=== PATIENT | female | born 1990 | race Caucasian/White ===

== ENCOUNTER 2017-01-28 18:40 | Emergency (ER) | payer OTHER ==
[~2017-01-28] VITALS: Ht 160 cm; Wt 54.6 kg
[2017-01-28 18:41] VITALS: BP 149/84
== END 2017-01-28 20:10 | disposition left against medical advice (07) ==
LOC: M ED 20:03
DX: R21 Rash and other nonspecific skin eruption (principal); Z53.21 Procedure and treatment not carried out due to patient leaving prior to being seen by health care provider

== ENCOUNTER 2017-02-22 14:20 | Emergency (ER) | payer OTHER ==
[~2017-02-22] VITALS: Ht 160 cm; Wt 52.1 kg
[2017-02-22] MEDS ORDERED: NS 1,000 ML IV ONE (15:15)
[2017-02-22 16:18] LABS: CONTROL LINE HCG INT CTR LINE PRESENT
[2017-02-22 16:24] LABS: BASO % 1.4 % (0.0-1.0); EOS # 0.1 K/mm3 (0.0-0.50); EOS % 1.9 % (0.0-3.0); LARGE UNSTAINED CELL # 0.2 K/mm3 (0.0-0.4); LARGE UNSTAINED CELL % 6.2 % (0.0-4.0); LYMPH # 1.4 K/mm3 (1.5-6.5); LYMPH % 41.8 % (24.0-44.0); MEAN CORPUSCULAR HEMOGLOBIN 30.4 pg (27.0-33.0); MEAN CORPUSCULAR HGB CONC 35.1 g/dl (32.0-36.5); MEAN CORPUSCULAR VOLUME 86.7 fl (80.0-96.0); MONO # 0.3 K/mm3 (0.0-0.8); MONO % 9.2 % (0.0-5.0); NEUTROPHILS # 1.2 K/mm3 (1.8-7.7); NEUTROPHILS % 39.6 % (36.0-66.0); PLATELET COUNT, AUTOMATED 279 k/mm3 (150-450); RED CELL DISTRIBUTION WIDTH 13.5 % (11.5-14.5)
[2017-02-22 16:34] LABS: ALBUMIN/GLOBULIN RATIO 0.98 (1.00-1.93); ALKALINE PHOSPHATASE 85 U/L (45-117); ALT/SGPT 59 U/L (12-78); ANION GAP 8 MEQ/L (8-16); AST/SGOT 41 U/L (15-37); BILIRUBIN,DIRECT < 0.1 MG/DL (0.0-0.2); BILIRUBIN,TOTAL 0.4 MG/DL (0.2-1.0); BLOOD UREA NITROGEN 6 MG/DL (7-18); CALCIUM LEVEL 9.2 MG/DL (8.5-10.1); CARBON DIOXIDE LEVEL 27 MEQ/L (21-32); CHLORIDE LEVEL 104 MEQ/L (98-107); CREATININE FOR GFR 0.68 MG/DL (0.55-1.02); GLOMERULAR FILTRATION RATE > 60.0 (>60); GLUCOSE, FASTING 105 MG/DL (70-105); POTASSIUM SERUM 4.1 MEQ/L (3.5-5.1); SODIUM LEVEL 139 MEQ/L (136-145); TOTAL PROTEIN 8.1 GM/DL (6.4-8.2)
[2017-02-22 16:51] LABS: METHADONE URINE NEGATIVE (NEGATIVE)
--- NOTE | 2017-02-22 17:26 | REP ---
Clinical: Acute cough . Comparison: None . Technique: PA and lateral. Findings: The mediastinum and cardiac silhouette are normal. The lung sgeal are clear and without acute consolidation, effusion, or pneumothorax. The skeletal structures are intact and normal. Impression: 1. No acute cardiopulmonary process. Signed by William Harris MD 02/22/2017 05:17 P
[2017-02-22 18:15] VITALS: BP 127/59
== END 2017-02-22 18:17 | disposition home or self-care (01) ==
LOC: M ED 14:20
DX: F11.20 Opioid dependence, uncomplicated (principal); F17.210 Nicotine dependence, cigarettes, uncomplicated

== ENCOUNTER 2017-11-03 23:27 | Emergency (ER) | payer OTHER ==
[2017-11-04 00:35] LABS: AMPHETAMINES LEVEL URINE NEGATIVE (NEGATIVE); BARBITURATES URINE NEGATIVE (NEGATIVE); BENZODIAZEPINES URINE NEGATIVE (NEGATIVE); CANNABINOIDS URINE POSITIVE (NEGATIVE); COCAINE METABOLITE URINE NEGATIVE (NEGATIVE); METHADONE URINE NEGATIVE (NEGATIVE); OPIATES URINE NEGATIVE (NEGATIVE); PHENCYCLIDINE URINE NEGATIVE (NEGATIVE)
[2017-11-04 00:42] LABS: HEMATOCRIT 40.5 % (36.0-47.0); HEMOGLOBIN 13.7 g/dl (12.0-16.0); MEAN CORPUSCULAR HEMOGLOBIN 29.6 pg (27.0-33.0); MEAN CORPUSCULAR HGB CONC 33.8 g/dl (32.0-36.5); MEAN CORPUSCULAR VOLUME 87.5 fl (80.0-96.0); PLATELET COUNT, AUTOMATED 280 10^3/uL (150-450); RED BLOOD COUNT 4.63 10^6/uL (4.00-5.40); RED CELL DISTRIBUTION WIDTH 13.9 % (11.5-14.5)
[2017-11-04 00:54] LABS: CONTROL LINE HCG INT CTR LINE PRESENT; HCG, SERUM QUALITATIVE NEGATIVE (NEGATIVE)
[2017-11-04 01:09] LABS: ACETAMINOPHEN LEVEL < 2.0 UG/ML (10.0-30.0); ALBUMIN/GLOBULIN RATIO 0.91 (1.00-1.93); ALKALINE PHOSPHATASE 90 U/L (45-117); ALT/SGPT 319 U/L (12-78); ANION GAP 10 MEQ/L (8-16); AST/SGOT 99 U/L (7-37); BILIRUBIN,DIRECT 0.1 MG/DL (0.0-0.2); BILIRUBIN,TOTAL 0.3 MG/DL (0.2-1.0); BLOOD UREA NITROGEN 8 MG/DL (7-18); CALCIUM LEVEL 8.8 MG/DL (8.5-10.1); CARBON DIOXIDE LEVEL 26 MEQ/L (21-32); CHLORIDE LEVEL 107 MEQ/L (98-107); ETHYL ALCOHOL (ETHANOL) 0.172 % (0.000-0.010); GLOMERULAR FILTRATION RATE > 60.0 (>60); GLUCOSE, FASTING 82 MG/DL (70-100); POTASSIUM SERUM 3.4 MEQ/L (3.5-5.1); SALICYLATE LEVEL < 1.7 MG/DL (5.0-30.0); SODIUM LEVEL 143 MEQ/L (136-145); TOTAL PROTEIN 8.4 GM/DL (6.4-8.2)
== END 2017-11-04 05:20 | disposition home or self-care (01) ==
LOC: M ED 23:27
DX: F10.129 Alcohol abuse with intoxication, unspecified (principal); F32.9 Major depressive disorder, single episode, unspecified; F17.200 Nicotine dependence, unspecified, uncomplicated; Z88.0 Allergy status to penicillin; Z88.2 Allergy status to sulfonamides
CPT/HCPCS: 80320

== ENCOUNTER 2017-12-08 04:03 | Inpatient (IN) | payer MEDICAID, SELFPAY, OTHER ==
[2017-12-08 05:24] LABS: HEMATOCRIT 38.3 % (36.0-47.0); HEMOGLOBIN 12.8 g/dl (12.0-15.5); MEAN CORPUSCULAR HEMOGLOBIN 29.5 pg (27.0-33.0); MEAN CORPUSCULAR HGB CONC 33.4 g/dl (32.0-36.5); MEAN CORPUSCULAR VOLUME 88.2 fl (80.0-96.0); PLATELET COUNT, AUTOMATED 269 10^3/uL (150-450); RED BLOOD COUNT 4.34 10^6/uL (4.00-5.40); RED CELL DISTRIBUTION WIDTH 13.4 % (11.5-14.5); WHITE BLOOD COUNT 3.1 10^3/uL (4.0-10.0)
[2017-12-08 05:41] LABS: CONTROL LINE HCG INT CTR LINE PRESENT; HCG, SERUM QUALITATIVE NEGATIVE (NEGATIVE)
[2017-12-08 05:48] LABS: AMPHETAMINES LEVEL URINE NEGATIVE (NEGATIVE); BARBITURATES URINE NEGATIVE (NEGATIVE); BENZODIAZEPINES URINE POSITIVE (NEGATIVE); CANNABINOIDS URINE POSITIVE (NEGATIVE); COCAINE METABOLITE URINE NEGATIVE (NEGATIVE); METHADONE URINE NEGATIVE (NEGATIVE); OPIATES URINE NEGATIVE (NEGATIVE); PHENCYCLIDINE URINE NEGATIVE (NEGATIVE)
[2017-12-08 05:58] LABS: ACETAMINOPHEN LEVEL < 2.0 UG/ML (10.0-30.0); ALBUMIN 3.4 GM/DL (3.2-5.2); ALBUMIN/GLOBULIN RATIO 0.94 (1.00-1.93); ALKALINE PHOSPHATASE 61 U/L (45-117); ALT/SGPT 64 U/L (12-78); ANION GAP 6 MEQ/L (8-16); AST/SGOT 36 U/L (7-37); BILIRUBIN,DIRECT < 0.1 MG/DL (0.0-0.2); BILIRUBIN,TOTAL 0.2 MG/DL (0.2-1.0); BLOOD UREA NITROGEN 8 MG/DL (7-18); CALCIUM LEVEL 8.3 MG/DL (8.5-10.1); CARBON DIOXIDE LEVEL 26 MEQ/L (21-32); CHLORIDE LEVEL 111 MEQ/L (98-107); CREATININE FOR GFR 0.57 MG/DL (0.55-1.30); ETHYL ALCOHOL (ETHANOL) < 0.003 % (0.000-0.010); GLOMERULAR FILTRATION RATE > 60.0 (>60); GLUCOSE, FASTING 99 MG/DL (70-100); SALICYLATE LEVEL 1.7 MG/DL (5.0-30.0); SODIUM LEVEL 143 MEQ/L (136-145); THYROID STIMULATING HORMONE 0.226 uIU/ML (0.358-3.740)
[2017-12-08] MEDS ORDERED: MOM 30ML SUSPENSION UDC PO (09:45)
[2017-12-08] MEDS ORDERED: ACETAMINOPHEN TAB 650MG DOSE (2X325MG) PO (09:45)
[2017-12-08] MEDS ORDERED: MAALOX 30 ML SUSP *UDC PO (09:45)
[2017-12-08] MEDS: METHADONE 10 MG TAB (S0109) PO (15:17)
[2017-12-09 07:46] LABS: FREE THYROXINE INDEX 2.7 % (1.3-4.8); T UPTAKE 32 % (30-39); THYROID STIMULATING HORMONE 0.602 uIU/ML (0.358-3.740); THYROXINE (T4) 8.5 UG/DL (4.5-12.0)
[2017-12-09] MEDS: METHADONE 10 MG TAB (S0109) PO (16:50)
[2017-12-09] MEDS: EUCERIN 120GM CREAM EXT (18:53)
[2017-12-10] MEDS: METHADONE 10 MG TAB (S0109) PO (10:40)
[2017-12-10 11:23] LABS: TOTAL 25(OH) VITAMIN D 20.1 NG/ML (30.0-100.0)
[2017-12-10 11:51] LABS: HEPATITIS B SURFACE ANTIGEN NEGATIVE (NEGATIVE)
[2017-12-10 12:17] LABS: HEPATITIS B CORE ANTIBODY IGM NEGATIVE (NEGATIVE)
[2017-12-10 12:20] LABS: HEPATITIS A ANTIBODY IGM NEGATIVE (NEGATIVE)
[2017-12-10 12:44] LABS: HEPATITIS C VIRUS ABY INDEX > 11.0 INDEX (<0.8)
[2017-12-10] MEDS ORDERED: IBUPROFEN 600 MG TAB PO (14:15)
[2017-12-10] MEDS: MULTIVITAMINS/MINERALS THERAP 1 TAB PO (14:48)
[2017-12-10] MEDS: PILL CRUSHER/CUTTER 1 EACH XX (14:55)
[2017-12-10] MEDS: VITAMIN D 1,000 INTERNATIONAL UNITS TABLET PO (14:55)
[2017-12-10] MEDS: traZODone 50 MG TAB PO (20:57)
[2017-12-11] MEDS: MULTIVITAMINS/MINERALS THERAP 1 TAB PO (09:30)
[2017-12-11] MEDS: VITAMIN D 1,000 INTERNATIONAL UNITS TABLET PO (09:31)
[2017-12-13 14:19] LABS: HCV RNA NAA QUALITATIVE Positive (Negative)
[2017-12-14 00:06] LABS: ALPHA 2-MACROGLOBULIN 224 mg/dL (110-276); ALT 97 IU/L (0-40); APOLIPOPROTEIN A-1 156 mg/dL (116-209); FIBROSIS SCORE 0.05 (0.00-0.21); GGT 13 IU/L (0-60); HAPTOGLOBIN 103 mg/dL (34-200); HEPATITIS C QUANTITATION 177130 IU/mL (.); HEPATITIS C VIRUS GENOTYPE 1b (.); NECROINFLAM SCORE 0.46 (0.00-0.17); NECROINFLAMM GRADE A1-A2 (.); TOTAL BILIRUBIN 0.2 mg/dL (0.0-1.2)
== END 2017-12-11 12:45 | disposition home or self-care (01) | DRG 751 ==
LOC: M ED 04:03 → M ED INP 09:39 → M PSY 11:55
DX: F33.3 Major depressive disorder, recurrent, severe with psychotic symptoms (principal); F43.10 Post-traumatic stress disorder, unspecified; F17.210 Nicotine dependence, cigarettes, uncomplicated; F10.10 Alcohol abuse, uncomplicated; F11.14 Opioid abuse with opioid-induced mood disorder; Z88.0 Allergy status to penicillin; Z88.2 Allergy status to sulfonamides

== ENCOUNTER → 2018-10-03 | Outpatient (REF) | payer OTHER ==
[~2018-10-03] MED LIST: ARIP5TA PO
[2018-10-03 12:26] LABS: ALT/SGPT 24 U/L (12-78); BILIRUBIN,DIRECT 0.1 MG/DL (0.0-0.2); BILIRUBIN,TOTAL 0.4 MG/DL (0.2-1.0); TOTAL PROTEIN 7.3 GM/DL (6.4-8.2)
[2018-10-04 13:06] LABS: HEPATITIS B SURFACE ANTIBODY POSITIVE (POSITIVE)
[2018-10-04 13:17] LABS: HEPATITIS B SURFACE ANTIGEN NEGATIVE (NEGATIVE)
[2018-10-04 13:45] LABS: HIV 1&2 SCREEN CENTAUR NEGATIVE (NEGATIVE)
[2018-10-06 16:35] LABS: HEPATITIS A IgG TOTAL Negative (Negative); HEPATITIS B CORE ANTIBODY IGG Negative (Negative); HEPATITIS C VIRUS GENOTYPE 1b (.)
== END ==
LOC: M SFHCPLAZ 10:10
PROVIDERS: ATTEND Internal Medicine Infectious Disease
DX: B18.2 Chronic viral hepatitis C (principal)

== ENCOUNTER → 2018-11-21 | Outpatient (REF) | payer OTHER ==
[2018-11-21 17:01] LABS: ALT/SGPT 148 U/L (12-78); BILIRUBIN,DIRECT < 0.1 MG/DL (0.0-0.2); BILIRUBIN,TOTAL 0.3 MG/DL (0.2-1.0); TOTAL PROTEIN 8.6 GM/DL (6.4-8.2)
[2018-11-26 12:37] LABS: HEPATITIS C QUANTITATION 8020 IU/mL (.)
== END ==
LOC: M SFHCPLAZ 14:03
PROVIDERS: ATTEND Internal Medicine Infectious Disease
DX: B18.2 Chronic viral hepatitis C (principal)

== ENCOUNTER → 2019-03-06 | Outpatient (REF) | payer OTHER ==
[~2019-03-06] MED LIST changes: +ARIP1TAB6 PO; -ARIP5TA PO
[2019-03-06 13:03] LABS: ALBUMIN 3.8 GM/DL (3.2-5.2); ALT/SGPT 14 U/L (12-78); BILIRUBIN,DIRECT < 0.1 MG/DL (0.0-0.2); BILIRUBIN,TOTAL 0.2 MG/DL (0.2-1.0); TOTAL PROTEIN 7.7 GM/DL (6.4-8.2)
== END ==
LOC: M SFHCPLAZ 10:44
PROVIDERS: ATTEND Internal Medicine Infectious Disease
DX: B18.2 Chronic viral hepatitis C (principal)

== ENCOUNTER 2020-04-20 13:12 | Emergency (ER) | payer OTHER ==
[~2020-04-20] VITALS: Ht 160 cm; Wt 49.6 kg
[2020-04-20] MEDS ORDERED: NALOXONE 2MG/2ML SYRINGE (J2310 PER 1MG) As Ordered ONE (13:18)
[2020-04-20] MEDS ORDERED: ONDANSETRON 4MG/2ML VIAL IV ONE (13:45)
--- NOTE | 2020-04-20 13:45 | REPVR ---
PROCEDURE INFORMATION: Exam: XR Chest, 1 View Exam date and time: 04/20/2020 1:40 PM Age: 29 years old Clinical indication: Dyspnea and other: Overdose; Additional info: Dyspnea/cough TECHNIQUE: Imaging protocol: XR of the chest Views: 1 view. COMPARISON: CR RIBS-BILAT W-O PA CHEST 12/10/2017 10:29 AM FINDINGS: Lungs: Unremarkable. No consolidation. Pleural space: Unremarkable. No pleural effusion. No pneumothorax. Heart/Mediastinum: The cardiomediastinal silhouette is fairly stable in appearance, allowing for differences in technique. Bones/joints: Unremarkable. IMPRESSION: No evidence for acute pulmonary disease. Electronically signed by: Rod Swenson On 04/20/2020 13:46:17 PM
[2020-04-20 13:58] LABS: BASO # 0.1 10^3/uL (0.0-0.2); BASO % 1.5 % (0.0-1.0); EOS # 0.2 10^3/uL (0.0-0.5); EOS % 2.5 % (0.0-3.0); HEMATOCRIT 42.5 % (36.0-47.0); HEMOGLOBIN 14.5 g/dl (12.0-15.5); LYMPH # 3.5 10^3/uL (1.5-5.0); LYMPH % 57.8 % (24.0-44.0); MEAN CORPUSCULAR HEMOGLOBIN 29.8 pg (27.0-33.0); MEAN CORPUSCULAR HGB CONC 34.1 g/dl (32.0-36.5); MEAN CORPUSCULAR VOLUME 87.3 fl (80.0-96.0); MONO % 16.6 % (0.0-5.0); NEUTROPHILS # 1.3 10^3/uL (1.5-8.5); NEUTROPHILS % 21.4 % (36.0-66.0); PLATELET COUNT, AUTOMATED 467 10^3/uL (150-450); RED BLOOD COUNT 4.87 10^6/uL (4.00-5.40); WHITE BLOOD COUNT 6.1 10^3/uL (4.0-10.0)
[2020-04-20 14:19] LABS: ACETAMINOPHEN LEVEL < 2.0 UG/ML (10.0-30.0); ALT/SGPT 131 U/L (12-78); BILIRUBIN,DIRECT 0.4 MG/DL (0.0-0.2); BILIRUBIN,TOTAL 0.7 MG/DL (0.2-1.0); BLOOD UREA NITROGEN 9 MG/DL (7-18); CALCIUM LEVEL 9.4 MG/DL (8.5-10.1); CARBON DIOXIDE LEVEL 32 MEQ/L (21-32); CHLORIDE LEVEL 103 MEQ/L (98-107); CK-MB VALUE MASS < 1.0 NG/ML (<3.6); CPK CREATINE PHOSPHOKINASE 54 U/L (26-192); CREATININE FOR GFR 0.77 MG/DL (0.55-1.30); ETHYL ALCOHOL (ETHANOL) < 0.003 % (0.000-0.010); GLOMERULAR FILTRATION RATE > 60.0 (>60); GLUCOSE, FASTING 154 MG/DL (70-100); MB/CK RELATIVE INDEX 1.85 (< OR =4); NT-PRO BNP 46 PG/ML (<125); POTASSIUM SERUM 3.4 MEQ/L (3.5-5.1); SALICYLATE LEVEL < 1.7 MG/DL (5.0-30.0); SODIUM LEVEL 139 MEQ/L (136-145); THYROXINE (T4) 12.6 UG/DL (4.5-12.0); TOTAL PROTEIN 8.6 GM/DL (6.4-8.2); TROPONIN I < 0.02 NG/ML (< 0.10)
[2020-04-20 17:03] VITALS: BP 129/82
[2020-04-20] MEDS ORDERED: NALOXONE INJ 0.4MG/1ML VIAL (J2310 PER 1MG) IV STA (17:07)
--- NOTE | 2020-05-10 14:49 | ECGEPIP ---
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
== END 2020-04-20 17:05 | disposition home or self-care (01) ==
LOC: M ED 13:12
DX: T40.1X1A Poisoning by heroin, accidental (unintentional), initial encounter (principal); X58.XXXA Exposure to other specified factors, initial encounter; Y92.89 Other specified places as the place of occurrence of the external cause; F33.9 Major depressive disorder, recurrent, unspecified; F41.9 Anxiety disorder, unspecified; F20.9 Schizophrenia, unspecified; Z88.0 Allergy status to penicillin; Z88.1 Allergy status to other antibiotic agents; Z88.2 Allergy status to sulfonamides
CPT/HCPCS: 36415; 36600; 71045; 80048; 80076; 82550; 82553; 83880; 84436; 84443; 85025; 87486; 87581; 87633; 87798; 93005; 93041; 94760; 96374; 96375; 99291; G0480; J2310; J2405

== ENCOUNTER 2020-05-07 16:21 | Emergency (ER) | payer OTHER ==
[~2020-05-07] VITALS: Ht 160 cm; Wt 54.5 kg
[2020-05-07 16:44] LABS: BASO # 0.1 10^3/uL (0.0-0.2); BASO % 1.9 % (0.0-1.0); EOS # 0.1 10^3/uL (0.0-0.5); EOS % 2.1 % (0.0-3.0); HEMATOCRIT 39.6 % (36.0-47.0); HEMOGLOBIN 13.8 g/dl (12.0-15.5); LYMPH # 1.9 10^3/uL (1.5-5.0); LYMPH % 51.1 % (24.0-44.0); MEAN CORPUSCULAR HEMOGLOBIN 29.7 pg (27.0-33.0); MEAN CORPUSCULAR HGB CONC 34.8 g/dl (32.0-36.5); MEAN CORPUSCULAR VOLUME 85.3 fl (80.0-96.0); MONO # 0.4 10^3/uL (0.0-0.8); MONO % 11.6 % (0.0-5.0); NEUTROPHILS # 1.3 10^3/uL (1.5-8.5); NEUTROPHILS % 33.3 % (36.0-66.0); PLATELET COUNT, AUTOMATED 282 10^3/uL (150-450); RED BLOOD COUNT 4.64 10^6/uL (4.00-5.40); WHITE BLOOD COUNT 3.8 10^3/uL (4.0-10.0)
[2020-05-07] MEDS ORDERED: NS 1,000 ML IV ONE (16:45)
[2020-05-07] MEDS ORDERED: ONDANSETRON 4MG/2ML VIAL As Ordered ONE (16:52)
[2020-05-07] MEDS ORDERED: ONDANSETRON 4MG/2ML VIAL IV ONE (17:00)
[2020-05-07 17:57] LABS: BLOOD UREA NITROGEN 8 MG/DL (7-18); CHLORIDE LEVEL 102 MEQ/L (98-107); CREATININE FOR GFR 0.67 MG/DL (0.55-1.30); GLOMERULAR FILTRATION RATE > 60.0 (>60); GLUCOSE, FASTING 84 MG/DL (70-100); POTASSIUM SERUM 3.6 MEQ/L (3.5-5.1); SODIUM LEVEL 139 MEQ/L (136-145)
[2020-05-07 17:58] LABS: ALT/SGPT 41 IU/L (0-32); BILIRUBIN,DIRECT 0.2 MG/DL (0.0-0.2); BILIRUBIN,TOTAL 0.5 MG/DL (0.2-1.0); CALCIUM LEVEL 9.2 MG/DL (8.5-10.1); CARBON DIOXIDE LEVEL 31 mmol/L (20-29); CPK CREATINE PHOSPHOKINASE 55 U/L (26-192); TOTAL PROTEIN 8.4 GM/DL (6.4-8.2)
[2020-05-07 17:59] LABS: ACETAMINOPHEN LEVEL < 2.0 UG/ML (10.0-30.0); ALBUMIN 4.1 GM/DL (3.2-5.2); ETHYL ALCOHOL (ETHANOL) < 0.003 % (0.000-0.010); SALICYLATE LEVEL < 1.7 MG/DL (5.0-30.0)
[2020-05-07 19:07] VITALS: BP 135/78
[2020-05-07 19:13] LABS: AMPHETAMINES LEVEL URINE POSITIVE (NEGATIVE); BARBITURATES URINE NEGATIVE (NEGATIVE); BENZODIAZEPINES URINE NEGATIVE (NEGATIVE); CANNABINOIDS URINE POSITIVE (NEGATIVE); COCAINE METABOLITE URINE POSITIVE (NEGATIVE); METHADONE URINE NEGATIVE (NEGATIVE); OPIATES URINE POSITIVE (NEGATIVE); PHENCYCLIDINE URINE NEGATIVE (NEGATIVE)
[2020-05-07 19:18] LABS: HCG, SERUM QUALITATIVE NEGATIVE (NEGATIVE)
--- NOTE | 2020-05-14 11:09 | ECGEPIP ---
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
== END 2020-05-07 19:09 | disposition home or self-care (01) ==
LOC: M ED 16:21
DX: F19.10 Other psychoactive substance abuse, uncomplicated (principal); F41.9 Anxiety disorder, unspecified; B19.20 Unspecified viral hepatitis C without hepatic coma; F17.200 Nicotine dependence, unspecified, uncomplicated; Z88.0 Allergy status to penicillin; Z88.2 Allergy status to sulfonamides; Z88.1 Allergy status to other antibiotic agents
CPT/HCPCS: 36415; 80048; 80076; 80307; 82550; 84443; 84703; 85025; 93005; 93041; 94760; 96374; 99284; G0480; J2405

== ENCOUNTER 2020-05-18 14:04 | Inpatient (IN) | payer MEDICAID, OTHER ==
[~2020-05-18] VITALS: Ht 160 cm; Wt 52.3 kg
[2020-05-18 14:46] LABS: HEMOGLOBIN 13.8 g/dl (12.0-15.5); MEAN CORPUSCULAR HEMOGLOBIN 29.6 pg (27.0-33.0); MEAN CORPUSCULAR HGB CONC 34.5 g/dl (32.0-36.5); MEAN CORPUSCULAR VOLUME 85.8 fl (80.0-96.0); PLATELET COUNT, AUTOMATED 269 10^3/uL (150-450); RED BLOOD COUNT 4.66 10^6/uL (4.00-5.40); WHITE BLOOD COUNT 3.2 10^3/uL (4.0-10.0)
[2020-05-18 15:18] LABS: HCG, SERUM QUALITATIVE NEGATIVE (NEGATIVE)
[2020-05-18 15:47] LABS: ACETAMINOPHEN LEVEL < 2.0 UG/ML (10.0-30.0); ALBUMIN 3.9 GM/DL (3.2-5.2); ALT/SGPT 27 U/L (12-78); BILIRUBIN,DIRECT 0.2 MG/DL (0.0-0.2); BILIRUBIN,TOTAL 0.5 MG/DL (0.2-1.0); BLOOD UREA NITROGEN 10 MG/DL (7-18); CALCIUM LEVEL 9.3 MG/DL (8.5-10.1); CARBON DIOXIDE LEVEL 30 MEQ/L (21-32); CHLORIDE LEVEL 104 MEQ/L (98-107); CPK CREATINE PHOSPHOKINASE 47 U/L (26-192); CREATININE FOR GFR 0.47 MG/DL (0.55-1.30); ETHYL ALCOHOL (ETHANOL) < 0.003 % (0.000-0.010); GLOMERULAR FILTRATION RATE > 60.0 (>60); GLUCOSE, FASTING 102 MG/DL (70-100); POTASSIUM SERUM 3.5 MEQ/L (3.5-5.1); SODIUM LEVEL 139 MEQ/L (136-145); THYROID STIMULATING HORMONE 0.837 uIU/ML (0.358-3.740); TOTAL PROTEIN 7.7 GM/DL (6.4-8.2)
[2020-05-18 20:20] LABS: AMPHETAMINES LEVEL URINE POSITIVE (NEGATIVE); BARBITURATES URINE NEGATIVE (NEGATIVE); BENZODIAZEPINES URINE NEGATIVE (NEGATIVE); CANNABINOIDS URINE POSITIVE (NEGATIVE); COCAINE METABOLITE URINE NEGATIVE (NEGATIVE); METHADONE URINE NEGATIVE (NEGATIVE); OPIATES URINE POSITIVE (NEGATIVE); PHENCYCLIDINE URINE NEGATIVE (NEGATIVE)
[2020-05-18] MEDS ORDERED: traZODone 50 MG TAB PO PRN (21:45)
[2020-05-18] MEDS ORDERED: MAALOX 30 ML SUSP *UDC PO PRN (21:45)
[2020-05-18] MEDS ORDERED: LORazepam 1 MG TAB PO PRN (21:45)
[2020-05-18] MEDS ORDERED: MOM 30ML SUSPENSION UDC PO PRN (21:45)
[2020-05-19 01:25] VITALS: BP_SYST 109
[2020-05-19 06:59] VITALS: BP 97/55
--- NOTE | 2020-05-19 09:58 | MHHPEPDOC ---
[facility] History & Physical History and Physical DATE OF ADMISSION: May 18, 2020 at 21:37 Subjective HPI: Ida presents today for concerns regarding her psych issues. The patient was admitted to the inpatient mental health unit after she had been found with mul tiple bags of heroin in her car. She reports that she had the wire wrapper machine operator called on her by her mother who was concerned about her safety after shed come to visit her daughterShe reports relapsing and using substances for a number of years and began to feel crazy. She reported that this got worse, and she subsequently was brought into the ER where she was non-cooperative. Last admission was several years ago. Doesnt have any history of overt suicide attempts. Shes connected to no current social problems specialist and describes herself as quite hopeless and miserable. She denies any voices talking to her or other psychotic symptoms. She reports using methamphetamines as well. MEDICAL HISTORY: Appears to have a mental health history of depression in the context of substance use. FAMILY HISTORY: Family history is unknown. SOCIAL HISTORY - OCCUPATION: Shes unemployed with no income, using heroin and currently staying in her car. SOCIAL HISTORY - LIVING SITUATION: Patient reports that she is currently homeless. Objective Appearance: Fair hygiene. Appears to be stated age. Mood: Dysphoric, tearful, crying to the point where its difficult ascertain her current mental status as she is. Judgement: Poor. Insight: Poor. Assessment F33.8 Other recurrent depressive disorders F11.20 Opioid dependence, uncomplicated F15.20 Other stimulant dependence, uncomplicated Plan She on the unit has been quite snide and irritable saying that shes detoxing from heroin. The interview is hard to undertake as the patient spends the majority of the interview crying. Quite dysthemic and dysphoric. Information is extracted from the chart. Patient will be given Suboxone 8 mg daily with a dose now to treat her withdrawals as I have a strong suspicion this is a primary provoking problem for her presentation. Convert to voluntary as the patient wants to stay to help her detox and try to get a better sense of how to cope with her various stressors. Patient reports no current suicidal thoughts. Treatment priorities are one risk for suicide to substance use. Stay for 1-3 days. Potential discharge on Sunday if she improves. Vital Signs Vital Signs Date Time Temp Pulse Resp B/P (MAP) Pulse Ox O2 Delivery O2 Flow Rate FiO2 05/19/20 06:59 98.0 71 97/55 (69) 100 Room Air 05/19/20 01:25 18 Laboratory Data 24H Labs Laboratory Tests 2 05/18/20 14:35: Nucleated Red Blood Cells % (auto) 0.0, Anion Gap 5L, Glomerular Filtration Rate > 60.0, Calcium Level 9.3, Total Bilirubin 0.5, Direct Bilirubin 0.2, Aspartate Amino Transf (AST/SGOT) 16, Alanine Aminotransferase (ALT/SGPT) 27, Alkaline Phosphatase 72, Total Creatine Kinase 47, Total Protein 7.7, Albumin 3.9, Alb umin/Globulin Ratio 1.0L, Thyroid Stimulating Hormone (TSH) 0.837, Human Chorionic Gonadotropin, Qual NEGATIVE, Salicylates Level 2.0L, Acetaminophen Level < 2.0L, Ethyl Alcohol Level < 0.003 05/18/20 19:46: Urine Opiates Screen POSITIVEH, Urine Methadone Screen NEGATIVE, Urine Barbiturates Screen NEGATIVE, Urine Phencyclidine Screen NEGATIVE, Urine Amphetamines Screen POSITIVEH, Urine Benzodiazepines Screen NEGATIVE, Urine Cocaine Metabolite Screen NEGATIVE, Urine Cannabinoids Screen POSITIVEH CBC/BMP Laboratory Tests 05/18/20 14:35 Medications No Active Prescriptions or Reported Meds Allergies Coded Allergies: Penicillins (Verified Allergy, Unknown, 04/20/20) Sulfa (Sulfonamide Antibiotics) (Verified Allergy, Unknown, 04/20/20) JUDAH ULLOA DO May 19, 2020 09:58
[2020-05-19] MEDS ORDERED: BUPRENORPHINE/NALOXONE 8-2MG SUBLINGUAL TABLET(SUBOXONE) SL ONE (11:00)
[2020-05-19 15:34] VITALS: BP 133/85
--- NOTE | 2020-05-19 18:59 | HPEPDOC ---
[facility] Medical History & Physical Date of Admission May 18, 2020 Date of Service: May 19, 2020 History and Physical CHIEF COMPLAINT: Intoxication HISTORY OF PRESENT ILLNESS: Patient is a 29-year-old female with polysubstance abuse, IV drug abuse and schizoaffective illness, who is in the inpatient mental health unit after being found in a ditch doing heroin. She is seen this afternoon. Currently she is feeling well. Denied any fever, chills, lightheadedness, dizziness, chest pain, abdominal pain, dysuria or diarrhea. She doesn't have any arm pain, but on physical exam, there are track cullen on her arm where she injected IV drugs area. Did not hear any murmur on cardiac exam. No splinter hemorrhages. No petechia noted on the hands. Lesion on the right arm looked like folliculitis. The other lesion which is erythematous. She does not exhibit any signs of systemic infectious disease. Other than that, she had no other complaints. PAST MEDICAL HISTORY: 1. Asthma. 2. Polysubstance abuse. 3. IV drug abuse 4. Schizoaffective disease PAST SURGICAL HISTORY: 1. LEEP. SOCIAL HISTORY: She is a current smoker, smoked for 10 years 1 pack per day. Denies alcohol. Reports using IV drugs. Reports using marijuana meth and heroin FAMILY HISTORY: Father: at the age of 37. of erotic asphyxiation Mother: Alive. Patient reports she has a bad heart ALLERGIES: Please see below. REVIEW OF SYSTEMS: CONSTITUTIONAL: Denies any fever or chills. Denies lightheadedness or dizziness. ENT: Denies rhinorrhea. Denies sore throat. Denies dysphagia. RESPIRATORY: Denies shortness of breath. Denies cough. CARDIOVASCULAR: Denies chest pain. Denies palpitations. GASTROINTESTINAL: Denies abdominal pain. Denies diarrhea. Denies constipation GENITOURINARY: Denies dysuria. CUTANEOUS: Reports using IV drugs in her arms bilaterally. She has lesions on the left and right arm. MUSCULOSKELETAL: Denies muscle weakness. NEUROLOGICAL: Denies neuropathy. Denies paresthesias. ENDOCRINE: Reports polydipsia HOME MEDICATIONS: Please see below. PHYSICAL EXAMINATION: VITAL SIGNS: Temperature 96.9, pulse 71, respiratory rate 16, blood pressure 133/85, pulse oximetry 100 % on room air. GENERAL: Comfortable, in no apparent distress. HEENT: Head normocephalic/atraumatic, EOMI, sclera clear. NECK: Supple, no JVD. RESPIRATORY: Lungs clear to auscultation bilaterally, no rales, wheeze or rhonchi. CARDIOVASCULAR: Regular rate and rhythm. No murmur auscultated ABDOMEN: Soft, nontender, no guarding or rebound tenderness. Normal bowel sounds. MUSCLE SKELETAL: Muscle strength 5/5 in all extremities. CUTANEOUS: No splitter hemorrhages. No Osler nodes. Both arms have track cullen. Right upper arm has a follicular lesion NEUROLOGICAL: CN 312 grossly intact, no focal deficits noted. PSYCHOLOGICAL: Normal mood and affect LABORATORY DATA: See below. ASSESSMENT: Patient is a 29-year-old female history of IV drug abuse who was found by the police intoxicated and a ditch. She is currently being watched in the inpatient mental health unit. She had used IV heroin. She has track cullen on both arms that are erythematous. They are mildly tender. Not swollen. She doesn't show any systemic signs of infection. There is no signs for endocarditis. For the folliculitis on the right arm we'll start her on doxycycline. . PLAN: 1. Polysubstance abuse and IV drug abuse Continue to be monitored in the inpatient mental health unit Has track cullen on arms bilaterally, does not appear to be infected. No signs of systemic infectious disease. No fever, no leukocytosis. 2. Right arm folliculitis We'll give a weeks worth of doxycycline 3. Asthma Appears stable, she's not in any exacerbation. Continue to monitor 4. Sleep difficulties On trazodone as needed. Thank you for consulting us. We'll sign off at this time. If there is any further questions or concerns, do not hesitate to contact us. . Vital Signs Vital Signs Date Time Temp Pulse Resp B/P (MAP) Pulse Ox O2 Delivery O2 Flow Rate FiO2 05/19/20 15:34 96.9 71 16 133/85 (101) 05/19/20 06:59 100 Room Air Laboratory Data Labs 24H Laboratory Tests 2 05/18/20 19:46: Urine Opiates Screen POSITIVEH, Urine Methadone Screen NEGATIVE, Urine Barbiturates Screen NEGATIVE, Urine Phencyclidine Screen NEGATIVE, Urine Amphetamines Screen POSITIVEH, Urine Benzodiazepines Screen NEGATIVE, Urine Cocaine Metabolite Screen NEGATIVE, Urine Cannabinoids Screen POSITIVEH Home Medications No Active Prescriptions or Reported Meds Allergies Coded Allergies: Penicillins (Verified Allergy, Unknown, 04/20/20) Sulfa (Sulfonamide Antibiotics) (Verified Allergy, Unknown, 04/20/20) A-FIB/CHADSVASC A-FIB History Current/History of A-Fib/PAF?: No SAMI BOLANOS DO May 19, 2020 17:48
[2020-05-19] MEDS: DOXYCYCLINE HYCLATE 100MG TABLET PO SCH (21:29)
[2020-05-20 06:33] VITALS: BP 102/56
[2020-05-20] MEDS: DOXYCYCLINE HYCLATE 100MG TABLET PO SCH ×2 (09:36→21:52)
[2020-05-20] MEDS: BUPRENORPHINE/NALOXONE 8-2MG SUBLINGUAL TABLET(SUBOXONE) SL SCH (09:37)
--- NOTE | 2020-05-20 10:29 | MHIPNPDOC ---
[facility] Progress Note Progress Note DATE OF SERVICE: 05/20/20 Subjective HPI: The patient is met with today, she is lying embedded reports that she feels tired as she reports this is what happens when she is withdrawing from heroin and methamphetamine. She is generally been quite cranky and irritable at other times, she reports that she has some dizziness and appears quite focused on getting methadone. Objective General: Well dressed with good hygiene Speech: Spontaneous and fluid Thought processes: Linear and logical Thought content: irritable Abstract reasoning, and computation: Intact Description of associations: Intact Description of abnormal or psychotic thoughts: denies any suicidal thoughts Judgment: baseline, poor Insight: baseline poor Orientation: Alert and orientated 3 Recent and remote memory: Intact Attention span and concentration: Intact Fund of knowledge: Adequate Mood: "okay" Affect: dysthymic, constricted Assessment other recurrent depressive disorders methamphetamine use disorder, severe opioid use disorder, severe Plan Plan is to continue buprenorphine at this time appears to be substance related concern about adding serotonin drug is is could put her at risk for serotonin syndrome, with likely low benefit given her significant addiction history and homelessness Vital Signs Vital Signs Date Time Temp Pulse Resp B/P (MAP) Pulse Ox O2 Delivery O2 Flow Rate FiO2 05/20/20 06:33 98.4 62 12 102/56 (71) Room Air 05/19/20 06:59 100 Current Medications Current Medications Medications (Trade) Dose Ordered Sig/Silke Route PRN Reason Start Time Stop Time Status Last Admin Dose Admin Acetaminophen (Tylenol Tab) 650 mg Q6HP PRN PO HEADACHE or DISCOMFORT 05/18/20 21:45 Al Hydrox/Mg Hydrox/Simethicone (Mylanta) 30 ml Q4HP PRN PO HEARTBURN/INDIGESTION 05/18/20 21:45 Buprenorphine/ Naloxone (Suboxone 8/2mg) 1 tab DAILY SL 05/20/20 09:00 05/20/20 09:37 Doxycycline Hyclate (Vibramycin) 100 mg BID PO 05/19/20 21:00 05/26/20 22:00 05/20/20 09:36 Home Med (Med Rec Complete!) ASDIRECTED XX 05/18/20 21:45 05/18/20 21:35 DC Lorazepam (Ativan) 1 mg Q4HP PRN PO ANXIETY/AGITATION 05/18/20 21:45 Magnesium Hydroxide (Milk Of Magnesia) 30 ml DAILYPRN PRN PO CONSTIPATION 05/18/20 21:45 Trazodone HCl (Desyrel) 50 mg QHSP PRN PO INSOMNIA 05/18/20 21:45 Allergies Coded Allergies: Penicillins (Verified Allergy, Unknown, 04/20/20) Sulfa (Sulfonamide Antibiotics) (Verified Allergy, Unknown, 04/20/20) JUDAH ULLOA DO May 20, 2020 10:29
[2020-05-21 06:35] VITALS: BP 118/73
[2020-05-21] MEDS: DOXYCYCLINE HYCLATE 100MG TABLET PO SCH ×2 (09:56→20:00)
[2020-05-21] MEDS: BUPRENORPHINE/NALOXONE 8-2MG SUBLINGUAL TABLET(SUBOXONE) SL SCH (09:56)
--- NOTE | 2020-05-21 10:20 | MHIPNPDOC ---
[facility] Progress Note Progress Note DATE OF SERVICE: 05/21/20 Subjective HPI: The patient is met with today, she is fairly irritable and upset, although very sedated, staff of no she is generally quite sedated and sleeps most the day. She reports even be sedated when I meet with her tired and upset, she generally becomes irritable quickly which the interview is terminated early as she becomes quite upset. Objective General: fair hygiene Speech:, mildly slurred Thought processes: linear Thought content: irritable Abstract reasoning, and computation: [Intact] Description of associations: [Intact] Description of abnormal or psychotic thoughts: makes no threats towards herself or others Judgment: poor Insight: poor Orientation: sedated Recent and remote memory: impaired Attention span and concentration: impaired Fund of knowledge: [Adequate] Mood: "withdrawing" Affect: dysphoric Assessment other recurrent depressive disorder Methamphetamine use disorder, severe Opioid use disorder, severe Plan Will continue buprenorphine, discontinue Ativan that was started by the on-call provider as this is likely things to oversedation would recommend against further use of benzodiazepines in this patient as it appears we are causing her oversedation Vital Signs Vital Signs Date Time Temp Pulse Resp B/P (MAP) Pulse Ox O2 Delivery O2 Flow Rate FiO2 05/21/20 06:35 99.0 82 12 118/73 (88) Room Air 05/19/20 06:59 100 Current Medications Current Medications Medications (Trade) Dose Ordered Sig/Silke Route PRN Reason Start Time Stop Time Status Last Admin Dose Admin Acetaminophen (Tylenol Tab) 650 mg Q6HP PRN PO HEADACHE or DISCOMFORT 05/18/20 21:45 Al Hydrox/Mg Hydrox/Simethicone (Mylanta) 30 ml Q4HP PRN PO HEARTBURN/INDIGESTION 05/18/20 21:45 Buprenorphine/ Naloxone (Suboxone 8/2mg) 1 tab DAILY SL 05/20/20 09:00 05/21/20 09:56 Doxycycline Hyclate (Vibramycin) 100 mg BID PO 05/19/20 21:00 05/26/20 22:00 05/21/20 09:56 Home Med (Med Rec Complete!) ASDIRECTED XX 05/18/20 21:45 05/18/20 21:35 DC Lorazepam (Ativan) 1 mg Q4HP PRN PO ANXIETY/AGITATION 05/18/20 21:45 Magnesium Hydroxide (Milk Of Magnesia) 30 ml DAILYPRN PRN PO CONSTIPATION 05/18/20 21:45 Trazodone HCl (Desyrel) 50 mg QHSP PRN PO INSOMNIA 05/18/20 21:45 Allergies Coded Allergies: Penicillins (Verified Allergy, Unknown, 04/20/20) Sulfa (Sulfonamide Antibiotics) (Verified Allergy, Unknown, 04/20/20) JUDAH ULLOA DO May 21, 2020 10:20
[2020-05-22 06:34] VITALS: BP 97/54
[2020-05-22] MEDS: DOXYCYCLINE HYCLATE 100MG TABLET PO SCH ×2 (09:20→20:04)
[2020-05-22] MEDS: BUPRENORPHINE/NALOXONE 8-2MG SUBLINGUAL TABLET(SUBOXONE) SL SCH (09:21)
[2020-05-22 18:00] VITALS: BP 117/65
[2020-05-22] MEDS: diphenhydrAMINE 25MG CAP PO PRN (20:04)
[2020-05-23 06:47] VITALS: BP 98/55
[2020-05-23] MEDS: ACETAMINOPHEN TAB 650MG DOSE (2X325MG) PO PRN ×2 (08:30→18:49)
[2020-05-23] MEDS: DOXYCYCLINE HYCLATE 100MG TABLET PO SCH ×2 (08:30→21:03)
[2020-05-23] MEDS: BUPRENORPHINE/NALOXONE 8-2MG SUBLINGUAL TABLET(SUBOXONE) SL SCH (08:31)
[2020-05-23 17:50] VITALS: BP 110/55
[2020-05-23] MEDS: diphenhydrAMINE 25MG CAP PO PRN (21:03)
[2020-05-24 06:41] VITALS: BP 104/51
[2020-05-24] MEDS: BUPRENORPHINE/NALOXONE 8-2MG SUBLINGUAL TABLET(SUBOXONE) SL SCH (09:25)
[2020-05-24] MEDS: DOXYCYCLINE HYCLATE 100MG TABLET PO SCH (09:25)
--- NOTE | 2020-05-24 09:54 | MHDSPDOC ---
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 She feebly denied suicidal thoughts, however her mother reported that she was worried about her as she was using quite a bit of heroin. She generally had difficulties with frustration tolerance, but returned to a more or less normal mental status. She was bound twice by the police before being brought in in her car. The patient was admitted and she reported that she was homeless and withdrawing from significant amount of heroin and methamphetamine. It was determined by the treatment team that her presenting problem was likely related to her significant drug use. MEDICATIONS: She was placed on 8 mg of Buprenorphine on which she did quite well and even tually stabilized. Initially, she had been placed on Ativan by the on-call provider which left her over-sedated. This was discontinued and she improved well over the weekend. DISCHARGE ASSESSMENT[improved] Legal status considerations: The patient at the time of discharge did not meet criteria for involuntary admission/extension due to having a improved mental status exam, [fair] insight into the situation, They are engaged in the discharge process, as well as being friendly and amenable in behavioral control and havent been engaging in any observed concerning behavior or ideation recently. They decline voluntary extension/admission at this time and must be discharged in good tina, as Im unable to make a case for holding the patient against their will. They may have historical risk factors of admissions and other interactions with psychiatry however, those are not modifiable from a clinical perspective. The patient will need to be discharged in good tina. MENTAL STATUS EXAMINATION ON DISCHARGE: Mood: Euthymic. Generally good. Appropriately reactive. thankful. Speech: Spontaneous and Fluid. Normal rate. Normal volume. Thought Form: Linear and goal directed. Thought Content: No evidence of delusions. No evidence of aggressive or homicidal ideation. No thoughts of self harm. No evidence of suicidal ideation. Judgement: Intact as evidenced by decision making in the recent past. Insight: Good insight into symptoms and treatment options. PLAN/FOLLOWUP ARRANGEMENTS: Follow up appointments made (PCP and MH in 5 days of D/C date) and safety plan completed. Safety Planning aspects completed prior to discharge [Medication supplies limited to 14 days to prevent accumulation to OD] [RN reviewed crisis hotline information and other aspects to empower patient to access care in interim before next appointment.] Housing assistance offered via DSS referral. The amount of time spent in the coordination of care for this patient was approximately 30 minutes. Vital Signs/I&Os Vital Signs Date Time Temp Pulse Resp B/P (MAP) Pulse Ox O2 Delivery O2 Flow Rate FiO2 05/24/20 06:41 98.0 66 14 104/51 (68) 97 Room Air Medications Scheduled Buprenorphine HCl/Naloxone HCl (Buprenorphin-Naloxon 8-2 mg Sl) 1 Each Tab.subl, 1 TAB SL DAILY for opioid for 14 Days, #14 Allergies Coded Allergies: Penicillins (Verified Allergy, Unknown, 04/20/20) Sulfa (Sulfonamide Antibiotics) (Verified Allergy, Unknown, 04/20/20) JUDAH ULLOA DO May 24, 2020 09:54
[2020-05-24] MEDS ORDERED: BUPR1SUB5 SL ×2 (10:15→13:20)
--- NOTE | 2020-05-27 11:57 | MHIPN ---
DATE: 05/22/2020 The patient today states that is feeling "better;" however, her eye contact is poor. She is guarded. She reports no complaints today. MENTAL STATUS EXAMINATION: The patient is alert and oriented times three. Eye contact poor. Psychomotor activity is decreased. No formal thought disorder noted. She says her mood is "better." Affect is flat. I did not elicit any psychotic symptoms. She denied any suicidal homicidal ideation. Concentration is fair. Memory is grossly intact. Insight and judgment fair. DIAGNOSES: 1. Unspecified depressive disorder. 2. Methamphetamine use disorder. 3. Opioid use disorder. TREATMENT PLAN: At this point, the patient describes feeling better, but she still appears to be depressed with poor eye contact, poor or low psychomotor activity. This patient still continues to be a risk due to the fact that she has a significant history of abusing heroin, and upon admission she was describing feeling depressed and feeling hopeless. We will therefore continue to monitor the patient for further stabilization, and also we need to consider possibly starting this patient on an antidepressant. I will make my thoughts known to this patient's attending. GIANCARLO
== END 2020-05-24 13:30 | disposition home or self-care (01) | DRG 753 ==
LOC: M ED 14:04 → M ED INP 21:37 → M PSY 05-19 01:30
PROVIDERS: ADMIT Psychiatry & Neurology Addiction Medicine; ATTEND Psychiatry & Neurology Addiction Medicine
DX: F33.8 Other recurrent depressive disorders (principal); F15.20 Other stimulant dependence, uncomplicated; F11.23 Opioid dependence with withdrawal; Z88.0 Allergy status to penicillin; Z88.2 Allergy status to sulfonamides; Z59.0 Homelessness; Z56.0 Unemployment, unspecified; F17.200 Nicotine dependence, unspecified, uncomplicated; J45.909 Unspecified asthma, uncomplicated; L73.9 Follicular disorder, unspecified; G47.9 Sleep disorder, unspecified; F19.90 Other psychoactive substance use, unspecified, uncomplicated

== ENCOUNTER 2020-06-10 16:56 | Inpatient (IN) | payer MEDICAID, OTHER ==
[~2020-06-10] VITALS: Ht 160 cm; Wt 54.5 kg
[~2020-06-10 16:56] MED LIST changes: +BUPR1SUB5 SL
[2020-06-10 18:42] LABS: HEMOGLOBIN 13.1 g/dl (12.0-15.5); MEAN CORPUSCULAR HEMOGLOBIN 29.2 pg (27.0-33.0); MEAN CORPUSCULAR HGB CONC 32.8 g/dl (32.0-36.5); MEAN CORPUSCULAR VOLUME 89.3 fl (80.0-96.0); PLATELET COUNT, AUTOMATED 326 10^3/uL (150-450); RED BLOOD COUNT 4.48 10^6/uL (4.00-5.40); WHITE BLOOD COUNT 2.5 10^3/uL (4.0-10.0)
[2020-06-10 19:14] LABS: AMPHETAMINES LEVEL URINE POSITIVE (NEGATIVE); BARBITURATES URINE NEGATIVE (NEGATIVE); BENZODIAZEPINES URINE NEGATIVE (NEGATIVE); CANNABINOIDS URINE POSITIVE (NEGATIVE); COCAINE METABOLITE URINE NEGATIVE (NEGATIVE); METHADONE URINE NEGATIVE (NEGATIVE); OPIATES URINE NEGATIVE (NEGATIVE); PHENCYCLIDINE URINE NEGATIVE (NEGATIVE)
[2020-06-10 19:19] LABS: HCG, SERUM QUALITATIVE NEGATIVE (NEGATIVE)
[2020-06-10 19:24] LABS: ACETAMINOPHEN LEVEL < 2.0 UG/ML (10.0-30.0); ALBUMIN 3.6 GM/DL (3.2-5.2); ALT/SGPT 27 U/L (12-78); BILIRUBIN,DIRECT < 0.1 MG/DL (0.0-0.2); BILIRUBIN,TOTAL 0.3 MG/DL (0.2-1.0); BLOOD UREA NITROGEN 6 MG/DL (7-18); CALCIUM LEVEL 8.8 MG/DL (8.5-10.1); CARBON DIOXIDE LEVEL 34 MEQ/L (21-32); CHLORIDE LEVEL 101 MEQ/L (98-107); CREATININE FOR GFR 0.64 MG/DL (0.55-1.30); ETHYL ALCOHOL (ETHANOL) 0.004 % (0.000-0.010); GLOMERULAR FILTRATION RATE > 60.0 (>60); GLUCOSE, FASTING 100 MG/DL (70-100); POTASSIUM SERUM 3.7 MEQ/L (3.5-5.1); SALICYLATE LEVEL < 1.7 MG/DL (5.0-30.0); SODIUM LEVEL 140 MEQ/L (136-145); THYROID STIMULATING HORMONE 0.536 uIU/ML (0.358-3.740); TOTAL PROTEIN 7.6 GM/DL (6.4-8.2)
[2020-06-10] MEDS ORDERED: ACETAMINOPHEN TAB 650MG DOSE (2X325MG) PO PRN (20:45)
[2020-06-10] MEDS ORDERED: OLANZapine ORAL DISINTEGRATING TAB 5MG PO PRN (20:45)
[2020-06-10] MEDS ORDERED: MAALOX 30 ML SUSP *UDC PO PRN (20:45)
[2020-06-10] MEDS ORDERED: MOM 30ML SUSPENSION UDC PO PRN (20:45)
[2020-06-10] MEDS ORDERED: traZODone 50 MG TAB PO PRN (20:45)
[2020-06-10] MEDS ORDERED: LORazepam 2 MG TAB PO PRN (20:45)
[2020-06-10 22:10] VITALS: BP 107/74
[2020-06-10 22:20] VITALS: BP 107/74
[2020-06-10] MEDS: THIAMINE 100 MG TAB PO SCH (22:39)
[2020-06-11 06:10] VITALS: BP 108/54
[2020-06-11] MEDS: NICOTINE 21MG/24HR 1 EA TRANSDERMAL TD SCH (09:00)
[2020-06-11] MEDS ORDERED: BUPRENORPHINE/NALOXONE 8-2MG SUBLINGUAL TABLET(SUBOXONE) SL SCH (09:00)
[2020-06-11] MEDS: FOLIC ACID 1 MG TAB PO SCH (09:00)
[2020-06-11] MEDS: MULTIVITAMINS/MINERALS THERAP 1 TAB PO SCH (09:00)
[2020-06-11] MEDS: THIAMINE 100 MG TAB PO SCH ×2 (09:00→21:00)
[2020-06-11] MEDS: BUPRENORPHINE/NALOXONE 8-2MG SUBLINGUAL TABLET(SUBOXONE) SL SCH (09:46)
--- NOTE | 2020-06-11 10:32 | MHHPEPDOC ---
[facility] History & Physical History and Physical DATE OF ADMISSION: Jun 10, 2020 at 20:39 Subjective HPI: Attempted to meet with patient, however, she told me to go away and did not want to meet with me. She had presented to [facility] after ian welch irritable, labile in the setting of multiple relapses on drug use tickets and had her visitation from her children taken away. She reportedly had mentioned she was suicidal, but she was brought in and admitted her past psychiatric history is consistent substance-induced depression and with previous depression treatments unclear if any suicide attempts. Surgical history is reviewed, allergies is reviewed. Patient doesnt engage in any extensive review of systems. FAMILY HISTORY: Family history no change from previous substance use as above. Unemployed with few supports. Currently, lives alone. Objective Behavior: Laying in bed. Tells us to go away and puts the covers over her head. Mood: Irritable. Labile. Assessment F32.89 Other specified depressive episodes F11.94 Opioid use, unspecified with opioid-induced mood disorder F60.3 Borderline personality disorder Plan Plan is to resume Suboxone and will monitor treatment for low-risk suicide to substance use. Plan, estimated length of stay days is 3-5 days. Will likely need to triage her to rehab as she is quite unstable. Vital Signs Vital Signs Date Time Temp Pulse Resp B/P (MAP) Pulse Ox O2 Delivery O2 Flow Rate FiO2 06/11/20 06:10 74 108/54 06/11/20 06:10 97.8 14 Room Air 06/10/20 22:10 99 Laboratory Data 24H Labs Laboratory Tests 2 06/10/20 18:31: Nucleated Red Blood Cells % (auto) 0.0, Anion Gap 5L, Glomerular Filtration Rate > 60.0, Calcium Level 8.8, Total Bilirubin 0.3, Direct Bilirubin < 0.1, Aspartate Amino Transf (AST/SGOT) 13, Alanine Aminotransferase (ALT/SGPT) 27, Alkaline Phosphatase 75, Total Protein 7.6, Albumin 3.6, Albumin/Globulin Ratio 0.9L, Thyroid Stimulating Hormone (TSH) 0.536, Human Chorionic Gonadotropin, Qual NEGATIVE, Salicylates Level < 1.7L, Urine Opiates Screen NEGATIVE, Urine Methadone Screen NEGATIVE, Acetaminophen Level < 2.0L, Urine Barbiturates Screen NEGATIVE, Urine Phencyclidine Screen NEGATIVE, Urine Amphetamines Screen POSITIVEH, Urine Benzodiazepines Screen NEGATIVE, Urine Cocaine Metabolite Screen NEGATIVE, Urine Cannabinoids Screen POSITIVEH, Ethyl Alcohol Level 0.004 CBC/BMP Laboratory Tests 06/10/20 18:31 Medications Scheduled Buprenorphine HCl/Naloxone HCl (Buprenorphin-Naloxon 8-2 mg Sl) 1 Each Tab.subl, 1 TAB SL DAILY for opioid Allergies Coded Allergies: Penicillins (Verified Allergy, Unknown, 04/20/20) Sulfa (Sulfonamide Antibiotics) (Verified Allergy, Unknown, 04/20/20) JUDAH ULLOA DO Jun 11, 2020 10:32
--- NOTE | 2020-06-11 13:09 | HPEPDOC ---
[facility] Medical History & Physical Date of Admission Jun 10, 2020 Date of Service: Jun 11, 2020 History and Physical CHIEF COMPLAINT: Suicidal ideation HISTORY OF PRESENT ILLNESS: 29-year-old female admitted to inpatient mental health unit for suicidal ideation. Hospitalist consult for medical comanagement. Patient seen and examined at bedside. She is uncooperative but voices no medical complaints. PAST MEDICAL HISTORY: 1. Asthma. 2. Polysubstance abuse. 3. IV drug abuse 4. Schizoaffective disease ALLERGIES: Please see below. REVIEW OF SYSTEMS: Negative except as per HPI. HOME MEDICATIONS: Please see below. PHYSICAL EXAMINATION: VITAL SIGNS: See below HEENT: NC/AT, poor dentition Lungs: CTA B/L Heart: +S1S2, RRR Abd: refused exam LABORATORY DATA: See below. MICROBIOLOGY: Please see below. A/P: 29 yo female admitted to [facility] for suicidal ideation, hospitalist consulted for medical co-management. #psych/SI - as per primary team #asthma - stable Thank you for this consultation. Please re-consult as needed. Vital Signs Vital Signs Date Time Temp Pulse Resp B/P (MAP) Pulse Ox O2 Delivery O2 Flow Rate FiO2 06/11/20 06:10 74 108/54 06/11/20 06:10 97.8 14 Room Air 06/10/20 22:10 99 Laboratory Data Labs 24H Laboratory Tests 2 06/10/20 18:31: Nucleated Red Blood Cells % (auto) 0.0, Anion Gap 5L, Glomerular Filtration Rate > 60.0, Calcium Level 8.8, Total Bilirubin 0.3, Direct Bilirubin < 0.1, Aspartate Amino Transf (AST/SGOT) 13, Alanine Aminotransferase (ALT/SGPT) 27, Alkaline Phosphatase 75, Total Protein 7.6, Albumin 3.6, Albumin/Globulin Ratio 0.9L, Thyroid Stimulating Hormone (TSH) 0.536, Human Chorionic Gonadotropin, Qual NEGATIVE, Salicylates Level < 1.7L, Urine Opiates Screen NEGATIVE, Urine Methadone Screen NEGATIVE, Acetaminophen Level < 2.0L, Urine Barbiturates Screen NEGATIVE, Urine Phencyclidine Screen NEGATIVE, Urine Amphetamines Screen POSITIVEH, Urine Benzodiazepines Screen NEGATIVE, Urine Cocaine Metabolite Screen NEGATIVE, Urine Cannabinoids Screen POSITIVEH, Ethyl Alcohol Level 0.004 CBC/BMP Laboratory Tests 06/10/20 18:31 Home Medications Scheduled Buprenorphine HCl/Naloxone HCl (Buprenorphin-Naloxon 8-2 mg Sl) 1 Each Tab.subl, 1 TAB SL DAILY for opioid Allergies Coded Allergies: Penicillins (Verified Allergy, Unknown, 04/20/20) Sulfa (Sulfonamide Antibiotics) (Verified Allergy, Unknown, 04/20/20) A-FIB/CHADSVASC A-FIB History Current/History of A-Fib/PAF?: No SHELIA TOM MD Jun 11, 2020 13:09
[2020-06-12] MEDS: THIAMINE 100 MG TAB PO SCH ×2 (09:00→21:00)
[2020-06-12] MEDS: FOLIC ACID 1 MG TAB PO SCH (09:00)
[2020-06-12] MEDS: MULTIVITAMINS/MINERALS THERAP 1 TAB PO SCH (09:00)
[2020-06-12] MEDS: NICOTINE 21MG/24HR 1 EA TRANSDERMAL TD SCH (09:00)
[2020-06-12] MEDS: BUPRENORPHINE/NALOXONE 8-2MG SUBLINGUAL TABLET(SUBOXONE) SL SCH (09:53)
[2020-06-12] MEDS ORDERED: HALOPERIDOL 5MG/ML VIAL (J1630 PER 1) IM STA (14:18)
[2020-06-12] MEDS ORDERED: LORazepam 2 MG/ML VIAL IM STA (14:18)
[2020-06-12] MEDS ORDERED: diphenhydrAMINE 50MG/ML VIAL (J1200) IM STA (14:18)
[2020-06-12] MEDS ORDERED: diphenhydrAMINE 50MG CAP PO STA (14:30)
[2020-06-12] MEDS ORDERED: LORazepam 1 MG TAB PO STA (14:30)
[2020-06-12] MEDS ORDERED: OLANZapine ORAL DISINTEGRATING TAB 5MG PO ONE ×2 (14:30→15:45)
--- NOTE | 2020-06-12 14:36 | MHIPNPDOC ---
[facility] Progress Note Progress Note DATE OF SERVICE: 06/12/20 HISTORY: As per ED notes: "We discussed pt's readmission to [facility], she states her mom "kicked her out, how can you make a person homeless?" She further reports that she was kicked out because her grandmother is "constantly nit-picking at me" but declined to elaborate further. Pt reports a great deal of anger towards her mother, and towards a recent report on the news that detailed her traffic violations and drug charges. She expresses desire to leave so she can care for her daughter, shouting that "I am not a bad mom." Denies SI." VITAL SIGNS: See below. NEW TEST RESULTS: See below CURRENT MEDICATIONS: See below. MENTAL STATUS EXAMINATION: Patient is a 29-year old female, who is alert, dressed in hospital clothes, disheveled. Speech: Is rapid, loud. Language skills are good. Thought processes including: illogical but linear. Thought content: focused on being discharged, she denies si/hi and denies being danger ous to self or others but she presents extremely agitated, angry, screaming, yelling and while speaking with me, she turned around and TALKED TO SOMEONE ELSE THAT WAS NOT IN THE ROOM ( SHE IS HAVING VISUAL HALLUCINATIONS). Abstract reasoning, and computation: not assessed at this time, she is extremely angry, agitated, she can't have a logical conversation Description of abnormal or psychotic thoughts: she is responding to internal stimuli, she is talking to somebody who is not in the room while I was talking to her, she is paranoid Judgment: Poor Insight: Poor. Orientation: Recent and remote memory: not able to assess, she is too agitated Attention span and concentration: poor.. Fund of knowledge: unable to assess, she is too agitated Mood: angry, irritable, aggressive Affect: congruent with mood, irritable, angry, verbally aggressive, throwing thigs in her room DIAGNOSES: 1. . 2. . 3. . ASSESSMENT: Patient is very angry becuse she has been hospitalized, she is demanding to leave. I explained she can't leave, becaue she is not safe to herself or other people at this time, that if she oes out and she yells at others they are not going to have a good reaction towards her. She is not capable or having a reasonable conversation at this time. I put the orders to code her but she refused to go into the restraining room and said she was going to take oral medications. I ordered Ativan 1 mg, Benadryl 50 and Zyprexa Zydis 10 mgs. Will hld the restraining orders for now. The patient is too agitated, she is psychotic and she is suffering because she is crying out of frustration. She is not able to see that she needs help. MANAGEMENT PLAN: As above TIME SPENT: 15 minutes. Vital Signs Vital Signs Date Time Temp Pulse Resp B/P (MAP) Pulse Ox O2 Delivery O2 Flow Rate FiO2 06/12/20 09:01 Room Air 06/11/20 06:10 74 108/54 06/11/20 06:10 97.8 14 06/10/20 22:10 99 Current Medications Current Medications Medications (Trade) Dose Ordered Sig/Silke Route PRN Reason Start Time Stop Time Status Last Admin Dose Admin Acetaminophen (Tylenol Tab) 650 mg Q6HP PRN PO HEADACHE or DISCOMFORT 06/10/20 20:45 Al Hydrox/Mg Hydrox/Simethicone (Mylanta) 30 ml Q4HP PRN PO HEARTBURN/INDIGESTION 06/10/20 20:45 Buprenorphine/ Naloxone (Suboxone 8/2mg) 1 tab DAILY SL 06/11/20 09:00 06/10/20 21:35 DC Buprenorphine/ Naloxone (Suboxone 8/2mg) 1 tab DAILY SL 06/11/20 09:00 06/12/20 09:53 Folic Acid (Folic Acid) 1 mg DAILY PO 06/11/20 09:00 Home Med (Med Rec Complete!) ASDIRECTED XX 06/10/20 20:30 06/10/20 20:28 DC Lorazepam (Ativan) 2 mg ASDIRECTED PRN PO SEE PROTOCOL 06/10/20 20:45 Magnesium Hydroxide (Milk Of Magnesia) 30 ml DAILYPRN PRN PO CONSTIPATION 06/10/20 20:45 Multivitamins (Theragram-M) 1 tab DAILY PO 06/11/20 09:00 Nicotine (Nicoderm Cq 21mg) 1 patch DAILY TD 06/11/20 09:00 Olanzapine (ZyPREXA ZYDIS) 5 mg Q4HP PRN PO AGITATION 06/10/20 20:45 Thiamine HCl (Thiamine HCl) 100 mg BID PO 06/10/20 21:00 06/13/20 20:59 Trazodone HCl (Desyrel) 50 mg QHSP PRN PO INSOMNIA 06/10/20 20:45 Allergies Coded Allergies: Penicillins (Verified Allergy, Unknown, 04/20/20) Sulfa (Sulfonamide Antibiotics) (Verified Allergy, Unknown, 04/20/20) LEBRON MORRIS MD Jun 12, 2020 14:23
[2020-06-12] MEDS: BENZOCAINE 10% 9GM TUBE (ANBESOL) TOP PRN (16:52)
[2020-06-12 17:00] VITALS: BP 118/78
[2020-06-12 18:00] VITALS: BP 106/54
[2020-06-13] MEDS: MULTIVITAMINS/MINERALS THERAP 1 TAB PO SCH (09:00)
[2020-06-13] MEDS: FOLIC ACID 1 MG TAB PO SCH (09:00)
[2020-06-13] MEDS: THIAMINE 100 MG TAB PO SCH (09:00)
[2020-06-13] MEDS: BUPRENORPHINE/NALOXONE 8-2MG SUBLINGUAL TABLET(SUBOXONE) SL SCH (09:00)
[2020-06-13] MEDS: NICOTINE 21MG/24HR 1 EA TRANSDERMAL TD SCH (09:00)
--- NOTE | 2020-06-13 15:58 | MHIPNPDOC ---
[facility] Progress Note Progress Note DATE OF SERVICE: 06/13/20 HISTORY: As per ED notes: "We discussed pt's readmission to [facility], she states her mom "kicked her out, how can you make a person homeless?" She further reports that she was kicked out because her grandmother is "constantly nit-picking at me" but declined to elaborate further. Pt reports a great deal of anger towards her mother, and towards a recent report on the news that detailed her traffic violations and drug charges. She expresses desire to leave so she can care for her daughter, shouting that "I am not a bad mom." Denies SI." VITAL SIGNS: See below. NEW TEST RESULTS: See below CURRENT MEDICATIONS: See below. MENTAL STATUS EXAMINATION: I went looking for the patient but she was laying in bed, sleeping. I woke her up but she refused to speak with me. She was calmer, not agitted as she was yesterday. Her speech was soft volume, normal rate and volume, not loud as it was yesterday. Her eye contact was poor, she was not engaging. I couldn't fully evaluate her because she refusd to speak with me. DIAGNOSES: F32.89 Other specified depressive episodes F11.94 Opioid use, unspecified with opioid-induced mood disorder F60.3 Borderline personality disorder ASSESSMENT: patient is calmer today. She is probably exhausted from her being agitated yesterday. She has not taken any medications today, has remained in her room, has come out only for meals and has not been willing to engage with any staff member. She is not agitated, angry or aggressive at this time. will continue to monitor. MANAGEMENT PLAN: Encourage her to attend groups and to take her medications. TIME SPENT: 15 minutes. Vital Signs Vital Signs Date Time Temp Pulse Resp B/P (MAP) Pulse Ox O2 Delivery O2 Flow Rate FiO2 06/12/20 18:00 97.7 72 18 106/54 100 Room Air Current Medications Current Medications Medications (Trade) Dose Ordered Sig/Silke Route PRN Reason Start Time Stop Time Status Last Admin Dose Admin Acetaminophen (Tylenol Tab) 650 mg Q6HP PRN PO HEADACHE or DISCOMFORT 06/10/20 20:45 Al Hydrox/Mg Hydrox/Simethicone (Mylanta) 30 ml Q4HP PRN PO HEARTBURN/INDIGESTION 06/10/20 20:45 Benzocaine (Anbesol Gel) 1 dose TIDP PRN TOP MOUTH SORES 06/12/20 16:00 06/12/20 16:52 Buprenorphine/ Naloxone (Suboxone 8/2mg) 1 tab DAILY SL 06/11/20 09:00 06/10/20 21:35 DC Buprenorphine/ Naloxone (Suboxone 8/2mg) 1 tab DAILY SL 06/11/20 09:00 06/12/20 09:53 Diphenhydramine HCl (Benadryl) 50 mg STAT STAT IM 06/12/20 14:18 06/12/20 14:53 DC Diphenhydramine HCl (Benadryl) 50 mg STAT STAT PO 06/12/20 14:30 06/12/20 14:31 DC 06/12/20 14:34 Folic Acid (Folic Acid) 1 mg DAILY PO 06/11/20 09:00 Haloperidol (Haldol) 10 mg STAT STAT IM 06/12/20 14:18 06/12/20 14:53 DC Home Med (Med Rec Complete!) ASDIRECTED XX 06/10/20 20:30 06/10/20 20:28 DC Lorazepam (Ativan) 1 mg STAT STAT IM 06/12/20 14:18 06/12/20 14:53 DC Lorazepam (Ativan) 1 mg STAT STAT PO 06/12/20 14:30 06/12/20 14:31 DC 06/12/20 14:34 Lorazepam (Ativan) 2 mg ASDIRECTED PRN PO SEE PROTOCOL 06/10/20 20:45 Magnesium Hydroxide (Milk Of Magnesia) 30 ml DAILYPRN PRN PO CONSTIPATION 06/10/20 20:45 Multivitamins (Theragram-M) 1 tab DAILY PO 06/11/20 09:00 Nicotine (Nicoderm Cq 21mg) 1 patch DAILY TD 06/11/20 09:00 Olanzapine (ZyPREXA ZYDIS) 5 mg Q4HP PRN PO AGITATION 06/10/20 20:45 Thiamine HCl (Thiamine HCl) 100 mg BID PO 06/10/20 21:00 06/13/20 20:59 Trazodone HCl (Desyrel) 50 mg QHSP PRN PO INSOMNIA 06/10/20 20:45 Allergies Coded Allergies: Penicillins (Verified Allergy, Unknown, 04/20/20) Sulfa (Sulfonamide Antibiotics) (Verified Allergy, Unknown, 04/20/20) LEBRON MORRIS MD Jun 13, 2020 15:53
[2020-06-14 06:53] VITALS: BP 121/72
[2020-06-14] MEDS: MULTIVITAMINS/MINERALS THERAP 1 TAB PO SCH ×2 (09:00→11:35)
[2020-06-14] MEDS: NICOTINE 21MG/24HR 1 EA TRANSDERMAL TD SCH (09:00)
[2020-06-14] MEDS: BUPRENORPHINE/NALOXONE 8-2MG SUBLINGUAL TABLET(SUBOXONE) SL SCH ×2 (09:00→11:35)
[2020-06-14] MEDS: FOLIC ACID 1 MG TAB PO SCH ×2 (09:00→11:35)
--- NOTE | 2020-06-14 09:54 | MHIPNPDOC ---
[facility] Progress Note Progress Note DATE OF SERVICE: 06/14/20 Subjective HPI: Ida presents today for her depressive disorder, opioid use disorder, and personality disorder. The patient was met with, however she reported that she was feeling Okay, and was quite interested in discharge. However, she generally had not met with the on-call provider and has been heavily resistant to any interactions with staff and generally quite dysthymic and irritable. Discussed with patient that she would need more stable time and would need to comply with roles as well as be in behavioral control longer before discharge could be arranged, especially given her behavior as an outpatient. She reportedly spoke to her mother, where she had found out that she was not allowed to see her daughter. She became quite agitated and was yelling. She continued after this provider left, and reportedly asked for discharge. Objective Appearance: Fair hygiene. Affect: Mildly irritable. Speech: Normal rate. Spontaneous and Fluid. Normal volume. Cognition: Grossly intact. Thought Content: No evidence of aggressive or homicidal ideation. No evidence of delusions. No evidence of suicidal ideation. No thoughts of self harm. Judgement: Poor. Insight: Poor. Assessment F33.8 Other recurrent depressive disorders F11.20 Opioid dependence, uncomplicated F60.3 Borderline personality disorder Plan Continue Suboxone, as it appears to be helpful for her at this time. However, she will likely need further stabilization. Her behavioral problems and substance abuse necessitate us to send a referral for rehab and try to encourage her to do so as she does pose a danger due to her impaired driving. Vital Signs Vital Signs Date Time Temp Pulse Resp B/P (MAP) Pulse Ox O2 Delivery O2 Flow Rate FiO2 06/14/20 06:53 97.8 94 16 121/72 (88) 06/12/20 18:00 100 Room Air Current Medications Current Medications Medications (Trade) Dose Ordered Sig/Silke Route PRN Reason Start Time Stop Time Status Last Admin Dose Admin Acetaminophen (Tylenol Tab) 650 mg Q6HP PRN PO HEADACHE or DISCOMFORT 06/10/20 20:45 Al Hydrox/Mg Hydrox/Simethicone (Mylanta) 30 ml Q4HP PRN PO HEARTBURN/INDIGESTION 06/10/20 20:45 Benzocaine (Anbesol Gel) 1 dose TIDP PRN TOP MOUTH SORES 06/12/20 16:00 06/12/20 16:52 Buprenorphine/ Naloxone (Suboxone 8/2mg) 1 tab DAILY SL 06/11/20 09:00 06/10/20 21:35 DC Buprenorphine/ Naloxone (Suboxone 8/2mg) 1 tab DAILY SL 06/11/20 09:00 06/12/20 09:53 Diphenhydramine HCl (Benadryl) 50 mg STAT STAT IM 06/12/20 14:18 06/12/20 14:53 DC Diphenhydramine HCl (Benadryl) 50 mg STAT STAT PO 06/12/20 14:30 06/12/20 14:31 DC 06/12/20 14:34 Folic Acid (Folic Acid) 1 mg DAILY PO 06/11/20 09:00 Haloperidol (Haldol) 10 mg STAT STAT IM 06/12/20 14:18 06/12/20 14:53 DC Home Med (Med Rec Complete!) ASDIRECTED XX 06/10/20 20:30 06/10/20 20:28 DC Lorazepam (Ativan) 1 mg STAT STAT IM 06/12/20 14:18 06/12/20 14:53 DC Lorazepam (Ativan) 1 mg STAT STAT PO 06/12/20 14:30 06/12/20 14:31 DC 06/12/20 14:34 Lorazepam (Ativan) 2 mg ASDIRECTED PRN PO SEE PROTOCOL 06/10/20 20:45 Magnesium Hydroxide (Milk Of Magnesia) 30 ml DAILYPRN PRN PO CONSTIPATION 06/10/20 20:45 Multivitamins (Theragram-M) 1 tab DAILY PO 06/11/20 09:00 Nicotine (Nicoderm Cq 21mg) 1 patch DAILY TD 06/11/20 09:00 Olanzapine (ZyPREXA ZYDIS) 5 mg Q4HP PRN PO AGITATION 06/10/20 20:45 Thiamine HCl (Thiamine HCl) 100 mg BID PO 06/10/20 21:00 06/13/20 20:59 DC Trazodone HCl (Desyrel) 50 mg QHSP PRN PO INSOMNIA 06/10/20 20:45 Allergies Coded Allergies: Penicillins (Verified Allergy, Unknown, 04/20/20) Sulfa (Sulfonamide Antibiotics) (Verified Allergy, Unknown, 04/20/20) JUDAH ULLOA DO Jun 14, 2020 09:53
[2020-06-14] MEDS: BENZOCAINE 10% 9GM TUBE (ANBESOL) TOP PRN (11:36)
[2020-06-15 06:30] VITALS: BP 130/76
[2020-06-15] MEDS: FOLIC ACID 1 MG TAB PO SCH (09:00)
[2020-06-15] MEDS: MULTIVITAMINS/MINERALS THERAP 1 TAB PO SCH (09:00)
[2020-06-15] MEDS: NICOTINE 21MG/24HR 1 EA TRANSDERMAL TD SCH (09:00)
[2020-06-15] MEDS: BUPRENORPHINE/NALOXONE 8-2MG SUBLINGUAL TABLET(SUBOXONE) SL SCH (09:55)
--- NOTE | 2020-06-15 16:29 | MHDSPDOC ---
[facility] Discharge Summary Discharge Summary DATE OF ADMISSION: Jun 10, 2020 at 20:39 DATE OF DISCHARGE: Jun 15, 2020 at 14:45 DISCHARGE DIAGNOSES: 1. F32.89 Other specified depressive episodes 2. F11.94 Opioid use, unspecified with opioid-induced mood disorder 3. F60.3 Borderline personality disorder REASON FOR ADMISSION: Pt was texting her cousin that she wanted to hurt herself and notified Pt's mother who called 911. PT has been struggling with substance abuse and she has had recent visits to ED as a result. Per responding officers PT has been charged 3 times over the past two and half months for operation of motor vehicle while impaired by drugs and the last 2 times she was additionally charged with reckless driving and fleeing the scene. She was topic of a news story 06/08 on local tv station when they interviewed a custodial officer in regards to bail reform and her arrests and her name were part of the story. She states her mom "kicked her out, how can you make a person homeless?" She further reports that she was kicked out because her grandmother is "constantly nit-picking at me" but declined to elaborate further. Pt reports a great deal of anger towards her mother. CONSULTANTS INVOLVED: see Medical Consultation by Medical Provider TREATMENT AND PROGRESS ON THE UNIT : Patient was admitted to the [facility] on a 9.39 legal status he was afforded the following treatment modalities: 1) Individual Therapy 2) Group Therapy 3) Medication Management 4) Milieu Therapy 5) Safe Environment HOSPITAL COURSE: Patient admitted to [facility] on a 9.39 legal status for her safety and reported suicidal ideation. While on the unit patient exhibited many substance use/addictive behaviors: irritability, yelling, crying, she was uncooperative, did not attend to her ADLS, and refused to participate in treatment modalities that would benefit her. DISCHARGE ASSESSMENT: Patient is observed to be very irritable and hostile. She states that she is returning to her friend's home ([place]) in [place] and demands a taxi to his house. Complains that she should not have been admitted to the hospital because she was on her way to an appointment "[facility] [place] when the police stopped my car and impounded it for no reason, I was on my way to my mom's house." At this time, she is stable for discharge although we would have liked to get patient to participate in outpatient rehab treatment but she was both in denial and unwilling to receive this help. MENTAL STATUS EXAMINATION ON DISCHARGE: Patient is a 29-year old Single, Unemployed, Homeless female, who is admitted to [facility]. She walks to the interview room with her paper bag as if she is being discharged once she is interviewed. I reinforce with the patient that this interview is to determine her appropriateness for discharge. She is not exhibiting psychomotor retardation. She is however easily agitated. Speech: Is normal rate, tone and volume Language skills are intact Thought processes including: linear and goal oriented Thought content: denies depression, suicidal/homicidal ideation, planning or intent. She is not anxious, denies abnormal psychotic symptoms Abstract reasoning, and computation: Fair Description of associations: None notes, patient denies Description of abnormal or psychotic thoughts: None notes, patient denies Judgment: fair Insight: fair Orientation: alert and oriented to persona, place, time and situation Recent and remote memory: intact Attention span and concentration: fair Language: expansive Fund of knowledge: good Mood: " I am fine! Affect: constricted MEDICATIONS ON DISCHARGE: See Medication Reconciliation PLAN/FOLLOWUP ARRANGEMENTS: she states [facility] but unsure as she was suppose to go to an earlier appointment but was admitted to the hospital and is unsure if she still has the ability to return. See Discharge Planners notes The amount of time spent in the coordination of care for this patient was approximately 20 minutes. Vital Signs/I&Os Vital Signs Date Time Temp Pulse Resp B/P (MAP) Pulse Ox O2 Delivery O2 Flow Rate FiO2 06/15/20 06:30 97.6 71 14 130/76 (94) 100 Room Air Medications Scheduled Buprenorphine HCl/Naloxone HCl (Buprenorphin-Naloxon 8-2 mg Sl) 1 Each Tab.subl, 1 TAB SL DAILY for opioid for 14 Days, #14 Allergies Coded Allergies: Penicillins (Verified Allergy, Unknown, 04/20/20) Sulfa (Sulfonamide Antibiotics) (Verified Allergy, Unknown, 04/20/20) TERENCE RAMIREZ NP Jun 15, 2020 16:29
== END 2020-06-15 14:45 | disposition home or self-care (01) | DRG 751 ==
LOC: M ED 16:56 → M ED INP 20:39 → M PSY 22:08
PROVIDERS: ADMIT Psychiatry & Neurology Addiction Medicine; ATTEND Psychiatry & Neurology Addiction Medicine
DX: F33.9 Major depressive disorder, recurrent, unspecified (principal); F11.20 Opioid dependence, uncomplicated; F60.3 Borderline personality disorder; Z79.899 Other long term (current) drug therapy; Z88.0 Allergy status to penicillin; Z88.2 Allergy status to sulfonamides; J45.909 Unspecified asthma, uncomplicated

== ENCOUNTER 2020-10-13 16:39 | Emergency (ER) | payer MEDICAID, OTHER ==
[~2020-10-13] VITALS: Ht 160 cm; Wt 54.5 kg
--- OUTSIDE RECORDS SUMMARY | 2020-10-13 16:48 | CCD ---
Author Author [facility] Organization [facility] Address Unknown Phone Unavailable Care Team Providers Care Furniture Manager Name Role Phone Jarrett Garza MD Unavailable Unavailable Jarrett Garza MD Unavailable Unavailable Jarrett Garza MD Unavailable Unavailable Jarrett Garza MD Unavailable Unavailable Jarrett Garza MD Unavailable Unavailable Jarrett Garza MD Unavailable Unavailable Jarrett Garza MD Unavailable Unavailable Jarrett Garza MD Unavailable Unavailable Jarrett Garza MD Unavailable Unavailable Jarrett Garza MD Unavailable Unavailable Jarrett Garza MD Unavailable Unavailable Jarrett Garza MD Unavailable Unavailable Jarrett Garza MD Unavailable Unavailable Jarrett Garza MD Unavailable Unavailable Jarrett Garza MD Unavailable Unavailable Jarrett Garza MD Unavailable Unavailable Jarrett Garza MD Unavailable Unavailable Jarrett Garza MD Unavailable Unavailable Jarrett Garza MD Unavailable Unavailable Jarrett Garza MD Unavailable Unavailable Jarrett Garza MD Unavailable Unavailable Jarrett Garza MD Unavailable Unavailable Jarrett Garza MD Unavailable Unavailable Jarrett Garza MD Unavailable Unavailable Jarrett Garza MD Unavailable Unavailable Jarrett Garza MD Unavailable Unavailable AronowitzJarrett MD Unavailable Unavailable CLYDE, JG Unavailable Unavailable TURRIN, NELA Unavailable Unavailable TURRIN, NELA Unavailable Unavailable TURRIN, NELA Unavailable Unavailable TURRIN, NELA Unavailable Unavailable SPAVENTO, J JERMAIN Unavailable Unavailable Dille, E Gabbie DDS Unavailable Unavailable Dille, E Gabbie DDS Unavailable Unavailable Dille, E Gabbie DDS Unavailable Unavailable Dille, E Gabbie DDS Unavailable Unavailable VENERUS, Abhishek GUSTAFSON MD Unavailable Unavailable VENERUS, Abhishek GUSTAFSON MD Unavailable Unavailable VENERUS, Abhishek GUSTAFSON MD Unavailable Unavailable VENERUS, Abhishek GUSTAFSON MD Unavailable Unavailable VENERUS, Abhishek GUSTAFSON MD Unavailable Unavailable VENERUS, Abhishek GUSTAFSON MD Unavailable Unavailable VENERUS, Abhishek GUSTAFSON MD Unavailable Unavailable VENERUS, Abhishek GUSTAFSON MD Unavailable Unavailable VENERUS, Abhishek GUSTAFSON MD Unavailable Unavailable NO, PCP Unavailable Unavailable JEREMY (SHAY), N GABBIE RPA-C Unavailable Unavailable JEREMY (SHAY), N GABBIE RPA-C Unavailable Unavailable JEREMY (SHAY), N GABBIE RPA-C Unavailable Unavailable JEREMY (SHAY), N GABBIE RPA-C Unavailable Unavailable JEREMY (SHAY), N GABBIE RPA-C Unavailable Unavailable JEREMY (SHAY), N GABBIE RPA-C Unavailable Unavailable JEREMY (SHAY), N GABBIE RPA-C Unavailable Unavailable JEREMY (SHAY), N GABBIE RPA-C Unavailable Unavailable JEREMY (SHAY), N GABBIE RPA-C Unavailable Unavailable JEREMY (SHAY), N GABBIE RPA-C Unavailable Unavailable JEREMY (SHAY), N GABBIE RPA-C Unavailable Unavailable JEREMY (SHAY), N GABBIE RPA-C Unavailable Unavailable JEREMY (SHAY), N GABBIE RPA-C Unavailable Unavailable JEREMY (SHAY), N GABBIE RPA-C Unavailable Unavailable JEREMY (SHAY), N GABBIE RPA-C Unavailable Unavailable JEREMY (SHAY), N GABBIE RPA-C Unavailable Unavailable JEREMY (SHAY), N GABBIE RPA-C Unavailable Unavailable JEREMY (SHAY), N GABBIE RPA-C Unavailable Unavailable JEREMY (SHAY), N GABBIE RPA-C Unavailable Unavailable JEREMY (SHAY), N GABBIE RPA-C Unavailable Unavailable JEREMY (SHAY), N GABBIE RPA-C Unavailable Unavailable JEREMY (SHAY), N GABBIE RPA-C Unavailable Unavailable JEREMY (SHAY), N GABBIE RPA-C Unavailable Unavailable JEREMY (SHAY), N GABBIE RPA-C Unavailable Unavailable JEREMY (SHAY), N GABBIE RPA-C Unavailable Unavailable JEREMY (SHAY), N GABBIE RPA-C Unavailable Unavailable JEREMY (SHAY), N GABBIE RPA-C Unavailable Unavailable JEREMY (SHAY), N GABBIE RPA-C Unavailable Unavailable JEREMY (SHAY), N GABBIE RPA-C Unavailable Unavailable JEREMY (SHAY), N GABBIE RPA-C Unavailable Unavailable JEREMY (SHAY), N GABBIE RPA-C Unavailable Unavailable JEREMY (SHAY), N GABBIE RPA-C Unavailable Unavailable JEREMY (SHAY), N AGBBIE RPA-C Unavailable Unavailable JEREMY (SHAY), N GABBIE RPA-C Unavailable Unavailable JEREMY (SHAY), N GABBIE RPA-C Unavailable Unavailable JEREMY (SHAY), N GABBIE RPA-C Unavailable Unavailable JEREMY (SHAY), N GABBIE RPA-C Unavailable Unavailable JEREMY (SHAY), N GABBIE RPA-C Unavailable Unavailable JEREMY (SHAY), N GABBIE RPA-C Unavailable Unavailable JEREMY (SHAY), N GABBIE RPA-C Unavailable Unavailable JEREMY (SHAY), N GABBIE RPA-C Unavailable Unavailable JEREMY (SHAY), N GABBIE RPA-C Unavailable Unavailable JEREMY (SHAY), N GABBIE RPA-C Unavailable Unavailable JEREMY (SHAY), N GABBIE RPA-C Unavailable Unavailable JEREMY (SHAY), N GABBIE RPA-C Unavailable Unavailable JEREMY (SHAY), N GABBIE RPA-C Unavailable Unavailable JEREMY (SHAY), N GABBIE RPA-C Unavailable Unavailable JEREMY (SHAY), N GABBIE RPA-C Unavailable Unavailable JEREMY (SHAY), N GABBIE RPA-C Unavailable Unavailable JEREMY (SHAY), N GABBIE RPA-C Unavailable Unavailable JEREMY (SHAY), N GABBIE RPA-C Unavailable Unavailable JEREMY (SHAY), N GABBIE RPA-C Unavailable Unavailable JEREMY (SHAY), N GABBIE RPA-C Unavailable Unavailable Re-disclosure Warning The records that you are about to access may contain information from federally-assisted alcohol or drug abuse programs. If such information is present, then the following federally mandated warning applies: This information has been disclosed to you from records protected by federal confidentiality rules (42 CFR part 2). The federal rules prohibit you from making any further disclosure of this information unless further disclosure is expressly permitted by the written consent of the person to whom it pertains or as otherwise permitted by 42 CFR part 2. A general authorization for the release of medical or other information is NOT sufficient for this purpose. The Federal rules restrict any use of the information to criminally investigate or prosecute any alcohol or drug abuse patient.The records that you are about to access may contain highly sensitive health information, the redisclosure of which is protected by Article 27-F of the [facility] Public Health law. If you continue you may have access to information: Regarding HIV / AIDS; Provided by facilities licensed or operated by the [facility] Office of Mental Health; or Provided by the [facility] Office for People With Developmental Disabilities. If such information is present, then the following [facility] mandated warning applies: This information has been disclosed to you from confidential records which are protected by state law. State law prohibits you from making any further disclosure of this information without the specific written consent of the person to whom it pertains, or as otherwise permitted by law. Any unauthorized further disclosure in violation of state law may result in a fine or penitentiary sentence or both. A general authorization for the release of medical or other information is NOT sufficient authorization for further disc losure. Allergies and Adverse Reactions Type Description Substance Reaction Status Data Source(s ) No Known Environmental Allergies No Known Environmental Al lergies [facility] No Known Food Allergies No Known Food Allergies [facility] BRANDNAME PENICILLIN PENICILLIN VOMITING [facility] CLASS SULFA (sulfonamide) SULFA (sulfonamide) RASH UNSURE [facility] Family History Family Member Name Family Member Gender Family Member Status Date o f Status Description Data Source(s) Unknown Male Problem [facility] ([facility]) Encounters Encounter Providers Location Date Indications Data Source(s ) Emergency Attender: NELA DE LA GARZAConsultant: PCP NO 06/08/2020 11:46:00 PM EDT - 06/09/2020 10:18:00 AM EDT [facility] Patient discharged. Outpatient 06/08/2020 12:00:00 AM [facility] Outpatient Attender: JG Webb r: Kota Garza MDConsultant: PCP NO 05/26/2020 02:07:00 PM EDT - 05/26/2020 02:07:00 PM EDT [facility] Emergency Attender: NELA Bocanegrasultant: PCP NO 04/29/2020 01:47:00 AM EDT - 04/29/2020 10:01:00 AM EDT [facility] Patient discharged. Emergency Attender: THADDEUS COON MDConsultant: PCP NO 03/28/2020 03:24:00 PM EDT - 03/28/2020 05:20:00 PM EDT [facility] Patient discharged. Outpatient Attender: Gabbie PATEL 02/03/2020 07:48:28 P M EDT [facility] Emergency Attender: NELA Bocanegrasultant: PCP NO 10/27/2019 01:47:00 PM EST - 10/27/2019 04:14:00 PM EST [facility] Patient discharged. Emergency Attender: JERMAIN Lunaant: GABBIE LOVETT) RPA-C 07/10/2018 02:50:[address] [facility] Medications Medication Brand Name Start Date Product Form Dose Route Admi nistrative Instructions Pharmacy Instructions Status Indications Reaction Description Data Source(s) 8-2 mg 05/24/2020 12:00:00 AM EDT tablet, sublingual 14 PLACE ONE TABLET UNDER THE TONGUE DAILY MAXIMUM DAILY DOSE = 1 PLACE ONE TABLET UNDER THE TONGUE DAILY MAXIMUM DAILY DOSE = 1 SOLD: 05/25/2020 [facility] 600 mg 10/27/2019 12:00:00 AM EST tablet 28 TAKE ONE TABLET BY MOUTH FOUR TIMES A DAY NEEDED FOR PAIN TAKE ONE TABLET BY MOUTH FOUR TIMES A DA Y NEEDED FOR PAIN SOLD: 10/27/2019 [facility] 5-325 mg 10/27/2019 12:00:00 AM EST tablet 12 TAKE ONE TABLET BY MOUTH EVERY 6 HOURS NEEDED FOR ACUTE PAIN MAXIMUM DAILY DOSE =4 TAKE ONE TABLET BY MOUTH EVERY 6 HOURS NEEDED FOR ACUTE PAIN MAXIMUM DAILY DOSE =4 SOLD: 10/27/2019 [facility] Insurance Providers Payer name Policy type / Coverage type Policy ID Covered libertarian ID Covered libertarian's relationship to donald Policy Donald Plan Information [facility] [id number] [facility] COMM[facility] [place] [id number] 18 [id number] UNHC COMMUNITY PLAN XIX [id number] 18 [id number] UNHC AMERICHOICE XIX HMO [id number] 18 [id number] UNHC COMMUNITY PLAN MCDHMO [id number] SP [id number] UNHC COMMUNITY PLAN MCDHMO [id number] SP [id number] [facility] I [id number] Self [id number] [facility] O [id number] S [id number] MEDICAID [id number] Self [id number] 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 [id number] SP [id number] Medicaid P [id number] S [id number] [facility] COMMUNTY PLAN [id number] 18 [id number] [facility]-Med[facility] [id number] [facility] Communty Plan Medicaid [id number] Self 10 [id number] CLITHER[employer] -PHYSICIAN [id number] 2 0 [id number] [place]ER[place] -O/P [id number] 20 [id number] ERIK RESTAURANT LAUREN ALONSO 18 LAUREN ALONSO [facility] Communty Plan Medicaid [id number] Self [id number] [facility]-Medicaid [id number] UNHC COMMUNITY PLAN XIX -I/P [id number] 18 [id number] [facility] Communty Plan Medicaid [id number] Self 10 [id number] [facility] Communty Plan Medicaid [id number] Self 10 [id number] ANSI-Medicaid [id number] ANSI-Medicaid [id number] [facility] Communty Plan Medicaid [id number] Self 10 [id number] [facility] Communty Plan Medicaid [id number] Self 10 [id number] [facility] Communty Plan Medicaid [id number] Self 10 [id number] [facility] Communty Plan Medicaid [id number] Self 10 [id number] Self Pay P none S none MEDICAID M [id number] S [id number] MEDICAID [id number] SP [id number] SELF PAY ONLY [id number] SP [id number] [facility] [id number] SP [id number] Managed Care - Community Plan [facility] P [id number] S [id number] Medicaid S [id number] S [id number] Medicaid P [id number] S [id number] [facility] [id number] S [id number] MEDICAID [id number] SP [id number] HMO BLUE [id number] SP [id number] BLUE CROSS BLUE SHIELD-PHYSICIAN [id number] BLUE CROSS BLUE SHIELD-O/P [id number] MEDICAID-PHYSICIAN [id number] 18 C [id number] MEDICAID - CLINIC [id number] 18 CC [id number] Problems, Conditions, and Diagnoses Code Display Name Description Problem Type Effective Dates Data Source(s) Z590 Homelessness Homelessness Diagnosis 06/08/2020 11:46:00 P M EDT [facility] 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, uncomplicated Other stimu lant abuse, uncomplicated Diagnosis 06/08/2020 11:46:00 PM EDT [facility] F1110 Opioid abuse, uncomplicated Opioid abuse, uncomplicate d Diagnosis 06/08/2020 11:46:00 PM EDT [facility] F1210 Cannabis abuse, uncomplicated Cannabis abuse, uncompli cated Diagnosis 06/08/2020 11:46:00 PM EDT [facility] T80151 Nicotine dependence, cigarettes, uncompl icated Nicotine dependence, cigarettes, uncomplicated Diagnosis 06/08/2020 11:46:00 PM EDT [facility] R519 Headache, unspecified Headache, unspecified Diagnosis 06/08/2020 11:46:00 PM EDT [facility] 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, uncomplicate d Other stimulant dependence, uncomplicated Diagnosis 05/26/2020 02:07:00 PM EDT [facility] F1120 Opioid dependence, uncomplicated Opioid dependen ce, uncomplicated Diagnosis 05/26/2020 02:07:00 PM EDT [facility] 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 Other recur rent depressive disorders Diagnosis 05/26/2020 02:07:00 PM EDT [facility] 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 Diagnosis 04/29/2020 01:47:00 AM EDT [facility] R21788 Nicotine dependence, unspecified, uncomp licated Nicotine dependence, unspecified, uncomplicated Diagnosis 04/29/2020 01:47:00 AM EDT [facility] E876 Hypokalemia Hypokalemia Diagnosis 04/29/2020 01:47:00 AM EDT [facility] N3000 Acute cystitis without hematuria Acute cystitis without hematuria Diagnosis 04/29/2020 01:47:00 AM EDT [facility] R0789 Other chest pain Other chest pain Diagnosis 04/29/2020 01 :47:00 AM EDT [facility] A45384 Unspecified street and [place] as the place of occurrence of the external cause Unspecified street and highway as the pl guzman of occurrence of the external cause Diagnosis 10/27/2019 01:47:00 PM EST [facility] [id number] Other and unspecified overex ertion or strenuous movements or postures, initial encounter Other and unspecified overexertion or st renuous movements or postures, initial encounter Diagnosis 10/27/2019 01:47:00 PM EST [facility] [id number] Sprain of medial collateral ligament of left knee, initial encounter Sprain of medial collateral ligament of left knee, initial encounter Diagnosis 10/27/2019 01:47:[address] [facility] [id number] Unspecified injury of left lower leg, in itial encounter Unspecified injury of left lower leg, initial encounter Diagnosis 10/27/2019 01:47:[address] [facility] Results ID Date Data Source [id number] 06/08/2020 11:46:00 PM EDT [facility] 1 OrderSheet [facility] Emergency Department [address] [place] [address] Phone #: ext- [phone] 06/08/2020 23:41 Patient: LAUREN ALONSO Sex: F : 1990 Age: 29yWEIGHT:49.8 kg (M) HEIGHT:63 inches (S) BMI:19.5 STATUS:NoALLERGIES: Penicillins, Sulfa AntibioticsCHIEF COMPLAINT: headache, headacheDIAGNOSIS: Drug abuse, Headache, Drug abuse, AnxietyLAB ORDERSOrder Description Priority Entered Acknowledged InitialedHCG Serum Qual STAT 08:04 06/09/2020 08:33 Trinity Contreras RN Physician;CBC w Diff STAT 08:04 06/09/2020 08:33 Trinity Contreras RN Physician;CMP STAT 08:04 06/09/2020 08:33 Trinity Contreras RN Physician;Urinalysis (Clean STAT 08:04 06/09/2020 Ack'd: 09:17 Counts include 234 beds at the [facility] Tech, Juan C Coon ER Tech1 Physician; Cancelled: Patient Refusal 10:39 Trinity Contreras RNUrine Drug Screen STAT 08:04 06/09/2020 Ack'd: 09:18 Counts include 234 beds at the [facility] TechJovani ER Tech1 Physician; Cancelled: Patient Refusal 10:40 Trinity Contreras RNInfluenza Nasal A B STAT 10:03 06/09/2020 Cancelled: Patient Refusal 10:40 Trinity Contreras RN Physician;Rapid Strep Screen STAT 10:03 06/09/2020 Cancelled: Patient Refusal 10:40 Trinity Contreras RN Physician;DIAGNOSTIC STUDY ORDERSOrder Description Priority Entered Acknowledged InitialedMEDICATION/IV/DRIP/FLUID ORDERSOrder Description Priority Entered Acknowledged InitialedTylenol PO 650 mg 00:17 06/09/2020 00:36 Nela Song RN 2 OrderSheet [facility] Emergency Department [address] [place] [address] Phone #: ext- [phone] 06/08/2020 23:41 [facility]: [id number] Sex: F : 1990 Age: 29y M.D.;Ibuprofen 800 mg 08:04 06/09/2020 08:37 DorisPO X1 dose: 800 Thaddeus Contreras RNmg (NOW x1) Physician;GENERAL ORDERSOrder Description Priority Entered Acknowledged InitialedDiet: (Regular Diet) 05:41 06/09/2020 06:52 Claudio Bean Robert R.N.; Donna Fu Per protocol; Nela De La Garza M.D.Consult - Social 05:42 06/09/2020 06:52 Vidal Bean Robert R.N.; Donna REleazar Per protocol; Nela De La Garza M.D.[Electronically signed by Trinity Contreras RN (10:40 06/09/2020)][Electronically signed by Thaddeus Coon Physician (15:19 06/09/2020)][Electronically signed by Nela De La Garza M.D. (07:36 06/10/2020)][Electronically locked by Trinity Contreras RN (10:40 06/09/2020)] Name Value Range Interpretation Code Description Data Melita rce(s) Supporting Document(s) ID Date Data Source [id number] 06/08/2020 11:46:00 PM EDT [facility] 1 Medication Reconciliation Report [facility] Emergency Department [address] [place] [address] Phone #: ext- [phone] 06/08/2020 23:41 Patient: LAUREN ALONSO Sex: F : 1990 Age: 29yWeight: 49.8 kgHeight/Length: 63 in.BMI: 19.5ALLERGIES: Penicillins, Sulfa AntibioticsThe patient's Home Medications are listed below:THE FOLLOWING MEDICATIONS NEED TO BE RECONCILED: Suboxone SublingualThe source(s) of the original Home Medication information:patientThe following Medications were given to the patient in the Emergency Department:Tylenol [PO] PO 650 mg, administered: 06/09/2020 12:36:00 AMIbuprofen [PO] PO 800 mg, administered: 06/09/2020 8:37:00 AMThe following Medications were prescribed to the patient:None. Name Value Range Interpretation Code Description Data Melita rce(s) Supporting Document(s) ID Date Data Source [id number] 06/08/2020 11:46:00 PM EDT [place] [address] Medication Administration Record [facility] Emergency Department [address] [place] [address] Phone #: ext- [phone] 06/08/2020 23:41 Patient: LAUREN ALONSO Sex: F : 1990 Age: 29yWeight: 49.8 kgHeight/Length: 63 inBMI: 19.5ALLERGIES: Sulfa Antibiotics, Penicillins Date/Time Medication Administered Medication OrderedGiven TYLENOL [PO] (APAP) Tylenol PO 650 mg00:36 06/09/2020 Dose: 650 mg Tablets Vivi Adams RNGitatum IBUPROFEN [PO] Ibuprofen 800 mg PO X1 dose: 95206:37 06/09/2020 Dose: 800 mg Tablets PO mg (NOW x1)Trinity Contreras RN Name Value Range Interpretation Code Description Data Melita rce(s) Supporting Document(s) ID Date Data Source [id number] 06/08/2020 11:46:00 PM EDT [facility] 1 General Instructions [facility] Emergency Department [address] [place] [address] Phone #: ext- [phone] 06/08/2020 23:41 Patient: LAUREN ALONSO Sex: Colby : 1990 Age: 29yChronic substance abuse- marijuana, heroin, methamphetamines with anxiety.Homeless situation.INSTRUCTIONSDo not smoke. No alcohol.Warnings: Further evaluation is necessary. It is very important to follow up with a healthcare provider.GENERAL WARNINGS: Return or contact your physician i mmediately if your condition worsens orchanges unexpectedly, if not improving as expected, or if other problems arise. SPECIFICALLY, return ifyou develop fever, vomiting, numbness, weakness, difficulty thinking, visual disturbances, fainting orextreme fatigue. ADDITIONAL INFORMATIONDrug AbuseUse and abuse of drugs like marijuana, amphetamines (speed, crank), cocaine, heroin or prescriptionpain medicines, sedatives and sleeping pills, MDMA, ecstasy, bath salts, PCP, mescaline and LSDmay lead to addiction or dependence. Once this happens, you are at greater risk for any of thefollowing:Social and personal problems Craving for the drug and not able to stop using even though you think you want to stop (psychological addiction) Drug withdrawal symptoms if you stop taking the drug (physical dependence) Loss of job or your family Arrest, conviction, and penitentiary sentence for possession of an illegal substance or for driving under the influenceHealth problems Strokes, heart attacks, kidney failure 2 General Instructions [facility] Emergency Department [address] [place] [address] Phone #: ext- [phone] 06/08/2020 23:41 Patient: LAUREN ALONSO Sex: F : 1990 Age: 29y Accidental injuries to yourself or others while you are under the influence of the drug (in a car or at home) HIV infection (much greater risk if you use IV drugs) Skin infections Other sexually transmitted dis ease (STDs such as herpes, chlamydia, gonorrhea, and others) Severe and fatal infection of the heart valves (if you use IV drugs) Hepatitis B or C from overdoseHome careThe following suggestions can help you care for yourself at home: Admit you have a drug problem. Ask for help from your family and close friends. Seek professional help. This could be in the form of individual psychotherapy or counseling. There are also outpatient, inpatient, and residential drug treatment programs. Join a self-help group for drug abuse. Stay away from friends who abuse drugs or tempt you to continue abusing drugs. Eat a balanced diet and start a regular exercise program.Follow-up careFollow up with your healthcare provider, or as advised. Contact one of the resources below for help: National [place] on Alcoholism and Drug Dependence www.ncadd.org 910-945-0484 Narcotics Anonymous www.na.org 103-031-9280 National Alcohol and Substance Abuse Information Center (for referral to treatment programs) www.[place] 301-237-1557[place] 911Call 911 if any of the following occur: Seizure Hard time breathing or slow, irregular breathing Chest pain 3 General Instructions [facility] Emergency Department [address] [place] [address] Phone #: ext- [phone] 06/08/2020 23:41 Patient: LAUREN ALONSO Sex: F : 1990 Age: 29y Sudden weakness on one side of your body or sudden trouble speaking Very drowsy or trouble awakening Fainting or loss of consciousness Rapid heart rate Very slow heart rateWhen to seek medical adviceCall your healthcare provider right away if any of these occur: Agitation, anxiety, unable to sleep Unintended weight loss (m ore than 10 to 15 pounds over 3 months) Fever of 100.4F (38C) or higher, or as directed by your healthcare provider Shortness of breath Cough with colored sputum Redness, swelling, or tenderness at an injection site [id number] [employer] [address] [place] [address]. All rights reserved. This information is not intended as asubstitute for professional medical care. Always follow your healthcare professional's instructions.Marijuana AbuseMarijuana is the most widely used illegal drug in the [place]. It is called by various names suchas pot, weed, blunts, grass, reefer, ganja, hash, or hashish. It is usually smoked but can be mixedwith foods, or brewed as a tea. It is sometimes sold with PCP (michelle dust) or amphetamine mixed init. These drugs can cause other harmful side effects.Marijuana can cause the following effects: Changes in mood (stimulated, happy, drowsy, depressed, paranoid) Hallucinations Increased heart rate and blood pressure Increased appetite Time distortion, difficulty concentrating, impaired memory Lung damage (similar to cigarettes with chronic cough, wheezing, frequent colds, and 4 General Instructions [facility] Emergency Department [address] [place] [address] Phone #: ext- [phone] 06/08/2020 23:41 Patient: LAUREN ALONSO Sex: F : 1990 Age: 29y bronchitis) Decreased sperm count Dizziness, vertigoYou can become psychologically dependent on marijuana. That means the craving to use the drug isemotional or psychological rather than due to physical withdrawal.Is marijuana running your life?Here are some of the signs: Relying on marijuana to feel good, forget problems, deal with stress or to relax Wanting to be alone most of the time or only with others who use drugs Losing interest in things that used to be important Changes in school or job performance or attendance Spending a lot of time thinking about how to get marijuana Stealing or selling your things so you can buy marijuana Unable to stop using even though you may want to quit Increasing anxiety, anger, or depression Sleeping too much, changes in eating habits (weight loss or gain) Needing to use more to get the same effectHome careThe following suggestions will help you manage marijuana abuse: Once you have become addicted to any drug, quitting is hard to do. Most people find they can't quit without help. So, don't try to do this alone. Talk to someone you trust who can support you. Seek professional help. Avoid people and places where drugs are used. That only increases the temptation to use.Follow-up careFollow up with your healthcare provider, or as advised.For more information or a referral to a treatment center in your area, contact: Your local mental health center or the National Alcohol and Substance Abuse Information [address] [place] [address] Emergency Department [address] [place] [address] Phone #: ext- [phone] 06/08/2020 23:41 Patient: LAUREN ALONSO Sex: F : 1990 Age: 29y [place] [phone] www.addictioncareDouble Fusion.[employer] [place] on Alcoholism and Drug Dependence 475-665-5451 www.ncadd.org Marijuana Anonymous [phone] www.marijuana- anonymous.orgWhen to seek medical adviceCall your healthcare provider right away if any of these occur: You feel extreme depression, fear, anxiety, or anger toward yourself or others. You feel out of control. You feel that you may try to harm yourself or another. You experience chest pain or shortness of breath. [phone] [employer]. [address] [place] [address], [place] [address]. All rights reserved. This information is not intended as asubstitute for professional medical care. Always follow your healthcare professional's instructions.Opiate AbuseUse and abuse of heroin or prescription pain medicines such as oxycodone, codeine, hydrocodone,morphine, methadone, and fentanyl may lead to addiction or dependence. Once this occurs, you areat greater risk for any of these: Craving for the drug and unable to stop using the drug even though you think you want to stop (psychological addiction) Drug withdrawal symptoms if you stop taking the drug (physical dependence) Loss of your job or your family Arrest, conviction, and penitentiary sentence for possession of an illegal substance or for driving under the influence of such a substance Accidental injuries to yourself or others while you are under the influence of the drug in a car or at home or serious injury from overdoseHealth problemsThe list of potential health problems is a long one. It can be different with different medicines. Theycan cause problems even if you have no history of medical problems. It is also affected by othermedicines you may be taking, and chronic illnesses you may have. Besides the problems listedabove, abuse also has other effects, some directly related to the drugs, others from or related to 6 General Instructions [facility] Emergency Department [address] [place] [address] Phone #: ext- [phone] 06/08/2020 23:41 Patient: [facility]ONSO [id number] Sex: F : 1990 Age: 29yaddiction or dependency. Anxiety Seizures Constipation Hepatitis (liver infection) Liver failure Blood pressure problems Depression Insomnia Nausea, vomiting, and stomach problems Drowsiness Slurred speech Trouble breathing Dizziness Skin infections Muscle pain and spasms Stroke Heart attack Kidney failure HIV infection Skin infections Other sexually transmitted diseases Severe and fatal infection of the heart valves Coma and deathHome care Admit you have a drug problem. Ask for help from your family and close friends. 7 General Instructions [facility] Emergency Department [address] [place] [address] Phone #: ext- [phone] 06/08/2020 23:41 Patient: LAUREN ALONSO Sex: Colby : 1990 Age: 29y Seek professional help. This could be individual psychotherapy, counseling, or a drug treatment program (outpatient or residential). Join a self-help group for drug abuse. Avoid friends who abuse drugs themselves or tempt you to continue your habit. Eat a balanced diet and begin a regular exercise program.Follow-up careFollow up with your healthcare provider, or as advised. Contact one of the resources below for help: National [place] on Alcoholism and Drug Dependence, www.ncadd.org 592-115-KZIC Narcotics Anonymous. Check your phone book for a local listing, call 696-452-1077, or visit www.Defixo.org. National Alcohol and Substance Abuse Information Center for referral to treatment programs www.Servoy 059-830-6718Nzee 911Call 911 if any of these occur: Seizure Trouble breathing or slow, irregular breathing Chest pain Sudden weakness on one side of your body or sudden trouble speaking Very drowsy or trouble awakening Fainting or loss of consciousness Rapid heart rate Very slow heart rateWhen to seek medical adviceCall your healthcare provider right away if any of these occur: Symptoms of withdrawal. These include agitation, anxiety, trembling, sweats, diarrhea, unable to sleep. Fever of 100.4F (38.0C) or higher, or as directed by your healthcare provider 8 General Instructions [facility] Emergency Department [address] [place] [address] Phone #: ext- [phone] 06/08/2020 23:41 Patient: LAUREN ALONSO Sex: F : 1990 Age: 29y Excessive drowsiness or inability to be awakened Redness, swelling, or tenderness at an injection site [id number] [employer]. [address] [place] [address], [place] [phone]. All rights reserved. This information is not intended as asubstitute for professional medical care. Always follow your healthcare professional's instructions. You have been given the following additional information: Drug Abuse Marijuana Abuse Opiate Abuse(Electronically signed by Nela De La Garza M.D. 06/10/2020 07:36) Episodic tension headache. No poorly controlled headache, treatment resistant headache or migraine headache. Anxiety reaction. Chronic substance abuse- heroin, methamphetamines with anxiety. (Polysubstance abuse). No intoxication, delirium, delusions or hallucinations.INSTRUCTIONSWarnings: GENERAL WARNINGS: Return or contact your physician immediately if your conditionworsens or changes unexpectedly, if not improving as expected, or if other problems arise. Follow- up: Follow up with your doctor as needed. Call for an appointment. Reason for referral: evaluation, treatment and Headache / Anxiety / polysubstance abuse. Understanding of the discharge instructions verbalized by patient. AMA warnings: The suspected diagnosis, based upon the initiated medical screening exam, is Polysubstance abuse / Headache. Patient refused discharge instructions. REFUSAL OF CARE STATEMENT (patient to review and sign in discharge instructions): I have read this paragraph. I understand that a doctor at this hospital wants to give me certain medical 9 General Instructions [facility] Emergency Department [address] [place] [address] Phone #: ext- [phone] 06/08/2020 23:41 Patient: LAUREN ALONSO Sex: F : 1990 Age: 29ycare. I want to leave this hospital without receiving the recommended care. I know that I am welcome toreturn to this hospital at any time to receive the recommended care or any other care that I may need atany time, regardless of my ability to pay for such care.Patient refused to sign refusal of care statement. Indicated refusal of care by refusing to hear warningsand discharge instructions and leaving the Emergency Department. Patient eloped. ADDITIONAL INFORMATIONAnxiety ReactionAnxiety is the feeling we all get when we think something bad might happen. It is a normal responseto stress and usually causes only a mild reaction. When anxiety becomes more severe, itcan interfere with daily life. In some cases, you may not even be aware of what it is you're anxio usabout. There may also be a genetic link or it may be a learned behavior in the home.Both psychological and physical triggers cause stress reaction. It's often a response to fear oremotional stress, real or imagined. This stress may come from home, family, work, or socialrelationships.During an anxiety reaction, you may feel: Helpless Nervous Depressed IrritableYour body may show signs of anxiety in many ways. You may experience: Dry mouth Shakiness Dizziness Weakness Trouble breathing Breathing fast (hyperventilating) Chest pressure Sweating Headache 10 General Instructions [facility] Emergency Department [address] [place] [address] Phone #: ext- [phone] 06/08/2020 23:41 Patient: LAUREN ALONSO Sex: F : 1990 Age: 29y Nausea Diarrhea Tiredness Inability to sleep Sexual problemsHome care Try to locate the sources of stress in your life. They may not be obvious. These may include: o Daily hassles of life (such as traffic jams, missed appointments, or car troubles) o Major life changes, both good (new baby or job promotion) and bad (loss of job or loss of loved one) o Overload: feeling that you have too many responsibilities and can't take care of all of them at once o Feeling helpless or feeling that your problems are beyond what you're able to solve Notice how your body reacts to stress. Learn to listen to your body signals. This will help you take action before the stress becomes severe. When you can, do something about the source of your stress. (Avoid hassles, limit the amount of change that happens in your life at one time and take a break when you feel overloaded). Unfortunately, many stressful situations can't be avoided. It is necessary to learn how to better manage stress. There are many proven methods that will reduce your anxiety. These include simple things like exercise, good nutrition, and adequate rest. Also, there are certain techniques that are helpful: o Relaxation o Breathing exe rcises o Visualization o Biofeedback o MeditationFor more information about this, consult your healthcare provider or go to a local bookstore andreview the many books and tapes available on this subject. 11 General Instructions [facility] Emergency Department [address] [place] [address] Phone #: [phone] 06/08/2020 23:41 Patient: LAUREN ALONSO Sex: F : 1990 Age: 29yFollow-up careIf you feel that your anxiety is not responding to self-help measures, contact your healthcare provideror make an appointment with a counselor. You may need short-term psychological counseling andtemporary medicine to help you manage stress.Call [phone] if any of these happen: Trouble breathing Confusion Drowsiness or trouble wakening Fainting or loss of consciousness Rapid heart rate Seizure New chest pain that becomes more severe, lasts longer, or spreads into your shoulder, arm, neck, jaw, or backWhen to seek medical adviceCall your healthcare provider right away if any of these happen: Your symptoms get worse Severe headache not relieved by rest and mild pain reliever [id number] [employer]. [address] [facility], [place] [address]. All rights reserved. This information is not intended as asubstitute for professional medical care. Always follow your healthcare professional's instructions.Drug AbuseUse and abuse of drugs like marijuana, amphetamines (speed, crank), cocaine, heroin or prescriptionpain medicines, sedatives and sl eeping pills, MDMA, ecstasy, bath salts, PCP, mescaline and LSDmay lead to addiction or dependence. Once this happens, you are at greater risk for any of thefollowing:Social and personal problems Craving for the drug and not able to stop using even though you think you want to stop (psychological addiction) 12 General Instructions [facility] Emergency Department [address] [place] [address] Phone #: ext- [phone] 06/08/2020 23:41 Patient: LAUREN ALONSO Sex: Colby : 1990 Age: 29y Drug withdrawal symptoms if you stop taking the drug (physical dependence) Loss of job or your family Arrest, conviction, and penitentiary sentence for possession of an illegal substance or for driving under the influenceHealth problems Strokes, heart attacks, kidney failure Accidental injuries to yourself or others while you are under the influence of the drug (in a car or at home) HIV infection (much greater risk if you use IV drugs) Skin infections Other sexually transmitted disease (STDs such as herpes, chlamydia, gonorrhea, and others) Severe and fatal infection of the heart valves (if you use IV drugs) Hepatitis B or C from overdoseHome careThe following suggestions can help you care for yourself at home: Admit you have a drug problem. Ask for help from your family and close friends. Seek professional help. This could be in the form of individual psychotherapy or counseling. There are also outpatient, inpatient, and residential drug treatment programs. Join a self-help group for drug abuse. Stay away from friends who abuse drugs or tempt you to continue abusing drugs. Eat a balanced diet and start a regular exercise program.Follow-up careFollow up with your healthcare provider, or as advised. Contact one of the resources below for help: National [place] on Alcoholism and Drug Dependence www.ncadd.org 122-640-5696 Narcotics Anonymous www.na.org 868-428-5837 National Alcohol and Substance Abuse Information Center (for referral to treatment 13 General Instructions [facility] Emergency Department [address] [place] [address] Phone #: [phone]- [phone] 06/08/2020 23:41 -- Patient: LAUREN ALONSO Sex: F : 1990 Age: 29y programs) www.addictionBlack Raven and Stag [phone] 111Cboy 912 if any of the following occur: Seizure Hard time breathing or slow, irregular breathing Chest pain Sudden weakness on one side of your body or sudden trouble speaking Very drowsy or trouble awakening Fainting or loss of consciousness Rapid heart rate Very slow heart rateWhen to seek medical adviceCall your healthcare provider right away if any of these occur: Agitation, anxiety, unable to sleep Unintended weight loss (more than 10 to 15 pounds over 3 months) Fever of 100.4F (38C) or higher, or as directed by your healthcare provider Shortness of breath Cough with colored sputum Redness, swelling, or tenderness at an injection site 8087-0247 [employer]. [address] [place] [address]. All rights reserved. This information is not intended as asubstitute for professional medical care. Always follow your healthcare professional's instructions.Headache, Unspecified 14 General Instructions [facility] Emergency Department [address] [place] [address] Phone #: ext- [phone] 06/08/2020 23:41 Patient: LAUREN ALONSO Sex: F : 1990 Age: 29yA number of things can cause headaches. The cause of your headache isn't clear. But it doesn'tseem to be a sign of any serious illness.You could have a tension headache or a migraine headache.Stress can cause a tension headache. This can happen if you tense the muscles of your shoulders,neck, and scalp without knowing it. If this stress lasts long enough, you may develop a tensionheadache.It is not clear why migraines occur, but certain things called" triggers" can raise the risk of having amigraine attack. Migraine triggers may include emotional stress or depression, or by hormonechanges during the menstrual cycle. Other triggers include control pills and other medicines,alcohol or caffeine, foods with tyramine (such as aged cheese, wine), eyestrain, weather changes,missed meals, and lack of sleep or oversleeping.Other causes of headache include: Viral illness with high fever Head injury with concussion Sinus, ear, or throat infection Dental pain and jaw joint (TMJ) painMore serious but less common causes of headache include stroke, brain hemorrhage, brain tumor,meningitis, and encephalitis.Home care 15 General Instructions [facility] Emergency Department [address] [place] [address] Phone #: ext- [phone] 06/08/2020 23:41 Patient: LAUREN ALONSO [facility] [id number] Sex: F : 1990 Age: 29yFollow these tips when taking care of your self at home: Don't drive yourself home if you were given pain medicine for your headache. Instead, have someone else drive you home. Try to sleep when you get home. You should feel much better when you wake up. Apply heat to the back of your neck to ease a neck muscle spasm. Take care of a migraine headache by putting an ice pack on your forehead or at the base of your skull. If you have nausea or vomiting, eat a light diet until your headache eases. If you have a migraine headache, use sunglasses when in the daylight or around bright indoor lighting until your symptoms get better. Bright glaring light can make this type of headache worse.Follow-up careFollow up with your healthcare provider, or as advised. Talk with your provider if you have frequentheadaches. He or she can help figure out a treatment plan. By knowing the earliest signs ofheadache, and starting treatment right away, you may be able to stop the pain yourself.When to seek medical advi ceCall your healthcare provider right away if any of these occur: Your head pain suddenly gets worse after sexual intercourse or strenuous activity Your head pain doesn't get better within 24 hours You aren't able to keep liquids down (repeated vomiting) Fever of 100.4F (38C) or higher, or as directed by your healthcare provider Stiff neck Extreme drowsiness, confusion, or fainting Dizziness or dizziness with spinning sensation (vertigo) Weakness in an arm or leg or one side of your face You have trouble talking or seeing 5823-8261 [employer]. [address] [place] [address]. All rights reserved. This information is not intended as asubstitute for professional medical care. Always follow your healthcare professional's instructions. You have been given the following additional information: 16 General Instr uctions [facility] Emergency Department [address] [place] [address] Phone #: [phone]- [phone] 06/08/2020 23:41 Patient: LAUREN ALONSO Sex: F : 1990 Age: 29yAnxiety ReactionDrug AbuseHeadache, Unspecified(Electronically signed by Thaddeus Coon, Physician 06/09/2020 15:19) Name Value Range Interpretation Code Description Data Meilta rce(s) Supporting Document(s) ID Date Data Source [id number] 06/08/2020 11:46:00 PM EDT [facility] 1 Clinical Report - Nurses [facility] Emergency Department [address] [place] [address] Phone #: ext- [phone] 06/08/2020 23:41 Patient: LAUREN ALONSO Sex: F : 1990 Age: 29yTRIAGEAcuity: LEVEL 3.Chief Complaint: HEADACHE.Alert. No acute distress.This started today 1800hrs. 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 Sepsis Screen negative. No suspected or confirmed signs ofinfection present.JOSE COMA SCORE: 15- eyes o pen- spontaneous (4); best verbal response- oriented (5); bestmotor response- obeys commands (6). --23:57 06/08/20 Brice Snyder R.N.23:42 06/08/20. BP: 126/87. MAP: 100. HR: 81. RR: 18. O2 saturation: 100%. Temp: 98.2 F. Pain levelnow: 10. --23:57 06/08/20 Brice Snyder R.N.Weight: 49.8 kg measured. Height/Length: 63 inches Per Patient. BMI: 19.5. --23:51 06/08/20 Brice Snyder R.N.MedicationsSuboxone Sublingual. --23:46 06/08/20 rBice Snyder R.N.AllergiesPenicillins.Sulfa Antibiotics. --23:47 06/08/20 Brice Snyder R.N.Medication/allergy information source: the patient. --23:57 06/08/20 Brice Snyder R.N.HistoryPAST MEDICAL HX: Immunizations: up-to-date. Last normal menstrual period- Jun 07. Sexual history -sexually active. No contraception.SOCIAL HX: Heavy tobacco smoker- less than 1 pack per day. History of drug use: heroin,methamphetamines, marijuana. Recently used drugs yesterday. She was offered HIV testing butdeclined. Patient education was provided. She was offered hepatitis C testing but declined. Patienteducation was provided. She has not traveled outside the [place]Infectious disease exposure: The patient was not exposed to chicken pox, measles, mumps, meningitis,staph, strep, mono, C- diff, MRSA, VRE, CRE, influenza, Rudolph flu, H1N1 flu, Hepatitis A, B and C, 2 Clinical Report - Nurses [facility] Emergency Department [address] [place] [address] Phone #: ext- [phone] 06/08/2020 23:41 Patient: LAUREN ALONSO Sex: F : 1990 Age: 29y Coronavirus, MERS, SARS, tuberculosis, Ebola, HIV, Typhoid or Zika. 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 Mask placed on patient. Staff notified. SELF HARM ASSESSMENT: Self harm assessment was performed. The patient answered "no" to the question(s) "Have you recently felt down, depressed, or hopeless?", "Do you have thoughts of harming or killing yourself?", "Do you have a plan for harming or killing yourself?", "Have you recently had thoughts about harming or killing others?", "Do you have any dangerous items in your possession?", "Have you noticed less interest or pleasure in doing things?", "Are you here because you tried to hurt yourself?" and "Have you ever tried to hurt yourself before today?". ABUSE ASSESSMENT: Abuse assessment. Abuse denied. No suspicion of abuse. NUTRITIONAL RISK ASSESSMENT: The nutritional risk assessment revealed no deficiencies. FUNCTIONAL ASSESSMENT: Functional assessment: no impairments noted. LEARNING NEEDS ASSESSMENT: The learning needs assessment revealed no barriers. FALL RISK ASSESSMENT: Fall risk assessment completed. No risk factors identified. SKIN INTEGRITY ASSESSMENT: Skin integrity risk assessment completed. No skin integrity risk identified. --23:57 06/08/20 Brice Snyder R.N. Assessment The patient states feels the same. --23:57 06/08/20 Brice Snyder R.N. Interventions Identification band on patient. Advanced care plan. Patient does not have advanced directive. --23:57 06/08/20 Brice Snyder R.N.PHYSICAL ASSESSMENTGENERAL / NEURO / PSYCH: Alert. Oriented X 4. Appears in no acute distress. Speech within normallimits. ( pt emotions seem somewhat volitile, and unpredictable. her "friend who dropped her off statedthis pt was arrested 2 days ago for DUI Drugs, and is now homeless").HEENT: No facial asymmetry noted. Pupils equal, round and reactive to light.RESPIRATORY: Respirations not labored. Breath sounds within normal limits.CVS: Capillary refill less than 2 seconds.GI / : Abdomen soft and nontender.SKIN: Skin is warm and dry. ( pt wreaks of cigarette smoke). --02:51 06/09/20 Brice Snyder R.N. HEENT: ( pt c/o of a head ache when she is not being defensive about why she is here.). --02:52 06/09/20 Brice Snyder R.N.NURSING PROGRESS NOTES 3 Clinical Report - Nurses [facility] [place] [address] Phone #: ext- [phone] 06/08/2020 23:41 Patient: LAUREN ALONSO Sex: F : 1990 Age: 29y00:36 06/09/2020 Tylenol (APAP) PO Tablets 650 mg given. Allergies verified and confirmed 5 rights.Information reviewed with patient including reason for taking this medication, signs of allergic reaction andprecautions. Verbalizes understanding. --00:36 06/09/20 Ramone Adams RNReassessment acuity: LEVEL 3. The patient reports no complaints, she is calm, resting quietly andsleeping and she has had no adverse reaction. Overall patient status is the same- she states feels thesame.GENERAL / NEURO / PSYCH: Alert. Oriented X 4.HEENT: Pupils equal, round and reactive to light.RESPIRATORY: No respiratory distress.SKIN: Skin is warm and dry. Skin color within normal limits. Two patient identifiers checked. Call lightplaced in reach. Side rails up x 2. Bed placed in lowest position. Brakes of bed on. ( pt sleeping inbedd without any s/s of acute distress noted.). --02:54 06/09/20 Brice Snyder R.N.Reassessment acuity: LEVEL 4. The patient reports no complaints, she is calm, resting quietly andsleeping and she has had no adverse reaction. Overall patient status is improved- she states feels better.( pt states she "feels much better" and is "very thankful for her care").GENERAL / NEURO / PSYCH: Alert. Oriented X 4.HEENT: Pupils equal, round and reactive to light.RESPIRATORY: No respiratory distress.SKIN: Skin is warm and dry. Skin color within normal limits. Two patient identifiers checked. Call lightplaced in reach. Side rails up x 2. Bed placed in lowest position. Brakes of bed on. --03:23 06/09/20Brice waters R.N.03:23 06/09/20. BP: 105/64. MAP: 77. HR: 66. RR: 16. O2 saturation: 100%. Temp: 97 F. Pain level now:010. --03:24 06/09/20 Brice Snyder R.N.06:28 06/09/20. BP: 99/74. MAP: 82. HR: 68. RR: 16. O2 saturation: 97%. Temp: 97.1 F. Pain level now:010. --06:30 06/09/20 Brice Snyder R.N.Reassessment acuity: LEVEL 4. The patient reports no complaints, she is calm, resting quietly andsleeping and she has had no adverse reaction. Overall patient status is improved- she states feels better.GENERAL / NEURO / PSYCH: Alert. Oriented X 4.HEENT: Pupils equal, round and reactive to light.RESPIRATORY: No respiratory distress.SKIN: Skin is warm and dry. Skin color within normal limits. Two patient identifiers checked. Call lightplaced in reach. Side rails up x 2. Bed placed in lowest position. Brakes of bed on. --06:30 06/09/20Brice waters R.N.07:00 06/09/20. Care transferred and report received (from Donna Bean RN, Harjinder Snyder RN). --07: Trinity Contreras RN07:20 06/09/20. ( Patient awakens easily to voice, asked who can be called to pick her up, stated Miriam yeung and gave phone number.). --07:41 06/09/20 Trinity Contreras RN 4 Clinical Report - Nurses [facility] Emergency Department [address] [place] [address] Phone #: ext- [phone] 06/08/2020 23:41 Patient: LAUREN ALONSO Sex: F : 1990 Age: 29y 07:28 06/09/20. ( Called mother's number, no answer. Regular breakfast tray ordered.). --07:42 06/09/20 Trinity Contreras RN 08:37 06/09/2020 Ibuprofen PO Tablets 800 mg given. Allergies verified and confirmed 5 rights. Information reviewed with patient including reason for taking this medication, signs of allergic reaction and precautions. Verbalizes understanding. --08:37 06/09/20 Trinity Contreras RN 08:37 06/09/20. Regular diet offered; patient consumed 75% and tolerated well. --08:37 06/09/20 Trinity Contreras RN ( Lab in to draw blood, tech states patient yelling obscenities, consented to draw). --10:18 06/09/20 Trinity Contreras RN 09:10 06/09/20. ( Tech in room to give patient specimen cup for urine collection, patient heard yelling from room, refusing to give specimen). --10:21 06/09/20 Trinity Contreras RN 09:32 06/09/20. ( Called patient's mother (with patient's permission) to see if patient was able to be discharged to her home. Mother states she does not want her daughter to be in her home until she is drug free. Mother has custody of patient's daughter. Mother has been trying to get patient into rehab, patient has not been co operative with that.). --10:33 06/09/20 Trinity Contreras RN 10:07 06/09/20. ( Patient refusing strep flu swabs, becoming agitated.). --10:34 06/09/20 Trinity Contreras RN 10:17 06/09/20. ( Patient yelling in room, loud noise heard from room, patient fully dressed with belongings states she "is not staying" left ambulatory, gait, brisk, left via abulance doors). --10:36 06/09/20 Trinity Contreras RN.DISPOSITION / DISCHARGE 10:17 06/09/20. The patient left the Emergency Department against medical advice; patient was unaccompanied. The patient appears to be belligerent and using abusive language. She notified staff prior to leaving the department. Notified of patient departure. Prior to leaving, she was advised to return if needed. Patient left without signing form prior to leaving. She left the Emergency Department ambulatory. --10:39 06/09/20 Trinity Contreras RN 10:17 06/09/20. BP: unable to obtain. HR: unable to obtain. RR: unable to obtain. O2 saturation: unable to obtain. Temp: unable to obtain. Pain level now: uncertain. --10:39 06/09/20 Trinity Contreras RN.Locked/Released at 06/09/2020 10:40 by Trinity Contreras RN 5 Clinical Report - Nurses [facility] Emergency Department [address] [place] [address] Phone #: ext- [phone] 06/08/2020 23:41- Patient: LAUREN ALONSO Sex: F : 1990 Age: 29y Name Value Range Interpretation Code Description Data Melita rce(s) Supporting Document(s) ID Date Data Source [id number] 06/08/2020 11:46:00 PM EDT [facility] 1 Clinical Report - Physicians/Mid Levels [facility] Emergency Department [address] [place] [address] Phone #: ext- [phone] 06/08/2020 23:41 Patient: LAUREN ALONSO Sex: F : 1990 Age: 29y Time Seen: 23:49 06/08/2020; initial patient contact. Arrived- By private vehicle. Historian- patient.HISTORY OF PRESENT ILLNESS Chief Complaint: HEADACHE. Is still present but is better now. This started today. It has been waxing/waning. Onset during rest. It is described as similar to previous headaches and "pain". Located in the frontal region. No neck pain. Not located in the facial region. At its maximum, severity described as mild. When seen in the E.D., it was almost gone. Modifying factors: worsened by emotional upset; relieved by rest. No preceding symptoms, blurred vision, photophobia, associated nausea or numbness. No weakness or vomiting. (pt is well known to us for substance abuse (Meth, Heroin, Suboxone, Marijuana, etc.); she admits that they impounded her car yesterday for DUI and now she comes here tonight because she is homeless; she was dropped here by friend; sometimes she lives in her car; her GUAN is just mild and chronic; she also missed her suboxone appt yesterday). No recent travel. Similar symptoms previously. Patient has had similar symptoms chronically. Recent medical care: Not recently seen/assessed.REVIEW OF SYSTEMSNo fever, muscle aches, sinus pressure, ear pain or sore throat. No chest pain, difficulty breathing, cough,abdominal pain or diarrhea. No pain with urination, skin rash, enlarged lymph nodes or back pain. Allother systems reviewed and are negative.PAST HISTORYSee nurses notes. Problems: Substance Abuse. Anxiety Reaction. Additional Surgeries: LEEP procedure. Tympanostomy Tubes. 2 Clinical Report - Physicians/Mid Levels [facility] Emergency Department [address] [place] [address] Phone #: ext- [phone] 06/08/2020 23:41 Patient: LAUREN ALONSO Sex: Colby : 1990 Age: 29y Medications: Suboxone Sublingual. Allergies: Penicillins. Sulfa Antibiotics.SOCIAL HISTORYHeavy tobacco smoker- less than 1 pack per day. History of heavy drug use: narcotics, heroin,methamphetamines, marijuana. No alcohol use.ADDITIONAL NOTESThe nursing notes have been reviewed with agreement regarding the chief complaint, HPI, ROS, PMH andpatient medications and allergies.PHYSICAL EXAMVital Signs: 06/08/2020 23:42 BP: 126/87. MAP: 100. HR: 81. RR: 18. O2 saturation: 100%. Temp: 98.2F. Pain level now: 8/10. Have been reviewed. Oxygen saturation normal.Appearance: No acute distress . Anxious.Eyes: Pupils equal, round and reactive to light. Eyes normal inspection.ENT: Nose normal. Pharynx normal.Neck: Normal inspection. Neck supple.CVS: Normal heart rate and rhythm. Heart sounds normal. Pulses normal.Respiratory: No respiratory distress. Painless inspiration. Breath sounds normal.Abdomen: Soft and nontender. No organomegaly.Back: Normal inspection.Skin: Skin warm and dry. Normal skin color. No rash. Normal skin turgor.Extremities: Extremities exhibit normal ROM. No lower extremity edema.Neuro: Oriented X 3. Alert. Mood/affect normal. Speech normal. Cranial nerves normal (as tested).No cerebellar findings. No motor deficit. No sensory deficit. Reflexes normal.PROGRESS AND PROCEDURESCourse of Care: 02:47 06/09/20. pt sleeping comfortably; will spend night in ER until social workers comein and find home for her a social sciences chair consult is made for the morning; pt still sleeping comfortably. ED care transferred. Case discussed with Dr. Coon. Brief hx: as per H. Pending items: (social sciences chair consult). Tentative impression: substance abuse, homeless. Expected disposition: discharge from ED.CLINICAL IMPRESSION Chronic substance abuse- marijuana, heroin, methamphetamines with anxiety. Homeless situation. 3 Clinical Report - Physicians/Mid Levels [facility] Emergency Department [address] [place] [address] Phone #: ext- [phone] 06/08/2020 23:41 Patient: LAUREN ALONSO Sex: F : 1990 Age: 29yINSTRUCTIONS Do not smoke. No alcohol. Warnings: Further evaluation is necessary. It is very important to follow up with a healthcare provider. GENERAL WARNINGS: Return or contact your physician immediately if your condition worsens or changes unexpectedly, if not improving as expected, or if other problems arise. SPECIFICALLY, return if you develop fever, vomiting, numbness, weakness, difficulty thinking, visual disturbances, fainting or extreme fatigue.(Electronically signed by Nela De La Garza M.D. 06/10/2020 07:36) Time Seen: 07:00 06/09/2020 (Dr. Coon assumes care from Dr. De La Garza). ED care transferred. Case discussed with receiving physician. Arrived- By private vehicle. Historian- patient. Disposition decision: 10:18 06/09/2020.HISTORY OF PRESENT ILLNESS Chief Complaint: HEADACHE. Is still present. It was abrupt in onset. Onset during light activity. It is described as similar to previous headaches, "pain", tightness, pressure, fullness and throbbing. Located in the frontal region. No neck pain. Not located in the facial region. When seen in the E.D., severity described as 8 / 10. Modifying factors: worsened by bright light and noise. The patient has had mild photophobia of the right eye and left eye. No preceding symptoms, blurred vision, associated nausea, numbness or weakness. No vomiting. No recent travel. Similar symptoms previously. Patient has had similar symptoms many times, frequently. Recent medical care: The patient was seen recently at another facility in the emergency department.REVIEW OF SYSTEMSNo fever, muscle aches, sinus pressure, ear pain or sore throat. No carbon monoxide exposure, tick bite,head injury, chest pain or difficulty breathing. No cough, abdominal pain, diarrhea, pain with urination orskin rash. No enlarged lymph nodes or back pain. 4 Clinical Report - Physicians/[facility] Emergency Department [address] [place] [address] Phone #: ext- [phone] 06/08/2020 23:41 Patient: LAUREN ALONSO Sex: F : 1990 Age: 29yPAST HISTORYPast history not negative. See nurses notes. Other disease. Polysubstance abuse - heroin /methamphetamine. Surgeries: Tympanostomy tube placement. (LEEDonato).SOCIAL HISTORYHeavy tobacco smoker (cigarette)- less than 1 pack per day. History of drug use: heroin,methamphetamines. Recently used drugs yesterday.ADDITIONAL NOTESThe nursing notes have been reviewed with agreement regarding the chief complaint, HPI, ROS, PMH andpatient medications and allergies.PHYSICAL EXAMVital Signs: 06/09/2020 06:28 BP: 99/74. MAP: 82. HR: 68. RR: 16. O2 saturation: 97%. Temp: 97.1 F.Pain level now: 0/10. Have been reviewed and appear to be correct. Blood pressure normal. Heart ratenormal. Respiratory rate normal. Temperature normal. Oxygen saturation normal.Appearance: Alert. Anxious. Patient in moderate distress. In distress. (Became more verballyabusive and combative as she woke up from sleep.).Eyes: Pupils equal, round and reactive to light. Eyes normal inspection.ENT: Nose normal. Pharynx normal.Neck: Normal inspection. Neck supple.CVS: Normal heart rate and rhythm. Heart sounds normal. Pulses normal.Respiratory: No respiratory distress. Painless inspiration. Breath sounds normal.Abdomen: Soft and nontender. No organomegaly.Back: Normal inspection.Skin: Skin warm and dry. Normal skin color. No rash. Normal skin turgor.Extremities: Extremities exhibit normal ROM. No lower extremity edema.Neuro: Oriented X 3. Moderately altered mental status: combative. (Became very combative and verballyabusive as she woke from sleep.). Alert. Abnormal mood/affect. Speech normal. Cranial nervesnormal (as tested). No cerebellar findings. No motor deficit. No sensory deficit.LABS, X-RAYS, AND EKGLaboratory Tests: Laboratory tests have been ordered, with results reviewed and considered in themedical decision making process. Beta-HCG, Qual Serum: (JANETH: 06/09/2020 08:21) ( MsgRcvd 06/09/2020 08:58) Final results Test Result Flag Units (Reference) HCG SERUM QUAL NEGATIVE (NORMAL: NEGAT HCG SERUM QL REENTER NEGATIVE (NORMAL: NEGAT { KIT LOT # [id number] ){ KIT EXP DATE 06.01.21 ){ PROCEDURAL CONTROL VALID ) 5 Clinical Report - Physicians/Mid Levels [facility] Emergency Department [address] [place] [address] Phone #: ext- [phone] 06/08/2020 23:41 Patient: LAUREN ALONSO Sex: F : 1990 Age: 29yCBC w Diff: (JANETH: 06/09/2020 08:21) ( MsgRcvd 06/09/2020 09:14) Final results Test Result Flag Units (Reference) CBC W/AUTOMATED DIFF COMPLETE BLOOD COUNT WBC 2.9 L 10/uL (4.2 - 11.0) RBC 4.56 10/uL (4.20 - 5.40) HEMOGLOBIN 13.2 g/dL (12.0 - 16.0) HEM ATOCRIT 39.8 % (37.0 - 47.0) MCV 87.3 fL (81.0 - 101) MCH 28.9 pg (27.0 - 34.0) MCHC 33.2 g/dL (31.0 - 36.0) RDW 13.5 % (11.5 - 14.5) PLATELETS 263 10/uL (150 - 450) MPV 9.4 fL (7.4 - 10.4) NEUT 24.9 L % (37.0 - 80.0) LYMPH 52.0 H % (25.0 - 40.0) MONO 16.7 H % (3.0 - 8.0) EOS 4.4 % (0.0 - 7.0) BASO 2.0 % (0.0 - 2.5) %IG 0.0 % (0.0 - 0.0) %NRBC 0.0 % (0.0 - 0.0) #NEUT 0.73 L 10/uL (2.00 - 6.90) #LYMPH 1.53 10/uL (0.60 - 3.40) #MONO 0.49 10/uL (0.00 - 0.90) #EOS 0.13 10/uL (0.00 - 0.70) #BASO 0.06 10/uL (0.00 - 0.20) #IG 0.00 10/uL (0.00 - 0.10) #NRBC 0.00 10/uL (0.00 - 0.00) MANUAL DIFF SEE BELOW SEGS 25 L % (37 - 80) %LYMPH 53 H % (25 - 40) %MONO 15 H % (3 - 8) %EOS 6 % (0 - 7) %BASO 1 % (0 - 2) RBC MORPH MORPH IS NORMALCMP: (JANETH: 06/09/2020 08:21) ( MsgRcvd 06/09/2020 09:14) Final results Test Result Flag Units (Reference) COMPREHENSIVE METABOLIC PANEL COMPREHENSIVE METABOLIC PANEL SODIUM 134 mEq/L (134 - 153) POTASSIUM 3.6 mEq/L (3.6 - 5.0) CHLORIDE 101 mEq/L (98 - 107) CO2 26 MEQ/L (22 - 30) GLUCOSE 111 H MG/DL (65 - 110) BUN 10 MG/DL (7 - 21) CREATININE 0.4 L MG/DL (0.7 - 1.5) BUN/CREAT 25 (8 - 27) TOTAL PROTEIN 6.9 G/DL (6.3 - 8.2) ALBUMIN 3.8 L G/DL (3.9 - 5.0) GLOBULIN 3.1 GM/DL (2.4 - 3.2) A/G RATIO 1.2 (0.8 - 2.0) CALCIUM 9.0 MG/DL (8.4 - 10.2) TOTAL BILI <0.7 MG/DL (0.2 - 1.3) ALKALINE PHOS 68 U/L (38 - 126) SGOT/AST 20 U/L (5 - 40) SGPT/ALT 18 U/L (7 - 56) ANION GAP 7.0 L mmol/L (8.0 - 16.0) 6 Clinical Report - Physicians/Mid Levels [facility] Emergency Department [address] [place] [address] Phone #: ext- [phone] 06/08/2020 23:41 Patient: LAUREN ALONSO Sex: F : 1990 Age: 29y AGE 29 yrs NON-AA GFR >60 mL/min AFR AMER GFR >60 mL/min Male GFR Interprentation 20-49 yrs >60 mL/min Normal 50-59 yrs >56 mL/min Normal 60-69 yrs >49 mL/min Normal 70-79yrs >42 mL/min Normal 80 and above >35 mL/min Normal Female GFR Interpretation 20-39 yrs >60 mL/min Normal 40-49 yrs >58 mL/min Normal 50-59 yrs >51 mL/min Normal 60-69 yrs >45 mL/min Normal 70-79 yrs >39 mL/min Normal 80 and above >32 mL/min Normal.PROGRESS AND PROCEDURESCourse of Care: 08:Jun 09 2020. Patient is stable. 08:Jun 09 2020. Pt. still c/o headache, but she is effectively homeless and will attempt to get Master Merchandiser to evaluate and find appropriate disposition. Nurses have tried to contact pt's mother by phone. 10:Jun 09 2020. Mother refuses to come pharmacy picking technician pt. due to her drug abuse. 10:Jun 09 2020. Pt. is verbally abusive, cursing and threatening and refusing to give a urine sample. She says she wants to go to Psych., but they require a urine sample and urine drug screen. Any attempt to get guest services assistant to help achieve a disposition on this patient has been unsuccessful to this point. 10:Jun 09 2020. Pt. just stormed out of E.D. AMA cursing and threatening. She adamantly denied any suicidal intent earlier to me and a witness. She refused to give urinalysis / urine drug screen, despite the fact I told her it was necessary prior to any Psych transfer. Pt. also refused to allow nasal / throat swabs before walking out. Disposition: Discharged in stable condition (AMA). Condition: stable.CLINICAL IMPRESSION Episodic tension headache. No poorly controlled headache, treatment resistant headache or migraine headache. Anxiety reaction. Chronic substance abuse- heroin, methamphetamines with anxiety. (Polysubstance abuse). No intoxication, delirium, delusions or hallucinations.INSTRUCTIONS Warnings: GENERAL WARNINGS: Return or contact your physician immediately if your condition worsens or changes unexpectedly, if not improving as expected, or if other problems arise. 7 Clinical Report - Physicians/Mid Levels [facility] Emergency Department [address] [place] [address] Phone #: ext- [phone] 06/08/2020 23:41 Patient: [facility]ONSO [id number] Sex: F : 1990 Age: 29y Follow-up: Follow up with your doctor as needed. Call for an appointment. Reason for referral: evaluation, treatment and Headache / Anxiety / polysubstance abuse. Understanding of the discharge instructions verbalized by patient. AMA warnings: The suspected diagnosis, based upon the initiated medical screening exam, is Polysubstance abuse / Headache. Patient refused discharge instructions. REFUSAL OF CARE STATEMENT (patient to review and sign in discharge instructions): I have read this paragraph. I understand that a doctor at this [facility] wants to give me certain medical care. I want to leave this hospital without receiving the recommended care. I know that I am welcome to return to this [facility] at any time to receive the recommended care or any other care that I may need at any time, regardless of my ability to pay for such care. Patient refused to sign refusal of care statement. Indicated refusal of care by refusing to hear warnings and discharge instructions and leaving the Emergency Department. Patient eloped.(Electronically signed by Thaddeus Coon, Physician 06/09/2020 15:19) Name Value Range Interpretation Code Description Data Melita rce(s) Supporting Document(s) ID Date Data Source [id number] 06/09/2020 09:14:00 AM EDT [facility] Name Value Range Interpretation Code Description Data Melita rce(s) Supporting Document(s) COMPREHENSIVE METABOLIC PANEL [facility] COMPREHENSIVE METABOLIC PANEL Sodium [Moles/volume] in Serum or Plasma 134 mEq/L 134 - 153 [facility] Potassium [Moles/volume] in Serum or Plasma 3.6 mEq/L 3.6 - 5.0 [facility] Chloride [Moles/volume] in Serum or Plasma 101 mEq/L 98 - 107 [facility] Carbon dioxide, total [Moles/volume] in Serum or Plasma 26 MEQ/L 22 - 30 [facility] Glucose [Mass/volume] in Serum or Plasma 111 MG/DL 65 - 110 H [facility] BUN 10 MG/DL 7 - 21 [facility] Creatinine [Mass/volume] in Serum or Plasma 0.4 MG/DL 0.7 - 1.5 L [facility] BUN/CREAT 25 8 - 27 [facility] Protein [Mass/volume] in Serum or Plasma 6.9 G/DL 6.3 - 8.2 [facility] Albumin [Mass/volume] in Serum or Plasma 3.8 G/DL 3.9 - 5.0 L [facility] Globulin [Mass/volume] in Serum by calculation 3.1 GM/DL 2.4 - 3.2 [facility] A/G RATIO 1.2 0.8 - 2.0 [facility] Calcium [Mass/volume] in Serum or Plasma 9.0 MG/DL 8.4 - 10.2 [facility] Bilirubin.total [Mass/volume] in Serum or Plasma <0.7 MG/DL 0.2 - 1.3 [facility] Alkaline phosphatase [Enzymatic activity/volume] in Serum or Plasma 68 U/L 38 - 126 [facility] Aspartate aminotransferase [Enzymatic activity/volume] in Serum or Plasma 20 U/L 5 - 40 [facility] Alanine aminotransferase [Enzymatic activity/volume] in Seru m or Plasma 18 U/L 7 - 56 [facility] Anion gap 3 in Serum or Plasma 7.0 mmol/L 8.0 - 16.0 L [facility] AGE 29 yrs [facility] NON-AA GFR >60 mL/min [facility] ital AFR AMER GFR >60 mL/min [facility] Male GFR In terprentation 20-49 yrs >60 mL/min Normal 50-59 yrs >56 mL/min Normal 60-69 yrs >49 mL/min Normal 70-79yrs >42 mL/min Normal 80 and above >35 mL/min Normal Female GFR Interpretation 20-39 yrs >60 mL/min Normal 40-49 yrs >58 mL/min Normal 50-59 yrs >51 mL/min Normal 60-69 yrs >45 mL/min Normal 70-79 yrs >39 mL/min Normal 80 and above >32 mL/min Normal ID Date Data Source [id number] 06/09/2020 09:12:00 AM EDT [facility] Name Value Range Interpretation Code Description Data Melita rce(s) Supporting Document(s) CBC W/AUTOMATED DIFF [facility] COMPLETE BLOOD COUNT Leukocytes [#/volume] in Blood by Automated count 2.9 10^3/uL 4.2 - 1 1.0 L [facility] Erythrocytes [#/volume] in Blood by Automated count 4.56 10^6/uL 4. 20 - 5.40 [facility] Hemoglobin [Mass/volume] in Blood 13.2 g/dL 12.0 - 16.0 [facility] Hematocrit [Volume Fraction] of Blood by Automated count 39.8 % 3 7.0 - 47.0 [facility] Erythrocyte mean corpuscular volume [Entitic volume] by Auto mated count 87.3 fL 81.0 - 101 [facility] Erythrocyte mean corpuscular hemoglobin [Entitic mass] by Automated count 28.9 pg 27.0 - 34.0 [facility] Erythrocyte mean corpuscular hemoglobin concentration [Mass/volume] by Automated count 33.2 g/dL 31.0 - 36.0 [facility] Erythrocyte distribution width [Ratio] by Automated count 13.5 % 11.5 - 14.5 [facility] Platelets [#/volume] in Blood by Automated count 263 10^3/uL 150 - 45 0 [facility] Platelet mean volume [Entitic volume] in Blood by Automated count 9.4 fL 7.4 - 10.4 [facility] Neutrophils/100 leukocytes in Blood by Automated count 24.9 % 37. 0 - 80.0 L [facility] Lymphocytes/100 leukocytes in Blood by Manual count 52.0 % 25.0 - 40.0 H [facility] Monocytes/100 leukocytes in Blood by Automated count 16.7 % 3.0 - 8.0 H [facility] Eosinophils/100 leukocytes in Blood by Automated count 4.4 % 0.0 - 7.0 [facility] 2.0 %IG 0.0 % 0.0 - 0.0 [facility] al %NRBC 0.0 % 0.0 - 0.0 [facility] al Neutrophils [#/volume] in Blood by Automated count 0.73 10^3/uL 2.00 - 6.90 L [facility] Lymphocytes [#/volume] in Blood by Automated count 1.53 10^3/uL 0.60 - 3.40 [facility] Monocytes [#/volume] in Blood by Automated count 0.49 10^3/uL 0.00 - 0.90 [facility] Eosinophils [#/volume] in Blood by Automated count 0.13 10^3/uL 0.00 - 0.70 [facility] Basophils [#/volume] in Blood by Automated count 0.06 10^3/uL 0.00 - 0.20 [facility] #IG 0.00 10^3/uL 0.00 - 0.10 [facility] #NRBC 0.00 10^3/uL 0.00 - 0.00 [facility] MANUAL DIFF SEE BELOW [facility] ital Segmented neutrophils/100 leukocytes in Blood by Manual count 25 % 37 - 80 L [facility] %LYMPH 53 % 25 - 40 [facility] %MONO 15 % 3 - 8 H [facility] %EOS 6 % 0 - 7 [facility] 1 RBC MORPH MORPH IS NORMAL [facility] ID Date Data Source [id number] 06/09/2020 08:58:00 AM EDT [facility] Name Value Range Interpretation Code Description Data Melita rce(s) Supporting Document(s) HCG SERUM QUAL NEGATIVE NORMAL: NEGATIVE [facility] HCG SERUM QL REENTER NEGATIVE NORMAL: NEGATIVE [facility] { KIT LOT # [id number] ){ KIT EXP DATE 06.01.21 ){ PROCEDURAL CONTROL VALID ) ID Date Data Source [id number] 04/29/2020 01:47:00 AM EDT [facility] 1 OrderSheet [facility] Emergency Department [address] [place] [address] Phone #: ext- [phone] 04/29/2020 01:47 Patient: LAUREN ALONSO Sex: F : 1990 Age: 29yWEIGHT:49.8 kg (E) HEIGHT:62 inches (E) BMI:20.1ALLERGIES: Penicillins, Sulfa AntibioticsCHIEF COMPLAINT: discomfort, chest pain, discomfort, chest painDIAGNOSIS: Chest wall pain, Anxiety, Urinary tract infectious disease, Hypokalemia, Drug abuse, Chest wallpain, Anxiety, Urinary tract infectious disease, Hypokalemia, Drug abuseLAB ORDERSOrder Description Priority Entered Acknowledged InitialedCBC w Diff STAT 02:04/29/2020 02:12 Nela Song RN, M.D.;CMP STAT 02:04/29/2020 02:12 Nela Song RN, M.D.;Lipase STAT 02:04/29/2020 02:12 Nela Song RN, M.D.;PT/PTT STAT 02:04/29/2020 02:12 Nela Song RN, M.D.;Troponin-T STAT 02:04/29/2020 02:12 Nela Song RN, M.D.;HCG Serum Qual STAT 02:04/29/2020 02:12 Nela Song RN, M.D.;Urinalysis (Clean STAT 02:04/29/2020 02:19 Jocelyn Bean Riccardo Melissa R.N. M.D.;Urine Drug Screen STAT 02:04/29/2020 02:19 Holli Bean Riccardo Melissa R.N. M.D.;Acetaminophen STAT 02:04/29/2020 02:12 Nela Hernandez RN, M.D.;Salicylate Level STAT 02:04/29/2020 02:12 Nela Song RN, M.D.; 2 OrderSheet [facility] Emergency Department [address] [place] [address] Phone #: ext- [phone] 04/29/2020 01:47 [facility]: [id number] Sex: F : 1990 Age: 29yETOH STAT 02:09 04/29/2020 02:12 Nela Song RN, M.D.;Culture, Urine STAT 03:03 04/29/2020 03:04 [place],(Urine, Clean Turrin, Nela Donna R.N.Catch) Vishal;DIAGNOSTIC STUDY ORDERSOrder Description Priority Entered Acknowledged InitialedChest Portable 1 STAT 02:07 04/29/2020 02:38 [place],View Turrin, Nela Donna R.N.(Oxygen?(No)) Vishal; Reason for Study: Chest PainMEDICATION/IV/DRIP/FLUID ORDERSOrder Description Priority Entered Acknowledged InitialedAtivan IVP 2 mg 02:09 04/29/2020 02:19 [place],(HIGH ALERT Turrin, Nela Donna R.N.MEDICATION) Vishal;NS IV 500 mL 02:09 04/29/2020 02:27 [place],Bolus: : Bolus 500 Turrin, Nela Donna R.N.mL, then 150 mL/hr M.DNydia;(X1)Zofran 4 mg IVP X 1 02:19 04/29/2020 Cancelled: Physician Order 02:40 Turrin,dose: 4 mg (NOW Turrin, Nela Nela M.D.x1) MStepan;Pyridium PO 100 03:06 04/29/2020 09:22 Tom,mg Turrin, Nela BaileyNNydia M.D.;Macrobid PO 100 03:06 04/29/2020 09:23 Tom,mg Turrin, Nela Alana Fu M.D.;Potassium Chloride 03:06 04/29/2020 Cancelled: Patient Refusal 09:26Liquid PO 40 meq Turrin, Nela Alana Santos.N. M.D.;NS IV 1000 mL 08:14 04/29/2020 08:15 Willis,Bolus: : Bolus 1000 Willis, Alana Alana R.N.mL (X1) R.N.; Verbal order per; Nela De La Garza M.D.GENERAL ORDERSOrder Description Priority Entered Acknowledged Initialed 3 OrderSheet [facility] Emerge ncy Department [address] [place] [address] Phone #: ext- [phone] 04/29/2020 01:47 Patient: LAUREN ALONSO Sex: F : 1990 Age: 29yBlood Pressure 02:07 04/29/2020 02:11 Nela Page RN, M.D.;Claim Inspector 02:07 04/29/2020 02:11 Ramone(continuous) Nela De La Garza RN, M.D.;EKG 02:07 04/29/2020 02:38 Holli Bean Riccardo Melissa R.N. M.D.;NPO 02:07 04/29/2020 02:11 Nela Song RN, M.D.;Obtain Old EKG 02:07 04/29/2020 02:11 Nela Song RN, M.D.;Obtain Old Records 02:07 04/29/2020 02:12 Nela Song RN, M.D.;Oxygen titrate to 02:07 04/29/2020 02:12 Glggrj05% Nela De La Garza RN, M.D.;Pulse oximeter 02:07 04/29/2020 02:12 Ramone(Continuous) Nela De La Garza RN, M.D.;Saline Lock 02:07 04/29/2020 02:12 Nela Song RN, M.D.;Vitals 02:07 04/29/2020 02:12 Nela Song RN, M.D.;[Electronically signed by Alana Santos R.N. (10:17 04/29/2020)][Electronically signed by Carla Enrique MD (10:55 04/29/2020)][Electronically signed by Nela De La Garza M.D. (07:31 05/04/2020)][Electronically locked by Alana Santos R.N. (10:17 04/29/2020)] Name Value Range Interpretation Code Description Data Melita rce(s) Supporting Document(s) ID Date Data Source [id number] 04/29/2020 01:47:00 AM EDT [facility] 1 Medication Reconciliation Report [facility] Emergency Department [address] [place] [address] Phone #: ext- [phone] 04/29/2020 01:47 Patient: LAUREN ALONSO Sex: F : 1990 Age: 29yWeight: 49.8 kgHeight/Length: 62 in.BMI: 20.1ALLERGIES: Penicillins, Sulfa AntibioticsThe patient's Home Medications are listed below:NONE.The source(s) of the original Home Medication information:Not obtained.The following Medications were given to the patient in the Emergency Department:Ativan [IVP] IVP 2 mg, administered: 04/29/2020 2:19:00 AMNS [IV] IV Fluids bolus 0, then 999 mL/hr, administered: 04/29/2020 2:27:00 AMNS [IV] IV Fluids bolus 1000 mL wide open, administered: 04/29/2020 8:15:00 AMPyridium [PO] PO 100 mg, administered: 04/29/2020 9:22:00 AMMacrobid [PO] PO 100 mg, administered: 04/29/2020 9:23:00 AMThe following Medications were prescribed to the patient:Keflex 500 mg: take 1 capsule orally every 8 hours for 5 days. No refill. Substitution is permissible. --Carla Enrique MD Name Value Range Interpretation Code Description Data Melita rce(s) Supporting Document(s) ID Date Data Source [id number] 04/29/2020 01:47:00 AM EDT [facility] 1 Medication Administration Record [facility] Emergency Department [address] [place] [address] Phone #: ext- [phone] 04/29/2020 01:47 Patient: LAUREN ALONSO Sex: F : 1990 Age: 29yWeight: 49.8 kgHeight/Length: 62 inBMI: 20.1ALLERGIES: Penicillins, Sulfa Antibiotics Date/Time Medication Administered Medication OrderedGiven ATIVAN [IVP] (LORAZEPAM) Ativan IVP 2 mg (HIGH ALERT02:19 04/29/2020 Dose: 2 mg IVP MEDICATION)Donna Bean R.N. Site: #1 right ACStart NS [IV] NS IV 500 mL Bolus: : Bolus 80833:27 04/29/2020 Dose: IV Fluids mL, then 150 mL/hr (X1)Donna Bean R.N. Rate: 999 mL/hr---- Dispensed: 1000 mL bagStop Site: #1 right AC10:00 04/29/2020Alana Santos R.N.Given PYRIDIUM [PO] (PHENAZOPYRIDINE Pyridium PO 100 mg09:22 04/29/2020 HCL)Alana Santos R.N. Dose: 100 mg Tablets POGiven MACROBID [PO] (NITROFURANTOIN Macrobid PO 100 mg09:23 04/29/2020 MONOHYD MACRO)Alana Santos R.N. Dose: 100 mg Capsules POStart NS [IV] NS IV 1000 mL Bolus: : Bolus [id number] 04/29/2020 Dose: IV Fluids mL (X1)Alana Santos R.N. Bolus: 1000 mL wide open---- Dispensed: 1000 mL bagStop Site: #1 right AC09:10 04/29/2020Alana Santos R.N. Name Value Range Interpretation Code Description Data Melita e(s) Supporting Document(s) ID Date Data Source [id number] 04/29/2020 01:47:00 AM EDT [facility] 1 General Instructions [facility] Emergency Department [address] [place] [address] Phone #: hzw- [phone] 04/29/2020 01:47 Patient: LAUREN ALONSO Sex: F : 1990 Age: 29y Chest wall pain Anxiety reaction with hyperventilation. Chronic substance abuse- marijuana, methamphetamines with anxiety. Acute urinary tract infection with cystitis. No hematuria. Hypokalemia ADDITIONAL INFORMATIONChest Wall Pain: CostochondritisThe chest pain that you have had today is caused by costochondritis. This condition is caused by aninflammation of the cartilage joining your ribs to your breastbone. It is not caused by heart or lungproblems. Your healthcare team has made sure that the chest pain you feel is not from a lifethreatening cause of chest pain such as heart attack, collapsed lung, blood clot in the lung, tear in theaorta, or esop hageal rupture. The inflammation may have been brought on by a blow to the chest,lifting heavy objects, intense exercise, or an illness that made you cough and sneeze a lot. It oftenoccurs during times of emotional stress. It can be painful, but it is not dangerous. It usually goes awayin 1 to 2 weeks. But it may happen again. Rarely, a more serious condition may cause symptomssimilar to costochondritis. That's why it's important to watch for the warning signs listed below. 2 General Instructions [facility] Emergency Department [address] [place] [address] Phone #: ext- [phone] 04/29/2020 01:47 Patient: LAUREN ALONSO [id number] Sex: F : 1990 Age: 29yHome careFollow these guidelines when caring for yourself at home: If you feel that emotional stress is a cause of your condition, try to figure out the sources of that stress. It may not be obvious. Learn ways to deal with the stress in your life. This can include regular exercise, muscle relaxation, meditation, or simply taking time out for yourself. You may use acetaminophen, ibuprofen, or naproxen to control pain, unless another pain medicine was prescribed. If you have liver or kidney disease or ever had a stomach ulcer, talk with your healthcare provider before using these medicines. You can also help ease pain by using a hot, wet compress or heating pad. Use this with or without a medicated skin cream that helps relieves pain. Do stretching exercise as advised by your provider. Take any prescribed medicines as directed.Follow-up careFollow up with your healthcare provider, or as advised, if you do not start to get better in the next 2days.When to seek medical adviceCall your healthcare provider right away if any of these occur: A change in the type of pain. Call if it feels different, becomes more serious, lasts longer, or spreads into your shoulder, arm, neck, jaw, or back. Shortness of breath or pain gets worse when you breathe Weakness, dizziness, or fainting Cough with dark-colored sputum (phlegm) or blood Abdominal pain Dark red or black stools Fever of 100.4F (38C) or higher, or as directed by your healthcare provider [id number] [employer]. [address] [place] [address], [place] [address]. All rights reserved. This information is not intended as asubstitute for professional medical care. Always follow your healthcare professional's instructions.Anxiety Reaction 3 General Instructions [facility] Emergency Department [address] [place] [address] Phone #: ext- [phone] 04/29/2020 01:47 Patient: LAUREN ALONSO Sex: F : 1990 Age: 29yAnxiety is the feeling we all get when we think something bad might happen. It is a normal responseto stress and usually causes only a mild reaction. When anxiety becomes more severe, itcan interfere with daily life. In some cases, you may not even be aware of what it is you're anxiousabout. There may also be a genetic link or it may be a learned behavior in the home.Both psychological and physical triggers cause stress reaction. It's often a response to fear oremotional stress, real or imagined. This stress may come from home, family, work, or socialrelationships.During an anxiety reaction, you may feel: Helpless Nervous Depressed IrritableYour body may show signs of anxiety in many ways. You may experience: Dry mouth Shakiness Dizziness Weakness Trouble breathing Breathing fast (hyperventilating) Chest pressure Sweating Headache Nausea Diarrhea Tiredness Inability to sleep Sexual problemsHome care 4 General Instructions [facility] Emergency Department [address] [place] [address] Phone #: ext- [phone] 04/29/2020 01:47 Patient: LAUREN ALONSO Sex: F : 1990 Age: 29y Try to locate the sources of stress in your life. They may not be obvious. These may include: o Daily hassles of life (such as traffic jams, missed appointments, or car troubles) o Major life changes, both good (new baby or job promotion) and bad (loss of job or loss of loved one) o Overload: feeling that you have too many responsibilities and can't take care of all of them at once o Feeling helpless or feeling that your problems are beyond what you're able to solve Notice how your body reacts to stress. Learn to listen to your body signals. This will help you take action before the stress becomes severe. When you can, do something about the source of your stress. (Avoid hassles, limit the amount of change that happens in your life at one time and take a break when you feel overloaded). Unfortunately, many stressful situations can't be avoided. It is necessary to learn how to better manage stress. There are many proven methods that will reduce your anxiety. These include simple things like exercise, good nutrition, and adequate rest. Also, there are certain techniques that are helpful: o Relaxation o Breathing exercises o Visualization o Biofeedback o MeditationFor more information about this, consult your healthcare provider or go to a local bookstore andreview the many books and tapes available on this subject.Follow-up careIf you feel that your anxiety is not responding to self- help measures, contact your healthcare provideror make an appointment with a counselor. You may need short-term psychological counseling andtemporary medicine to help you manage stress.Call [phone] if any of these happen: Trouble breathing 5 General Instructions [facility] Emergency Department [address] [place] [address] Phone #: ext- [phone] 04/29/2020 01:47 Patient: LAUREN ALONSO [facility] [id number] Sex: F : 1990 Age: 29y Confusion Drowsiness or trouble wakening Fainting or loss of consciousness Rapid heart rate Seizure New chest pain that becomes more severe, lasts longer, or spreads into your shoulder, arm, neck, jaw, or backWhen to seek medical adviceCall your healthcare provider right away if any of these happen: Your symptoms get worse Severe headache not relieved by rest and mild pain reliever [id number] [employer]. [address] [place] [address], [place] [address]. All rights reserved. This information is not intended as asubstitute for professional medical care. Always follow your healthcare professional's instructions.Panic AttackA panic attack is an extreme fear reaction that comes on for no clear reason. There is often a fearthat something terrible will happen or that you may . The attack may last a few minutes up to a fewhours. Between attacks, things will seem quite normal. This condition has a psychological cause andcan be treated with the help of a therapist or psychiatrist. Medicine can be very helpful for thisproblem.Panic attacks usually come on suddenly, reaches a peak within minutes, and includes at least 4 ofthese symptoms: Palpitations, pounding heart, or accelerated heart rate Sweating Chills or heat sensations Trembling or shaking Sensations of shortness of breath or smothering Feelings of choking Chest pain or discomfort 6 General Instructions [facility] Emergency Department [address] [place] [address] Phone #: ext- [phone] 04/29/2020 01:47 Patient: LAUREN ALONSO Sex: F : 1990 Age: 29y Nausea or abdominal distress Feeling dizzy, unsteady, light-headed, or faint Numbness or tingling sensations Fear of dying Fear of going crazy or of losing control Feelings of unreality, strangeness, or detachment from the environmentMany of these symptoms can be linked to physical problems, so it is sometimes necessary to rule outconditions like thyroid disorders, heart disease, gastrointestinal problems, and others. They can alsostart as physical symptoms, but psychologically we may react to them in a fearful way, worsening theway we react and feel.Home care Try to find the sources of stress in your life. They may not be obvious. These may include: o Daily hassles of life which pile up (traffic jams, missed appointments, car troubles). o Major life changes, both good (new baby, job promotion) and bad (loss of job, loss of loved one). o Feeling that you have too many responsibilities and can't take care of everything at once. o Helplessness: feeling like your problems are too much for you to handle. Notice how your body reacts to stress. Learn to listen to your body signals so that you can take action before the stress becomes severe. Try to be aware of what you were doing before the reaction started; this may give you clues to things that can trigger a reaction. It may be situations in your life, or what you were doing at the time. When possible, avoid or reduce the cause of stress. Avoid hassles, limit the amount of change that is happening in your life at one time or take a break when you feel overloaded. Unfortunately, you can't stay away from many stressful situations. So you need to learn how to manage stress better. Many proven methods will reduce your anxiety. These include simple things like exercise, good nutrition, and adequate rest. Also, there are certain techniques that are helpful: relaxation and breathing exercises, visualization, biofeedback, meditation, or simply taking time-out to clear your mind. For more information about this, ask your doctor or go to a local bookstore and review the many books and tapes available on this subject. 7 General Instructions [facility] Emergency Department [address] [place] [address] Phone #: ext- [phone] 04/29/2020 01:47 Patient: LAUREN ALONSO Sex: F : 1990 Age: 29yFollow-up careFollow-up with your healthcare provider, or as advised.Call [phone] if you: Have suicidal thoughts, a suicide plan, and the means to carry out the plan Have serious thoughts of hurting someone else Have trouble breathing Are very confused Feel very drowsy or have trouble awakening Faint or lose consciousness Have new chest pain that becomes more severe, lasts longer, or spreads into your shoulder, arm, neck, jaw, or back Have a very rapid or irregular heartbeat Have a seizureWhen to seek medical adviceCall your healthcare provider right away if any of these occur: Worsening of your symptoms to the point of feeling vce-yo-fforawt Feeling that you may try to harm yourself or another Can't sleep or eat for 3 days in a row Increased pain with breathing Increasing feeling of weakness or dizziness Cough with dark colored sputum (phlegm) or blood Fever of 100.4F (38C) or higher, or as directed by your healthcare provider Swelling, pain, or redness in one leg Requests by family or friends for you to seek help for your symptoms [phone] [employer]. [address] [place] [address]. All rights reserved. This information is not intended as a 8 General Instructions [facility] Emergency Department [address] [place] [address] Phone #: ext- [phone] 04/29/2020 01:47 Patient: LAUREN ALONSO Sex: F : 1990 Age: 29ysubstitute for professional medical care. Always follow your healthcare professional's instructions.Drug AbuseUse and abuse of drugs like marijuana, amphetamines (speed, crank), cocaine, heroin or prescriptionpain medicines, sedatives and sleeping pills, MDMA, ecstasy, bath salts, PCP, mescaline and LSDmay lead to addiction or dependence. Once this happens, you are at greater risk for any of thefollowing:Social and personal problems Craving for the drug and not able to stop using even though you think you want to stop (psychological addiction) Drug withdrawal symptoms if you stop taking the drug (physical dependence) Loss of job or your family Arrest, conviction, and penitentiary sentence for possession of an illegal substance or for driving under the influenceHealth problems Strokes, heart attacks, kidney failure Accidental injuries to yourself or others while you are under the influence of the drug (in a car or at home) HIV infection (much greater risk if you use IV drugs) Skin infections Other sexually transmitted disease (STDs such as herpes, chlamydia, gonorrhea, and others) Severe and fatal infection of the heart valves (if you use IV drugs) Hepatitis B or C from overdoseHome careThe following suggestions can help you care for yourself at home: Admit you have a drug problem. Ask for help from your family and close friends. Seek professional help. This could be in the form of individual psychotherapy or counseling. There are also outpatient, inpatient, and residential drug treatment programs. 9 General Instructions [facility] Emergency Department [address] [place] [address] Phone #: ext- [phone] 04/29/2020 01:47 Patient: LAUREN ALONSO Sex: F : 1990 Age: 29y Join a self-help group for drug abuse. Stay away from friends who abuse drugs or tempt you to continue abusing drugs. Eat a balanced diet and start a regular exercise program.Follow-up careFollow up with your healthcare provider, or as advised. Contact one of the resources below for help: National [place] on Alcoholism and Drug Dependence www.ncadd.org 424-742-9912 Narcotics Anonymous www.na.org 323-343-4947 National Alcohol and Substance Abuse Information Center (for referral to treatment programs) www.addictioncareDouble Fusion.[employer] 588-308-5570Qsok 911Call 911 if any of the following occur: Seizure Hard time breathing or slow, irregular breathing Chest pain Sudden weakness on one side of your body or sudden trouble speaking Very drowsy or trouble awakening Fainting or loss of consciousness Rapid heart rate Very slow heart rateWhen to seek medical adviceCall your healthcare provider right away if any of these occur: Agitation, anxiety, unable to sleep Unintended weight loss (more than 10 to 15 pounds over 3 months) Fever of 100.4F (38C) or higher, or as directed by your healthcare provider Shortness of breath Cough with colored sputum 10 General Instructions [facility] Emergency Department [address] [place] [address] Phone #: ext- [phone] 04/29/2020 01:47 Patient: LAUREN ALONSO Sex: F : 1990 Age: 29y Redness, swelling, or tenderness at an injection site [id number] [employer]. [address] [place] [address]. All rights reserved. This information is not intended as asubstitute for professional medical care. Always follow your healthcare professional's instructions.Marijuana AbuseMarijuana is the most widely used illegal drug in the [place]. It is called by various names suchas pot, weed, blunts, grass, reefer, ganja, hash, or hashish. It is usually smoked but can be mixedwith foods, or brewed as a tea. It is sometimes sold with PCP (michelle dust) or amphetamine mixed init. These drugs can cause other harmful side effects.Marijuana can cause the following effects: Changes in mood (stimulated, happy, drowsy, depressed, paranoid) Hallucinations Increased heart rate and blood pressure Increased appetite Time distortion, difficulty concentrating, impaired memory Lung damage (similar to cigarettes with chronic cough, wheezing, frequent colds, and bronchitis) Decreased sperm count Dizziness, vertigoYou can become psychologically dependent on marijuana. That means the craving to use the drug isemotional or psychological rather than due to physical withdrawal.Is marijuana running your life?Here are some of the signs: Relying on marijuana to feel good, forget problems, deal with stress or to relax Wanting to be alone most of the time or only with others who use drugs Losing interest in things that used to be important Changes in school or job performance or attendance Spending a lot of time thinking about how to get marijuana Stealing or selling your things so you can buy marijuana 11 General Instructions [facility] Emergency Department [address] [place] [address] Phone #: [phone]- [phone] 04/29/2020 01:47 Patient: LAUREN ALONSO Sex: Colby : 1990 Age: 29y Unable to stop using even though you may want to quit Increasing anxiety, anger, or depression Sleeping too much, changes in eating habits (weight loss or gain) Needing to use more to get the same effectHome careThe following suggestions will help you manage marijuana abuse: Once you have become addicted to any drug, quitting is hard to do. Most people find they can't quit without help. So, don't try to do this alone. Talk to someone you trust who can support you. Seek professional help. Avoid people and places where drugs are used. That only increases the temptation to use.Follow-up careFollow up with your healthcare provider, or as advised.For more information or a referral to a treatment center in your area, contact: Your local mental health center or the National Alcohol and Substance Abuse Information Center (392)-596-0786 www.addictioncareDouble Fusion.com [employer] [place] on Alcoholism and Drug Dependence 332-084-1866 www.ncadd.org Marijuana Anonymous 596-363-7797 www.marijuana-anonymous.orgWhen to seek medical adviceCall your healthcare provider right away if any of these occur: You feel extreme depression, fear, anxiety, or anger toward yourself or others. You feel out of control. You feel that you may try to harm yourself or another. You experience chest pain or shortness of breath. [phone] [employer]. [address] [place] [address], [place] [address]. All rights reserved. This information is not intended as asubstitute for professional medical care. Always follow your healthcare professional's instructions.Bladder Infection, Female (Adult) 12 General Instructions [facility] Emergency Department [address] [place] [address] Phone #: ext- [phone] 04/29/2020 01:47 Patient: LAUREN ALONSO Sex: F : 1990 Age: 29yUrine is normally doesn't have any bacteria in it. But bacteria can get into the urinary tract from theskin around the rectum. Or they can travel in the blood from elsewhere in the body. Once they are inyour urinary tract, they can cause infection in the urethra (urethritis), the bladder (cystitis), or thekidneys (pyelonephritis).The most common place for an infection is in the bladder. This is called a bladder infection. This isone of the most common infections in women. Most bladder infections are easily treated. They arenot serious unless the infection spreads to the kidney.The phrases "bladder infection," "UTI," and "cystitis" are often used to describe the same thing. Butthey are not always the same. Cystitis is an inflammation of the bladder. The most common cause ofcystitis is an infection.SymptomsThe infection causes inflammation in the urethra and bladder. This causes many of the symptoms.The most common symptoms of a bladder infection are: Pain or burning when urinating Having to urinate more often than usual Urgent need to urinate Only a small amount of urine comes out Blood in urine 13 General Instructions [facility] Emergency Department [address] [place] [address] Phone #: [phone]- [phone] 04/29/2020 01:47 Patient: LAUREN ALONSO Sex: F : 1990 Age: 29y Abdominal discomfort. This is usually in the lower abdomen above the pubic bone. Cloudy urine Strong- or bad-smelling urine Unable to urinate (urinary retention) Unable to hold urine in (urinary incontinence) Fever Loss of appetite Confusion (in older adults)CausesBladder infections are not contagious. You can't get one from someone else, from a toilet seat, orfrom sharing a bath.The most common cause of bladder infections is bacteria from the bowels. The bacteria get onto theskin around the opening of the urethra. From there, they can get into the urine and travel up to thebladder, causing inflammation and infection. This usually happens because of: Wiping improperly after urinating. Always wipe from front to back. Bowel incontinence Procedures such as having a catheter inserted Older age Not emptying your bladder. This can allow bacteria a chance to grow in your urine. Dehydration Constipation Sex Use of a diaphragm for controlTreatmentBladder infections are diagnosed by a urine test. They are treated with antibiotics and usually clear upquickly without complications. Treatment helps prevent a more serious kidney infection. 14 General Instructions [facility] Emergency Department [address] [place] [address] Phone #: ext- [phone] 04/29/2020 01:47 Patient: LAUREN ALONSO Sex: F : 1990 Age: 29yMedicinesMedicines can help in the treatment of a bladder infection: Take antibiotics until they are used up, even if you feel better. It is important to finish them to make sure the infection has cleared. You can use acetaminophen or ibuprofen for pain, fever, or discomfort, unless another medicine was prescribed. If you have chronic liver or kidney disease, talk with your healthcare provider before using these medicines. Also talk with your provider if you've ever had a stomach ulcer or gastrointestinal bleeding, or are taking blood-thinner medicines. If you are given phenazopydridine to reduce burning with urination, it will cause your urine to become a bright orange color. This can stain clothing.Care and preventionThese self-care steps can help prevent future infections: Drink plenty of fluids to prevent dehydration and flush out your bladder. Do this unless you must restrict fluids for other health reasons, or your doctor told you not to. Proper cleaning after going to the bathroom is important. Wipe from front to back after using the toilet to prevent the spread of bacteria. Urinate more often. Don't try to hold urine in for a long time. Wear loose-fitting clothes and cotton underwear. Avoid tight- fitting pants. Improve your diet and prevent constipation. Eat more fresh fruit and vegetables, and fiber, and less junk and fatty foods. Avoid sex until your symptoms are gone. Avoid caffeine, alcohol, and spicy foods. These can irritate your bladder. Urinate right after intercourse to flush out your bladder. If you use control pills and have frequent bladder infections, discuss it with your doctor.Follow-up careCall your healthcare provider if all symptoms are not gone after 3 days of treatment. This is especiallyimportant if you have repeat infections.If a culture was done, you will be told if your treatment needs to be changed. If directed, you cancall to find out the results. 15 General Instructions [facility] Emergency Department [address] [place] [address] Phone #: ext- [phone] 04/29/2020 01:47 Patient: LAUREN ALONSO Sex: F : 1990 Age: 29yIf X-rays were done, you will be told if the results will affect your treatment.Call [phone] if any of the following occur: Trouble breathing Hard to wake up or confusion Fainting or loss of consciousness Rapid heart rateWhen to seek medical adviceCall your healthcare provider right away if any of these occur: Fever of 100.4F (38.0C) or higher, or as directed by your healthcare provider Symptoms are not better by the third day of treatment Back or belly (abdominal) pain that gets worse Repeated vomiting, or unable to keep medicine down Weakness or dizziness Vaginal discharge Pain, redness, or swelling in the outer vaginal area (labia) [phone] [employer]. [address] [place] [address], [place] [address]. All rights reserved. This information is not intended as asubstitute for professional medical care. Always follow your healthcare professional's instructions.HypokalemiaHypokalemia means a low level of potassium in the blood. This most often occurs in people who takewater pills (diuretics). It can also occur because of severe vomiting or diarrhea. You may also have itif you take laxatives for long periods of time. It sometimes happens if you have low magnesium(hypomagnesemia). If you have this, your healthcare provider will treat the low magnesium first.A mild case of hypokalemi a usually causes no symptoms. It is only found with blood testing. Moresevere potassium loss causes overall weakness, muscle or abdominal cramps, rapid or irregularheartbeats (heart palpitations), low blood pressure, and muscle weakness.Home care 16 General Instructions [facility] Emergency Department [address] [place] [address] Phone #: ext- [phone] 04/29/2020 01:47 Patient: [facility] ALONSO [id number] Sex: F : 1990 Age: 29y Take any potassium supplements as prescribed. Eat foods rich in potassium. The highest amount is found in avocado, baked potatoes, spinach, cantaloupe, cod, halibut, salmon, and scallops. White, red, or vallejo beans are also very good sources. A modest amount of potassium is found in orange juice, bananas, carrots, and tomato juice. If you take certain types of diuretics, you will also need to take potassium supplements. If you take a diuretic, discuss potassium supplements with your doctor.Follow-up careFollow up with your healthcare provider for a repeat blood test within the next week, or as advised byour staff.When to seek medical adviceCall your healthcare provider right away if any of the following occur: Increased weakness, fatigue, or muscle cramps DizzinessCall 911Call 911 if any of the following occur: Irregular heartbeat, extra beats, or very fast heart rate Loss of consciousness [phone] [employer]. [address] [place] [address], [place] [address]. All rights reserved. This information is not intended as asubstitute for professional medical care. Always follow your healthcare professional's instructions. You have been given the following additional information: Chest Wall Pain, Costochondritis Anxiety Reaction Panic Attack Drug Abuse Marijuana Abuse Bladder Infection, Female (Adult) Hypokalemia 17 General Instructions [facility] Emergency Department [address] [place] [address] Phone #: ext- [phone] 04/29/2020 01:47 - Patient: LAUREN ALONSO Sex: F : 1990 Age: 29y(Electronically signed by Nela De La Garza M.D. 05/04/2020 07:31) Chest wall pain Anxiety reaction with hyperventilation. Chronic substance abuse- marijuana, methamphetamines with anxiety. Acute urinary tract infection with cystitis. No hematuria. HypokalemiaINSTRUCTIONS No alcohol. (Stop using drugs. It is very important you seek help for your addiction. return if worse or any new symptoms. take the antibiotic, keflex, for your bladder infection. drink plenty of water. eat a well balanced diet. please call your doctor today for a follow up appointment tomorrow.). Warnings: Further evaluation is necessary. GENERAL WARNINGS: Return or contact your physician immediately if your condition worsens or changes unexpectedly, if not improving as expected, or if other problems arise. Your Current Medications: . No home medication. Prescription Medications: Keflex 500 mg: take 1 capsule orally every 8 hours for 5 days. No refill. Substitution is permissible. Follow-up: Follow up with your doctor tomorrow even if well. Call for an appointment. Reason for referral: evaluation. Summary of care provided to patient via paper. Understanding of the discharge instructions verbalized by patient. ADDITIONAL INFORMATIONChest Wall Pain: Costochondritis 18 General Instructions [facility] Emergency Department [address] [place] [address] Phone #: ext- [phone] 04/29/2020 01:47 --- Patient: LAUREN ALONSO Sex: F : 1990 Age: 29yThe chest pain that you have had today is caused by costochondritis. This condition is caused by aninflammation of the cartilage joining your ribs to your breastbone. It is not caused by heart or lungproblems. Your healthcare team has made sure that the chest pain you feel is not from a lifethreatening cause of chest pain such as heart attack, collapsed lung, blood clot in the lung, tear in theaorta, or esophageal rupture. The inflammation may have been brought on by a blow to the chest,lifting heavy objects, intense exercise, or an illness that made you cough and sneeze a lot. It oftenoccurs during times of emotional stress. It can be painful, but it is not dangerous. It usually goes awayin 1 to 2 weeks. But it may happen again. Rarely, a more serious condition may cause symptomssimilar to costochondritis. That's why it's important to watch for the warning signs listed below.Home careFollow these guidelines when caring for yourself at home: If you feel that emotional stress is a cause of your condition, try to figure out the sources of that stress. It may not be obvious. Learn ways to deal with the stress in your life. This can include regular exercise, muscle relaxation, meditation, or simply taking time out for yourself. You may use acetaminophen, ibuprofen, or naproxen to control pain, unless another pain medicine was prescribed. If you have liver or kidney disease or ever had a stomach ulcer, talk with your healthcare provider before using these medicines. You can also help ease pain by using a hot, wet compress or heating pad. Use this with or without a medicated skin cream that helps relieves pain. Do stretching exercise as advised by your provider. Take any prescribed medicines as directed. 19 General Instructions [facility] Emergency Department [address] [place] [address] Phone #: ext- [phone] 04/29/2020 01:47 Patient: LAUREN ALONSO Sex: F : 1990 Age: 29yFollow-up careFollow up with your healthcare provider, or as advised, if you do not start to get better in the next 2days.When to seek medical adviceCall your healthcare provider right away if any of these occur: A change in the type of pain. Call if it feels different, becomes more serious, lasts longer, or spreads into your shoulder, arm, neck, jaw, or back. Shortness of breath or pain gets worse when you breathe Weakness, dizziness, or fainting Cough with dark-colored sputum (phlegm) or blood Abdominal pain Dark red or black stools Fever of 100.4F (38C) or higher, or as directed by your healthcare provider [phone] [employer]. [address] [place] [address]. All rights reserved. This information is not intended as asubstitute for professional medical care. Always follow your healthcare professional's instructions.Anxiety ReactionAnxiety is the feeling we all get when we think something bad might happen. It is a normal responseto stress and usually causes only a mild reaction. When anxiety becomes more severe, itcan interfere with daily life. In some cases, you may not even be aware of what it is you're anxiousabout. There may also be a genetic link or it may be a learned behavior in the home.Both psychological and physical triggers cause stress reaction. It's often a response to fear oremotional stress, real or imagined. This stress may come from home, family, work, or socialrelationships.During an anxiety reaction, you may feel: Helpless Nervous Depressed IrritableYour body may show signs of anxiety in many ways. You may experience: 20 General Instructions [facility] Emergency Department [address] [place] [address] Phone #: ext- [phone] 04/29/2020 01:47 Patient: LAUREN ALONSO Sex: Colby : 1990 Age: 29y Dry mouth Shakiness Dizziness Weakness Trouble breathing Breathing fast (hyperventilating) Chest pressure Sweating Headache Nausea Diarrhea Tiredness Inability to sleep Sexual problemsHome care Try to locate the sources of stress in your life. They may not be obvious. These may include: o Daily hassles of life (such as traffic jams, missed appointments, or car troubles) o Major life changes, both good (new baby or job promotion) and bad (loss of job or loss of loved one) o Overload: feeling that you have too many responsibilities and can't take care of all of them at once o Feeling helpless or feeling that your problems are beyond what you're able to solve Notice how your body reacts to stress. Learn to listen to your body signals. This will help you take action before the stress becomes severe. When you can, do something about the source of your stress. (Avoid hassles, limit the amount of change that happens in your life at one time and take a break when you feel overloaded). Unfortunately, many stressful situations can't be avoided. It is necessary to learn how to 21 General Instructions [facility] Emergency Department [address] [place] [address] Phone #: ext- [phone] 04/29/2020 01:47 Patient: LAUREN ALONSO Sex: F : 1990 Age: 29y better manage stress. There are many proven methods that will reduce your anxiety. These include simple things like exercise, good nutrition, and adequate rest. Also, there are certain techniques that are helpful: o Relaxation o Breathing exercises o Visualization o Biofeedback o MeditationFor more information about this, consult your healthcare provider or go to a local bookstore andreview the many books and tapes available on this subject.Follow-up careIf you feel that your anxiety is not responding to self-help measures, contact your healthcare provideror make an appointment with a counselor. You may need short-term psychological counseling andtemporary medicine to help you manage stress.Call [phone] if any of these happen: Trouble breathing Confusion Drowsiness or trouble wakening Fainting or loss of consciousness Rapid heart rate Seizure New chest pain that becomes more severe, lasts longer, or spreads into your shoulder, arm, neck, jaw, or backWhen to seek medical adviceCall your [facility] provider right away if any of these happen: Your symptoms get worse Severe headache not relieved by rest and mild pain reliever 22 General Instructions [facility] Emergency Department [address] [place] [address] Phone #: [phone] 04/29/2020 01:47 Patient: LAUREN ALONSO Sex: F : 1990 Age: 29y [phone] [employer]. [address] [place] [address], [place] [address]. All rights reserved. This information is not intended as asubstitute for professional medical care. Always follow your [facility] professional's instructions.Panic AttackA panic attack is an extreme fear reaction that comes on for no clear reason. There is often a fearthat something terrible will happen or that you may . The attack may last a few minutes up to a fewhours. Between attacks, things will seem quite normal. This condition has a psychological cause andcan be treated with the help of a therapist or psychiatrist. Medicine can be very helpful for thisproblem.Panic attacks usually come on suddenly, reaches a peak within minutes, and includes at least 4 ofthese symptoms: Palpitations, pounding heart, or accelerated heart rate Sweating Chills or heat sensations Trembling or shaking Sensations of shortness of breath or smothering Feelings of choking Chest pain or discomfort Nausea or abdominal distress Feeling dizzy, unsteady, light-headed, or faint Numbness or tingling sensations Fear of dying Fear of going crazy or of losing control Feelings of unreality, strangeness, or detachment from the environmentMany of these symptoms can be linked to physical problems, so it is sometimes necessary to rule outconditions like thyroid disorders, heart disease, gastrointestinal problems, and others. They can alsostart as physical symptoms, but psychologically we may react to them in a fearful way, worsening theway we react and feel.Home care Try to find the sources of stress in your life. They may not be obvious. These may include: 23 General Instructions [facility] Emergency Department [address] [place] [address] Phone #: ext- [phone] 04/29/2020 01:47 Patient: LAUREN ALONSO Sex: F : 1990 Age: 29y o Daily hassles of life which pile up (traffic jams, missed appointments, car troubles). o Major life changes, both good (new baby, job promotion) and bad (loss of job, loss of loved one). o Feeling that you have too many responsibilities and can't take care of everything at once. o Helplessness: feeling like your problems are too much for you to handle. Notice how your body reacts to stress. Learn to listen to your body signals so that you can take action before the stress becomes severe. Try to be aware of what you were doing before the reaction started; this may give you clues to things that can trigger a reaction. It may be situations in your life, or what you were doing at the time. When possible, avoid or reduce the cause of stress. Avoid hassles, limit the amount of change that is happening in your life at one time or take a break when you feel overloaded. Unfortunately, you can't stay away from many stressful situations. So you need to learn how to manage stress better. Many proven methods will reduce your anxiety. These include simple things like exercise, good nutrition, and adequate rest. Also, there are certain techniques that are helpful: relaxation and breathing exercises, visualization, biofeedback, meditation, or simply taking time-out to clear your mind. For more information about this, ask your doctor or go to a local bookstore and review the many books and tapes available on this subject.Follow- up careFollow-up with your healthcare provider, or as advised.Call [phone] if you: Have suicidal thoughts, a suicide plan, and the means to carry out the plan Have serious thoughts of hurting someone else Have trouble breathing Are very confused Feel very drowsy or have trouble awakening Faint or lose consciousness Have new chest pain that becomes more severe, lasts longer, or spreads into your shoulder, 24 General Instructions [facility] Emergency Department [address] [place] [address] Phone #: ext- [phone] 04/29/2020 01:47 Patient: LAUREN ALONSO [facility] [id number] Sex: F : 1990 Age: 29y arm, neck, jaw, or back Have a very rapid or irregular heartbeat Have a seizureWhen to seek medical advi ceCall your healthcare provider right away if any of these occur: Worsening of your symptoms to the point of feeling [id number] Feeling that you may try to harm yourself or another Can't sleep or eat for 3 days in a row Increased pain with breathing Increasing feeling of weakness or dizziness Cough with dark colored sputum (phlegm) or blood Fever of 100.4F (38C) or higher, or as directed by your healthcare provider Swelling, pain, or redness in one leg Requests by family or friends for you to seek help for your symptoms [phone] [employer]. [address] [place] [address], [place] [address]. All rights reserved. This information is not intended as asubstitute for professional medical care. Always follow your healthcare professional's instructions.Drug AbuseUse and abuse of drugs like marijuana, amphetamines (speed, crank), cocaine, heroin or prescriptionpain medicines, sedatives and sleeping pills, MDMA, ecstasy, bath salts, PCP, mescaline and LSDmay lead to addiction or dependence. Once this happens, you are at greater risk for any of thefollowing:Social and personal problems Craving for the drug and not able to stop using even though you think you want to stop (psychological addiction) Drug withdrawal symptoms if you stop taking the drug (physical dependence) Loss of job or your family Arrest, conviction, and penitentiary sentence for possession of an illegal substance or for driving under the influence 25 General Instructions [facility] Emergency Department [address] [place] [address] Phone #: ext- [phone] 04/29/2020 01:47 Patient: LAUREN ALONSO Sex: F : 1990 Age: 29yHealth problems Strokes, heart attacks, kidney failure Accidental injuries to yourself or others while you are under the influence of the drug (in a car or at home) HIV infection (much greater risk if you use IV drugs) Skin infections Other sexually transmitted disease (STDs such as herpes, chlamydia, gonorrhea, and others) Severe and fatal infection of the heart valves (if you use IV drugs) Hepatitis B or C from overdoseHome careThe following suggestions can help you care for yourself at home: Admit you have a drug problem. Ask for help from your family and close friends. Seek professional help. This could be in the form of individual psychotherapy or counseling. There are also outpatient, inpatient, and residential drug treatment programs. Join a self-help group for drug abuse. Stay away from friends who abuse drugs or tempt you to continue abusing drugs. Eat a balanced diet and start a regular exercise program.Follow-up careFollow up with your healthcare provider, or as advised. Contact one of the resources below for help: National [place] on Alcoholism and Drug Dependence www.ncadd.org 156-243-9208 Narcotics Anonymous www.na.org 770-522-7683 National Alcohol and Substance Abuse Information Center (for referral to treatment programs) www.CNG-One.[employer] 047-214-0966Gqjf 911Call 902 if any of the following occur: Seizure 26 General Instructions [facility] Emergency Department [address] [place] [address] Phone #: ext- [phone] 04/29/2020 01:47 Patient: LAUREN ALONSO Sex: F : 1990 Age: 29y Hard time breathing or slow, irregular breathing Chest pain Sudden weakness on one side of your body or sudden trouble speaking Very drowsy or trouble awakening Fainting or loss of consciousness Rapid heart rate Very slow heart rateWhen to seek medical adviceCall your healthcare provider right away if any of these occur: Agitation, anxiety, unable to sleep Unintended weight loss (more than 10 to 15 pounds over 3 months) Fever of 100.4F (38C) or higher, or as directed by your healthcare provider Shortness of breath Cough with colored sputum Redness, swelling, or tenderness at an injection site 2346-2012 [employer]. [address] [place] [address], [place] [address]. All rights reserved. This information is not intended as asubstitute for professional medical care. Always follow your healthcare professional's instructions.Marijuana AbuseMarijuana is the most widely used illegal drug in the [place]. It is called by various names suchas pot, weed, blunts, grass, reefer, ganja, hash, or hashish. It is usually smoked but can be mixedwith foods, or brewed as a tea. It is sometimes sold with PCP (michelle dust) or amphetamine mixed init. These drugs can cause other harmful side effects.Marijuana can cause the following effects: Changes in mood (stimulated, happy, drowsy, depressed, paranoid) Hallucinations Increased heart rate and blood pressure Increased appetite 27 General Instructions [facility] Emergency Department [address] [place] [address] Phone #: ext- [phone] 04/29/2020 01:47 Patient: LAUREN ALONSO Sex: Colby : 1990 Age: 29y Time distortion, difficulty concentrating, impaired memory Lung damage (similar to cigarettes with chronic cough, wheezing, frequent colds, and bronchitis) Decreased sperm count Dizziness, vertigoYou can become psychologically dependent on marijuana. That means the craving to use the drug isemotional or psychological rather than due to physical withdrawal.Is marijuana running your life?Here are some of the signs: Relying on marijuana to feel good, forget problems, deal with stress or to relax Wanting to be alone most of the time or only with others who use drugs Losing interest in things that used to be important Changes in school or job performance or attendance Spending a lot of time thinking about how to get marijuana Stealing or selling your things so you can buy marijuana Unable to stop using even though you may want to quit Increasing anxiety, anger, or depression Sleeping too much, changes in eating habits (weight loss or gain) Needing to use more to get the same effectHome careThe following suggestions will help you manage marijuana abuse: Once you have become addicted to any drug, quitting is hard to do. Most people find they can't quit without help. So, don't try to do this alone. Talk to someone you trust who can support you. Seek professional help. Avoid people and places where drugs are used. That only increases the temptation to use.Follow-up careFollow up with your healthcare provider, or as advised. 28 General Instructions [facility] Emergency Department [address] [place] [address] Phone #: ext- [phone] 04/29/2020 01:47 Patient: LAUREN ALONSO Sex: F : 1990 Age: 29yFor more information or a referral to a treatment center in your area, contact: Your local mental health center or the National Alcohol and Substance Abuse Information Center (250)-033-1005 www.addictioncareDouble Fusion.[employer] [place] on Alcoholism and Drug Dependence 166-628-5725 www.ncadd.org Marijuana Anonymous 778-002-8203 www.marijuana-anonymous.orgWhen to seek medical adviceCall your healthcare provider right away if any of these occur: You feel extreme depression, fear, anxiety, or anger toward yourself or others. You feel out of control. You feel that you may try to harm yourself or another. You experience chest pain or shortness of breath. 5515-4491 [employer]. [address] [place] [address]. All rights reserved. This information is not intended as asubstitute for professional medical care. Always follow your healthcare professional's instructions.Bladder Infection, Female (Adult)Urine is normally doesn't have any bacteria in it. But bacteria can get into the urinary tract from theskin around the rectum. Or they can trave l in the blood from elsewhere in the body. Once they are in 29 General Instructions [facility] Emergency Department [address] [place] [id number] Phone #: ext- [phone] 04/29/2020 01:47 Patient: LAUREN ALONSO Sex: F : 1990 Age: 29yyour urinary tract, they can cause infection in the urethra (urethritis), the bladder (cystitis), or thekidneys (pyelonephritis).The most common place for an infection is in the bladder. This is called a bladder infection. This isone of the most common infections in women. Most bladder infections are easily treated. They arenot serious unless the infection spreads to the kidney.The phrases "bladder infection," "UTI," and "cystitis" are often used to describe the same thing. Butthey are not always the same. Cystitis is an inflammation of the bladder. The most common cause ofcystitis is an infection.SymptomsThe infection causes inflammation in the urethra and bladder. This causes many of the symptoms.The most common symptoms of a bladder infection are: Pain or burning when urinating Having to urinate more often than usual Urgent need to urinate Only a small amount of urine comes out Blood in urine Abdominal discomfort. This is usually in the lower abdomen above the pubic bone. Cloudy urine Strong- or bad-smelling urine Unable to urinate (urinary retention) Unable to hold urine in (urinary incontinence) Fever Loss of appetite Confusion (in older adults)CausesBladder infections are not contagious. You can't get one from someone else, from a toilet seat, orfrom sharing a bath.The most common cause of bladder infections is bacteria from the bowels. The bacteria get onto theskin around the opening of the urethra. From there, they can get into the urine and travel up to the 30 General [facility] Emergency Department [address] [place] [address] Phone #: ext- [phone] 04/29/2020 01:47 Patient: LAUREN ALONSO Sex: F : 1990 Age: 29ybladder, causing inflammation and infection. This usually happens because of: Wiping improperly after urinating. Always wipe from front to back. Bowel incontinence Procedures such as having a catheter inserted Older age Not emptying your bladder. This can allow bacteria a chance to grow in your urine. Dehydration Constipation Sex Use of a diaphragm for controlTreatmentBladder infections are diagnosed by a urine test. They are treated with antibiotics and usually clear upquickly without complications. Treatment helps prevent a more serious kidney infection.MedicinesMedicines can help in the treatment of a bladder infection: Take antibiotics until they are used up, even if you feel better. It is important to finish them to make sure the infection has cleared. You can use acetaminophen or ibuprofen for pain, fever, or discomfort, unless another medicine was prescribed. If you have chronic liver or kidney disease, talk with your healthcare provider before using these medicines. Also talk with your provider if you've ever had a stomach ulcer or gastrointestinal bleeding, or are taking blood-thinner medicines. If you are given phenazopydridine to reduce burning with urination, it will cause your urine to become a bright orange color. This can stain clothing.Care and preventionThese self-care steps can help prevent future infections: Drink plenty of fluids to prevent dehydration and flush out your bladder. Do this unle ss you must restrict fluids for other health reasons, or your doctor told you not to. 31 General Instructions [facility] Emergency Department [address] [place] [address] Phone #: ext- [phone] 04/29/2020 01:47 Patient: LAUREN ALONSO Sex: F : 1990 Age: 29y Proper cleaning after going to the bathroom is important. Wipe from front to back after using the toilet to prevent the spread of bacteria. Urinate more often. Don't try to hold urine in for a long time. Wear loose-fitting clothes and cotton underwear. Avoid tight-fitting pants. Improve your diet and prevent constipation. Eat more fresh fruit and vegetables, and fiber, and less junk and fatty foods. Avoid sex until your symptoms are gone. Avoid caffeine, alcohol, and spicy foods. These can irritate your bladder. Urinate right after intercourse to flush out your bladder. If you use control pills and have frequent bladder infections, discuss it with your doctor.Follow-up careCall your healthcare provider if all symptoms are not gone after 3 days of treatment. This is especiallyimportant if you have repeat infections.If a culture was done, you will be told if your treatment needs to be changed. If directed, you cancall to find out the results.If X-rays were done, you will be told if the results will affect your treatment.Call [phone] if any of the following occur: Trouble breathing Hard to wake up or confusion Fainting or loss of consciousness Rapid heart rateWhen to seek medical adviceCall your healthcare provider right away if any of these occur: Fever of 100.4F (38.0C) or higher, or as directed by your healthcare provider Symptoms are not better by the third day of treatment Back or belly (abdominal) pain that gets worse 32 General Instructions [facility] Emergency Department [address] [place] [address] Phone #: ext- [phone] 04/29/2020 01:47 Patient: LAUREN ALONSO Sex: F : 1990 Age: 29y Repeated vomiting, or unable to keep medicine down Weakness or dizziness Vaginal discharge Pain, redness, or swelling in the outer vaginal area (labia) 2816-1982 [employer]. [address] [place] [address], [place] [address]. All rights reserved. This information is not intended as asubstitute for professional medical care. Always follow your healthcare professional's instructions.HypokalemiaHypokalemia means a low level of potassium in the blood. This most often occurs in people who takewater pills (diuretics). It can also occur because of severe vomiting or diarrhea. You may also have itif you take laxatives for long periods of time. It sometimes happens if you have low magnesium(hypomagnesemia). If you have this, your healthcare provider will treat the low magnesium first.A mild case of hypokalemia usually causes no symptoms. It is only found with blood testing. Moresevere potassium loss causes overall weakness, muscle or abdominal cramps, rapid or irregularheartbeats (heart palpitations), low blood pressure, and muscle weakness.Home care Take any potassium supplements as prescribed. Eat foods rich in potassium. The highest amount is found in avocado, baked potatoes, spinach, cantaloupe, cod, halibut, salmon, and scallops. White, red, or vallejo beans are also very good sources. A modest amount of potassium is found in orange juice, bananas, carrots, and tomato juice. If you take certain types of diuretics, you will also need to take potassium supplements. If you take a diuretic, discuss potassium supplements with your doctor.Follow-up careFollow up with your healthcare provider for a repeat blood test within the next week, or as advised byour staff.When to seek medical adviceCall your healthcare provider right away if any of the following occur: Increased weakness, fatigue, or muscle cramps Dizziness 33 General Instructions [facility] Emergency Department [address] [place] [address] Phone #: [phone] 04/29/2020 01:47 Patient: LAUREN ALONSO Sex: F : 1990 Age: 29yCall 911Call 911 if any of the following occur: Irregular heartbeat, extra beats, or very fast heart rate Loss of consciousness [id number] [employer]. [address] [place] [address]. All rights reserved. This information is not intended as asubstitute for professional medical care. Always follow your healthcare professional's instructions.Cephalexin tablets or capsulesWhat is this medicine?CEPHALEXIN (sef a EVERETT in) is a cephalosporin antibiotic. It is used to treat certain kinds of bacterialinfections It will not work for colds, flu, or other viral infections.How should I use this medicine?Take this medicine by mouth with a full glass of water. Follow the directions on the prescription label.This medicine can be taken with or without food. Take your medicine at regular intervals. Do not takeyour medicine more often than directed. Take all of your medicine as directed even if you think youare better. Do not skip doses or stop your medicine early.Talk to your peoplesoft administrator regarding the use of this medicine in children. While this drug may beprescribed for selected conditions, precautions do apply.What side effects may I notice from receiving this medicine?Side effects that you should report to your doctor or health client care manager as soon as possible: allergic reactions like skin rash, itching or hives, swelling of the face, lips, or tongue breathing problems pain or trouble passing urine redness, blistering, peeling or loosening of the skin, including inside the mouth severe or watery diarrhea unusually weak or tired yellowing of the eyes, skinSide effects that usually do not require medical attention (report to your doctor or health careprofessional if they continue or are bothersome): 34 General Instructions [facility] Emergency Department [address] [place] [address] Phone #: [phone] 04/29/2020 01:47 Patient: LAUREN ALONSO Sex: F : 1990 Age: 29y gas or heartburn genital or anal irritation headache joint or muscle pain nausea, vomitingWhat may interact with th is medicine? probenecid some other antibioticsWhat if I miss a dose?If you miss a dose, take it as soon as you can. If it is almost time for your next dose, take only thatdose. Do not take double or extra doses. There should be at least 4 to 6 hours between doses.Where should I keep my medicine?Keep out of the reach of children.Store at room temperature between 59 and 86 degrees F (15 and 30 degrees C). Throw away anyunused medicine after the expiration date.What should I tell my health care provider before I take this medicine?They need to know if you have any of these conditions: kidney disease stomach or intestine problems, especially colitis an unusual or allergic reaction to cephalexin, other cephalosporins, penicillins, other antibiotics, medicines, foods, dyes or preservatives or trying to get breast- feedingWhat should I watch for while using this medicine?Tell your doctor or health client care manager if your symptoms do not begin to improve in a few days.Do not treat diarrhea with over the counter products. Contact your doctor if you have diarrhea that [address] [facility] Emergency Department [address] [place] [address] Phone #: ext- [phone] 04/29/2020 01:47 Patient: LAUREN ALONSO Sex: F : 1990 Age: 29ylasts more than 2 days or if it is severe and watery.If you have diabetes, you may get a false-positive result for sugar in your urine. Check with yourdoctor or health client care manager.NOTE:This sheet is a summary. It may not cover all possible information. If you have questions about this medicine, talk to your doctor, pharmacist, orhealth care provider. Copyright 2019 [employer] You have been given the following additional information: Chest Wall Pain, Costochondritis Anxiety Reaction Panic Attack Drug Abuse Marijuana Abuse Bladder Infection, Female (Adult) Hypokalemia Cephalexin tablets or capsules(Electronically signed by Carla Enrique MD 04/29/2020 10:55) Name Value Range Interpretation Code Description Data Melita rce(s) Supporting Document(s) ID Date Data Source [id number] 04/29/2020 01:47:00 AM EDT [facility] 1 Clinical Report - Nurses [facility] Emergency Department [address] [place] [address] Phone #: [phone] 04/29/2020 01:47 Patient: LAUREN ALONSO Sex: F : 1990 Age: 29yTRIAGEArrived by EMS.Triage time: 01:50 04/29/2020. Acuity: LEVEL 2.Chief Complaint: ALTERED MENTAL STATUS.This started today. ( per report, patient used meth at 0500 yesterday. Called 911 because "I don't feelright"). She has had nausea.Treatment BAKERY MANAGER:None.SEPSIS SCREEN: SIRS Screen negative. Sepsis Screen negative. No suspected or confirmed signs ofinfection present. --01:57 04/29/20 Donna Bean R.N.01:49 04/29/20. BP: 107/77. HR: 75. RR: 20. O2 saturation: 100%. Temp: 98.3 F. Pain level now 0/10.--01:57 04/29/20 Donna Bean R.N.Weight: 49.8 kg estimated. Height/Length: 62 inches Estimated. BMI: 20.1. --01:48 04/29/20 Donna Bean R.N.MedicationsNone. --01:52 04/29/20 Donna Bean R.N.AllergiesPenicillins.(rash)Sulfa Antibiotics.(rash) --01:52 04/29/20 Donna Bean R.N.PROBLEMS:Dysfunctional Uterine Bleeding.Dental Pain.Knee Effusion.Dental Abscess.Lifestyle / Substance Problems.Substance Abuse.UTI - Urinary Tract Infection. --10:17 04/29/20 Alana Santos R.N.ADDITIONAL SURGERIES:Leep.LEEP procedure.Tympanostomy Tubes. --10:17 04/29/20 Alana Santos R.N. 2 Clinical Report - Nurses [facility] Emergency Department [address] [place] [address] Phone #: ext- [phone] 04/29/2020 01:47 Patient: LAUREN ALONSO Sex: F : 1990 Age: 29y History SOCIAL HX: Smoker - current status unknown. Alcohol use: unable to obtain. History of IV drug use: methamphetamines. Unable to offer HIV testing due to the patient's condition. Patient education was provided. The patient has not traveled outside the [place] Infectious disease exposure: It is unknown if the patient has been exposed to Coronavirus. SELF HARM ASSESSMENT: Self harm assessment unable to obtain due to patient condition. ABUSE ASSESSMENT: Abuse assessment. Abuse denied. No suspicion of abuse. No report of abuse. FALL RISK ASSESSMENT: Fall risk assessment completed. Risk factors identified include nausea and patient impairment of cognition. Fall interventions initiated. Patient placed on stretcher. Side rails up x2. Bed in low position. Brakes on. --01:57 04/29/20 Donna Bean R.N. Interventions Identification band on patient. To room. --01:57 04/29/20 Donna Bean R.N.PHYSICAL ASSESSMENTGENERAL / NEURO / PSYCH: Appears anxious. The patient is disoriented. Speech within normal limits.RESPIRATORY: Respirations not labored.GI / : Abdomen soft and nontender.SKIN: Skin is warm and dry. --01:58 04/29/20 Donna Bean R.N.NURSING PROGRESS NOTESPatient identifiers checked. Call light placed in reach. Side rails up x 2. Bed placed in lowest position.Brakes of bed on. --01:57 04/29/20 Donna Bean R.N. 02:06 04/29/2020 Site #1 started via IV in the right antecubital space with an 20g angiocath, with aseptic technique and good blood return; one attempt. Blood drawn: rainbow set. Saline lock flushed with 10 mL saline. --02:11 04/29/20 Ramone Adams RN 02:04/29/2020 Ativan (LORazepam) IVP 2 mg given via site #1. Allergies verified and confirmed 5 rights. IV patency established. IV site checked: no pain, redness, or swelling. IV flushed thoroughly pre- and post-medication administration. IVP given by RN. Information reviewed with patient including reason for taking this medication and sedative warning. Verbalizes understanding. --02:19 04/29/20 Donna Bean R.N. 02:27 04/29/2020 Started bag #1 1000 mL IV Fluids NS; at 999 mL/hr via site #1 via IV pump. Allergies verified and confirmed 5 rights. IV patency established. IV site checked: no pain, redness, or swelling. IV flushed thoroughly pre- and post- medication administration. Information reviewed with patient including reason for taking this medication. Verbalizes understanding. --02:04/29/20 Donna Bean R.N. EKG was performed by a nurse and shown to the ED physician. --02:38 04/29/20 Donna Bean R.N. 3 Clinical Report - Nurses [facility] Emergency Department [address] [place] [address] Phone #: ext- [phone] 04/29/2020 01:47 Patient: LAUREN ALONSO Sex: F : 1990 Age: 29y( PO meds may wait until patient is awake per Dr. De La Garza). --05:04/29/20 Donna Bean R.N.05:26 04/29/20. BP: 87/58. HR: 77. RR: 18. O2 saturation: 100%. Temp: 98.2 F. Pain level now 0/10.--05:27 04/29/20 Donna Bean R.N.06:21 04/29/20. BP: 92/61. HR: 70. RR: 21. O2 saturation: 100%. --06:04/29/20 Donna Bean R.N.Reassessment acuity: LEVEL 3.Rounding: Set expectations: advised patient of rounding protocol timing and asked if they needed anythingelse at this time. The patient is sleeping. ( Pt sleeping heavily, able to arouse but then immediately goesback to sleep. aware of VS.).CVS: Cardiac rhythm: normal sinus rhythm. --07:11 04/29/20 Alana Santos R.N.07:10 04/29/20. BP: 90/59. ED physician notified. MAP: 69. HR: 88. RR: 20. O2 saturation: 100%.--07:11 04/29/20 Alana Santos R.N.08:15 04/29/2020 Started bag #1 1000 mL IV Fluids NS; bolus of 1000 mL wide open via site #1 via IVpump. Allergies verified and confirmed 5 rights. IV patency established. IV site checked: no pain, redness,or swelling. IV flushed thoroughly pre- and post- medication administration. Information reviewed withpatient including reason for taking this medication, signs of allergic reaction and precautions. Verbalizesunderstanding. --08:15 04/29/20 Alana Santos R.N.Reassessment acuity: LEVEL 3. The patient is sleeping. ( aware of all VS, IVF ordered).CVS: Cardiac rhythm: normal sinus rhythm. --08:15 04/29/20 Alana Santos R.N.08:15 04/29/20. BP: 85/55. MAP: 65. HR: 74. RR: 18. O2 saturation: 100%. --08:15 04/29/20 Alana Santos R.N.late entry - 09:00 04/29/20. Reassessment acuity: LEVEL 3.Rounding: Proximity of possessions / care items: call light within easy reach. Set expectations: advisedpatient of rounding protocol timing and asked if they needed anything else at this time. The patient issleeping. ( more arousable.).CVS: Cardiac rhythm: normal sinus rhythm. -- 09:04/29/20 Alana Santos R.N.09:00 04/29/20. BP: 104/61. MAP: 75. HR: 84. RR: 18. O2 saturation: 100%. --09:04/29/20 Alana Santos R.N.09:10 04/29/2020 IV Fluids NS via IV site #1 Discontinued: bag #1 completed. Total amount infused: 1000mL. IV patency established. IV site checked: no pain, redness, or swelling. IV flushed thoroughly. --: Alana Santos R.N. 4 Clinical Report - Nurses [facility] Emergency Department [address] [place] [address] Phone #: ext- [phone] 04/29/2020 01:47 Patient: LAUREN ALONSO Sex: F : 1990 Age: 29y 09:04/29/2020 Pyridium (Phenazopyridine HCl) PO Tablets 100 mg given. Orlin burleson verified and confirmed 5 rights. Information reviewed with patient including reason for taking this medication, signs of allergic reaction and precautions. Verbalizes understanding. --:04/29/20 Alana Santos R.N. 09:04/29/2020 Macrobid (Nitrofurantoin Monohyd Macro) PO Capsules 100 mg given. Allergies verified and confirmed 5 rights. Information reviewed with patient including reason for taking this medication, signs of allergic reaction and precautions. Verbalizes understanding. --09:04/29/20 Alana Santos R.N. ( Pt refused PO potassium, states "you fuckers discharged me last time and i didn't feel any better, i need to get to my car, don't you understand i live in my car?" MD aware pt refusal of potassium). --09:47 04/29/20 Alana Santos R.N. 10:00 04/29/2020 IV Fluids NS via IV site #1 Discontinued: bag #1 completed. Total amount infused: 1000 mL. IV patency established. IV site checked: no pain, redness, or swelling. IV flushed thoroughly. --10:17 04/29/20 Alana Meeks R.N.DISPOSITION / DISCHARGE Condition at departure: stable. No learning barriers present. Discharge instructions provided and reviewed with the patient. Reviewed warnings (please see paper copy). Reviewed medication(s) side effects, precautions, dosing and course information. Prescription(s) sent electronically to pharmacy ([facility]). Reviewed diet. Patient verbalized understanding. Written instructions provided in [place]. The patient was discharged by the physician. She was discharged home and accompanied by vegetable specker. She left ambulatory and via private vehicle. Urgent Care Nurse Practitioner driving. -- 09:48 04/29/20 Alana Santos R.N. 09:45 04/29/20. BP: 116/75. MAP: 88. HR: 87. RR: 14. O2 saturation: 100% on room air. Temp: 97.5 F (oral). Pain level now: 0/10. --09:48 04/29/20 Alana Santos R.N. 09:40 04/29/2020 Site #1 removed upon discharge. Bandage applied (2x2 and tape, no bleeding noted, clean dry and intact upon d/c.). --09:49 04/29/20 Alana Santos R.N. Departure time: late entry - 10:01 04/29/2020. --10:16 04/29/20 Alana Santos R.N.Locked/Released at 04/29/2020 10:17 by Alana Santos R.N. Name Value Range Interpretation Code Description Data Melita rce(s) Supporting Document(s) ID Date Data Source [id number] 0001 04/29/2020 01:47:00 AM EDT [facility] 1 Clinical Report - Physicians/Mid Levels [facility] Emergency Department [address] [place] [address] Phone #: ext- [phone] 04/29/2020 01:47 Patient: LAUREN ALONSO Sex: F : 1990 Age: 29y Time Seen: :04/29/2020; initial patient contact. Arrived- By ambulance. Historian- patient.HISTORY OF PRESENT ILLNESS Chief Complaint: CHEST PAIN and DISCOMFORT. It is described as sharp and it is described as located in the central chest area. This started today and is still present. It has been intermittent and waxing/waning. Onset during rest. At its maximum, severity described as severe. When seen in the E.D., severity described as mild. Modifying factors- worsened by movement. Relieved by rest. The patient has had nausea. No vomiting, difficulty breathing or diaphoresis. (pt is daily Meth user, last used 21 hrs ago; pt is very anxious, hyperventilating, stating "I don't feel right"). Similar symptoms previously. Patient has had similar symptoms occasionally. Recent medical care: Not recently seen/assessed.REVIEW OF SYSTEMSNo fever, chills, cough, pedal edema or calf pain. No fainting episodes, headache, sore throat, blurredvision or abdominal pain. No black stools, difficulty with urination, skin rash, enlarged lymph nodes or jointpain. No bloody stools. All other systems reviewed and are negative.PAST HISTORYSee nurses notes. Problems: Substance Abuse. Anxiety Reaction. Additional Surgeries: LEEP procedure. Tympanostomy Tubes. Medications: None. Allergies: Penicillins.(rash) Sulfa Antibiotics.(rash).SOCIAL HISTORYCurrent every day smoker. History of drug use: methamphetamines. 2 Clinical Report - Physicians/Mid Levels [facility] Emergency Department [address] [place] [address] Phone #: ext- [phone] 04/29/2020 01:47 [facility]: [facility]ONSO [id number] Sex: F : 1990 Age: 29yADDITIONAL NOTESThe nursing notes have been reviewed with agreement regarding the chief complaint, HPI, ROS, PMH andpatient medications and allergies.PHYSICAL EXAMVital Signs: 04/29/2020 01:49 BP: 107/77. MAP: 87. HR: 75. RR: 20. O2 saturation: 100%. Temp: 98.3 F.Have been reviewed. Oxygen saturation normal.Appearance: Alert. Oriented X3. No acute distress. Anxious. (Hyperventilating).Eyes: Pupils equal, round and reactive to light. Eyes normal inspection.ENT: Ears normal. Nose normal. Pharynx normal.Neck: Normal inspection. Neck supple.CVS: Normal heart rate and rhythm. Heart sounds normal. Pulses normal.Respiratory: No respiratory distress. Chest pain reproducible with palpation of the anterior chest wall(diffusely). Painless inspiration. Breath sounds normal.Abdomen: Soft and nontender. Bowel sounds normal. No organomegaly. No mass. Femoral pulsesequal.Back: Normal external inspection.Skin: Skin warm and dry. Normal skin color. No rash. Normal skin turgor.Extremities: Extremities exhibit normal ROM. No lower extremity edema.Neuro: Oriented X 3. No motor deficit. No sensory deficit. Reflexes normal.LABS, X-RAYS, AND EKGEKG: No acute process. No acute ischemia. Normal EKG. Normal sinus rhythm. Rate: 71/min.Normal ST and T waves. Prior EKG unavailable. The study has been interpreted contemporaneously byme. The EKG appears to be a good tracing. Interpretation time: 02:34 04/29/2020.Chest X-ray: No acute disease. Views: AP (portable). Technique: good. The X-rays were interpretedcontemporaneously by me. Interpretation time: 02:40 04/29/2020.Laboratory Tests: Laboratory tests have been ordered, with results reviewed and considered in themedical decision making process. Culture, Urine: (JANETH: 04/29/2020 03:03) ( MsgRcvd 04/29/2020 04:22) Canceled SOURCE: Urine, Clean Catch Acetaminophen Level: (JANETH: 04/29/2020 01:57) ( [facility] 04/29/2020 02:36) Final results Test Result Flag Units (Reference) ACETAMINOPHEN <5.0 UG/ML (0.0 - 30.0) Salicylate Level: (JANETH: 04/29/2020 01:57) ( [facility] [place] 04/29/2020 02:36) Final results Test Result Flag Units (Reference) SALICYLATE <0.5 L mg/dL (2.0 - 20.0) ETOH: (JANETH: 04/29/2020 01:57) ( [facility] 04/29/2020 02:36) Final results Test Result Flag Units (Reference) ALCOHOL <10.0 MG/DL ALCOHOL % 0.00 % (0.00 - 0.01) 3 Clinical Report - Physicians/[facility] Emergency Department [address] [place] [address] Phone #: ext- [phone] 04/29/2020 01:47 Patient: [facility]UREN ALONSO [id number] Sex: F : 1990 Age: 29y *FOR MEDICAL PURPOSES ONLY*Urinalysis: (JANETH: 04/29/2020 02:15) ( [facility] 04/29/2020 02:29) Final results Test Result Flag Units (Reference) URINALYSIS URINALYSIS SOURCE R COLOR yellow (NORMAL: Yello CLARITY clear (NORMAL: Clear SPEC GRAVITY 1.025 (1.001 - 1.030 pH 5 (5 - 9) GLUCOSE NORM (NORMAL: Negat BILIRUBIN 1 (NORMAL: Negat KETONE 15 A (NORMAL: Negat PROTEIN 30 (NORMAL: Negat NITRITE NEG (NORMAL: Negat BLOOD NEG (NORMAL: Negat LEUK EST 25 (NORMAL: Negat UROBILINOGEN 4 (less than 1.0 MICROSCOPIC See Below WBC 3 - 5 (NORMAL: NONE RBC 0 - 1 (NORMAL: NONE EPITHELIAL MANY A (NORMAL: NONE BACTERIA 2+ MOD A (NORMAL: NONE MUCOUS 1+ (NORMAL: NONEDrug Screen-Urine: (JANETH: 04/29/2020 02:15) ( [facility] 04/29/2020 02:36) Final results Test Result Flag Units (Reference) DRUG SCREEN URINE URINE DRUG SCREEN AMPHETAMINES PRESUMP POS A (NORMAL: NEGAT BARBITURATES NEGATIVE (NORMAL: NEGAT BENZO NEGATIVE (NORMAL: NEGAT COCAINE NEGATIVE (NORMAL: NEGAT THC PRESUMP POS A (NORMAL: NEGAT OPIATES NEGATIVE (NORMAL: NEGAT PCP NEGATIVE (NORMAL: NEGAT \\BLDo\\URINE DRUG SCREEN INTERPRETATION\\BLDx\\ THE CUTOFFF LEVELS FORDETECTION ARE FOLLOWS: AMPHETAMINES 1000 ng/mlBARBITUARATES 200 ng/ml BENZODIAZEPINES 100 ng/mlTHC 50 ng/ml PHENCYCLIDINE 25 ng/mlOPIATES 300 ng/ml COCAINE 300 ng/mlALL POSITIVES ARE CONSIDERED PRESUMPTIVE POSITIVE CONFIRMATION [facility].CBC w Diff: (JANETH: 04/29/2020 01:57) ( [facility] 04/29/2020 02:37) Final results Test Result Flag Units (Reference) CBC W/AUTOMATED DIFF COMPLETE BLOOD COUNT WBC 3.5 L 10/uL (4.2 - 11.0) RBC 4.95 10/uL (4.20 - 5.40) HEMOGLOBIN 14.4 g/dL (12.0 - 16.0) HEMATOCRIT 41.2 % (37.0 - 47.0) MCV 83.2 fL (81.0 - 101) 4 Clinical Report - Physicians/Mid Levels [facility] Emergency Department [address] [place] [address] Phone #: ext- [phone] 04/29/2020 01:47 Patient: LAUREN ALONSO Sex: F : 1990 Age: 29y MCH 29.1 pg (27.0 - 34.0) MCHC 35.0 g/dL (31.0 - 36.0) RDW 13.2 % (11.5 - 14.5) PLATELETS 312 10/uL (150 - 450) MPV 9.0 fL (7.4 - 10.4) NEUT 23.3 L % (37.0 - 80.0) LYMPH 61.3 H % (25.0 - 40.0) MONO 12.3 H % (3.0 - 8.0) EOS 1.4 % (0.0 - 7.0) BASO 1.4 % (0.0 - 2.5) %IG 0.3 H % (0.0 - 0.0) %NRBC 0.0 % (0.0 - 0.0) #NEUT 0.82 L 10/uL (2.00 - 6.90) #LYMPH 2.15 10/uL (0.60 - 3.40) #MONO 0.43 10/uL (0.00 - 0.90) #EOS 0.05 10/uL (0.00 - 0.70) #BASO 0.05 10/uL (0.00 - 0.20) #IG 0.01 10/uL (0.00 - 0.10) #NRBC 0.00 10/uL (0.00 - 0.00) MANUAL DIFF SEE BELOW SEGS 26 L % (37 - 80) %LYMPH 67 H % (25 - 40) %MONO 6 % (3 - 8) %BASO 1 % (0 - 2) RBC MORPH NOT INDICATEDCMP: (JANETH: 04/29/2020 01:57) ( MsgRcvd 04/29/2020 02:35) Final results Test Result Flag Units (Reference) COMPREHENSIVE METABOLIC PANEL COMPREHENSIVE METABOLIC PANEL SODIUM 140 mEq/L (134 - 153) POTASSIUM 3.2 L mEq/L (3.6 - 5.0) CHLORIDE 101 mEq/L (98 - 107) CO2 26 MEQ/L (22 - 30) GLUCOSE 114 H MG/DL (65 - 110) BUN 9 MG/DL (7 - 21) CREATININE 0.6 L MG/DL (0.7 - 1.5) BUN/CREAT 15 (8 - 27) TOTAL PROTEIN 7.8 G/DL (6.3 - 8.2) ALBUMIN 4.4 G/DL (3.9 - 5.0) GLOBULIN 3.4 H GM/DL (2.4 - 3.2) A/G RATIO 1.3 (0.8 - 2.0) CALCIUM 9.8 MG/DL (8.4 - 10.2) TOTAL BILI <0.7 MG/DL (0.2 - 1.3) ALKALINE PHOS 74 U/L (38 - 126) SGOT/AST 21 U/L (5 - 40) SGPT/ALT 43 U/L (7 - 56) ANION GAP 13.0 mmol/L (8.0 - 16.0) AGE 29 yrs NON-AA GFR >60 mL/min AFR AMER GFR >60 mL/min Male GFR Interprentation 20-49 yrs >60 mL/min Xtocjo17-13 yrs >56 mL/min Normal 60-69 yrs >49 mL/min Normal 70-79yrs>42 mL/min Normal 80 and above >35 mL/min Normal Female GFRInterpretation 20-39 yrs >60 mL/min Normal 40-49 yrs >58 mL/minNormal 50-59 yrs >51 mL/min Normal 60-69 yrs >45 mL/min Jfcktb79-17 yrs >39 mL/min Normal 80 and above >32 mL/min NormalLipase: (JANETH: 04/29/2020 01:57) ( MsgRcvd 04/29/2020 02:36) Final results 5 Clinical Report - Physicians/Mid Levels [facility] Emergency Department [address] [place] [address] Phone #: ext- [phone] 04/29/2020 01:47 Patient: LAUREN ALONSO Sex: F : 1990 Age: 29y Test Result Flag Units (Reference) LIPASE 22 U/L (13 - 60) PT/PTT: (JANETH: 04/29/2020 01:57) ( [facility] [place] 04/29/2020 02:36) Final results Test Result Flag Units (Reference) PROTIME 13.7 SECONDS (11.0 - 15.5) INR 1.04 (0.93 - 1.23) PTT 27.5 SECONDS (24.8 - 36.7) \\BLDo\\INR INTERPRETATION\\BLDx\\ Therapeutic range for Coumadin and related oral anticoagulants. -International Normalized Ratio (INR): 2.0 - 3.0 for Venous Thrombosis, Pulmonary Embolus, Tissue heart valves, Acute DE Atrial Fibrillation, Valvular heart disease and recurrent Systemic Embolism. -International Normalized Ratio (INR): 2.5 - 3.5 for Mechanical Prosthetic valve. Troponin-T: (JANETH: 04/29/2020 01:57) ( [facility] [place] 04/29/2020 02:36) Final results Test Result Flag Units (Reference) TROPONIN T <0.01 NG/ML (0.00 - 0.10) TROPONIN T0.1 ng/ml Recommended as the clinical threshold value forT roponin T. Beta-HCG, Qual Serum: (JANETH: 04/29/2020 01:57) ( [facility] 04/29/2020 02:27) Final results Test Result Flag Units (Reference) HCG SERUM QUAL NEGATIVE (NORMAL: NEGAT HCG SERUM QL REENTER NEGATIVE (NORMAL: NEGAT { KIT LOT # [id number] ){ KIT EXP DATE [id number] ){ PROCEDURAL CONTROL VALID ) Chest Portable 1 View: (JANETH: 04/29/2020 02:07) ( [facility] 04/29/2020 02:40) In Progress CHEST PORTABLE Reason(s): Chest Pain TRANSPORTATION: P IV? O2? Oxygen?(No) Room: ED.PROGRESS AND PROCEDURESCourse of Care: 03:03 04/29/20. workup all in and reviewed, incl. UA UDS; CXR and EKG nml; mildhypoK, probable UTI, urine culture ordered; pt has amphetamines and THC in urine; pt sleepingcomfortably; will treat for UTI and hypoK when awake 05:37 04/29/20. still sleeping soundly 06:46 04/29/20. still sleeping comfortably; will transfer care to Dr. Enrique at 7am. ED care transferred. Case discussed with Dr. Enrique. Brief hx: as per H. Pending items: (waiting to wake up). Tentative impression: Chest wall pain, Substance Abuse, HypoK, UTI. Expected disposition: discharge from ED.CLINICAL IMPRESSION Chest wall pain 6 Clinical Report - Physicians/Mid Levels [facility] Emergency Department [address] [place] [address] Phone #: ext- [phone] 04/29/2020 01:47 Patient: LAUREN ALONSO Sex: F : 1990 Age: 29y Anxiety reaction with hyperventilation. Chronic substance abuse- marijuana, methamphetamines with anxiety. Acute urinary tract infection with cystitis. No hematuria. Hypokalemia(Electronically signed by Nela De La Garza M.D. 05/04/2020 07:31) Time Seen: 02:02 04/29/2020; initial patient contact. Arrived- By ambulance. Historian- patient. Disposition decision: 09:04/29/2020.HISTORY OF PRESENT ILLNESS Chief Complaint: CHEST PAIN and DISCOMFORT. This started today and is still present. It has been intermittent and waxing/waning. Onset during rest. It is described as sharp and it is described as located in the central chest area. At its maximum, severity described as severe. When seen in the E.D., severity described as mild. Modifying factors- worsened by movement. Relieved by rest. The patient has had nausea. No vomiting, difficulty breathing or diaphoresis. (pt is daily Meth user, last used 21 hrs ago; pt is very anxious, hyperventilating, stating "I don't feel right"). Similar symptoms previously. Patient has had similar symptoms occasionally. Recent medical care: Not recently seen/assessed.REVIEW OF SYSTEMSNo fever, chills, cough, pedal edema or calf pain. No fainting episodes, headache, sore throat, blurredvision or abdominal pain. No black stools, difficulty with urination, skin rash, enlarged lymph nodes or jointpain. No bloody stools. All other systems reviewed and are negative.PAST HISTORYSee nurses notes. Problems: Substance Abuse. Anxiety Reaction. 7 Clinical Report - Physicians/Mid Levels [facility] Emergency Department [address] [place] [address] Phone #: [phone] mho- [phone] 04/29/2020 01:47 Patient: LAUREN ALONSO Sex: F : 1990 Age: 29y Additional Surgeries: LEEP procedure. Tympanostomy Tubes. Medications: None. Allergies: Penicillins.(rash) Sulfa Antibiotics.(rash).SOCIAL HISTORYCurrent every day smoker. History of drug use: methamphetamines.ADDITIONAL NOTESThe nursing notes have been reviewed with agreement regarding the chief complaint, HPI, ROS, PMH andpatient medications and allergies.PHYSICAL EXAMVital Signs: 04/29/2020 01:49 BP: 107/77. MAP: 87. HR: 75. RR: 20. O2 saturation: 100%. Temp: 98.3 F.Have been reviewed. Oxygen saturation normal.Appearance: Alert. Oriented X3. No acute distress. Anxious. (Hyperventilating).Eyes: Pupils equal, round and reactive to light. Eyes normal inspection.ENT: Ears normal. Nose normal. Pharynx normal.Neck: Normal inspection. Neck supple.CVS: Normal heart rate and rhythm. Heart sounds normal. Pulses normal.Respiratory: No respiratory distress. Chest pain reproducible with palpation of the anterior chest wall(diffusely). Painless inspiration. Breath sounds normal.Abdomen: Soft and nontender. Bowel sounds normal. No organomegaly. No mass. Femoral pulsesequal.Back: Normal external inspection.Skin: Skin warm and dry. Normal skin color. No rash. Normal skin turgor.Extremities: Extremities exhibit normal ROM. No lower extremity edema.Neuro: Oriented X 3. No motor deficit. No sensory deficit. Reflexes normal.LABS, X-RAYS, AND EKGEKG: No acute process. No acute ischemia. Normal EKG. Normal sinus rhythm. Rate: 71/min.Normal ST and T waves. Prior EKG unavailable. The study has been interpreted contemporaneously byme. The EKG appears to be a good tracing. Interpretation time: 02:34 04/29/2020.Chest X-ray: No acute disease. Views: AP (portable). Technique: good. The X-rays were interpretedcontemporaneously by me. Interpretation time: 02:40 04/29/2020.Laboratory Tests: Laboratory tests have been ordered, with results reviewed and considered in themedical decision making process. Culture, Urine: (JANETH: 04/29/2020 03:03) ( MsgRcvd 04/29/2020 04:22) Canceled SOURCE: Urine, Clean Catch 8 Clinical Report - Physicians/Mid Levels [facility] Emergency Department [address] [place] [address] Phone #: ext- [phone] 04/29/2020 01:47 Patient: LAUREN ALONSO Sex: F : 1990 Age: 29yAcetaminophen Level: (JANETH: 04/29/2020 01:57) ( MsgRcvd 04/29/2020 02:36) Final results Test Result Flag Units (Reference) ACETAMINOPHEN <5.0 UG/ML (0.0 - 30.0)Salicylate Level: (JANETH: 04/29/2020 01:57) ( [facility] 04/29/2020 02:36) Final results Test Result Flag Units (Reference) SALICYLATE <0.5 L mg/dL (2.0 - 20.0)ETOH: (JANETH: 04/29/2020 01:57) ( [facility] 04/29/2020 02:36) Final results Test Result Flag Units (Reference) ALCOHOL <10.0 MG/DL ALCOHOL % 0.00 % (0.00 - 0.01) *FOR MEDICAL PURPOSES ONLY*Urinalysis: (JANETH: 04/29/2020 02:15) ( [facility] 04/29/2020 02:29) Final results Test Result Flag Units (Reference) URINALYSIS URINALYSIS SOURCE R COLOR yellow (NORMAL: Yello CLARITY clear (NORMAL: Clear SPEC GRAVITY 1.025 (1.001 - 1.030 pH 5 (5 - 9) GLUCOSE NORM (NORMAL: Negat BILIRUBIN 1 (NORMAL: Negat KETONE 15 A (NORMAL: Negat PROTEIN 30 (NORMAL: Negat NITRITE NEG (NORMAL: Negat BLOOD NEG (NORMAL: Negat LEUK EST 25 (NORMAL: Negat UROBILINOGEN 4 (less than 1.0 MICROSCOPIC See Below WBC 3 - 5 (NORMAL: NONE RBC 0 - 1 (NORMAL: NONE EPITHELIAL MANY A (NORMAL: NONE BACTERIA 2+ MOD A ( NORMAL: NONE MUCOUS 1+ (NORMAL: NONEDrug Screen-Urine: (JANETH: 04/29/2020 02:15) ( [facility] 04/29/2020 02:36) Final results Test Result Flag Units (Reference) DRUG SCREEN URINE URINE DRUG SCREEN AMPHETAMINES PRESUMP POS A (NORMAL: NEGAT BARBITURATES NEGATIVE (NORMAL: NEGAT BENZO NEGATIVE (NORMAL: NEGAT COCAINE NEGATIVE (NORMAL: NEGAT THC PRESUMP POS A (NORMAL: NEGAT OPIATES NEGATIVE (NORMAL: NEGAT PCP NEGATIVE (NORMAL: NEGAT \\BLDo\\URINE DRUG SCREEN INTERPRETATION\\BLDx\\ THE CUTOFFF LEVELS FORDETECTION ARE FOLLOWS: AMPHETAMINES 1000 ng/mlBARBITUARATES 200 ng/ml BENZODIAZEPINES 100 ng/ml 9 Clinical Report - Physicians/Mid Levels [facility] Emergency Department [address] [place] [address] Phone #: ext- [phone] 04/29/2020 01:47 Patient: LAUREN ALONSO Sex: F : 1990 Age: 29yTHC 50 ng/ml PHENCYCLIDINE 25 ng/mlOPIATES 300 ng/ml COCAINE 300 ng/mlALL POSITIVES ARE CONSIDERED PRESUMPTIVE POSITIVE CONFIRMATION WILL BE PERFORMED AT PHYSICIANREQUEST.CBC w Diff: (JANETH: 04/29/2020 01:57) ( MsgRcvd 04/29/2020 02:37) Final results Test Result Flag Units (Reference) CBC W/AUTOMATED DIFF COMPLETE BLOOD COUNT WBC 3.5 L 10/uL (4.2 - 11.0) RBC 4.95 10/uL (4.20 - 5.40) HEMOGLOBIN 14.4 g/dL (12.0 - 16.0) HEMATOCRIT 41.2 % (37.0 - 47.0) MCV 83.2 fL (81.0 - 101) MCH 29.1 pg (27.0 - 34.0) MCHC 35.0 g/dL (31.0 - 36.0) RDW 13.2 % (11.5 - 14.5) PLATELETS 312 10/uL (150 - 450) MPV 9.0 fL (7.4 - 10.4) NEUT 23.3 L % (37.0 - 80.0) LYMPH 61.3 H % (25.0 - 40.0) MONO 12.3 H % (3.0 - 8.0) EOS 1.4 % (0.0 - 7.0) BASO 1.4 % (0.0 - 2.5) %IG 0.3 H % (0.0 - 0.0) %NRBC 0.0 % (0.0 - 0.0) #NEUT 0.82 L 10/uL (2.00 - 6.90) #LYMPH 2.15 10/uL (0.60 - 3.40) #MONO 0.43 10/uL (0.00 - 0.90) #EOS 0.05 10/uL (0.00 - 0.70) #BASO 0.05 10/uL (0.00 - 0.20) #IG 0.01 10/uL (0.00 - 0.10) #NRBC 0.00 10/uL (0.00 - 0.00) MANUAL DIFF SEE BELOW SEGS 26 L % (37 - 80) %LYMPH 67 H % (25 - 40) %MONO 6 % (3 - 8) %BASO 1 % (0 - 2) RBC MORPH NOT INDICATEDCMP: (JANETH: 04/29/2020 01:57) ( MsgRcvd 04/29/2020 02:35) Final results Test Result Flag Units (Reference) COMPREHENSIVE METABOLIC PANEL COMPREHENSIVE METABOLIC PANEL SODIUM 140 mEq/L (134 - 153) POTASSIUM 3.2 L mEq/L (3.6 - 5.0) CHLORIDE 101 mEq/L (98 - 107) CO2 26 MEQ/L (22 - 30) GLU COSE 114 H MG/DL (65 - 110) BUN 9 MG/DL (7 - 21) CREATININE 0.6 L MG/DL (0.7 - 1.5) BUN/CREAT 15 (8 - 27) TOTAL PROTEIN 7.8 G/DL (6.3 - 8.2) ALBUMIN 4.4 G/DL (3.9 - 5.0) GLOBULIN 3.4 H GM/DL (2.4 - 3.2) A/G RATIO 1.3 (0.8 - 2.0) CALCIUM 9.8 MG/DL (8.4 - 10.2) 10 Clinical Report - Physicians/Mid Levels [facility] Emergency Department [address] [place] [address] Phone #: ext- [phone] 04/29/2020 01:47 Patient: LAUREN ALONSO Sex: F : 1990 Age: 29y TOTAL BILI <0.7 MG/DL (0.2 - 1.3) ALKALINE PHOS 74 U/L (38 - 126) SGOT/AST 21 U/L (5 - 40) SGPT/ALT 43 U/L (7 - 56) ANION GAP 13.0 mmol/L (8.0 - 16.0) AGE 29 yrs NON-AA GFR >60 mL/min AFR AMER GFR >60 mL/min Male GFR Interprentation 20-49 yrs >60 mL/min Normal 50-59 yrs >56 mL/min Normal 60-69 yrs >49 mL/min Normal 70-79yrs >42 mL/min Normal 80 and above >35 mL/min Normal Female GFR Interpretation 20-39 yrs >60 mL/min Normal 40-49 yrs >58 mL/min Normal 50-59 yrs >51 mL/min Normal 60-69 yrs >45 mL/min Normal 70-79 yrs >39 mL/min Normal 80 and above >32 mL/min Normal Lipase: (JANETH: 04/29/2020 01:57) ( ArgRcvd 04/29/2020 02:36) Final results Test Result Flag Units (Reference) LIPASE 22 U/L (13 - 60) PT/PTT: (JANETH: 04/29/2020 01:57) ( MsgRcvd 04/29/2020 02:36) Final results Test Result Flag Units (Reference) PROTIME 13.7 SECONDS (11.0 - 15.5) INR 1.04 (0.93 - 1.23) PTT 27.5 SECONDS (24.8 - 36.7) \\BLDo\\INR INTERPRETATION\\BLDx\\ Therapeutic range for Coumadin and related oral anticoagulants. -International Normalized Ratio (INR): 2.0 - 3.0 for Venous Thrombosis, Pulmonary Embolus, Tissue heart valves, Acute DE Atrial Fibrillation, Valvular heart disease and recurrent Systemic Embolism. -International Normalized Ratio (INR): 2.5 - 3.5 for Mechanical Prosthetic valve. Troponin-T: (JANETH: 04/29/2020 01:57) ( [facility] 04/29/2020 02:36) Final results Test Result Flag Units (Reference) TROPONIN T <0.01 NG/ML (0.00 - 0.10) TROPONIN T0.1 ng/ml Recommended as the clinical threshold value forTroponin T. Beta-HCG, Qual Serum: (JANETH: 04/29/2020 01:57) ( [facility] 04/29/2020 02:27) Final results Test Result Flag Units (Reference) HCG SERUM QUAL NEGATIVE (NORMAL: NEGAT HCG SERUM QL REENTER NEGATIVE (NORMAL: NEGAT { KIT LOT # [id number] ){ KIT EXP DATE 995028 ){ PROCEDURAL CONTROL VALID ) Chest Portable 1 View: (JANETH: 04/29/2020 02:07) ( [facility] [place] 04/29/2020 02:40) In Progress CHEST PORTABLE Reason(s): Chest Pain TRANSPORTATION: P IV? O2? Oxygen?(No) Room: ED. 11 Clinical Report - Physicians/Mid Levels [facility] Emergency Department [address] [place] [address] Phone #: ext- [phone] 04/29/2020 01:47 Patient: LAUREN ALONSO Sex: F : 1990 Age: 29yPROGRESS AND PROCEDURESCourse of Care: 03:03 04/29/20. workup all in and reviewed, incl. UA UDS; CXR and EKG nml; mildhypoK, probable UTI, urine culture ordered; pt has amphetamines and THC in urine; pt sleepingcomfortably; will treat for UTI and hypoK when awake 05:37 04/29/20. still sleeping soundly 06:46 04/29/20. still sleeping comfortably; will transfer care to Dr. Enrique at 7am 09:32 04/29/20. I received signout from Dr. De La Garza. pt is a polysubstance abuser. she was found to be dehydrated with low potassium and a uti. pt was given 2 L NS. her bp was initially slightly low when I took over care. her bp was 88 mmHg systolically. pt had received 1 L ns. I gave pt another liter of ns. her bp responded very nicely. her d/c bp was 116/75. pt ate crackers and drank water. she is ambulatory. I discussed with pt the importance of seeking help for her drug abuse. she is argumentative. she was medically cleared and discharged. ED care transferred. Case discussed with Dr. Enrique. Brief hx: as per H. Pending items: (waiting to wake up). Tentative impression: Chest wall pain, Substance Abuse, HypoK, UTI. Expected disposition: discharge from ED. Disposition: Discharged. Condition: good and stable.CLINICAL IMPRESSION Chest wall pain Anxiety reaction with hyperventilation. Chronic substance abuse- marijuana, methamphetamines with anxiety. Acute urinary tract infection with cystitis. No hematuria. HypokalemiaINSTRUCTIONS No alcohol. (Stop using drugs. It is very important you seek help for your addiction. return if worse or any new symptoms. take the antibiotic, keflex, for your bladder infection. drink plenty of water. eat a well balanced diet. please call your doctor today for a follow up appointment tomorrow.). Warnings: Further evaluation is necessary. GENERAL WARNINGS: Return or contact your physician immediately if your condition worsens or changes unexpectedly, if not improving as expected, or if other problems arise. Your Current Medications: . No home medication. 12 Clinical Report - Physicians/Mid Levels [facility] Emergency Department [address] [place] [address] Phone #: [phone] ext- [phone] 04/29/2020 01:47 Patient: LAUREN ALONSO Sex: F : 1990 Age: 29y Prescription Medications: Keflex 500 mg: take 1 capsule orally every 8 hours for 5 days. No refill. Substitution is permissible. Follow- up: Follow up with your doctor tomorrow even if well. Call for an appointment. Reason for referral: evaluation. Summary of care provided to patient via paper. Understanding of the discharge instructions verbalized by patient.(Electronically signed by Carla Enrique MD 04/29/2020 10:55) Name Value Range Interpretation Code Description Data Melita rce(s) Supporting Document(s) ID Date Data Source [id number] 04/30/2020 08:06:00 [place] [address] RESPIRATORY CARE REPORT ==== ---------NAME------- NUMBER SEX AGE ADMIT DISC. XRAY# F/C TYPEFROST LAUREN Bowman [id number] F 29 04/29/20 04/29/20 [id number] X6B E/R DATE OF : 1990 M/R# [id number] #: [id number] TR-02 LOCATION: EKG 02758 COMPLETE:04/29/20 0 7:37 [facility] [id number] PHYSICIAN: HOLLI MART Name Value Range Interpretation Code Description Data Melita rce(s) Supporting Document(s) ID Date Data Source [id number] 04/29/2020 12:23:00 [place] [address] PHONE: [phone] FAX: [phone] Name .................. : ABHISHEK Bowman Acct Number.................. : [id number] ROOM. ................. : TR-02 MR Number ................... : [id number] Stay type ............. : E/R Discharge Date......... ... : Admit Date ......... : 04/29/20 Admit Phys .................... : HOLLI MART Date of ....... : 1990 Family Phys ................... : NO PCP Phone .................. : [phone] Age ................................ : 29 Film# .................. .:[id number] Sex ................................. : F Unsigned transcriptions are preliminary reports and do not represent a medical or legal document CHEST PORTABLE 10131 COMPLETE:04/29/20 02:40 KJE 31534 Reason(s): Chest Pain CHEST PORTABLE, 04/29/20: Comparison of December 06, 2014. FINDINGS: The cardiac and mediastinal silhouettes appear normal and the lungs are clear. The bones and soft tissues are normal. The upper abdomen is unremarkable. IMPRESSION: No acute disease identifiable. Electronically Reviewed and Signed By Mary Ames MD , 04/29/20 12:23, KGG Transcribe Initials: SSR, Transcribe Date: 04/29/20 07:40, Dictation Date: Copy for: 710 MED REC DISCHARGED Page 1 of 1 Name Value Range Interpretation Code Description Data Melita rce(s) Supporting Document(s) ID Date Data Source [id number] 05/02/2020 02:19:00 PM EDT [facility] Name Value Range Interpretation Code Description Data Melita rce(s) Supporting Document(s) CULTURE URINE [facility] _CULTURE URINE_$$[id number]$$159814$$138308$$460863$$461166$$831290$$799558$$601577$$719034$$ 212347$$009490$$756185$$212213$$992908$$050054$$130576$$120686$$970357$$301196$$ 730167$$208746$$997702$$017960$$003187$$852086$$513631$$247452 -- Continued on next page --Patient: ABHISHEK AGUILAR F Order: [id number] Page 2Culture: CULTURE URINE Status: Final ==== -- Continued on next page --Patient: ABHISHEK AGUILAR F Order: [id number] Page 2Culture: CULTURE URINE Status: Prelim =====$$[id number]$$[id number] DATE/TIME: 05/02/2020 13:05Culture: CULTURE URINE Status: FinalUrine Culture,Comprehensive: P1No growth in 36 - 48 hours. Previous result entered on 05/01/2020 06:03 ET Specimen has been received and testing has been initiated.P1 Test performed by: [facility] #: [id number] [address] [place] [address] [id number] [facility] [id number] Director : Lb Degroot MD NPI #:Lap Regulator : 05/01/[email or web address].SENT REF 05/02/20.1419.XMT.SENT REF ID Date Data Source [id number] 04/29/2020 02:36:00 AM EDT [facility] Name Value Range Interpretation Code Description Data Melita rce(s) Supporting Document(s) DRUG SCREEN URINE [facility] URINE DRUG SCREEN Amphetamine [Presence] in Urine by Screen method PRESUMP POS CARLA L: NEGATIVE [facility] BARBITURATES NEGATIVE NORMAL: NEGATIVE [facility] BENZO NEGATIVE NORMAL: NEGATIVE [facility] COCAINE NEGATIVE NORMAL: NEGATIVE [facility] Tetrahydrocannabinol [Presence] in Urine PRESUMP POS NORMAL: NEGATIVE [facility] OPIATES NEGATIVE NORMAL: NEGATIVE [facility] Phencyclidine [Presence] in Urine by Screen method NEGATIVE NOR MAL: NEGATIVE [facility] \\BLDo\\URINE DRUG SCR EEN INTERPRETATION\\BLDx\\ THE CUTOFFF LEVELS FOR DETECTION ARE FOLLOWS: AMPHETAMINES 1000 ng/ml BARBITUARATES 200 ng/ml BENZODIAZEPINES 100 ng/ml THC 50 ng/ml PHENCYCLIDINE 25 ng/ml OPIATES 300 ng/ml COCAINE 300 ng/ml ALL POSITIVES ARE CONSIDERED PRESUMPTIVE POSITIVE CONFIRMATION WILL BE PERFORMED AT PHYSICIAN REQUEST. ID Date Data Source [id number] 04/29/2020 02:28:00 AM EDT [facility] Name Value Range Interpretation Code Description Data Melita rce(s) Supporting Document(s) [facility] S[facility] R [facility] COLOR yellow NORMAL: Yellow [facility] CLARITY clear NORMAL: Clear [facility] Specific gravity of Urine by Test strip 1.025 1.001 - 1.030 [facility] pH 5 5 - 9 [facility] Glucose [Mass/volume] in Urine by Test strip NORM NORMAL: Negat [facility] Bilirubin.total [Presence] in Urine by Test strip 1 NORMAL: Negative [facility] Ketones [Presence] in Urine by Test strip 15 NORMAL: Negative A [facility] Protein [Mass/volume] in Urine by Test strip 30 NORMAL: Negat [facility] Nitrite [Presence] in Urine by Test strip NEG NORMAL: Negative [facility] BLOOD NEG NORMAL: Negative [facility] Leukocyte esterase [Presence] in Urine by Test strip 25 CARLA L: Negative [facility] Urobilinogen [Mass/volume] in Urine by Test strip 4 less violetta n 1.0 mg/dL [facility] MICROSCOPIC See Below [facility] ital WBC 3 - 5 NORMAL: NONE SEEN [facility] Erythrocytes [#/volume] in Urine by Test strip 0 - 1 NORMAL: NON E SEEN [facility] EPITHELIAL MANY NORMAL: NONE SEEN A [facility] Bacteria [Presence] in Urine sediment by Light microscopy 2+ MOD NORMAL: NONE SEEN A [facility] Mucus [Presence] in Urine sediment by Light microscopy 1+ NOR MAL: NONE SEEN [facility] ID Date Data Source [id number] 04/29/2020 02:26:00 AM EDT [facility] Name Value Range Interpretation Code Description Data Melita rce(s) Supporting Document(s) HCG SERUM QUAL NEGATIVE NORMAL: NEGATIVE [facility] HCG SERUM QL REENTER NEGATIVE NORMAL: NEGATIVE [facility] { KIT LOT # [id number] ){ KIT EXP DATE 490752 ){ PROCEDURAL CONTROL VALID ) ID Date Data Source [id number] 04/29/2020 02:36:00 AM EDT [facility] Name Value Range Interpretation Code Description Data Melita rce(s) Supporting Document(s) CBC W/AUTOMATED DIFF [facility] COMPLETE BLOOD COUNT Leukocytes [#/volume] in Blood by Automated count 3.5 10^3/uL 4.2 - 1 1.0 L [facility] Erythrocytes [#/volume] in Blood by Automated count 4.95 10^6/uL 4. 20 - 5.40 [facility] Hemoglobin [Mass/volume] in Blood 14.4 g/dL 12.0 - 16.0 [facility] Hematocrit [Volume Fraction] of Blood by Automated count 41.2 % 3 7.0 - 47.0 [facility] Erythrocyte mean corpuscular volume [Entitic volume] by Auto mated count 83.2 fL 81.0 - 101 [facility] Erythrocyte mean corpuscular hemoglobin [Entitic mass] by Automated count 29.1 pg 27.0 - 34.0 [facility] Erythrocyte mean corpuscular hemoglobin concentration [Mass/volume] by Automated count 35.0 g/dL 31.0 - 36.0 [facility] Erythrocyte distribution width [Ratio] by Automated count 13.2 % 11.5 - 14.5 [facility] Platelets [#/volume] in Blood by Automated count 312 10^3/uL 150 - 45 0 [facility] Platelet mean volume [Entitic volume] in Blood by Automated count 9.0 fL 7.4 - 10.4 [facility] Neutrophils/100 leukocytes in Blood by Automated count 23.3 % 37. 0 - 80.0 L [facility] Lymphocytes/100 leukocytes in Blood by Manual count 61.3 % 25.0 - 40.0 H [facility] Monocytes/100 leukocytes in Blood by Automated count 12.3 % 3.0 - 8.0 H [facility] Eosinophils/100 leukocytes in Blood by Automated count 1.4 % 0.0 - 7.0 [facility] 1.4 %IG 0.3 % 0.0 - 0.0 H [facility] al %NRBC 0.0 % 0.0 - 0.0 [facility] Neutrophils [#/volume] in Blood by Automated count 0.82 10^3/uL 2.00 - 6.90 L [facility] Lymphocytes [#/volume] in Blood by Automated count 2.15 10^3/uL 0.60 - 3.40 [facility] Monocytes [#/volume] in Blood by Automated count 0.43 10^3/uL 0.00 - 0.90 [facility] Eosinophils [#/volume] in Blood by Automated count 0.05 10^3/uL 0.00 - 0.70 [facility] Basophils [#/volume] in Blood by Automated count 0.05 10^3/uL 0.00 - 0.20 [facility] #IG 0.01 10^3/uL 0.00 - 0.10 [facility] #NRBC 0.00 10^3/uL 0.00 - 0.00 [facility] ospital MANUAL DIFF SEE BELOW [facility] Segmented neutrophils/100 leukocytes in Blood by Manual count 26 % 37 - 80 L [facility] %LYMPH 67 % 25 - 40 H [facility] %MONO 6 % 3 - 8 [facility] RBC MORPH NOT INDICATED [facility] ID Date Data Source [id number] 04/29/2020 02:36:00 AM EDT [facility] Name Value Range Interpretation Code Description Data Melita rce(s) Supporting Document(s) Prothrombin time (PT) 13.7 SECONDS 11.0 - 15.5 [facility] INR in Platelet poor plasma by Coagulation assay 1.04 0.93 - 1. 23 [facility] aPTT in Blood by Coagulation assay 27.5 SECONDS 24.8 - 36.7 [facility] \\BLDo\\INR INTERPRETATION\\BLDx\\ Therapeutic range for Coumadin and related oral anticoagulants. - International Normalized Ratio (INR): 2.0 - 3.0 for Venous Thrombosis, Pulmonary Embolus, Tissue heart valves, Acute DE Atrial Fibrillation, Valvular heart disease and recurrent Systemic Embolism. - International Normalized Ratio (INR): 2.5 - 3.5 for Mechanical Prosthetic valve. ID Date Data Source [id number] 04/29/2020 02:36:00 AM EDT [facility] Name Value Range Interpretation Code Description Data Melita rce(s) Supporting Document(s) TROPONIN T <0.01 NG/ML 0.00 - 0.10 [facility] TROPONIN T0.1 ng/ml Recommended as the c linical threshold value forTroponin T. ID Date Data Source [id number] 04/29/2020 02:36:00 AM EDT [facility] Name Value Range Interpretation Code Description Data Melita rce(s) Supporting Document(s) Ethanol [Moles/volume] in Blood <10.0 MG/DL [facility] ALCOHOL % 0.00 % 0.00 - 0.01 [facility] *FOR MEDICAL PURPOSES ONLY * ID Date Data Source [id number] 04/29/2020 02:36:00 AM EDT [facility] Name Value Range Interpretation Code Description Data Melita rce(s) Supporting Document(s) SALICYLATE <0.5 mg/dL 2.0 - 20.0 L [facility] ID Date Data Source [id number] 04/29/2020 02:36:00 AM EDT [facility] Name Value Range Interpretation Code Description Data Melita rce(s) Supporting Document(s) Acetaminophen [Presence] in Urine <5.0 UG/ML 0.0 - 30.0 [facility] ID Date Data Source [id number] 04/29/2020 02:35:00 AM EDT [facility] Name Value Range Interpretation Code Description Data Melita rce(s) Supporting Document(s) Lipase [Enzymatic activity/volume] in Serum or Plasma 22 U/L 13 - 60 [facility] ID Date Data Source [id number] 04/29/2020 02:35:00 AM EDT [facility] Name Value Range Interpretation Code Description Data Melita rce(s) Supporting Document(s) COMPREHENSIVE METABOLIC PANEL [facility] COMPREHENSIVE METABOLIC PANEL Sodium [Moles/volume] in Serum or Plasma 140 mEq/L 134 - 153 [facility] Potassium [Moles/volume] in Serum or Plasma 3.2 mEq/L 3.6 - 5.0 L [facility] Chloride [Moles/volume] in Serum or Plasma 101 mEq/L 98 - 107 [facility] Carbon dioxide, total [Moles/volume] in Serum or Plasma 26 MEQ/L 22 - 30 [facility] Glucose [Mass/volume] in Serum or Plasma 114 MG/DL 65 - 110 H [facility] BUN 9 MG/DL 7 - 21 [facility] Creatinine [Mass/volume] in Serum or Plasma 0.6 MG/DL 0.7 - 1.5 L [facility] BUN/CREAT 15 8 - 27 [facility] Protein [Mass/volume] in Serum or Plasma 7.8 G/DL 6.3 - 8.2 [facility] Albumin [Mass/volume] in Serum or Plasma 4.4 G/DL 3.9 - 5.0 [facility] Globulin [Mass/volume] in Serum by calculation 3.4 GM/DL 2.4 - 3.2 H [facility] A/G RATIO 1.3 0.8 - 2.0 [facility] Calcium [Mass/volume] in Serum or Plasma 9.8 MG/DL 8.4 - 10.2 [facility] Bilirubin.total [Mass/volume] in Serum or Plasma <0.7 MG/DL 0.2 - 1.3 [facility] Alkaline phosphatase [Enzymatic activity/volume] in Serum or Plasma 74 U/L 38 - 126 [facility] Aspartate aminotransferase [Enzymatic activity/volume] in Serum or Plasma 21 U/L 5 - 40 [facility] Alanine aminotransferase [Enzymatic activity/volume] in Seru m or Plasma 43 U/L 7 - 56 [facility] Anion gap 3 in Serum or Plasma 13.0 mmol/L 8.0 - 16.0 [facility] AGE 29 yrs [facility] NON-AA GFR >60 mL/min [facility] AFR AMER GFR >60 mL/min [facility] Male GFR In terprentation 20-49 yrs >60 mL/min Normal 50-59 yrs >56 mL/min Normal 60-69 yrs >49 mL/min Normal 70-79yrs >42 mL/min Normal 80 and above >35 mL/min Normal Female GFR Interpretation 20-39 yrs >60 mL/min Normal 40-49 yrs >58 mL/min Normal 50-59 yrs >51 mL/min Normal 60-69 yrs >45 mL/min Normal 70-79 yrs >39 mL/min Normal 80 and above >32 mL/min Normal ID Date Data Source [id number] 03/28/2020 03:24:00 PM EDT [facility] 1 OrderSheet [facility] Emergency Department [address] [place] [address] Phone #: ext- [phone] 03/28/2020 15:06 Patient: LAUREN ALONSO Sex: F : 1990 Age: 29yWEIGHT:58.9 kg (S) HEIGHT:63 inches (S) BMI:23.0ALLERGIES: Penicillins, Sulfa AntibioticsCHIEF COMPLAINT: nausea, vomiting, dizzinessDIAGNOSIS: Lifestyle / substance problemsLAB ORDERSOrder Description Priority Entered Acknowledged InitialedCBC w Diff STAT 15:29 03/28/2020 15:34 Virgilio Alston RN PA;CMP STAT 15:03/28/2020 15:34 Virgilio Alston RN PA;Lipase STAT 15:03/28/2020 15:34 Virgilio Alston RN PA;Urinalysis (Clean STAT 15:03/28/2020Catch) Antonio BAUTISTA;Beta-HCG, Qual STAT 15:03/28/2020 15:34 Fabio Alston RN PA;DIAGNOSTIC STUDY ORDERSOrder Description Priority Entered Acknowledged InitialedMEDICATION/IV/DRIP/FLUID ORDERSOrder Description Priority Entered Acknowledged InitialedNS IV : Bolus 1000 15:29 03/28/2020 15:39 Bravo, then 150 mL/hr Antonio Alston RN PA;Zofran IVP 8 mg 15:29 03/28/2020 15:39 Virgilio Alston RN PA;KCl Liquid PO 40 16:23 03/28/2020 16:50 Ngozi BAUTISTA; 2 OrderSheet [facility] Emergency Department [address] [place] [address] Phone #: ext- [phone] 03/28/2020 15:06 Patient: LAUREN ALONSO Sex: F : 1990 Age: 29yGENERAL ORDERSOrder Description Priority Entered Acknowledged InitialedNPO 15:29 03/28/2020 15:34 Virgilio Alston RN PA;Saline Lock 15:29 03/28/2020 15:34 Virgilio BAUTISTA;[Electronically signed by Alana Santos R.N. (17:25 03/28/2020)][Electronically signed by Antonio Quevedo (21:35 03/28/2020)][Electronically locked by Alana Santos R.N. (17:03/28/2020)] Name Value Range Interpretation Code Description Data Melita rce(s) Supporting Document(s) ID Date Data Source [id number] 03/28/2020 03:24:00 PM EDT [facility] 1 Medication Reconciliation Report [facility] Emergency Department [address] [place] [address] Phone #: ext- [phone] 03/28/2020 15:06 Patient: LAUREN ALONSO Sex: F : 1990 Age: 29yWeight: 58.9 kgHeight/Length: 63 in.BMI: 23.0ALLERGIES: Penicillins, Sulfa AntibioticsThe patient's Home Medications are listed below:NONE.The source(s) of the original Home Medication information:Not obtained.The following Medications were given to the patient in the Emergency Department:NS [IV] IV Fluids bolus 0, then 1000 mL/hr, administered: 03/28/2020 3:39:00 PMZofran [IVP] IVP 8 mg, administered: 03/28/2020 3:39:00 PMKCL LIQUID PO PO 40 meq, administered: 03/28/2020 4:50:00 PMThe following Medications were prescribed to the patient:ondansetron 8 mg disintegrating tablet Take 1 tablet three times a day for 5 days -- Dispense 15 tablet.Refills: 0. Substitution permitted.Pharmacy - [facility] [address] [place], [place] [id number]. . -- MICHELE Zurita Name Value Range Interpretation Code Description Data Melita rce(s) Supporting Document(s) ID Date Data Source [id number] 03/28/2020 03:24:00 PM EDT [facility] 1 Medication Administration Record [facility] Emergency Department [address] [place] [address] Phone #: ext- [phone] 03/28/2020 15:06 Patient: LAUREN ALONSO Sex: F : 1990 Age: 29yWeight: 58.9 kgHeight/Length: 63 inBMI: 23ALLERGIES: Penicillins, Sulfa Antibiotics Date/Time Medication Administered Medication OrderedStart NS [IV] NS IV : Bolus 1000 mL, then 06544:39 03/28/2020 Dose: IV Fluids mL/hrPeter JENNIE Alston Rate: 1000 mL/hr over 1 hour(s)---- Dispensed: 1000 mL bagStop Site: #1 right AC16:38 03/28/2020Peter JENNIE AlstonGiven ZOFRAN [IVP] (ONDANSETRON HCL) Zofran IVP 8 mg15:39 03/28/2020 Dose: 8 mg IVPPeter JENNIE Alston Site: #1 right ACGiven KCL LIQUID PO KCl Liquid PO 40 meq16:50 03/28/2020 Dose: 40 meq Syrup/Liquid POPeter JENNIE Alston Name Value Range Interpretation Code Description Data Melita rce(s) Supporting Document(s) ID Date Data Source [id number] 03/28/2020 03:24:00 PM EDT [facility] 1 General Instructions [facility] Emergency Department [address] [place] [address] Phone #: ext- [phone] 03/28/2020 15:06 [id number] Sex: Colby : 1990 Age: 29ySubstance abuse problems: abuse of opiates.INSTRUCTIONSYour Current Medications: .No home medication.Prescription Medications:ondansetron 8 mg disintegrating tablet Take 1 tablet three times a day for 5 days -- Dispense 15 tablet.Refills: 0. Substitution permitted.Pharmacy - [facility] - [address], [place] [id number]. .Follow-up:Follow up with doctor [facility] call [phone] Sunday. Call for an appointment.Reason for referral: evaluation and treatment. Summary of care provided to patient.Understanding of the discharge instructions verbalized by patient. ADDITIONAL INFORMATIONOpioid WithdrawalOpioid withdrawal occurs in people who have used opioids on a daily basis for at least 3 weeks.Symptoms usually start about 12 hours after the last dose of the opioid. Withdrawal symptoms lastfrom 3 to 5 days and may include yawning, sweating, runny nose, restlessness, stomach cramping,diarrhea, nausea, vomiting, hot and cold flashes, and trouble sleeping.Home careThe treatment for withdrawal is mostly managing the symptoms without making the problem worse.Follow these guidelines when caring for yourself at home: Stay with someone who can help you and give you emotional s upport during this time. Resist the temptation to take more of the addicting drug to stop your symptoms. If you have stomach cramps, nausea, or vomiting, take only clear liquids until the symptoms 2 General Instructions [facility] Emergency Department [address] [place] [address] Phone #: ext- [phone] 03/28/2020 15:06 Patient: LAUREN ALONSO Sex: F : 1990 Age: 29y improve. Adults should drink a total of 2 to 3 quarts of liquid daily. It is best to take small frequent drinks rather than a few large ones. You may consume liquids in any of the following forms: mineral water, apple juice, sports drinks, soft drinks without caffeine, clear broth soups, plain gelatin, and ice pops. Don't use alcohol, caffeine, or tobacco during this time. Take any medicines prescribed for nausea or cramping exactly as directed. If you were given a clonidine patch, leave this on for 7 days. You may remove it sooner if you develop excess dizziness or drowsiness.Follow-up careFollow up with your healthcare provider if you need further symptom control, or as advised. When youare through withdrawal, take the opportunity to enter a treatment program. This may help you stay offthe addicting drug.When to seek medical adviceCall your healthcare provider right away if any of these occur: Fever of 100.4F (38C) or higher, or as directed by your healthcare provider Inability to keep down liquids for 8 hours Frequent diarrhea Signs of infection at the site of IV needle use (redness, warmth, pain, or swelling)Call [phone] [phone] if any of these occur: Trouble breathing or swallowing, or wheezing Severe confusion Extreme drowsiness or trouble awakening Fainting or loss of consciousness Rapid heart rate or very slow heart rate Very low or very high blood pressure Vomiting blood, or large amounts of blood in stool Seizure 3 General Instructions [facility] Emergency Department [address] [place] [address] Phone #: ext- [phone] 03/28/2020 15:06 Patient: LAUREN ALONSO Sex: F : 1990 Age: 29y [phone] [employer]. [address] [place] [address]. All rights reserved. This information is not intended as asubstitute for professional medical care. Always follow your healthcare professional's instructions. You have been given the following additional information: Opioid Withdrawal(Electronically signed by MICHELE Zurita 03/28/2020 21:35) Name Value Range Interpretation Code Description Data Melita rce(s) Supporting Document(s) ID Date Data Source [id number] 03/28/2020 03:24:00 PM EDT [facility] 1 Clinical Report - Nurses [facility] Emergency Department [address] [place] [address] Phone #: [phone] 03/28/2020 15:06 Patient: LAUREN ALONSO Sex: F : 1990 Age: 29yTRIAGEArrived by private vehicle. Historian: patient.Triage time: 15:03/28/2020. Acuity: LEVEL 3.Chief Complaint: NAUSEA and VOMITING.15:03/28/20. Alert. No acute distress.This started last night. Onset. (1930). She has had vomiting (last BAKERY MANAGER). The vomiting has occurred twice.She has had transient dizziness when standing.Treatment BAKERY MANAGER:None.SEPSIS SCREEN: SIRS Screen negative. Sepsis Screen negative. No suspected or confirmed signs ofinfection present. --15:13 03/28/20 Trinity Contreras RN15:03/28/20. BP: 123/92. MAP: 102. HR: 91. RR: 16. O2 saturation: 99% on room air. Temp: 97.2 F.Pain level now: 0/10. --15:13 03/28/20 Trinity Contreras RN.Weight: 58.9 kg stated. Height/Length: 63 inches Per Patient. BMI: 23. --15:06 03/28/20 Trinity Contreras RN.MedicationsNone. --15:13 03/28/20 Trinity Contreras RN.AllergiesPenicillins.(rash)Sulfa Antibiotics.(rash) --15:13 03/28/20 Trinity Contreras RN.PROBLEMS:no known problems.ADDITIONAL SURGERIES:no known surgeries.Qwkgozz10:07 03/28/20.PAST MEDICAL HX: Immunizations: up-to-date.SOCIAL HX: Heavy tobacco smoker (cigarette)- 1 pack per day. No alcohol use or drug use. No recenttravel. No known contact with a sick individual. She was offered HIV testing but declined and hepatitis C 2 Clinical Report - Nurses [facility] Emergency Department [address] [place] [address] Phone #: ext- [phone] 03/28/2020 15:06 Patient: LAUREN ALONSO Sex: F : 1990 Age: 29y testing but declined. She has not traveled outside the [place] Infectious disease exposure: No infectious disease exposure. Has vomiting. (denies contact with PUI for COVID-19, denies symptoms of COVID-19). Patient is not a known carrier of tuberculosis, hepatitis, HIV, MRSA or VRE. Patient is not a known carrier of CRE. SELF HARM ASSESSMENT: Self harm assessment was performed. The patient answered "no" to the question(s) "Do you have thoughts of harming or killing yourself?" and "Have you recently had thoughts about harming or killing others?". ABUSE ASSESSMENT: Abuse assessment. The patient had positive responses to the question(s) "Do you feel safe in your home?" (yes). Abuse denied. No suspicion of abuse. No report of abuse. NUTRITIONAL RISK ASSESSMENT: The nutritional risk assessment revealed no deficiencies. FUNCTIONAL ASSESSMENT: Functional assessment: no impairments noted. LEARNING NEEDS ASSESSMENT: The learning needs assessment revealed no barriers. FALL RISK ASSESSMENT: Fall risk assessment completed. Risk factors identified include dizziness. Fall interventions initiated. Patient placed on stretcher. Side rails up. Bed in low position. Brakes on. Patient identified as a fall risk by chart flagged. Call light in reach of patient. Instructed not to get up without assistance. Instructions given to patient including fall prevention information. Verbalizes understanding. SKIN INTEGRITY ASSESSMENT: Skin integrity risk assessment completed. No skin integrity risk identified. --15:03/28/20 Trinity Contreras RN.PHYSICAL ASSESSMENTTo room via wheelchair.GENERAL / NEURO / PSYCH: Alert. Oriented X 4. Appears in pain and in distress.HEENT: Mucous membranes are pink.RESPIRATORY: Respirations not labored. Breath sounds within normal limits.CVS: Normal sinus rhythm noted. Capillary refill less than 2 seconds.GI / : The patient has had nausea. Emesis noted. Abdomen soft and nontender. Bowel soundswithin normal limits.SKIN: Skin is warm and dry. --15:30 03/28/20 Virgilio Alston RN.NURSING PROGRESS NOTES15:03/28/20. Two patient identifiers checked. Bed placed in lowest position. Brakes of bed on.Patient ready for evaluation- ED physician and PA notified. --15:03/28/20 Trinity Contreras RN 15:03/28/2020 Site #1 started via IV in the right antecubital space with an 20g angiocath, with aseptic technique and good blood return; one attempt. Blood drawn: rainbow set and green tube(s). Sent to the lab. Saline lock flushed with 10 mL saline. --15:03/28/20 Virgilio Alston RN 3 Clinical Report - Nurses [facility] Emergency Department [address] [place] [address] Phone #: ext- [phone] 03/28/2020 15:06 Patient: LAUREN ALONSO Sex: F : 1990 Age: 29yCardiac monitor, NIBP monitor and pulse oximeter placed on patient; site monitor- Lead II; monitoralarms on. Patient gowned. Head of bed elevated. Reassurance given. Call light placed in reach.Side rails up x 2. Bed placed in lowest position. Brakes of bed on. Patient ready for evaluation- EDphysician and PA notified. --15:31 03/28/20 Virgilio Alston RN15:39 03/28/2020 Started bag #1 1000 mL IV Fluids NS; at 1000 mL/hr over 1 hour(s) via site #1 via IVpump. Allergies verified and confirmed 5 rights. IV patency established. IV site checked: no pain, redness,or swelling. IV flushed thoroughly pre- and post-medication administration. Information reviewed withpatient including reason for taking this medication. Verbalizes understanding. --15:39 03/28/20 JENNIE Masters15:39 03/28/2020 Zofran (Ondansetron HCl) IVP 8 mg given over 3 minute(s) via site #1. Allergies verifiedand confirmed 5 rights. IV patency established. IV site checked: no pain, redness, or swelling. IV flushedthoroughly pre- and post- medication administration. IVP given by RN. Information reviewed with patientincluding reason for taking this medication. Verbalizes understanding. --15:39 03/28/20 Virgilio Alston RN16:38 03/28/2020 IV Fluids NS via IV site #1 Discontinued: bag #1 infused. Total amount infused: 990 mL.IV patency established. IV site checked: no pain, redness, or swelling. IV flushed thoroughly. --16: Virgilio Alston RN16:50 03/28/2020 KCL LIQUID PO PO Syrup/Liquid 40 meq given. Allergies verified and confirmed 5rights. Information reviewed with patient including reason for taking this medication. Verbalizesunderstanding. --16:50 03/28/20 Virgilio Alston RN15:23 03/28/20. BP: 126/86. MAP: 99. HR: 83. O2 saturation: 97%. --17:18 03/28/20 Alana Santos R.N.15:30 03/28/20. BP: 121/72. MAP: 88. HR: 87. RR: 16. O2 saturation: 97%. --17:19 03/28/20 Alana Santos R.N.15:45 03/28/20. BP: 115/84. MAP: 94. HR: 83. RR: 13. O2 saturation: 100%. --17:19 03/28/20 Alana Santos R.N.16:00 03/28/20. BP: 125/75. MAP: 91. HR: 79. RR: 19. O2 saturation: 99%. --17:21 03/28/20 Alana Santos R.N.16:15 03/28/20. BP: 119/73. MAP: 88. HR: 79. RR: 17. O2 saturation: 100%. --17:03/28/20 Alana Santos R.N.16:30 03/28/20. BP: 116/70. MAP: 85. HR: 69. RR: 19. O2 saturation: 100%. --17:03/28/20 Alana Santos R.N.16:45 03/28/20. BP: 120/69. MAP: 86. HR: 70. RR: 19. O2 saturation: 100%. --17:03/28/20 Alana Santos R.N. 4 Clinical Report - Nurses [facility] Emergency Department [address] [place] [address] Phone #: ext- [phone] 03/28/2020 15:06 [facility]: [id number] Sex: Colby : 1990 Age: 29y 17:00 03/28/20. BP: 113/72. MAP: 85. HR: 88. RR: 16. O2 saturation: 100%. --17:03/28/20 Alana Santos R.N. 17:15 03/28/20. BP: 107/71. MAP: 83. HR: 82. RR: 19. O2 saturation: 100%. --17:22 03/28/20 Alana Santos R.N.DISPOSITION / DISCHARGE Departure time: late entry - 17:20 03/28/2020. Condition at departure: stable. No learning barriers present. Discharge instructions provided and reviewed with the patient. Reviewed warnings (please see paper copy). Reviewed medication(s) side effects, precautions, dosing and course information. Prescription(s) sent electronically to pharmacy ([facility]). Re viewed referrals ([facility]). Patient verbalized understanding. Written instructions provided in [place]. The patient was discharged by the physician assistant manager pt. She was discharged home and unaccompanied at time of discharge. She left ambulatory and via private vehicle. Patient driving. --17:24 03/28/20 Alana Santos R.N. 17:18 03/28/20. BP: 113/72. MAP: 85. HR: 88. RR: 17. O2 saturation: 100% on room air. Temp: 98.4 F (temporal). Pain level now: 02/03. --17:24 03/28/20 Alana Santos R.N. 17:20 03/28/2020 Site #1 removed upon discharge. Bandage applied (2x2 and tape, no bleeding noted, pt tolerated well, clean dry and intact upon d/c). --17:25 03/28/20 Alana Santos R.N.Locked/Released at 03/28/2020 17:25 by Alana Santos R.N. Name Value Range Interpretation Code Description Data Melita rce(s) Supporting Document(s) ID Date Data Source [id number] 03/28/2020 03:24:00 PM EDT [facility] 1 Clinical Report - Physicians/Mid Levels [facility] Emergency Department [address] [place] [address] Phone #: ext- [phone] 03/28/2020 15:06 Patient: LAUREN ALONSO Sex: F : 1990 Age: 29y Time Seen: 15:24 03/28/2020. Arrived- By private vehicle. Historian- patient.HISTORY OF PRESENT ILLNESS Chief Complaint: NAUSEA, VOMITING and DIZZINESS. This started last night and is still present. It was abrupt in onset and has been constant. At its maximum, severity described as moderate. When seen in the E.D., severity described as moderate. No loss of appetite, weight loss, headache, visual disturbance or fatigue. No muscle aches or weakness. Denies sleep problem. No decreased urine output. Similar symptoms previously. None. Recent medical care: Not recently seen/assessed.REVIEW OF SYSTEMSLast normal menstrual period- 24 February. No fever, sore throat, sinus drainage, nasal congestion or cough.No difficulty breathing, chest pain, abdominal pain, diarrhea or black stools. No bloody stools, difficultywith urination, skin rash, back pain or calf pain. No headache, blackouts or double vision. The patienthas had nausea and vomiting. The vomiting has occurred twice. No difficulty with ambulation.PAST HISTORYMedications:None.Allergies:Penicillins.(rash)Sulfa Antibiotics.(rash).SOCIAL HISTORYHeavy tobacco smoker (cigarette)- less than 1 pack per day. No alcohol use or drug use.PHYSICAL EXAMVital Signs: 03/28/2020 15:07 BP: 123/92. MAP: 102. HR: 91. RR: 16. O2 saturation: 99% on room air.Temp: 97.2 F. Pain level now: 0/10. Have been reviewed as abnormal. Hypertensive. Oxygensaturation normal.Appearance: Alert. No acute distress.Eyes: Pupils equal, round and reactive to light. Eyes normal inspection.ENT: Ears normal. Nose normal. Pharynx normal.Neck: Normal inspection.CVS: Normal heart rate. Heart sounds normal.Respiratory: No respiratory distress. Breath sounds normal.Abdomen: No visible injury. Soft and nontender. Bowel sounds normal. No organomegaly. No mass.Back: Normal inspection. 2 Clinical Report - Physicians/Mid Levels [facility] Emergency Department [address] [place] [address] Phone #: ext- [phone] 03/28/2020 15:06 Patient: LAUREN ALONSO Sex: F : 1990 Age: 29y Skin: Skin warm and dry. Normal skin color. No rash. Normal skin turgor. Extremities: Extremities exhibit normal ROM. No lower extremity edema. Neuro: Oriented X 3.LABS, X-RAYS, AND EKGLaboratory Tests: Laboratory tests have been ordered, with results reviewed and considered in themedical decision making process. CBC w Diff: (JANETH: 03/28/2020 15:30) ( MsgRcvd 03/28/2020 16:53) Correction to results Test Result Flag Units (Reference) CBC W/AUTOMATED DIFF CORRECTED REPORT COMPLETE BLOOD COUNT WBC 2.6 L 10/uL (4.2 - 11.0) RBC 4.96 10/uL (4.20 - 5.40) HEMOGLOBIN 14.2 g/dL (12.0 - 16.0) HEMATOCRIT 41.4 % (37.0 - 47.0) MCV 83.5 fL (81.0 - 101) MCH 28.6 pg (27.0 - 34.0) MCHC 34.3 g/dL (31.0 - 36.0) RDW 13.0 % (11.5 - 14.5) PLATELETS 205 10/uL (150 - 450) MPV 9.7 fL (7.4 - 10.4) NEUT 78.0 % (37.0 - 80.0) LYMPH 7.3 L % (25.0 - 40.0) MONO 8.9 H % (3.0 - 8.0) EOS 4.6 % (0.0 - 7.0) BASO 1.2 % (0.0 - 2.5) %IG 0.0 % (0.0 - 0.0) %NRBC 0.0 % (0.0 - 0.0) #NEUT 2.02 10/uL (2.00 - 6.90) #LYMPH 0.19 L 10/uL (0.60 - 3.40) #MONO 0.23 10/uL (0.00 - 0.90) #EOS 0.12 10/uL (0.00 - 0.70) #BASO 0.03 10/uL (0.00 - 0.20) #IG 0.00 10/uL (0.00 - 0.10) #NRBC 0.00 10/uL (0.00 - 0.00) MANUAL DIFF SEE BELOW Above is a corrected result. Previously reported on ( MsgRcvd 03/28/2020 15:54) as: MANUAL DIFF NOT INDICATED SEGS 67 % (37 - 80) BAND 10 H % (0 - 5) %LYMPH 10 L % (25 - 40) %MONO 5 % (3 - 8) %EOS 6 % (0 - 7) %BASO 2 % (0 - 2) RBC MORPH MORPH IS NORMAL FOLLOWING RESULTS REPORTED IN ERROR MANUAL DIFF RBC MORPH { CORRECT INDICATED CMP: (JANETH: 03/28/2020 15:30) ( MsgRcvd 03/28/2020 16:20) Final results Test Result Flag Units (Reference) COMPREHENSIVE METABOLIC PANEL COMPREHENSIVE METABOLIC PANEL 3 Clinical Report - Physicians/Mid Levels [facility] Emergency Department [address] [place] [address] Phone #: ext- [phone] 03/28/2020 15:06 Patient: LAUREN ALONSO Sex: F : 1990 Age: 29y SODIUM 132 L mEq/L (134 - 153) POTASSIUM 3.4 L mEq/L (3.6 - 5.0) CHLORIDE 96 L mEq/L (98 - 107) CO2 25 MEQ/L (22 - 30) GLUCOSE 113 H MG/DL (65 - 110) BUN 8 MG/DL (7 - 21) CREATININE 0.5 L MG/DL (0.7 - 1.5) BUN/CREAT 16 (8 - 27) TOTAL PROTEIN 7.9 G/DL (6.3 - 8.2) ALBUMIN 4.6 G/DL (3.9 - 5.0) GLOBULIN 3.3 H GM/DL (2.4 - 3.2) A/G RATIO 1.4 (0.8 - 2.0) CALCIUM 9.3 MG/DL (8.4 - 10.2) TOTAL BILI 1.0 MG/DL (0.2 - 1.3) ALKALINE PHOS 94 U/L (38 - 126) SGOT/AST 102 H U/L (5 - 40) SGPT/ALT 69 H U/L (7 - 56) ANION GAP 11.0 mmol/L (8.0 - 16.0) AGE 29 yrs NON-AA GFR >60 mL/min AFR AMER GFR >60 mL/min Male GFR Interprentation 20-49 yrs >60 mL/min Normal 50-59 yrs >56 mL/min Normal 60- 69 yrs >49 mL/min Normal 70-79yrs >42 mL/min Normal 80 and above >35 mL/min Normal Female GFR Interpretation 20-39 yrs >60 mL/min Normal 40-49 yrs >58 mL/min Normal 50-59 yrs >51 mL/min Normal 60-69 yrs >45 mL/min Normal 70-79 yrs >39 mL/min Normal 80 and above >32 mL/min Normal Lipase: (JANETH: 03/28/2020 15:30) ( MsgRcvd 03/28/2020 16:10) Final results Test Result Flag Units (Reference) LIPASE 31 U/L (13 - 60).PROGRESS AND PROCEDURESCourse of Care: 17:Mar 28 2020. Evaluation after observation. (Pt admits to RN that she used Heroin5 years ago and has recently been buying suboxone from other sources she has no reproducible abd pain.Discussed [facility] tx options and pt is agreeable with dx and tx plan.). Patient counseled in person regarding the patient's stable condition, test results, diagnosis and need for follow-up. Patient agrees with plan of care. 17:Mar 28 2020. Disposition: Discharged home in good and improved condition (17:Mar 28 2020).CLINICAL IMPRESSION Substance abuse problems: abuse of opiates.INSTRUCTIONS 4 Clinical Report - Physicians/Mid Levels [facility] Emergency Department [address] [place] [address] Phone #: ext- [phone] 03/28/2020 15:06 Patient: LAUREN ALONSO Sex: F : 1990 Age: 29y Your Current Medications: . No home medication. Prescription Medications: ondansetron 8 mg disintegrating tablet Take 1 tablet three times a day for 5 days -- Dispense 15 tablet. Refills: 0. Substitution permitted. Pharmacy - [id number] [address] [place], [place] [id number]. . Follow-up: Follow up with [facility] call [phone] Sunday. Call for an appointment. Reason for referral: evaluation and treatment. Summary of care provided to patient. Understanding of the discharge instructions verbalized by patient.(Electronically signed by MICHELE Zurita 03/28/2020 21:35) Name Value Range Interpretation Code Description Data Melita rce(s) Supporting Document(s) ID Date Data Source [id number] 03/28/2020 04:53:00 PM EDT [facility] Name Value Range Interpretation Code Description Data Melita rce(s) Supporting Document(s) CBC W/AUTOMATED DIFF [facility] CORRECTE D REPORT COMPLETE BLOOD COUNT Leukocytes [#/volume] in Blood by Automated count 2.6 10^3/uL 4.2 - 1 1.0 L [facility] Erythrocytes [#/volume] in Blood by Automated count 4.96 10^6/uL 4. 20 - 5.40 [facility] Hemoglobin [Mass/volume] in Blood 14.2 g/dL 12.0 - 16.0 [facility] Hematocrit [Volume Fraction] of Blood by Automated count 41.4 % 3 7.0 - 47.0 [facility] Erythrocyte mean corpuscular volume [Entitic volume] by Auto mated count 83.5 fL 81.0 - 101 [facility] Erythrocyte mean corpuscular hemoglobin [Entitic mass] by Automated count 28.6 pg 27.0 - 34.0 [facility] Erythrocyte mean corpuscular hemoglobin concentration [Mass/volume] by Automated count 34.3 g/dL 31.0 - 36.0 [facility] Erythrocyte distribution width [Ratio] by Automated count 13.0 % 11.5 - 14.5 [facility] Platelets [#/volume] in Blood by Automated count 205 10^3/uL 150 - 45 0 [facility] Platelet mean volume [Entitic volume] in Blood by Automated count 9.7 fL 7.4 - 10.4 [facility] Neutrophils/100 leukocytes in Blood by Automated count 78.0 % 37. 0 - 80.0 [facility] Lymphocytes/100 leukocytes in Blood by Manual count 7.3 % 25.0 - 40.0 L [facility] Monocytes/100 leukocytes in Blood by Automated count 8.9 % 3.0 - 8.0 H [facility] Eosinophils/100 leukocytes in Blood by Automated count 4.6 % 0.0 - 7.0 [facility] 1.2 Basophils/100 leukocytes in Blood by Automated count 1.2 % 0.0 - 2.5 [facility] %IG 0.0 % 0.0 - [facility] 0.0 % 0.0 - 0.0 [facility] Neutrophils [#/volume] in Blood by Automated count 2.02 10^3/uL 2.00 - 6.90 [facility] Lymphocytes [#/volume] in Blood by Automated count 0.19 10^3/uL 0.60 - 3.40 L [facility] Monocytes [#/volume] in Blood by Automated count 0.23 10^3/uL 0.00 - 0.90 [facility] Eosinophils [#/volume] in Blood by Automated count 0.12 10^3/uL 0.00 - 0.70 [facility] Basophils [#/volume] in Blood by Automated count 0.03 10^3/uL 0.00 - 0.20 [facility] #IG 0.00 10^3/uL 0.00 - 0.10 [facility] #NRBC 0.00 10^3/uL 0.00 - 0.00 [facility] MANUAL DIFF SEE BELOW [facility] Segmented neutrophils/100 leukocytes in Blood by Manual count 67 % 37 - 80 [facility] BAND 10 % 0 - 5 [facility] %LYMPH 10 % 25 - 40 L [facility] %MONO 5 % 3 - 8 [facility] %EOS 6 % 0 - 7 [facility] 2 RBC MORPH MORPH IS NORMAL [facility] FOLLOWING RESULTS REPORTED IN ERROR MANUAL DIFF RBC MORPH { CORRECT INDICATED ID Date Data Source [id number] 03/28/2020 04:20:00 PM EDT [facility] Name Value Range Interpretation Code Description Data Melita rce(s) Supporting Document(s) COMPREHENSIVE METABOLIC PANEL [facility] COMPREHENSIVE METABOLIC PANEL Sodium [Moles/volume] in Serum or Plasma 132 mEq/L 134 - 153 L [facility] Potassium [Moles/volume] in Serum or Plasma 3.4 mEq/L 3.6 - 5.0 L [facility] Chloride [Moles/volume] in Serum or Plasma 96 mEq/L 98 - 107 L [facility] Carbon dioxide, total [Moles/volume] in Serum or Plasma 25 MEQ/L 22 - 30 [facility] Glucose [Mass/volume] in Serum or Plasma 113 MG/DL 65 - 110 H [facility] BUN 8 MG/DL 7 - 21 [facility] Creatinine [Mass/volume] in Serum or Plasma 0.5 MG/DL 0.7 - 1.5 L [facility] BUN/CREAT 16 8 - 27 [facility] Protein [Mass/volume] in Serum or Plasma 7.9 G/DL 6.3 - 8.2 [facility] Albumin [Mass/volume] in Serum or Plasma 4.6 G/DL 3.9 - 5.0 [facility] Globulin [Mass/volume] in Serum by calculation 3.3 GM/DL 2.4 - 3.2 H [facility] A/G RATIO 1.4 0.8 - 2.0 [facility] Calcium [Mass/volume] in Serum or Plasma 9.3 MG/DL 8.4 - 10.2 [facility] Bilirubin.total [Mass/volume] in Serum or Plasma 1.0 MG/DL 0.2 - 1.3 [facility] Alkaline phosphatase [Enzymatic activity/volume] in Serum or Plasma 94 U/L 38 - 126 [facility] Aspartate aminotransferase [Enzymatic activity/volume] in Serum or Plasma 102 U/L 5 - 40 H [facility] Alanine aminotransferase [Enzymatic activity/volume] in Seru m or Plasma 69 U/L 7 - 56 H [facility] Anion gap 3 in Serum or Plasma 11.0 mmol/L 8.0 - 16.0 [facility] AGE 29 yrs [facility] NON-AA GFR >60 mL/min [facility] AFR AMER GFR >60 mL/min [facility] Male GFR In terprentation 20-49 yrs >60 mL/min Normal 50-59 yrs >56 mL/min Normal 60-69 yrs >49 mL/min Normal 70-79yrs >42 mL/min Normal 80 and above >35 mL/min Normal Female GFR Interpretation 20-39 yrs >60 mL/min Normal 40-49 yrs >58 mL/min Normal 50-59 yrs >51 mL/min Normal 60-69 yrs >45 mL/min Normal 70-79 yrs >39 mL/min Normal 80 and above >32 mL/min Normal ID Date Data Source [id number] 03/28/2020 04:10:00 PM EDT [facility] Name Value Range Interpretation Code Description Data Melita rce(s) Supporting Document(s) Lipase [Enzymatic activity/volume] in Serum or Plasma 31 U/L 13 - 60 [facility] ID Date Data Source [id number] 10/28/2019 09:33:00 AM EST [facility] [address] [place] [address] PHONE: [phone] FAX: [phone] Name .................. : ABHISHEK Bowman Acct Number.................. : [id number] ROOM. ................. : TR-05 Number ................... : [id number] Stay type ............. : E/R Discharge Date......... ... : 10/27/19 Admit Date .... ..... : 10/27/19 Admit Phys .................... : SUSANARIN BARRON Date of ....... : 1990 Family Phys ................... : NO PCP Phone .................. : [phone] Age ................................ : 29 Film# .................. .:[id number] Sex ................................. : F Unsigned transcriptions are preliminary reports and do not represent a medical or legal document KNEE COMPLETE-4 OR MORE S [id number] COMPLETE:10/27/19 16:22 [facility] [id number] Reason(s): Knee Injury LEFT KNEE X-RAY: HISTORY: Knee injury. COMPARISON: None available. FINDINGS: No acute fracture or dislocation is present. The joint spaces are well preserved. Opacity is noted in the suprapatellar region concerning for an effusion. IMPRESSION: Knee joint effusion suspected but no acute fracture or dislocation. Electronically Reviewed and Signed By Agustin Barger MD , 10/28/19 09:33, RND Transcribe Initials: LI , Transcribe Date: 10/27/19 17:09, Dictation Date: Copy for: EMERGENCY DEPT via modem Copy for: 710 MED REC DISCHARGED Page 1 of 1 Name Value Range Interpretation Code Description Data Melita rce(s) Supporting Document(s) ID Date Data Source [id number] 10/27/2019 01:47:00 PM EST [facility] 1 OrderSheet [facility] Emergency Department [address] [place] [address] Phone #: ext- [phone] 10/27/2019 13:42 Patient: LAUREN ALONSO Sex: F : 1990 Age: 29yWEIGHT:58.9 kg (M) HEIGHT:63 inches (M) BMI:23.0ALLERGIES: Penicillins, Sulfa AntibioticsCHIEF COMPLAINT: knee, LtDIAGNOSIS: Sprain of joint, Knee joint effusionLAB ORDERSOrder Description Priority Entered Acknowledged InitialedDIAGNOSTIC STUDY ORDERSOrder Description Priority Entered Acknowledged InitialedKnee Complete Left STAT 14:06 10/27/2019 14:08 Nikita(Oxygen?(No)) Nela De La Garza RN, M.D.; Reason for Study: Knee InjuryMEDICATION/IV/DRIP/FLUID ORDERSOrder Description Priority Entered Acknowledged InitialedToradol IM 30 mg 14:06 10/27/2019 14:13 Nela Lerma RN, M.D.;HYDROcodone-AP 14:06 10/27/2019 14:13 ValentinyAP (5-325mg)PO 1 Nela De La Garza RNtab (HIGH ALERT MStepan;MEDICATION)GENERAL ORDERSOrder Description Priority Entered Acknowledged InitialedKnee Immobilizer 15:47 10/27/2019 15:48 Nela Lerma RN, M.D.;[Electronically signed by Nela De La Garza M.D. (18:21 10/27/2019)][Electronically signed by Nikita Reyes RN (19:29 10/27/2019)][Electronically locked by Nikita Reyes RN (19:29 10/27/2019)] Name Value Range Interpretation Code Description Data Melita rce(s) Supporting Document(s) ID Date Data Source [id number] 10/27/2019 01:47:00 PM EST [facility] 1 Medication Reconciliation Report [facility] Emergency Department [address] [place] [address] Phone #: ext- [phone] 10/27/2019 13:42 Patient: LAUREN ALONSO Sex: F : 1990 Age: 29yWeight: 58.9 kgHeight/Length: 63 in.BMI: 23.0ALLERGIES: Penicillins, Sulfa AntibioticsThe patient's Home Medications are listed below:NONE.The source(s) of the original Home Medication information:patientThe following Medications were given to the patient in the Emergency Depart ment:Toradol [IM] IM 30 mg, administered: 10/27/2019 2:13:00 PMHYDROCODONE-APAP (5-325MG) [PO] PO 1 tab, administered: 10/27/2019 2:13:00 PMThe following Medications were prescribed to the patient:ibuprofen 600 mg tablet Take 1 tablet four times a day as needed for pain for 7 days -- Dispense 28tablet. Refills: 0. Substitution permitted.Pharmacy - [facility] - [address] [place] [address] ; [place], [place] [id number]. . -- Nela De La Garza M.D.Hydrocodone/APAP 5mg / 325mg: take 1 orally every 6 hours as needed for acute pain. Dispense twelve(12). No refill. -- Nela De La Garza M.D. Name Value Range Interpretation Code Description Data Melita rce(s) Supporting Document(s) ID Date Data Source [id number] 10/27/2019 01:47:00 PM EST [facility] 1 Medication Administration Record [facility] Emergency Department [address] [place] [address] Phone #: ext [phone] 10/27/2019 13:42 Patient: LAUREN ALONSO Sex: F : 1990 Age: 29yWeight: 58.9 kgHeight/Length: 63 inBMI: 23ALLERGIES: Penicillins, Sulfa Antibiotics Date/Time Medication Administered Medication OrderedGiven TORADOL [IM] (KETOROLAC Toradol IM 30 mg14:13 10/27/2019 TROMETHAMINE)Nikita Reyes RN Dose: 30 mg IMGiven HYDROCODONE-APAP (5-325MG) [PO] HYDROcodone-APAP14:13 10/27/2019 (ACETAMINOPHEN-HYDROCODONE) (5-325mg)PO 1 tab ([facility] JENNIE Reyes Dose: 1 tab 5/325 mg Tablets PO MEDICATION) Name Value Range Interpretation Code Description Data Melita rce(s) Supporting Document(s) ID Date Data Source [id number] 10/27/2019 01:47:00 PM EST [facility] 1 General Instructions [facility] Emergency Department [address] [place] [address] Phone #: ext- [phone] 10/27/2019 13:42 Patient: LAUREN ALONSO Sex: F : 1990 Age: 29yRight knee effusionSprain of the medial collateral ligament of the left knee.Rule out torn meniscus and cruciate ligament injury.INSTRUCTIONSApply ice for 30 minutes four times a day for three days. Don't apply ice directly to skin. Wear kneeimmobilizer until released. Return to work in five days.Warnings: GENERAL WARNINGS: Return or contact your physician immediately if your conditionworsens or changes unexpectedly, if not improving as expected, or if other problems arise. Specificallyreturn if pain, vomiting, bleeding, breathing difficulty or fever greater than 102 degrees F and not controlledby acetaminophen or ibuprofen worsens.Your Current Medications: .No home medication.Prescription Medications:Hydrocodone/APAP 5mg / 325mg: take 1 orally every 6 hours as needed for acute pain. Dispense twelve(12). No refill.ibuprofen 600 mg tablet Take 1 tablet four times a day as needed for pain for 7 days -- Dispense 28tablet. Refills: 0. Substitution permitted.Pharmacy - [facility] - [address] [facility] ; [place], [place] [id number]. .Follow-up:Return to the emergency department as needed. Follow up with an orthopedic surgeon in three dayseven if well. Call for an appointment. Reason for referral: evaluation and treatment. Summary of careprovided to patient via paper.Understanding of the discharge instructions verbalized by patient. Expected course of injury, dischargeinstructions, activity level, diet, prescriptions x1, follow-up appointment and risks and benefits of treatmentreviewed with patient and understanding verbalized. Agrees to plan of care.Follow-up with: [facility], , , [address] [place] [address], [id number] 2 General Instructions [facility] Emergency Department [address] [place] [address] Phone #: ext- [phone] 10/27/2019 13:42 [id number] Sex: F : 1990 Age: 29y Follow up in three days even if well. Call for an appointment. Reason for referral: evaluation, treatmentand to rule out meniscal tear or cruciate ligament injury. Summary of care provided to patient via paper. ADDITIONAL INFORMATIONKnee SprainA sprain is an injury to the ligaments or capsule that holds a joint together. There are no brokenbones. Most sprains take 3 to 6 weeks to heal. If it a severe sprain where the ligament is completelytorn, it can take months to recover.Most knee sprains are treated with a splint, knee immobilizer brace, or elastic wrap for support.Severe sprai ns may rarely require surgery.Home care 3 General Instructions [facility] Emergency Department [address] [place] [address] Phone #: ext- [phone] 10/27/2019 13:42 Patient: LAUREN ALONSO [facility] [id number] Sex: F : 1990 Age: 29y Stay off the injured leg as much as possible until you can walk on it without pain. If you have a lot of pain with walking, crutches or a walker may be prescribed. (These can be rented or purchased at many pharmacies and surgical or orthopedic supply stores). Follow your healthcare provider's advice about when to begin putting weight on that leg. Keep your leg elevated to reduce pain and swelling. When sleeping, place a pillow under the injured leg. When sitting, support the injured leg so it is above heart level. This is very important during the first 48 hours. Apply an ice pack over the injured area for 15 to 20 minutes every 3 to 6 hours. You should do this for the first 24 to 48 hours. You can make an ice pack by filling a plastic bag that seals at the top with ice cubes and then wrapping it with a thin towel. Continue to use ice packs for relief of pain and swelling as needed. As the ice melts, be careful to avoid getting your wrap, splint, or cast wet. After 48 hours, apply heat (warm shower or warm bath) for 15 to 20 minutes several times a day, or alternate ice and heat. You can place the ice pack directly over the splint. If you have to wear a zhcg-kzi-zqwi knee brace, you can open it to apply the ice pack, or heat, directly to the knee. Never put ice directly on the skin. Always wrap the ice in a towel or other type of cloth. You may use cxmg-iaw-punrrsn pain medicine to control pain, unless another pain medicine was prescribed. If you have chronic liver or kidney disease or ever had a stomach ulcer or gastrointestinal bleeding, talk with your healthcare provider before using these medicines. If you were given a splint, keep it completely dry at all times. Bathe with your splint out of the water, protected with 2 large plastic bags, sealed with rubber bands or tape at the top end. If a fiberglass splint gets wet, you can dry it with a unhairing inspector set to cool. If you have a gkta-wzd-jvob knee brace, you can remove this to bathe, unless told otherwise.Follow-up careFollow up with your doctor as advised. Any X-rays you had today don't show any broken bones,breaks, or fractures. Sometimes fractures don't show up on the first X-ray. Bruises and sprains cansometimes hurt as much as a fracture. These injuries can take time to heal completely. If yoursymptoms don't improve or they get worse, talk with your doctor. You may need a repeat X-ray. IfX-rays were taken, you will be told of any new findings that may affect your care.Call [phone] if you have: Shortness of breath Chest pain 4 General Instructions [facility] Emergency Department [address] [place] [address] Phone #: ext- [phone] 10/27/2019 13:42 Patient: LAUREN ALONSO [facility] [id number] Sex: F : 1990 Age: 29yWhen to seek medical adviceCall your healthcare provider right away if any of these occur: The splint or knee immobilizer brace becomes wet or soft The fiberglass cast or splint remains wet for more than 24 hours Pain or swelling increases The injured leg or toes become cold, blue, numb, or tingly [id number] [employer]. [address] [place] [address]. All rights reserved. This information is not intended as asubstitute for professional medical care. Always follow your healthcare professional's instructions.Fluid on the KneeFluid on the knee is also known as knee effusion. The knee joint normally has less than 1 ounce of 5 General Instructions [facility] Emergency Department [address] [place] [address] Phone #: [phone] 10/27/2019 13:42 Patient: LAUREN ALONSO Sex: F : 1990 Age: 29yfluid. Injury or inflammation of the knee joint causes extra fluid to collect there. When this happens,the knee joint looks swollen and is often painful. It may be hard to fully bend the knee.The most common cause of fluid on the knee is osteoarthritis due to wear and tear on the jointcartilage. Other causes include injury to the cartilage, inflammatory arthritis such as gout orrheumatoid arthritis, and infection of the joint.If the cause of the fluid is not certain, you may need a needle aspiration. This procedure removes asample of joint fluid from the knee for testing. Removing excess fluid may also relieve swelling andpain.Home care Limit your activities. Stay off the injured leg as much as possible until pain improves. Keep your leg elevated to reduce pain and swelling. When sleeping, place a pillow under the injured leg. When sitting, support the injured leg so it is above heart level. This is very important during the first 48 hours. Apply an ice pack over the injured area for 15 to 20 minutes every 3 to 6 hours. You should do this for the first 24 to 48 hours. You can make an ice pack by filling a plastic bag that seals at the top with ice cubes and then wrapping it with a thin towel. Continue to use ice packs for relief of pain and swelling as needed. As the ice melts, be careful not to get your wrap, splint, or cast wet. After 48 hours, apply heat (warm shower or warm bath) for 15 to 20 minutes several times a day, or alternate ice and heat. If you have to wear a bbgj-ngs-jdvh knee brace, you can open it to apply the ice pack, or heat, directly to the knee. Never put ice directly on the skin. Always wrap the ice in a towel or other type of cloth. You may use gqch-pmb-zvywghx pain medicine to control pain, unless another pain medicine was prescribed. If you have chronic liver or kidney disease or have ever had a stomach ulcer or gastrointestinal bleeding, talk with your healthcare provider before using these medicines. If crutches or a walker have been recommended, don't put weight on the injured leg until you can do so without pain. Check with your healthcare provider before returning to sports or full work duties. If you have a dysv-eoy-hijv knee brace, you can remove it to bathe and sleep, unless told otherwise.Follow-up careFollow up with your healthcare provider as advised.If you are overweight, talk to your healthcare provider about a weight loss program. The excessweight puts extra strain on your knees. 6 General Instructions [facility] Emergency Department [address] [place] [address] Phone #: ext- [phone] 10/27/2019 13:42 Patient: LAUREN ALONSO Sex: F : 1990 Age: 29yWhen to seek medical adviceCall your healthcare provider right away if any of these occur: Increasing pain, redness, or swelling of the knee Fever of 100.4F (38C) or above lasting for 24 to 48 hours, or as advised Shaking chills [phone] [employer]. [address] [place] [address], [place] [address]. All rights reserved. This information is not intended as asubstitute for professional medical care. Always follow your healthcare professional's instructions.Knee ImmobilizerA knee immobilizer is a type of brace used to provide support and limit movement of the knee. Thiswill make you more comfortable as your injury heals.Home care The knee brace should be worn whenever you are out of bed, unless told otherwise. You may wear it in bed while asleep for the first few nights or until the pain starts to go away. Otherwise, you can remove the brace at night to avoid muscle stiffness from lack of joint movement. You can open the icap-idj-vpxx brace to dress, bathe, and apply ice or heat packs as directed.Call [phone] if you have: Shortness of breath Chest painWhen to seek medical adviceCall your healthcare provider right away if any of these occur: Worsening pain in the knee Weakness, numbness, or tingling in the foot Increased swelling, redness or warmth of the knee joint [phone] [employer]. [address] [place] [address]. All rights reserved. This information is not intended as asubstitute for professional medical care. Always follow your healthcare professional's instructions. 7 General Instructions [facility] Emergency Department [address] [place] [address] Phone #: ext- [phone] 10/27/2019 13:42 Patient: LAUREN ALONSO Sex: F : 1990 Age: 29yY ou have been given the following additional information:Knee SprainKnee EffusionKnee ImmobilizerReturn to work in five days.(Electronically signed by Nela De La Garza M.D. 10/27/2019 18:21) Name Value Range Interpretation Code Description Data Melita rce(s) Supporting Document(s) ID Date Data Source [id number] 10/27/2019 01:47:00 PM EST [facility] 1 Clinical Report - Nurses [facility] Emergency Department [address] [place] [address] Phone #: [phone] 10/27/2019 13:42 Patient: [facility] ALONSO [facility] [id number] Sex: F : 1990 Age: 29yTRIAGEArrived by private vehicle. Historian: patient.Acuity: LEVEL 4.Chief Complaint: LEFT LOWER EXTREMITY SWELLING. Location of symptoms- left knee.Alert. No acute distress.No injury occurred. This occurred (3 days ago). Provoking / relieving factors: relieved by lying down andremaining still. She has had trouble walking.SEPSIS SCREEN: Negative (no infection suspected/documented).JOSE COMA SCORE: 15- eyes open- spontaneous (4); best verbal response- oriented (5); bestmotor response- obeys commands (6). --13:47 10/27/19 Evie Sibley R.N.13:44 10/27/19. BP: 130/79. MAP: 96. HR: 83 (regular). RR: 16 (regular). O2 saturation: 96%. Temp: 99.3F. Pain level now: 05/06. --13:47 10/27/19 Evie Sibley R.N.Weight: 58.9 kg measured. Height/Length: 63 inches Measured. BMI: 23. --13:43 10/27/19 Evie Sibley R.N.MedicationsNone. --13:45 10/27/19 Evie Sibley R.N.AllergiesSulfa Antibiotics. --13:45 10/27/19 Evie Sibley R.N.Penicillins. --13:45 10/27/19 Evie Sibley R.N.PROBLEMS:no known problems.Medication/allergy information source: the patient. --13:47 10/27/19 Evie Sibley R.N.ADDITIONAL SURGERIES:Leep. --13:46 10/27/19 Evie Sibley R.N.HistoryPAST MEDICAL HX: Tetanus status: up-to-date. Immunizations: up-to-date. Last normal menstrualperiod was 4 weeks ago.SOCIAL HX: Current every day light tobacco smoker (cigarette)- less than 1/2 a pack per day. No alcoholuse or drug use. She was offered HIV testing but declined and hepatitis C testing but declined. 2 Clinical Report - Nurses [facility] Emergency Department [address] [place] [address] Phone #: ext- [phone] 10/27/2019 13:42 Patient: LAUREN ALONSO Sex: F : 1990 Age: 29y SELF HARM ASSESSMENT: Self harm assessment was performed. The patient answered "no" to the question(s) "Have you recently felt down, depressed, or hopeless?", "Do you have thoughts of harming or killing yourself?", "Do you have a plan for harming or killing yourself?", "Have you recently had thoughts about harming or killing others?", "Do you have any dangerous items in your possession?", "Have you noticed less interest or pleasure in doing things?", "Are you here because you tried to hurt yourself?" and "Have you ever tried to hurt yourself before today?". ABUSE ASSESSMENT: No report of abuse. --13:47 10/27/19 Evie Sibley R.N. SOCIAL HX: The patient has not traveled outside the [place] Infectious disease exposure: No infectious disease exposure. The patient was not exposed to C-diff, MRSA, VRE or CRE. --13:48 10/27/19 Evie Sibley R.N. FALL RISK ASSESSMENT: Fall risk assessment completed. Risk factors identified include severe pain. --13:48 10/27/19 Evie Sibley R.N.PHYSICAL ASSESSME NTAmbulatory to room.GENERAL / NEURO / PSYCH: Appears in no acute distress. Appears in pain.EXTREMITIES: Extremity pulses are within normal limits. No lower extremity edema. Left knee:tenderness and swelling. Limited ROM secondary to pain.SKIN: Skin intact. Skin is warm and dry. --13:54 10/27/19 Evie Sibley R.N.NURSING PROGRESS NOTESReassurance given. Patient identifiers checked. Call light placed in reach. Bed placed in lowestposition. Patient ready for evaluation. --13:48 10/27/19 Evie Sibley R.N. 14:13 10/27/2019 Toradol (Ketorolac Tromethamine) IM 30 mg given. Given in the right deltoid. Allergies verified and confirmed 5 rights. Information reviewed with patient. --14:13 10/27/19 Nikita Reyes RN 14:13 10/27/2019 HYDROCODONE-APAP (5-325MG) (Acetaminophen-HYDROcodone) PO 5/325 mg Tablets 1 tab given. Allergies verified and confirmed 5 rights. Information reviewed with patient including sedative warning. --14:13 10/27/19 Nikita Reyes RN Patient transported to radiology by wheelchair with water treatment technician. (7000). --14:13 10/27/19 Nikita Reyes RN Patient returned from radiology by wheelchair with water treatment technician. (5045). --14:19 10/27/19 Nikita Reyes RN 15:02 10/27/19. BP: 129/78. MAP: 95. HR: 83. RR: 16. O2 saturation: 98%. --15:02 10/27/19 [place] upper cutter, [facility] Tech 3 Clinical Report - Nurses [facility] Emergency Department [address] [place] [address] Phone #: ext- [phone] 10/27/2019 13:42 Patient: LAUREN ALONSO Sex: F : 1990 Age: 29y 15:33 10/27/2019 Toradol IM Response: symptoms have improved the patient feels better. (pain decreased 5 to 6 / 10). --15:33 10/27/19 Nikita Reyes RN 15:33 10/27/2019 HYDROCODONE-APAP (5-325MG) PO Response: pain is improving. Symptoms have improved the patient feels better. (pain decreased 5 to 6 / 10). --15:33 10/27/19 Nikita Reyes RN ( 1533 pt resting 60 degrees stating pain decreased to 5 to 6 / 10). --15:34 10/27/19 Nikita Reyes RN Immobilizer applied to the left knee by nurse; distal pulses intact, sensation intact and motor function within normal limits (1555). --15:56 10/27/19 Nikita Reyes RN.DISPOSITION / DISCHARGE 15:46 10/27/19. BP: 105/67. MAP: 79. HR: 68. RR: 16. O2 saturation: 99% on room air. Temp: 98.1 F (oral). Pain level now: 11/03. --1 5:47 10/27/19 Nikita Reyes RN 16:14 10/27/19. Departure time: 16:13 10/27/2019. Condition at departure: improved. No learning barriers present. Discharge instructions provided and reviewed with the patient. Reviewed medication(s) side effects, precautions, dosing and course information. Prescription(s) given to the patient and sent electronically to pharmacy (1 script to pt). Reviewed rest, ice, compression and elevation instructions. Reviewed referral to an orthopedic surgeon. Patient and vegetable specker verbalized understanding. Written instructions provided in [place]. The patient was discharged by the physician. She was discharged home and accompanied by vegetable specker. She left ambulatory and via private vehicle. Urgent Care Nurse Practitioner driving. --16:14 10/27/19 Nikita Reyes RN.Locked/Released at 10/27/2019 19:29 by Nikita Reyes RN Name Value Range Interpretation Code Description Data Melita rce(s) Supporting Document(s) ID Date Data Source [id number] 10/27/2019 01:47:[address] [facility] 1 Clinical Report - Physicians/Mid Levels [facility] Emergency Department [address] [place] [address] Phone #: ext- [phone] 10/27/2019 13:42 Patient: LAUREN ALONSO Sex: F : 1990 Age: 29y Time Seen: 13:46 10/27/2019; initial patient contact. Arrived- By private vehicle. Historian- patient. Disposition decision: 15:42 10/27/2019.HISTORY OF PRESENT ILLNESS Chief Complaint: Injury to left knee. The injury happened 2 days ago. The patient sustained a twisting injury (while walking in snow, then stumbled). Occurred on a street. Patient is experiencing moderate pain. No injury to the head.REVIEW OF SYSTEMSThe patient complains of moderate pain on w eight bearing. She has had swelling. No tingling,weakness, numbness, suspected foreign body or skin laceration. All other systems reviewed and arenegative.PAST HISTORYSee nurses notes. Tetanus immunization status is up-to-date. Problems: Dental Abscess. Ovarian Cyst. UTI - Urinary Tract Infection. Dental Caries. Additional Surgeries: LEEP procedure. Tympanostomy Tubes. Medications: None. Allergies: Penicillins. Sulfa Antibiotics.SOCIAL HISTORYLight tobacco smoker- less than 1/2 a pack per day. No alcohol use or drug use.ADDITIONAL NOTESThe nursing notes have been reviewed with agreement regarding the chief complaint, HPI, ROS, PMH andpatient medications and allergies. 2 Clinical Report - Physicians/Mid Levels [facility] Emergency Department [address] [place] [address] Phone #: [phone] [phone] 10/27/2019 13:42 Patient: LAUREN ALONSO Sex: F : 1990 Age: 29yPHYSICAL EXAMVital Signs: 10/27/2019 15:46 BP: 105/67. MAP: 79. HR: 68. RR: 16. O2 saturation: 99% on room air.Temp: 98.1 F. Pain level now: 11/03.10/27/2019 15:02 BP: 129/78. MAP: 95. HR: 83. RR: 16. O2 saturation: 98%.10/27/2019 13:44 BP: 130/79. MAP: 96. HR: 83. RR: 16. O2 saturation: 96%. Temp: 99.3 F. Pain levelnow: 05/06. Have been reviewed. Oxygen saturation carla l.Appearance: Alert. Oriented X3. Patient in mild distress. Distress appears due to pain.Head: Head atraumatic.Eyes: Pupils equal, round and reactive to light. Eyes normal inspection.Neck: Normal inspection. Neck supple. C-spine non- tender.CVS: Normal heart rate and rhythm. Heart sounds normal. Pulses normal.Respiratory: No respiratory distress. Painless inspiration. Breath sounds normal. Chest nontender.Abdomen: No visible injury. Soft and nontender. Bowel sounds normal. No organomegaly. No mass.Femoral pulses equal.Back: Normal inspection. No tenderness. ROM normal.Skin: Skin intact. Skin warm and dry. Normal skin color. Normal skin turgor.Extremities: No signs of infection involving the lower extremities. Left knee: moderate tenderness andswelling located in the medial joint line and medial collateral ligament. Limited ROM secondary to pain andswelling (diminished flexion, extension and external and internal rotation). Medium sized joint effusionpresent. Neurovascular intact distally. (meniscal area is area of worse pain). No ligamentous laxity present.No abrasion, puncture wound, foreign body, deformity or open wound communicating with joint space.Extremities otherwise negative.Gait: Limping gait.Neuro, Vascular and Tendons: Vascular status intact. Sensation intact. Motor intact. Tendon functionintact.Neuro: Oriented X 3. No motor deficit. No sensory deficit. Reflexes normal.LABS, X-RAYS, AND EKGLt Knee X-ray: No fracture. Normal alignment. Small joint effusion. Interpretation time: 14:.PROGRESS AND PROCEDURESCourse of Care: 15:41 10/27/19. pt has no Fx on x-ray but joint effusion; will apply knee immobilizer paramjit to orthopedics to r/o torn meniscus and/or cruciate ligament injury. Patient counseled in person regarding the patient's stable condition, test results, yoel gnosis and need for follow-up. Patient agrees with plan of care. Disposition: Condition: good and stable. Discharge decision based on the following: patient's condition is stable; patient's condition is improved; patient is ambulatory; patient is active; patient drinking fluids; patient eating; patient's pain is controlled; patient's exam is improved; no seriously abnormal test results; improving condition on repeat evaluation; social support is good; transportation is available; follow-up is available; clinical impression is consistent with outpatient treatment. 3 Clinical Report - Physicians/Mid Levels [facility] Emergency Department [address] [place] [address] Phone #: [phone]- [phone] 10/27/2019 13:42 Patient: LAUREN ALONSO Sex: F : 1990 Age: 29yCLINICAL IMPRESSION Right knee effusion Sprain of the medial collateral ligament of the left knee. Rule out torn meniscus and cruciate ligament injury.INSTRUCTIONS Apply ice for 30 minutes four times a day for three days. Don't apply ice directly to skin. Wear knee immobilizer until released. Return to work in five days. Warnings: GENERAL WARNINGS: Return or contact your physician immediately if your condition worsens or changes unexpectedly, if not improving as expected, or if other problems arise. Specifically return if pain, vomiting, bleeding, breathing difficulty or fever greater than 102 degrees F and not controlled by acetaminophen or ibuprofen worsens. Your Current Medications: . No home medication. Prescription Medications: Hydrocodone/APAP 5mg / 325mg: take 1 orally every 6 hours as needed for acute pain. Dispense twelve (12). No refill. ibuprofen 600 mg tablet Take 1 tablet four times a day as needed for pain for 7 days -- Dispense 28 tablet. Refills: 0. Substitution permitted. Pharmacy - [id number] [address] [place], [place] [id number]. Ph one: . Follow-up: Return to the emergency department as needed. Follow up with an orthopedic surgeon in three days even if well. Call for an appointment. Reason for referral: evaluation and treatment. Summary of care provided to patient via paper. Understanding of the discharge instructions verbalized by patient. Expected course of injury, discharge instructions, activity level, diet, prescriptions x1, follow-up appointment and risks and benefits of treatment reviewed with patient and understanding verbalized. Agrees to plan of care. Follow-up with: [facility], , , [address] [address], , [place], [address] Follow up in three days even if well. Call for an appointment. Reason for referral: evaluation, treatment 4 Clinical Report - Physicians/Mid Levels [facility] Emergency Department [address] [place] [address] Phone #: [phone]- [phone] 10/27/2019 13:42 Patient: [facility] ALONSO [id number] Sex: F : 1990 Age: 29y and to rule out meniscal tear or cruciate ligament injury. Summary of care provided to patient via paper.(Electronically signed by Nela De La Garza M.D. 10/27/2019 18:21) Name Value Range Interpretation Code Description Data Melita rce(s) Supporting Document(s) Procedure
[2020-10-13 17:03] VITALS: BP 131/88
[2020-10-13 17:17] LABS: BASO # 0.1 10^3/uL (0.0-0.2); BASO % 1.4 % (0.0-1.0); EOS % 0.5 % (0.0-3.0); HEMATOCRIT 41.5 % (36.0-47.0); HEMOGLOBIN 14.1 g/dl (12.0-15.5); LYMPH # 2.4 10^3/uL (1.5-5.0); LYMPH % 42.7 % (24.0-44.0); MEAN CORPUSCULAR HEMOGLOBIN 28.8 pg (27.0-33.0); MEAN CORPUSCULAR VOLUME 84.9 fl (80.0-96.0); MONO # 0.7 10^3/uL (0.0-0.8); MONO % 12.5 % (2.0-8.0); NEUTROPHILS # 2.4 10^3/uL (1.5-8.5); NEUTROPHILS % 42.7 % (36.0-66.0); PLATELET COUNT, AUTOMATED 348 10^3/uL (150-450); RED BLOOD COUNT 4.89 10^6/uL (4.00-5.40); WHITE BLOOD COUNT 5.5 10^3/uL (4.0-10.0)
[2020-10-13 17:34] LABS: AMPHETAMINES LEVEL URINE POSITIVE (NEGATIVE); BARBITURATES URINE NEGATIVE (NEGATIVE); BENZODIAZEPINES URINE NEGATIVE (NEGATIVE); CANNABINOIDS URINE POSITIVE (NEGATIVE); COCAINE METABOLITE URINE NEGATIVE (NEGATIVE); METHADONE URINE NEGATIVE (NEGATIVE); OPIATES URINE NEGATIVE (NEGATIVE); PHENCYCLIDINE URINE NEGATIVE (NEGATIVE)
[2020-10-13 17:36] LABS: HCG, SERUM QUALITATIVE NEGATIVE (NEGATIVE)
[2020-10-13 17:53] LABS: ACETAMINOPHEN LEVEL < 2.0 UG/ML (10.0-30.0); ALBUMIN 4.5 GM/DL (3.2-5.2); ALT/SGPT 18 U/L (12-78); BILIRUBIN,DIRECT 0.1 MG/DL (0.0-0.2); BILIRUBIN,TOTAL 0.7 MG/DL (0.2-1.0); BLOOD UREA NITROGEN 17 MG/DL (7-18); CALCIUM LEVEL 9.8 MG/DL (8.5-10.1); CARBON DIOXIDE LEVEL 25 MEQ/L (21-32); CHLORIDE LEVEL 106 MEQ/L (98-107); CREATININE FOR GFR 0.88 MG/DL (0.55-1.30); ETHYL ALCOHOL (ETHANOL) < 0.003 % (0.000-0.010); GLOMERULAR FILTRATION RATE > 60.0 (>60); GLUCOSE, FASTING 81 MG/DL (70-100); POTASSIUM SERUM 4.2 MEQ/L (3.5-5.1); SALICYLATE LEVEL 3.2 MG/DL (5.0-30.0); SODIUM LEVEL 141 MEQ/L (136-145); THYROID STIMULATING HORMONE 0.777 uIU/ML (0.358-3.740); TOTAL PROTEIN 8.5 GM/DL (6.4-8.2)
--- OUTSIDE RECORDS SUMMARY | 2020-10-13 18:40 | CCD ---
Author Author [facility] Organization [facility] Address Unknown Phone Unavailable Care Team Providers Care Sales Performance Manager Name Role Phone Jarrett Garza MD Unavailable Unavailable Jarrett Garza MD Unavailable Unavailable Jarrett Garza MD Unavailable Unavailable Jarrett Garza MD Unavailable Unavailable Jarrett Garza MD Unavailable Unavailable Jarrett Garza MD Unavailable Unavailable Jarrett Garza MD Unavailable Unavailable Jarrett Garza MD Unavailable Unavailable Jarrett Garaz MD Unavailable Unavailable Jarrett Garza MD Unavailable [...] is protected by Article 27-F of the [facility] Public Health law. If you continue you may have access to information: Regarding HIV / AIDS; Provided by facilities licensed or operated by the [facility] Office of Mental Health; or Provided by the [facility] Office for People With Developmental Disabilities. If such information is present, then the following [facility] mandated warning applies: This information has been [...] law may result in a fine or half-way sentence or both. A general authorization for the release of medical or other information is NOT sufficient authorization for further disc losure. Allergies and Adverse Reactions Type Description Substance Reaction Status Data Source(s ) No Known Environmental Allergies No Known Environmental Al lergies [facility] No Known Food Allergies No Known Food Allergies [facility] BRANDNAME PENICILLIN PENICILLIN VOMITING [facility] CLASS SULFA (sulfonamide) SULFA (sulfonamide) RASH UNSURE [facility] Family History Family Member Name Family Member Gender Family Member Status Date o f Status Description Data Source(s) Unknown Male Problem [facility] ([facility]) Encounters Encounter Providers Location Date Indications Data Source(s ) Emergency Attender: NELA DE LA GARZAConsultant: PCP NO 06/08/2020 11:46:00 PM EDT - 06/09/2020 10:18:00 AM EDT [facility] Patient discharged. Outpatient 06/08/2020 12:00:00 AM [facility] Outpatient Attender: JG Webb r: Kota Garza MDConsultant: PCP NO 05/26/2020 02:07:00 PM EDT - 05/26/2020 02:07:00 PM EDT [facility] Emergency Attender: NELA Bocanegrasultant: PCP NO 04/29/2020 01:47:00 AM EDT - 04/29/2020 10:01:00 AM EDT [facility] Patient discharged. Emergency Attender: THADDEUS COON MDConsultant: PCP NO 03/28/2020 03:24:00 PM EDT - 03/28/2020 05:20:00 PM EDT [facility] Patient discharged. Outpatient Attender: Gabbie PATEL 02/03/2020 07:48:28 P M EDT [facility] Emergency Attender: NELA Bocanegrasultant: PCP NO 10/27/2019 01:47:00 PM EST - 10/27/2019 04:14:00 PM EST [facility] Patient discharged. Emergency Attender: JERMAIN Lunaant: GABBIE LOVETT) RPA-C 07/10/2018 02:50:14 PM [facility] Medications Medication Brand Name Start Date Product [...] type / Coverage type Policy ID Covered constitution party ID Covered constitution party's relationship to donald Policy Donald Plan Information [facility] [id number] [facility] [id number] SP [id number] BH [facility] [id number] 18 [id number] UNHC COMMUNITY PLAN XIX [id number] 18 [id number] UNHC AMERICHOICE XIX HMO [id number] 18 [id number] UNHC COMMUNITY PLAN MCDHMO [id number] SP [id number] [facility] I [id number] Self [id number] [facility](MCAID) O [id number] S [id number] MEDICAID M [id number] Self [id number] [place] [employer] DEPT [id number] SP [id number] Medicaid P [id number] S [id number] [facility] COMMUNTY PLAN [id number] 18 [id number] ANS-Medicaid [id number] [facility] Communty Plan Medicaid [id number] Self [id number] [place] -PHYSICIAN [id number] 2 0 [id number] [place] -O/P [id number] 20 [id number] [employer] LAUREN ALONSO 18 LAUREN ALONSO [facility] Communty Plan Medicaid [id number] Self [id number] ANSI-Medicaid [id number] UNHC COMMUNITY PLAN XIX -I/P [id number] 18 [id number] [facility] Communty Plan Medicaid [id number] Self [id number] [facility] Communty Plan Medicaid [id number] Self 10 [id number] ANSI-Medicaid [id number] ANSI-Medicaid [id number] [facility] Communty Plan Medicaid [id number] Self 10 [id number] [facility] Communty Plan Medicaid [id number] Self 10 [id number] [facility] Communty Plan Medicaid [id number] Self 10 [id number] [facility] Communty Plan Medicaid [id number] Self 10 [id number] Self Pay P none S none MEDICAID M [id number] S [id number] MEDICAID [id number] SP [id number] SELF PAY ONLY [id number] SP [id number] [facility] [id number] SP [id number] Managed Care - Community Plan [facility] P [id number] S [id number] Medicaid S [id number] S [id number] Medicaid P [id number] S [id number] [facility] [id number] S [id number] MEDICAID [id number] SP [id number] HMO BLUE [id number] SP [id number] [employer]UE [place] BLUE [place]I[employer]-PHYSICIAN [id number] 18 [id number] [place]UE [place] BLUE SHIELD-O/P [id number] 18 [id number] MEDICAID-PHYSICIAN [id number] MEDICAID - CLINIC [id number] 18 [id number] Problems, Conditions, and Diagnoses Code Display Name Description Problem Type Effective Dates Data Source(s) Z590 Homelessness Homelessness Diagnosis 06/08/2020 11:46:00 P M EDT [facility] 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, uncomplicated Other stimu lant abuse, uncomplicated Diagnosis 06/08/2020 11:46:00 PM EDT [facility] F1110 Opioid abuse, uncomplicated Opioid abuse, uncomplicate d Diagnosis 06/08/2020 11:46:00 PM EDT [facility] F1210 Cannabis abuse, uncomplicated Cannabis abuse, uncompli cated Diagnosis 06/08/2020 11:46:00 PM EDT [facility] [id number] Nicotine dependence, cigarettes, uncompl icated Nicotine dependence, cigarettes, uncomplicated Diagnosis 06/08/2020 11:46:00 PM EDT [facility] R519 Headache, unspecified Headache, unspecified Diagnosis 06/08/2020 11:46:00 PM EDT [facility] 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, uncomplicate d Other stimulant dependence, uncomplicated Diagnosis 05/26/2020 02:07:00 PM EDT [facility] F1120 Opioid dependence, uncomplicated Opioid dependen ce, uncomplicated Diagnosis 05/26/2020 02:07:00 PM EDT [facility] 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 Other recur rent depressive disorders Diagnosis 05/26/2020 02:07:00 PM EDT [facility] 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 Diagnosis 04/29/2020 01:47:00 AM EDT [facility] R03750 Nicotine dependence, unspecified, uncomp licated Nicotine dependence, unspecified, uncomplicated Diagnosis 04/29/2020 01:47:00 AM EDT [facility] E876 Hypokalemia Hypokalemia Diagnosis 04/29/2020 01:47:00 AM EDT [facility] N3000 Acute cystitis without hematuria Acute cystitis without hematuria Diagnosis 04/29/2020 01:47:00 AM EDT [facility] R0789 Other chest pain Other chest pain Diagnosis 04/29/2020 01 :47:00 AM EDT [facility] A61510 Unspecified street and [place] as the place of occurrence of the external cause Unspecified street and highway as the pl guzman of occurrence of the external cause Diagnosis 10/27/2019 01:47:00 PM EST [facility] [id number] Other and unspecified overex ertion or strenuous movements or postures, initial encounter Other and unspecified overexertion or st renuous movements or postures, initial encounter Diagnosis 10/27/2019 01:47:00 PM EST [facility] [id number] Sprain of medial collateral ligament of left knee, initial encounter Sprain of medial collateral ligament of left knee, initial encounter Diagnosis 10/27/2019 01:47:00 PM [facility] [id number] Unspecified injury of left lower leg, in itial encounter Unspecified injury of left lower leg, initial encounter Diagnosis 10/27/2019 01:47:00 PM [facility] Results ID Date Data Source [id number] 06/08/2020 11:46:00 PM EDT [facility] 1 OrderSheet [facility] Emergency Department [address] [place] [address] Phone #: ext- [phone] 06/08/2020 23:41 Patient: LAUREN ALONSO Sex: F : 1990 Age: 29yWEIGHT:49.8 kg (M) HEIGHT:63 inches (S) BMI:19.5 STATUS:NoALLERGIES: Penicillins, Sulfa AntibioticsCHIEF COMPLAINT: headache, headacheDIAGNOSIS: Drug abuse, Headache, Drug abuse, AnxietyLAB ORDERSOrder Description Priority Entered Acknowledged InitialedHCG Serum Qual STAT 08:04 06/09/2020 08:33 Trinity Contrersa RN Physician;CBC w Diff STAT 08:04 06/09/2020 08:33 Trinity Contreras RN Physician;CMP STAT 08:04 06/09/2020 08:33 Trinity Contreras RN Physician;Urinalysis (Clean STAT 08:04 06/09/2020 Ack'd: 09:17 Community Health Tech, Juan C Coon ER Tech1 Physician; Cancelled: Patient Refusal 10:39 Trinity Contreras RNUrine Drug Screen STAT 08:04 06/09/2020 Ack'd: 09:18 Community Health TechJovani ER Tech1 Physician; Cancelled: Patient Refusal 10:40 Trinity Contreras RNInfluenza Nasal A B STAT 10:03 06/09/2020 Cancelled: Patient Refusal 10:40 Trinity Contreras RN Physician;Rapid Strep Screen STAT 10:03 06/09/2020 Cancelled: Patient Refusal 10:40 Trinity Contreras RN Physician;DIAGNOSTIC STUDY ORDERSOrder Description Priority Entered Acknowledged InitialedMEDICATION/IV/DRIP/FLUID ORDERSOrder Description Priority Entered Acknowledged InitialedTylenol PO 650 mg 00:17 06/09/2020 00:36 Nela Song RN 2 OrderSheet [facility] Emergency Department [address] [place] [address] Phone #: ext- [phone] 06/08/2020 23:41 [id number] Sex[facility] F : 1990 Age: 29y M.D.;Ibuprofen [...] rce(s) Supporting Document(s) ID Date Data Source [id number] 06/08/2020 11:46:00 PM EDT [facility] 1 Medication Reconciliation Report [facility] Emergency Department [address] [place] [address] Phone #: ext- [phone] 06/08/2020 23:41 Patient: [...] rce(s) Supporting Document(s) ID Date Data Source [id number] 06/08/2020 11:46:00 PM EDT [place] [address] Medication Administration Record [facility] Emergency Department [address] [place] [address] Phone #: ext- [phone] 06/08/2020 23:41 Patient: LAUREN ALONSO Sex: F : 1990 Age: 29yWeight: 49.8 kgHeight/Length: 63 inBMI: 19.5ALLERGIES: Sulfa Antibiotics, Penicillins Date/Time Medication Administered Medication OrderedGiven TYLENOL [PO] (APAP) Tylenol PO 650 mg00:36 06/09/2020 Dose: 650 mg Tablets Vivi Adams RNGitatum IBUPROFEN [PO] Ibuprofen 800 mg PO X1 dose: 80928:37 06/09/2020 Dose: 800 mg Tablets PO mg (NOW x1)Trinity Contreras RN Name Value Range Interpretation Code Description Data Melita rce(s) Supporting Document(s) ID Date Data Source [id number] 06/08/2020 11:46:00 PM EDT [facility] 1 General Instructions [facility] Emergency Department [address] [place] [address] Phone #: ext- [phone] 06/08/2020 23:41 Patient: [...] job or your family Arrest, conviction, and half-way sentence for possession of an illegal substance or for driving under the influenceHealth problems Strokes, heart attacks, kidney failure 2 General Instructions [facility] Emergency Department [address] [place] [address] Phone #: ext- [phone] 06/08/2020 23:41 Patient: [...] of the resources below for help: National [place] on Alcoholism and Drug Dependence www.ncadd.org 858-756-4932 Narcotics Anonymous www.na.org 162-638-8672 National Alcohol and Substance Abuse Information Center (for referral to treatment programs) www.[employer] 311-678-8253Ppbk 911Call 911 if any of the following occur: Seizure Hard time breathing or slow, irregular breathing Chest pain 3 General Instructions [facility] Emergency Department [address] [place] [address] Phone #: ext- [phone] 06/08/2020 23:41 Patient: LAUREN ALONSO Sex: F [...] swelling, or tenderness at an injection site 4260-[address] [employer] [place] [address]. All rights reserved. This information is not [...] wheezing, frequent colds, and 4 General Instructions [facility] Emergency Department [address] [place] [address] Phone #: ext- [phone] 06/08/2020 23:41 Patient: [...] the National Alcohol and Substance Abuse Information [address] [place] [address] Emergency [address] [place] [address] Phone #: ext- [phone] 06/08/2020 23:41 Patient: LAUREN ALONSO Sex: F : 1990 Age: 29y Thomas [phone] www.addictioncareSKC Communications.[employer] National [place] on Alcoholism and Drug Dependence 100-690-7692 www.ncadd.org Marijuana Anonymous 887-438-7992 www.marijuana- anonymous.orgWhen to seek medical adviceCall your healthcare provider right away if any of these occur: You feel extreme depression, fear, anxiety, or anger toward yourself or others. You feel out of control. You feel that you may try to harm yourself or another. You experience chest pain or shortness of breath. 5353-1041 [employer]. [address] [place] [address], [place] [address]. All rights reserved. This information is not [...] job or your family Arrest, conviction, and half-way sentence for possession of an illegal substance [...] from or related to 6 General Instructions [facility] Emergency Department [address] [place] [address] Phone #: ext- [phone] 06/08/2020 23:41 [facility]: [id number] Sex: F : 1990 Age: 29yaddiction or [...] family and close friends. 7 General Instructions [facility] Emergency Department [address] [place] [address] Phone #: ext- [phone] 06/08/2020 23:41 Patient: [...] of the resources below for help: National [place] on Alcoholism and Drug Dependence, www.ncadd.org 211-711-HKJP Narcotics Anonymous. Check your phone book for a local listing, call 313-180-8722, or visit www.[employer].org. National Alcohol and Substance Abuse Information Center for referral to treatment programs www.[employer] 921-140-0478Nuub 911Call 911 if any of these occur: [...] by your healthcare provider 8 General Instructions [facility] Emergency Department [address] [place] [address] Phone #: ext- [phone] 06/08/2020 23:41 Patient: LAUREN ALONSO Sex: F : 1990 Age: 29y Excessive drowsiness or inability to be awakened Redness, swelling, or tenderness at an injection site 8730-6730 [employer]. [address] [place] [address], [place] [id number]. All rights reserved. This information is not [...] give me certain medical 9 General Instructions [facility] Emergency Department [address] [place] [address] Phone #: ext- [phone] 06/08/2020 23:41 Patient: [...] Chest pressure Sweating Headache 10 General Instructions [facility] Emergency Department [address] [place] [address] Phone #: ext- [phone] 06/08/2020 23:41 Patient: [...] available on this subject. 11 General Instructions [facility] Emergency Department [address] [place] [address] Phone #: ril- [phone] 06/08/2020 23:41 Patient: LAUREN ALONSO Sex: F : 1990 Age: 29yFollow-up careIf you feel that your anxiety is not responding to self-help measures, contact your healthcare provideror make an appointment with a counselor. You may need short-term psychological counseling andtemporary medicine to help you manage stress.Call [phone] if any of these happen: Trouble breathing [...] relieved by rest and mild pain reliever 9430-2615 [employer]. [address] [facility], [place] [address]. All rights reserved. This information is not [...] to stop (psychological addiction) 12 General Instructions [facility] Emergency Department [address] [place] [address] Phone #: ext- [phone] 06/08/2020 23:41 Patient: LAUREN ALONSO Sex: Colby : 1990 Age: 29y Drug withdrawal symptoms if you stop taking the drug (physical dependence) Loss of job or your family Arrest, conviction, and half-way sentence for possession of an illegal substance [...] of the resources below for help: National [place] on Alcoholism and Drug Dependence www.ncadd.org 149-777-5288 Narcotics Anonymous www.na.org 060-028-2476 National Alcohol and Substance Abuse Information Center (for referral to treatment 13 General Instructions [facility] Emergency Department [address] [place] [address] Phone #: [phone] duj- [phone] 06/08/2020 23:41 -- Patient: LAUREN ALONSO Sex: F : 1990 Age: 29y programs) www.addictionSnaptalent 697-472-8014Oura 281Czvo 913 if any of the following occur: Seizure [...] swelling, or tenderness at an injection site 0054-[address] [employer] [place] [address]. All rights reserved. This information is not intended as asubstitute for professional medical care. Always follow your healthcare professional's instructions.Headache, Unspecified 14 General Instructions [facility] Emergency Department [address] [place] [address] Phone #: ext- [phone] 06/08/2020 23:41 Patient: [...] tumor,meningitis, and encephalitis.Home care 15 General Instructions [facility] Emergency Department [address] [place] [address] Phone #: ext- [phone] 06/08/2020 23:41 [facility]: [id number] Sex: F : 1990 Age: 29yFollow these [...] face You have trouble talking or seeing 4358-6860 [employer]. [address] [place] [address]. All rights reserved. This information is not intended as asubstitute for professional medical care. Always follow your healthcare professional's instructions. You have been given the following additional information: 16 General Instr uctions [facility] Emergency Department [address] [place] [address] Phone #: [phone]- [phone] 06/08/2020 23:41 Patient: LAUREN ALONSO Sex: F : 1990 Age: 29yAnxiety ReactionDrug AbuseHeadache, Unspecified(Electronically signed by Thaddeus Coon, Physician 06/09/2020 15:19) Name Value Range Interpretation Code Description Data Melita rce(s) Supporting Document(s) ID Date Data Source [id number] 06/08/2020 11:46:00 PM EDT [facility] 1 Clinical Report - Nurses [facility] Emergency Department [address] [place] [address] Phone #: ext- [phone] 06/08/2020 23:41 Patient: LAUREN ALONSO Sex: F : 1990 Age: 29yTRIAGEAcuity: LEVEL 3.Chief Complaint: HEADACHE.Alert. No acute distress.This started today 1800hrs. She has had sinus pain.Treatment DRUG COORDINATOR:None.SEPSIS SCREEN: SIRS Screen negative. Sepsis Screen negative. [...] 06/08/20 Brice Snyder R.N.MedicationsSuboxone Sublingual. --23:46 06/08/20 Brice Snyder R.N.AllergiesPenicillins.Sulfa Antibiotics. --23:47 06/08/20 Brice Snyder [...] and C, 2 Clinical Report - Nurses [facility] Emergency Department [address] [place] [address] Phone #: ext- [phone] 06/08/2020 23:41 Patient: [...] PROGRESS NOTES 3 Clinical Report - Nurses [facility] [place] [address] Phone #: ext- [phone] 06/08/2020 23:41 Patient: [...] Contreras RN 4 Clinical Report - Nurses [facility] Emergency Department [address] [place] [address] Phone #: ext- [phone] 06/08/2020 23:41 Patient: LAUREN ALONSO Sex: F : 1990 Age: 29y 07:28 06/09/20. ( Called mother's number, no answer. Regular breakfast tray ordered.). --07:42 06/09/20 Tirnity Contreras RN 08:37 06/09/2020 Ibuprofen PO Tablets [...] Contreras RN 5 Clinical Report - Nurses [facility] Emergency Department [address] [place] [address] Phone #: ext- [phone] 06/08/2020 23:41- Patient: LAUREN ALONSO Sex: F : 1990 Age: 29y Name Value Range Interpretation Code Description Data Melita rce(s) Supporting Document(s) ID Date Data Source [id number] 06/08/2020 11:46:00 PM EDT [facility] 1 Clinical Report - Physicians/Mid Levels [facility] Emergency Department [address] [place] [address] Phone #: ext- [phone] 06/08/2020 23:41 Patient: [...] Tubes. 2 Clinical Report - Physicians/Mid Levels [facility] Emergency Department [address] [place] [address] Phone #: ext- [phone] 06/08/2020 23:41 Patient: [...] comein and find home for her a executive secretary social welfare consult is made for the morning; pt still sleeping comfortably. ED care transferred. Case discussed with Dr. Coon. Brief hx: as per H. Pending items: (executive secretary social welfare consult). Tentative impression: substance abuse, homeless. Expected disposition: discharge from ED.CLINICAL IMPRESSION Chronic substance abuse- marijuana, heroin, methamphetamines with anxiety. Homeless situation. 3 Clinical Report - Physicians/Mid Levels [facility] Emergency Department [address] [place] [address] Phone #: ext- [phone] 06/08/2020 23:41 Patient: [...] or back pain. 4 Clinical Report - Physicians/[facility] Emergency Department [address] [place] [address] Phone #: ext- [phone] 06/08/2020 23:41 Patient: [...] NEGATIVE (NORMAL: NEGAT { KIT LOT # [id number] ){ KIT EXP DATE 06.01.21 ){ PROCEDURAL CONTROL VALID ) 5 Clinical Report - Physicians/Mid Levels [facility] Emergency Department [address] [place] [address] Phone #: ext- [phone] 06/08/2020 23:41 Patient: LAUREN ALONSO Sex: F [...] 16.0) 6 Clinical Report - Physicians/Mid Levels [facility] Emergency Department [address] [place] [address] Phone #: ext- [phone] 06/08/2020 23:41 Patient: [...] effectively homeless and will attempt to get E Commerce Marketing Analyst to evaluate and find appropriate disposition. Nurses have tried to contact pt's mother by phone. 10:Jun 09 2020. Mother refuses to come sampler pickup pt. due to her drug abuse. 10:Jun 09 2020. Pt. is verbally abusive, cursing and threatening and refusing to give a urine sample. She says she wants to go to Psych., but they require a urine sample and urine drug screen. Any attempt to get family services assistant to help achieve a disposition [...] arise. 7 Clinical Report - Physicians/Mid Levels [facility] Emergency Department [address] [place] [address] Phone #: ext- [phone] 06/08/2020 23:41 [facility]: [id number] Sex: F : 1990 Age: 29y Follow-up: [...] I understand that a doctor at this [facility] wants to give me certain medical care. I want to leave this hospital without receiving the recommended care. I know that I am welcome to return to this [facility] at any time to receive the [...] rce(s) Supporting Document(s) ID Date Data Source [id number] 06/09/2020 09:14:00 AM EDT [facility] Name Value Range Interpretation Code Description Data Melita rce(s) Supporting Document(s) COMPREHENSIVE METABOLIC PANEL [facility] COMPREHENSIVE METABOLIC PANEL Sodium [Moles/volume] in Serum or Plasma 134 mEq/L 134 - 153 [facility] Potassium [Moles/volume] in Serum or Plasma 3.6 mEq/L 3.6 - 5.0 [facility] Chloride [Moles/volume] in Serum or Plasma 101 mEq/L 98 - 107 [facility] Carbon dioxide, total [Moles/volume] in Serum or Plasma 26 MEQ/L 22 - 30 [facility] Glucose [Mass/volume] in Serum or Plasma 111 MG/DL 65 - 110 [facility] [facility] BUN 10 MG/DL 7 - 21 [facility] Creatinine [Mass/volume] in Serum or Plasma 0.4 MG/DL 0.7 - 1.5 L [facility] BUN/CREAT 25 8 - 27 [facility] al Protein [Mass/volume] in Serum or Plasma 6.9 G/DL 6.3 - 8.2 [facility] Albumin [Mass/volume] in Serum or Plasma 3.8 G/DL 3.9 - 5.0 L [facility] Globulin [Mass/volume] in Serum by calculation 3.1 GM/DL 2.4 - 3.2 [facility] A/G RATIO 1.2 0.8 - 2.0 [facility] Calcium [Mass/volume] in Serum or Plasma 9.0 MG/DL 8.4 - 10.2 [facility] Bilirubin.total [Mass/volume] in Serum or Plasma <0.7 MG/DL 0.2 - 1.3 [facility] Alkaline phosphatase [Enzymatic activity/volume] in Serum or Plasma 68 U/L 38 - 126 [facility] Aspartate aminotransferase [Enzymatic activity/volume] in Serum or Plasma 20 U/L 5 - 40 [facility] Alanine aminotransferase [Enzymatic activity/volume] in Seru m or Plasma 18 U/L 7 - 56 [facility] Anion gap 3 in Serum or Plasma 7.0 mmol/L 8.0 - 16.0 L [facility] AGE 29 yrs [facility] NON-AA GFR >60 mL/min [facility] ital AFR AMER GFR >60 mL/min [facility] Ho spital Male GFR In terprentation [...] >32 mL/min Normal ID Date Data Source [id number] 06/09/2020 09:12:00 AM EDT [facility] Name Value Range Interpretation Code Description Data Melita rce(s) Supporting Document(s) CBC W/AUTOMATED DIFF [facility] COMPLETE BLOOD COUNT Leukocytes [#/volume] in Blood by Automated count 2.9 10^3/uL 4.2 - 1 1.0 L [facility] Erythrocytes [#/volume] in Blood by Automated count 4.56 10^6/uL 4. 20 - 5.40 [facility] Hemoglobin [Mass/volume] in Blood 13.2 g/dL 12.0 - 16.0 [facility] Hematocrit [Volume Fraction] of Blood by Automated count 39.8 % 3 7.0 - 47.0 [facility] Erythrocyte mean corpuscular volume [Entitic volume] by Auto mated count 87.3 fL 81.0 - 101 [facility] Erythrocyte mean corpuscular hemoglobin [Entitic mass] by Automated count 28.9 pg 27.0 - 34.0 [facility] Erythrocyte mean corpuscular hemoglobin concentration [Mass/volume] by Automated count 33.2 g/dL 31.0 - 36.0 [facility] Erythrocyte distribution width [Ratio] by Automated count 13.5 % 11.5 - 14.5 [facility] Platelets [#/volume] in Blood by Automated count 263 10^3/uL 150 - 45 0 [facility] Platelet mean volume [Entitic volume] in Blood by Automated count 9.4 fL 7.4 - 10.4 [facility] Neutrophils/100 leukocytes in Blood by Automated count 24.9 % 37. 0 - 80.0 L [facility] Lymphocytes/100 leukocytes in Blood by Manual count 52.0 % 25.0 - 40.0 H [facility] Monocytes/100 leukocytes in Blood by Automated count 16.7 % 3.0 - 8.0 H [facility] Eosinophils/100 leukocytes in Blood by Automated count 4.4 % 0.0 - 7.0 [facility] 2.0 %IG 0.0 % 0.0 - 0.0 [facility] al %NRBC 0.0 % 0.0 - 0.0 [facility] al Neutrophils [#/volume] in Blood by Automated count 0.73 10^3/uL 2.00 - 6.90 L [facility] Lymphocytes [#/volume] in Blood by Automated count 1.53 10^3/uL 0.60 - 3.40 [facility] Monocytes [#/volume] in Blood by Automated count 0.49 10^3/uL 0.00 - 0.90 [facility] Eosinophils [#/volume] in Blood by Automated count 0.13 10^3/uL 0.00 - 0.70 [facility] Basophils [#/volume] in Blood by Automated count 0.06 10^3/uL 0.00 - 0.20 [facility] #IG 0.00 10^3/uL 0.00 - 0.10 [facility]spital #NRBC 0.00 10^3/uL 0.00 - 0.00 [facility] MANUAL DIFF SEE BELOW [facility] ital Segmented neutrophils/100 leukocytes in Blood by Manual count 25 % 37 - 80 L [facility] %LYMPH 53 % 25 - 40 [facility] al %MONO 15 % 3 - 8 H [facility] %EOS 6 % 0 - 7 [facility] 1 RBC MORPH MORPH IS NORMAL [facility] ID Date Data Source [id number] 06/09/2020 08:58:00 AM EDT [facility] Name Value Range Interpretation Code Description Data Melita rce(s) Supporting Document(s) HCG SERUM QUAL NEGATIVE NORMAL: NEGATIVE [facility] HCG SERUM QL REENTER NEGATIVE NORMAL: NEGATIVE [facility] { KIT LOT # [id number] ){ KIT EXP DATE 06.01.21 ){ PROCEDURAL CONTROL VALID ) ID Date Data Source [id number] 04/29/2020 01:47:00 AM EDT [facility] 1 OrderSheet [facility] Emergency Department [address] [place] [address] Phone #: ext- [phone] 04/29/2020 01:47 Patient: [...] 02:12 Nela Song RN, M.D.; 2 OrderSheet [facility] Emergency Department [address] [place] [address] Phone #: ext- [phone] 04/29/2020 01:47 [id number] Sex[facility] F : 1990 Age: 29yETOH STAT [...] M.D.;NS IV 1000 mL 08:14 04/29/2020 08:15 [place],Bolus: : Bolus 1000 [place], Alana Alana R.N.mL (X1) R.N.; Verbal order per; Nela De La Garza M.D.GENERAL ORDERSOrder Description Priority Entered Acknowledged Initialed 3 OrderSheet [facility] Emerge ncy Department [address] [place] [address] Phone #: ext- [phone] 04/29/2020 01:47 Patient: LAUREN ALONSO Sex: F : 1990 Age: 29yBlood Pressure 02:07 04/29/2020 02:11 Nela Page RN, M.D.;[employer] Developer 02:07 04/29/2020 02:11 Ramone(continuous) Nela De La Garza RN, M.D.;EKG 02:07 04/29/2020 02:38 Holli Bean Riccardo Melissa R.N. M.D.;NPO 02:07 04/29/2020 02:11 Nela Song RN, M.D.;Obtain Old EKG 02:07 04/29/2020 02:11 Nela Song RN, M.D.;Obtain Old Records 02:07 04/29/2020 02:12 Nela Song RN, M.D.;Oxygen titrate to 02:07 04/29/2020 02:12 [id number]% Nela De La Garza RN, M.D.;Pulse oximeter [...] rce(s) Supporting Document(s) ID Date Data Source [id number] 04/29/2020 01:47:00 AM EDT [facility] 1 Medication Reconciliation Report [facility] Emergency Department [address] [place] [address] Phone #: ext- [phone] 04/29/2020 01:47 Patient: [...] rce(s) Supporting Document(s) ID Date Data Source [id number] 04/29/2020 01:47:00 AM EDT [facility] 1 Medication Administration Record [facility] Emergency Department [address] [place] [address] Phone #: ext- [phone] 04/29/2020 01:47 Patient: LAUREN ALONSO Sex: F : 1990 Age: 29yWeight: 49.8 kgHeight/Length: 62 inBMI: 20.1ALLERGIES: Penicillins, Sulfa Antibiotics Date/Time Medication Administered Medication OrderedGiven ATIVAN [IVP] (LORAZEPAM) Ativan IVP 2 mg (HIGH ALERT02:19 04/29/2020 Dose: 2 mg IVP MEDICATION)Donna Bean R.N. Site: #1 right ACStart NS [IV] NS IV 500 mL Bolus: : Bolus 82504:27 04/29/2020 Dose: IV Fluids mL, then 150 [...] NS IV 1000 mL Bolus: : Bolus 272947:15 04/29/2020 Dose: IV Fluids mL (X1)Alana Santos R.N. Bolus: 1000 mL wide open---- Dispensed: 1000 mL bagStop Site: #1 right AC09:10 04/29/2020Alana Santos R.N. Name Value Range Interpretation Code Description Data Melita e(s) Supporting Document(s) ID Date Data Source [id number] 04/29/2020 01:47:00 AM EDT [facility] 1 General Instructions [facility] Emergency Department [address] [place] [address] Phone #: [phone]- [phone] 04/29/2020 01:47 Patient: LAUREN ALONSO Sex: F [...] warning signs listed below. 2 General Instructions [facility] Emergency Department [address] [place] [address] Phone #: ext- [phone] 04/29/2020 01:47 [id number] Sex: F : 1990 Age: 29yHome careFollow [...] or as directed by your healthcare provider [phone] [employer]. [address] [place] [address], [place] [address]. All rights reserved. This information is not intended as asubstitute for professional medical care. Always follow your healthcare professional's instructions.Anxiety Reaction 3 General Instructions [facility] Emergency Department [address] [place] [address] Phone #: ext- [phone] 04/29/2020 01:47 Patient: [...] sleep Sexual problemsHome care 4 General Instructions [facility] Emergency Department [address] [place] [address] Phone #: ext- [phone] 04/29/2020 01:47 Patient: [...] andtemporary medicine to help you manage stress.Call [phone] if any of these happen: Trouble breathing 5 General Instructions [facility] Emergency Department [address] [place] [address] Phone #: ext- [phone] 04/29/2020 01:47 [id number] Sex: F : 1990 Age: 29y Confusion [...] relieved by rest and mild pain reliever [phone] [employer]. [address] [place] [address], [place] [address]. All rights reserved. This information is not [...] Chest pain or discomfort 6 General Instructions [facility] Emergency Department [address] [place] [address] Phone #: ext- [phone] 04/29/2020 01:47 Patient: [...] available on this subject. 7 General Instructions [facility] Emergency Department [address] [place] [address] Phone #: ext- [phone] 04/29/2020 01:47 Patient: LAUREN ALONSO Sex: F : 1990 Age: 29yFollow-up careFollow-up with your healthcare provider, or as advised.Call [phone] if you: Have suicidal thoughts, a suicide [...] your symptoms to the point of feeling [id number] Feeling that you may try to harm [...] you to seek help for your symptoms [phone] [employer] [place] [address]. All rights reserved. This information is not intended as a 8 General Instructions [facility] Emergency Department [address] [place] [address] Phone #: ext- [phone] 04/29/2020 01:47 Patient: [...] job or your family Arrest, conviction, and half-way sentence for possession of an illegal substance [...] residential drug treatment programs. 9 General Instructions [facility] Emergency Department [address] [place] [address] Phone #: ext- [phone] 04/29/2020 01:47 Patient: [...] of the resources below for help: National [place] on Alcoholism and Drug Dependence www.ncadd.org 728-626-4776 Narcotics Anonymous www.na.org 790-381-0901 National Alcohol and Substance Abuse Information Center (for referral to treatment programs) www.addictioncareSKC Communications.[employer] 206-247-8572Dmzk 911Call 911 if any of the following [...] Cough with colored sputum 10 General Instructions [facility] Emergency Department [address] [place] [address] Phone #: ext- [phone] 04/29/2020 01:47 Patient: LAUREN ALONSO Sex: F : 1990 Age: 29y Redness, swelling, or tenderness at an injection site [phone] [employer] [address] [place] [address]. All rights reserved. This information is not [...] you can buy marijuana 11 General Instructions [facility] Emergency Department [address] [place] [address] Phone #: [phone] [id number]- [phone] 04/29/2020 01:47 Patient: LAUREN ALONSO Sex: Colby [...] National Alcohol and Substance Abuse Information Center (097)-922-6342 www.addictioncareSKC Communications.com National [place] on Alcoholism and Drug Dependence 984-075-6141 www.ncadd.org Marijuana Anonymous 942-459-5580 www.marijuana-anonymous.orgWhen to seek medical adviceCall your healthcare provider right away if any of these occur: You feel extreme depression, fear, anxiety, or anger toward yourself or others. You feel out of control. You feel that you may try to harm yourself or another. You experience chest pain or shortness of breath. [phone] [employer]. [address] [place] [address], [place] [address]. All rights reserved. This information is not intended as asubstitute for professional medical care. Always follow your healthcare professional's instructions.Bladder Infection, Female (Adult) 12 General Instructions [facility] Emergency Department [address] [place] [address] Phone #: ext- [phone] 04/29/2020 01:47 Patient: LAUREN ALONSO Sex: F [...] out Blood in urine 13 General Instructions [facility] Emergency Department [address] [place] [address] Phone #: [phone]- [phone] 04/29/2020 01:47 Patient: LAUREN ALONSO Sex: F [...] more serious kidney infection. 14 General Instructions [facility] Emergency Department [address] [place] [address] Phone #: ext- [phone] 04/29/2020 01:47 Patient: [...] find out the results. 15 General Instructions [facility] Emergency Department [address] [place] [address] Phone #: ext- [phone] 04/29/2020 01:47 Patient: LAUREN ALONSO Sex: F : 1990 Age: 29yIf X-rays were done, you will be told if the results will affect your treatment.Call [phone] [phone] if any of the following occur: Trouble [...] swelling in the outer vaginal area (labia) [phone] [employer]. [address] [place] [address], [place] [address]. All rights reserved. This information is not [...] and muscle weakness.Home care 16 General Instructions [facility] Emergency Department [address] [place] [address] Phone #: ext- [phone] 04/29/2020 01:47 [id number] Sex: F : 1990 Age: 29y Take [...] very fast heart rate Loss of consciousness [phone] [employer]. [address] [place] [address], [place] [address]. All rights reserved. This information is not intended as asubstitute for professional medical care. Always follow your healthcare professional's instructions. You have been given the following additional information: Chest Wall Pain, Costochondritis Anxiety Reaction Panic Attack Drug Abuse Marijuana Abuse Bladder Infection, Female (Adult) Hypokalemia 17 General Instructions [facility] Emergency Department [address] [place] [address] Phone #: ext- [phone] 04/29/2020 01:47 - [...] INFORMATIONChest Wall Pain: Costochondritis 18 General Instructions [facility] Emergency Department [address] [place] [address] Phone #: ext- [phone] 04/29/2020 01:47 --- [...] prescribed medicines as directed. 19 General Instructions [facility] Emergency Department [address] [place] [address] Phone #: ext- [phone] 04/29/2020 01:47 Patient: [...] or as directed by your healthcare provider [phone] [employer] [place] [address]. All rights reserved. This information is not [...] ways. You may experience: 20 General Instructions [facility] Emergency Department [address] [place] [address] Phone #: ext- [phone] 04/29/2020 01:47 Patient: [...] to learn how to 21 General Instructions [facility] Emergency Department [address] [place] [address] Phone #: ext- [phone] 04/29/2020 01:47 Patient: [...] andtemporary medicine to help you manage stress.Call [phone] if any of these happen: Trouble breathing Confusion Drowsiness or trouble wakening Fainting or loss of consciousness Rapid heart rate Seizure New chest pain that becomes more severe, lasts longer, or spreads into your shoulder, arm, neck, jaw, or backWhen to seek medical adviceCall your [facility] provider right away if any of these happen: Your symptoms get worse Severe headache not relieved by rest and mild pain reliever 22 General Instructions [facility] Emergency Department [address] [place] [address] Phone #: [phone] [id number]- [phone] 04/29/2020 01:47 Patient: LAUREN ALONSO Sex: F : 1990 Age: 29y [phone] [employer]. [address] [place] [address], [place] [address]. All rights reserved. This information is not intended as asubstitute for professional medical care. Always follow your [facility] professional's instructions.Panic AttackA panic attack is an [...] obvious. These may include: 23 General Instructions [facility] Emergency Department [address] [place] [address] Phone #: ext- [phone] 04/29/2020 01:47 Patient: [...] with your healthcare provider, or as advised.Call [phone] [phone] if you: Have suicidal thoughts, a suicide plan, and the means to carry out the plan Have serious thoughts of hurting someone else Have trouble breathing Are very confused Feel very drowsy or have trouble awakening Faint or lose consciousness Have new chest pain that becomes more severe, lasts longer, or spreads into your shoulder, 24 General Instructions [facility] Emergency Department [address] [place] [address] Phone #: ext- [phone] 04/29/2020 01:47 [facility]: [id number] Sex: F : 1990 Age: 29y arm, neck, jaw, or back Have a very rapid or irregular heartbeat Have a seizureWhen to seek medical advi ceCall your healthcare provider right away if any of these occur: Worsening of your symptoms to the point of feeling [id number] Feeling that you may try to harm [...] you to seek help for your symptoms [phone] [employer]. [address] [place] [address], [place] [address]. All rights reserved. This information is not [...] job or your family Arrest, conviction, and half-way sentence for possession of an illegal substance or for driving under the influence 25 General Instructions [facility] Emergency Department [address] [place] [address] Phone #: ext- [phone] 04/29/2020 01:47 Patient: [...] of the resources below for help: National [place] on Alcoholism and Drug Dependence www.ncadd.org 950-219-2249 Narcotics Anonymous www.na.org 104-770-4733 National Alcohol and Substance Abuse Information Center (for referral to treatment programs) www.[employer] 932-400-1185Ksjx 911Call 389 if any of the following occur: Seizure 26 General Instructions [facility] Emergency Department [address] [place] [address] Phone #: ext- [phone] 04/29/2020 01:47 Patient: [...] swelling, or tenderness at an injection site [phone] [employer]. [address] [place] [address], [place] [address]. All rights reserved. This information is not [...] blood pressure Increased appetite 27 General Instructions [facility] Emergency Department [address] [place] [address] Phone #: ext- [phone] 04/29/2020 01:47 Patient: LAUREN ALONSO Sex: Colby [...] provider, or as advised. 28 General Instructions [facility] Emergency Department [address] [place] [address] Phone #: ext- [phone] 04/29/2020 01:47 Patient: LAUREN ALONSO Sex: F : 1990 Age: 29yFor more information or a referral to a treatment center in your area, contact: Your local mental health center or the National Alcohol and Substance Abuse Information Center (927)-168-0971 www.addictioncareSKC Communications.[employer] National [place] on Alcoholism and Drug Dependence 600-273-3716 www.ncadd.org Marijuana Anonymous 039-049-5867 www.marijuana-anonymous.orgWhen to seek medical adviceCall your healthcare provider right away if any of these occur: You feel extreme depression, fear, anxiety, or anger toward yourself or others. You feel out of control. You feel that you may try to harm yourself or another. You experience chest pain or shortness of breath. [phone] [employer] [address] [place] [address]. All rights reserved. This information is not [...] Once they are in 29 General Instructions [facility] Emergency Department [address] [place] [address] Phone #: ext- [phone] 04/29/2020 01:47 Patient: [...] and travel up to the 30 General [facility] Emergency Department [address] [place] [address] Phone #: ext- [phone] 04/29/2020 01:47 Patient: [...] told you not to. 31 General Instructions [facility] Emergency Department [address] [place] [address] Phone #: ext- [phone] 04/29/2020 01:47 Patient: [...] if the results will affect your treatment.Call [phone] [phone] if any of the following occur: Trouble [...] pain that gets worse 32 General Instructions [facility] Emergency Department [address] [place] [address] Phone #: ext- [phone] 04/29/2020 01:47 Patient: LAUREN ALONSO Sex: F : 1990 Age: 29y Repeated vomiting, or unable to keep medicine down Weakness or dizziness Vaginal discharge Pain, redness, or swelling in the outer vaginal area (labia) [phone] [employer]. [address] [place] [address], [place] [address]. All rights reserved. This information is not [...] or muscle cramps Dizziness 33 General Instructions [facility] Emergency Department [address] [place] [address] Phone #: cxi- [phone] 04/29/2020 01:47 Patient: LAUREN ALONSO Sex: F : 1990 Age: 29yCall 911Call 911 if any of the following occur: Irregular heartbeat, extra beats, or very fast heart rate Loss of consciousness [phone] [employer]. [address] [place] [address]. All rights reserved. This information is not [...] or stop your medicine early.Talk to your radiologist regarding the use of this medicine in children. While this drug may beprescribed for selected conditions, precautions do apply.What side effects may I notice from receiving this medicine?Side effects that you should report to your doctor or health client care coordinator as soon as possible: allergic reactions like [...] continue or are bothersome): 34 General Instructions [facility] Emergency Department [address] [place] [address] Phone #: [phone]- [phone] 04/29/2020 01:47 Patient: LAUREN ALONSO Sex: F [...] medicine?Tell your doctor or health client care coordinator if your symptoms do not begin to improve in a few days.Do not treat diarrhea with over the counter products. Contact your doctor if you have diarrhea that 35 General Instructions [facility] Emergency Department [address] [place] [address] Phone #: ext- [phone] 04/29/2020 01:47 Patient: LAUREN ALONSO Sex: F : 1990 Age: 29ylasts more than 2 days or if it is severe and watery.If you have diabetes, you may get a false-positive result for sugar in your urine. Check with yourdoctor or health client care coordinator.NOTE:This sheet is a summary. It may not [...] rce(s) Supporting Document(s) ID Date Data Source [id number] 04/29/2020 01:47:00 AM EDT [facility] 1 Clinical Report - Nurses [facility] Emergency Department [address] [place] [address] Phone #: [phone] siy- [phone] 04/29/2020 01:47 Patient: LAUREN ALONSO Sex: F : 1990 Age: 29yTRIAGEArrived by EMS.Triage time: 01:50 04/29/2020. Acuity: LEVEL 2.Chief Complaint: ALTERED MENTAL STATUS.This started today. ( per report, patient used meth at 0500 yesterday. Called 911 because "I don't feelright"). She has had nausea.Treatment DRUG COORDINATOR:None.SEPSIS SCREEN: SIRS Screen negative. Sepsis Screen negative. [...] Santos R.N. 2 Clinical Report - Nurses [facility] Emergency Department [address] [place] [address] Phone #: ext- [phone] 04/29/2020 01:47 Patient: [...] Bean R.N. 3 Clinical Report - Nurses [facility] Emergency Department [address] [place] [address] Phone #: ext- [phone] 04/29/2020 01:47 Patient: LAUREN ALONSO Sex: F : 1990 Age: 29y( PO meds may wait until patient is awake per Dr. De La Garza). --05:04/29/20 oDnna Bean R.N.05:26 04/29/20. BP: 87/58. HR: 77. [...] Santos R.N. 4 Clinical Report - Nurses [facility] Emergency Department [address] [place] [address] Phone #: ext- [phone] 04/29/2020 01:47 Patient: [...] course information. Prescription(s) sent electronically to pharmacy ([facility]). Reviewed diet. Patient verbalized understanding. Written instructions provided in Niuean. The patient was discharged by the physician. She was discharged home and accompanied by human resources operations manager. She left ambulatory and via private vehicle. 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 -- 09:48 04/29/20 Alana Santos R.N. [...] rce(s) Supporting Document(s) ID Date Data Source [id number] 04/29/2020 01:47:00 AM EDT [facility] [facility] Clinical Report - Physicians/Mid Levels [facility] Emergency Department [address] [place] [address] Phone #: ext- [phone] 04/29/2020 01:47 Patient: LAUREN ALONSO Sex: F [...] methamphetamines. 2 Clinical Report - Physicians/Mid Levels [facility] Emergency Department [address] [place] [address] Phone #: ext- [phone] 04/29/2020 01:47 [facility]: [id number] Sex[facility] F : 1990 Age: 29yADDITIONAL NOTESThe [...] Catch Acetaminophen Level: (JANETH: 04/29/2020 01:57) ( [facility] 04/29/2020 02:36) Final results Test Result Flag Units (Reference) ACETAMINOPHEN <5.0 UG/ML (0.0 - 30.0) Salicylate Level: (JANETH: 04/29/2020 01:57) ( [facility] 04/29/2020 02:36) Final results Test Result Flag Units (Reference) SALICYLATE <0.5 L mg/dL (2.0 - 20.0) ETOH: (JANETH: 04/29/2020 01:57) ( [facility] 04/29/2020 02:36) Final results Test Result Flag Units (Reference) ALCOHOL <10.0 MG/DL ALCOHOL % 0.00 % (0.00 - 0.01) 3 Clinical Report - Physicians/[facility] Emergency Department [address] [place] [address] Phone #: ext- [phone] 04/29/2020 01:47 [facility]: [id number] Sex[facility] F : 1990 Age: 29y *FOR MEDICAL PURPOSES ONLY*Urinalysis: (JANETH: 04/29/2020 02:15) ( [facility] 04/29/2020 02:29) Final results Test Result Flag [...] (NORMAL: NONEDrug Screen-Urine: (JANETH: 04/29/2020 02:15) ( [facility] 04/29/2020 02:36) Final results Test Result Flag [...] PRESUMPTIVE POSITIVE CONFIRMATION WILL BE PERFORMED AT [facility].CBC w Diff: (JANETH: 04/29/2020 01:57) ( [facility] 04/29/2020 02:37) Final results Test Result Flag Units (Reference) CBC W/AUTOMATED DIFF COMPLETE BLOOD COUNT WBC 3.5 L 10/uL (4.2 - 11.0) RBC 4.95 10/uL (4.20 - 5.40) HEMOGLOBIN 14.4 g/dL (12.0 - 16.0) HEMATOCRIT 41.2 % (37.0 - 47.0) MCV 83.2 fL (81.0 - 101) 4 Clinical Report - Physicians/Mid Levels [facility] Emergency Department [address] [place] [address] Phone #: ext- [phone] 04/29/2020 01:47 Patient: [...] Male GFR Interprentation 20-49 yrs >60 mL/min Haytzx78-19 yrs >56 mL/min Normal 60-69 yrs >49 mL/min Normal 70-79yrs>42 mL/min Normal 80 and above >35 mL/min Normal Female GFRInterpretation 20-39 yrs >60 mL/min Normal 40-49 yrs >58 mL/minNormal 50-59 yrs >51 mL/min Normal 60-69 yrs >45 mL/min Vcsbvv43-37 yrs >39 mL/min Normal 80 and above >32 mL/min NormalLipase: (JANETH: 04/29/2020 01:57) ( Msg[facility]cvd 04/29/2020 02:36) Final results 5 Clinical Report - Physicians/Mid Levels [facility] Emergency Department [address] [place] [address] Phone #: ext- [phone] 04/29/2020 01:47 Patient: LAUREN ALONSO Sex: F : 1990 Age: 29y Test Result Flag Units (Reference) LIPASE 22 U/L (13 - 60) PT/PTT: (JANETH: 04/29/2020 01:57) ( [facility] 04/29/2020 02:36) Final results Test Result Flag [...] Prosthetic valve. Troponin-T: (JANETH: 04/29/2020 01:57) ( [facility] 04/29/2020 02:36) Final results Test Result Flag Units (Reference) TROPONIN T <0.01 NG/ML (0.00 - 0.10) TROPONIN T0.1 ng/ml Recommended as the clinical threshold value forT roponin T. Beta-HCG, Qual Serum: (JANETH: 04/29/2020 01:57) ( [facility] 04/29/2020 02:27) Final results Test Result Flag Units (Reference) HCG SERUM QUAL NEGATIVE (NORMAL: NEGAT HCG SERUM QL REENTER NEGATIVE (NORMAL: NEGAT { KIT LOT # [id number] ){ KIT EXP DATE 046234 ){ PROCEDURAL CONTROL VALID ) Chest Portable 1 View: (JANETH: 04/29/2020 02:07) ( [facility] 04/29/2020 02:40) In Progress CHEST PORTABLE Reason(s): [...] pain 6 Clinical Report - Physicians/Mid Levels [facility] Emergency Department [address] [place] [address] Phone #: ext- [phone] 04/29/2020 01:47 Patient: [...] Reaction. 7 Clinical Report - Physicians/Mid Levels [facility] Emergency Department [address] [place] [address] Phone #: [phone] gkw- [phone] 04/29/2020 01:47 Patient: LAUREN ALONSO Sex: F [...] Catch 8 Clinical Report - Physicians/Mid Levels [facility] Emergency Department [address] [place] [address] Phone #: ext- [phone] 04/29/2020 01:47 Patient: LAUREN ALONSO Sex: F : 1990 Age: 29yAcetaminophen Level: (JANETH: 04/29/2020 01:57) ( Msg[facility]cvd 04/29/2020 02:36) Final results Test Result Flag Units (Reference) ACETAMINOPHEN <5.0 UG/ML (0.0 - 30.0)Salicylate Level: (JANETH: 04/29/2020 01:57) ( [facility] 04/29/2020 02:36) Final results Test Result Flag Units (Reference) SALICYLATE <0.5 L mg/dL (2.0 - 20.0)ETOH: (JANETH: 04/29/2020 01:57) ( [facility] 04/29/2020 02:36) Final results Test Result Flag Units (Reference) ALCOHOL <10.0 MG/DL ALCOHOL % 0.00 % (0.00 - 0.01) *FOR MEDICAL PURPOSES ONLY*Urinalysis: (JANETH: 04/29/2020 02:15) ( [facility] 04/29/2020 02:29) Final results Test Result Flag [...] (NORMAL: NONEDrug Screen-Urine: (JANETH: 04/29/2020 02:15) ( [facility] 04/29/2020 02:36) Final results Test Result Flag [...] ng/ml 9 Clinical Report - Physicians/Mid Levels [facility] Emergency Department [address] [place] [address] Phone #: ext- [phone] 04/29/2020 01:47 Patient: [...] 10.2) 10 Clinical Report - Physicians/Mid Levels [facility] Emergency Department [address] [place] [address] Phone #: ext- [phone] 04/29/2020 01:47 Patient: [...] mL/min Normal Lipase: (JANETH: 04/29/2020 01:57) ( Ncg[facility]cv[facility] 04/29/2020 02:36) Final results Test Result Flag [...] Prosthetic valve. Troponin-T: (JANETH: 04/29/2020 01:57) ( [facility] 04/29/2020 02:36) Final results Test Result Flag Units (Reference) TROPONIN T <0.01 NG/ML (0.00 - 0.10) TROPONIN T0.1 ng/ml Recommended as the clinical threshold value forTroponin T. Beta-HCG, Qual Serum: (JANETH: 04/29/2020 01:57) ( [facility] 04/29/2020 02:27) Final results Test Result Flag Units (Reference) HCG SERUM QUAL NEGATIVE (NORMAL: NEGAT HCG SERUM QL REENTER NEGATIVE (NORMAL: NEGAT { KIT LOT # [id number] ){ KIT EXP DATE 827845 ){ PROCEDURAL CONTROL VALID ) Chest Portable 1 View: (JANETH: 04/29/2020 02:07) ( [facility] 04/29/2020 02:40) In Progress CHEST PORTABLE Reason(s): Chest Pain TRANSPORTATION: P IV? O2? Oxygen?(No) Room: ED. 11 Clinical Report - Physicians/Mid Levels [facility] Emergency Department [address] [place] [address] Phone #: ext- [phone] 04/29/2020 01:47 Patient: [...] medication. 12 Clinical Report - Physicians/Mid Levels [facility] Emergency Department [address] [place] [address] Phone #: ext- [phone] 04/29/2020 01:47 Patient: LAUREN ALONSO Sex: F [...] rce(s) Supporting Document(s) ID Date Data Source [id number] 04/30/2020 08:06:00 [place] [address] RESPIRATORY CARE REPORT ==== ---------NAME------- NUMBER SEX AGE ADMIT DISC. XRAY# F/C TYPEFROST LAUREN Bowman [id number] F 29 04/29/20 04/29/20 [id number] X6B E/R DATE OF : 1990 M/R# [id number] #: [id number] TR-02 LOCATION: EKG [id number] COMPLETE:04/29/20 0 7:37 [facility] [address] PHYSICIAN: HOLLI MART Name Value Range Interpretation Code Description Data Melita rce(s) Supporting Document(s) ID Date Data Source [id number] 04/29/2020 12:23:00 [place] [address] PHONE: [phone] FAX: [phone] Name .................. : ABHISHEK Bowman Acct Number.................. : [id number] ROOM. ................. : TR-02 MR Number ................... : [id number] Stay type ............. : E/R Discharge Date......... ... : Admit Date ......... : 04/29/20 Admit Phys .................... : HOLLI MART Date of ....... : 1990 Family Phys ................... : NO PCP Phone .................. : [phone] Age ................................ : 29 Film# .................. .:[id number] Sex ................................. : F Unsigned transcriptions are preliminary reports and do not represent a medical or legal document CHEST PORTABLE [id number] COMPLETE:04/29/20 02:40 KJE [id number] Reason(s): Chest Pain CHEST PORTABLE, 04/29/20: Comparison [...] rce(s) Supporting Document(s) ID Date Data Source [id number] 05/02/2020 02:19:00 PM EDT [facility] Name Value Range Interpretation Code Description Data Melita rce(s) Supporting Document(s) CULTURE URINE [facility] _CULTURE URINE_$$[id number]$$[id number]$$[id number]$$618607$$906419$$236338$$677851$$647526$$247158$$ 238619$$505004$$019425$$688581$$011462$$190401$$400401$$361121$$345778$$234611$$ 842146$$721492$$105721$$318049$$243897$$221065$$304983$$952703 -- Continued on next page --Patient: ABHISHEK AGUILAR F Order: [id number] Page 2Culture: CULTURE URINE Status: Final ==== -- Continued on next page --Patient: ABHISHEK AGUILAR F Order: [id number] Page 2Culture: CULTURE URINE Status: Prelim =====$$[id number]$$[id number] DATE/TIME: 05/02/2020 13:05Culture: CULTURE URINE Status: FinalUrine Culture,Comprehensive: P1No growth in 36 - 48 hours. Previous result entered on 05/01/2020 06:03 ET Specimen has been received and testing has been initiated.P1 Test performed by: [facility] #: [id number] [address] [place] [address] [id number] [facility] [id number] Director : Lb Degroot MD NPI #:Furniture Repair Technician : 05/01/20.0644.XMT.SENT REF 05/02/20.1419.XMT.SENT REF ID Date Data Source [id number] 04/29/2020 02:36:00 AM EDT [facility] Name Value Range Interpretation Code Description Data Melita rce(s) Supporting Document(s) DRUG SCREEN URINE [facility] URINE DRUG SCREEN Amphetamine [Presence] in Urine by Screen method PRESUMP POS CARLA L: NEGATIVE [facility] BARBITURATES NEGATIVE NORMAL: NEGATIVE [facility] BENZO NEGATIVE NORMAL: NEGATIVE [facility] COCAINE NEGATIVE NORMAL: NEGATIVE [facility] Tetrahydrocannabinol [Presence] in Urine PRESUMP POS NORMAL: NEGATIVE [facility] OPIATES NEGATIVE NORMAL: NEGATIVE [facility] Phencyclidine [Presence] in Urine by Screen method NEGATIVE NOR MAL: NEGATIVE [facility] \\BLDo\\URINE DRUG SCR EEN INTERPRETATION\\BLDx\\ THE CUTOFFF LEVELS FOR DETECTION ARE FOLLOWS: AMPHETAMINES 1000 ng/ml BARBITUARATES 200 ng/ml BENZODIAZEPINES 100 ng/ml THC 50 ng/ml PHENCYCLIDINE 25 ng/ml OPIATES 300 ng/ml COCAINE 300 ng/ml ALL POSITIVES ARE CONSIDERED PRESUMPTIVE POSITIVE CONFIRMATION WILL BE PERFORMED AT PHYSICIAN REQUEST. ID Date Data Source [id number] 04/29/2020 02:28:00 AM EDT [facility] Name Value Range Interpretation Code Description Data Melita rce(s) Supporting Document(s) [facility] SOURCE R [facility] COLOR yellow NORMAL: Yellow [facility] CLARITY clear NORMAL: Clear [facility] Specific gravity of Urine by Test strip 1.025 1.001 - 1.030 [facility] pH 5 5 - 9 [facility] al Glucose [Mass/volume] in Urine by Test strip NORM NORMAL: Negat weston [facility] Bilirubin.total [Presence] in Urine by Test strip 1 NORMAL: Negative [facility] Ketones [Presence] in Urine by Test strip 15 NORMAL: Negative A [facility] Protein [Mass/volume] in Urine by Test strip 30 NORMAL: Negat [facility] Nitrite [Presence] in Urine by Test strip NEG NORMAL: Negative [facility] BLOOD NEG NORMAL: Negative [facility] Leukocyte esterase [Presence] in Urine by Test strip 25 CARLA L: Negative [facility] Urobilinogen [Mass/volume] in Urine by Test strip 4 less violetta n 1.0 mg/dL [facility] MICROSCOPIC See Below [facility] ital WBC 3 - 5 NORMAL: NONE SEEN [facility] Erythrocytes [#/volume] in Urine by Test strip 0 - 1 NORMAL: NON E SEEN [facility] EPITHELIAL MANY NORMAL: NONE SEEN A [facility] Bacteria [Presence] in Urine sediment by Light microscopy 2+ MOD NORMAL: NONE SEEN A [facility] Mucus [Presence] in Urine sediment by Light microscopy 1+ NOR MAL: NONE SEEN [facility] ID Date Data Source [id number] 04/29/2020 02:26:00 AM EDT [facility] Name Value Range Interpretation Code Description Data Melita rce(s) Supporting Document(s) HCG SERUM QUAL NEGATIVE NORMAL: NEGATIVE [facility] HCG SERUM QL REENTER NEGATIVE NORMAL: NEGATIVE [facility] { KIT LOT # [id number] ){ KIT EXP DATE 336082 ){ PROCEDURAL CONTROL VALID ) ID Date Data Source [id number] 04/29/2020 02:36:00 AM EDT [facility] Name Value Range Interpretation Code Description Data Melita rce(s) Supporting Document(s) CBC W/AUTOMATED DIFF [facility] COMPLETE BLOOD COUNT Leukocytes [#/volume] in Blood by Automated count 3.5 10^3/uL 4.2 - 1 1.0 L [facility] Erythrocytes [#/volume] in Blood by Automated count 4.95 10^6/uL 4. 20 - 5.40 [facility] Hemoglobin [Mass/volume] in Blood 14.4 g/dL 12.0 - 16.0 [facility] Hematocrit [Volume Fraction] of Blood by Automated count 41.2 % 3 7.0 - 47.0 [facility] Erythrocyte mean corpuscular volume [Entitic volume] by Auto mated count 83.2 fL 81.0 - 101 [facility] Erythrocyte mean corpuscular hemoglobin [Entitic mass] by Automated count 29.1 pg 27.0 - 34.0 [facility] Erythrocyte mean corpuscular hemoglobin concentration [Mass/volume] by Automated count 35.0 g/dL 31.0 - 36.0 [facility] Erythrocyte distribution width [Ratio] by Automated count 13.2 % 11.5 - 14.5 [facility] Platelets [#/volume] in Blood by Automated count 312 10^3/uL 150 - 45 0 [facility] Platelet mean volume [Entitic volume] in Blood by Automated count 9.0 fL 7.4 - 10.4 [facility] Neutrophils/100 leukocytes in Blood by Automated count 23.3 % 37. 0 - 80.0 L [facility] Lymphocytes/100 leukocytes in Blood by Manual count 61.3 % 25.0 - 40.0 H [facility] Monocytes/100 leukocytes in Blood by Automated count 12.3 % 3.0 - 8.0 H [facility] Eosinophils/100 leukocytes in Blood by Automated count 1.4 % 0.0 - 7.0 [facility] 1.4 %IG 0.3 % 0.0 - 0.0 H [facility] al %NRBC 0.0 % 0.0 - 0.0 [facility] al Neutrophils [#/volume] in Blood by Automated count 0.82 10^3/uL 2.00 - 6.90 L [facility] Lymphocytes [#/volume] in Blood by Automated count 2.15 10^3/uL 0.60 - 3.40 [facility] Monocytes [#/volume] in Blood by Automated count 0.43 10^3/uL 0.00 - 0.90 [facility] Eosinophils [#/volume] in Blood by Automated count 0.05 10^3/uL 0.00 - 0.70 [facility] Basophils [#/volume] in Blood by Automated count 0.05 10^3/uL 0.00 - 0.20 [facility] #IG 0.01 10^3/uL 0.00 - 0.10 [facility] #NRBC 0.00 10^3/uL 0.00 - 0.00 [facility] ospital MANUAL DIFF SEE BELOW [facility] ital Segmented neutrophils/100 leukocytes in Blood by Manual count 26 % 37 - 80 L [facility] %LYMPH 67 % 25 - 40 H [facility] %MONO 6 % 3 - 8 [facility] 1 RBC MORPH NOT INDICATED [facility] ID Date Data Source [id number] 04/29/2020 02:36:00 AM EDT [facility] Name Value Range Interpretation Code Description Data Melita rce(s) Supporting Document(s) Prothrombin time (PT) 13.7 SECONDS 11.0 - 15.5 [facility] INR in Platelet poor plasma by Coagulation assay 1.04 0.93 - 1. 23 [facility] aPTT in Blood by Coagulation assay 27.5 SECONDS 24.8 - 36.7 [facility] \\BLDo\\INR INTERPRETATION\\BLDx\\ Therapeutic range for Coumadin and related oral anticoagulants. - International Normalized Ratio (INR): 2.0 - 3.0 for Venous Thrombosis, Pulmonary Embolus, Tissue heart valves, Acute DE Atrial Fibrillation, Valvular heart disease and recurrent Systemic Embolism. - International Normalized Ratio (INR): 2.5 - 3.5 for Mechanical Prosthetic valve. ID Date Data Source [id number] 04/29/2020 02:36:00 AM EDT [facility] Name Value Range Interpretation Code Description Data Melita rce(s) Supporting Document(s) TROPONIN T <0.01 NG/ML 0.00 - 0.10 [facility] ospital TROPONIN T0.1 ng/ml Recommended as the c linical threshold value forTroponin T. ID Date Data Source [id number] 04/29/2020 02:36:00 AM EDT [facility] Name Value Range Interpretation Code Description Data Melita rce(s) Supporting Document(s) Ethanol [Moles/volume] in Blood <10.0 MG/DL [facility] ALCOHOL % 0.00 % 0.00 - 0.01 [facility] *FOR MEDICAL PURPOSES ONLY * ID Date Data Source [id number] 04/29/2020 02:36:00 AM EDT [facility] Name Value Range Interpretation Code Description Data Melita rce(s) Supporting Document(s) SALICYLATE <0.5 mg/dL 2.0 - 20.0 L [facility] ID Date Data Source [id number] 04/29/2020 02:36:00 AM EDT [facility] Name Value Range Interpretation Code Description Data Melita rce(s) Supporting Document(s) Acetaminophen [Presence] in Urine <5.0 UG/ML 0.0 - 30.0 [facility] ID Date Data Source [id number] 04/29/2020 02:35:00 AM EDT [facility] Name Value Range Interpretation Code Description Data Melita rce(s) Supporting Document(s) Lipase [Enzymatic activity/volume] in Serum or Plasma 22 U/L 13 - 60 [facility] ID Date Data Source [id number] 04/29/2020 02:35:00 AM EDT [facility] Name Value Range Interpretation Code Description Data Melita rce(s) Supporting Document(s) COMPREHENSIVE METABOLIC PANEL [facility] COMPREHENSIVE METABOLIC PANEL Sodium [Moles/volume] in Serum or Plasma 140 mEq/L 134 - 153 [facility] Potassium [Moles/volume] in Serum or Plasma 3.2 mEq/L 3.6 - 5.0 L [facility] Chloride [Moles/volume] in Serum or Plasma 101 mEq/L 98 - 107 [facility] Carbon dioxide, total [Moles/volume] in Serum or Plasma 26 MEQ/L 22 - 30 [facility] Glucose [Mass/volume] in Serum or Plasma 114 MG/DL 65 - 110 H [facility] BUN 9 MG/DL 7 - 21 [facility] Creatinine [Mass/volume] in Serum or Plasma 0.6 MG/DL 0.7 - 1.5 L [facility] BUN/CREAT 15 8 - 27 [facility] Protein [Mass/volume] in Serum or Plasma 7.8 G/DL 6.3 - 8.2 [facility] Albumin [Mass/volume] in Serum or Plasma 4.4 G/DL 3.9 - 5.0 [facility] Globulin [Mass/volume] in Serum by calculation 3.4 GM/DL 2.4 - 3.2 H [facility] A/G RATIO 1.3 0.8 - 2.0 [facility] Calcium [Mass/volume] in Serum or Plasma 9.8 MG/DL 8.4 - 10.2 [facility] Bilirubin.total [Mass/volume] in Serum or Plasma <0.7 MG/DL 0.2 - 1.3 [facility] Alkaline phosphatase [Enzymatic activity/volume] in Serum or Plasma 74 U/L 38 - 126 [facility] Aspartate aminotransferase [Enzymatic activity/volume] in Serum or Plasma 21 U/L 5 - 40 [facility] Alanine aminotransferase [Enzymatic activity/volume] in Seru m or Plasma 43 U/L 7 - 56 [facility] Anion gap 3 in Serum or Plasma 13.0 mmol/L 8.0 - 16.0 [facility] AGE 29 yrs [facility] al NON-AA GFR >60 mL/min [facility] ital AFR AMER GFR >60 mL/min [facility] Male GFR In terprentation [...] >32 mL/min Normal ID Date Data Source [id number] 03/28/2020 03:24:00 PM EDT [facility] 1 OrderSheet [facility] Emergency Department [address] [place] [address] Phone #: ext- [phone] 03/28/2020 15:06 Patient: [...] 16:23 03/28/2020 16:50 Ngozi BAUTISTA; 2 OrderSheet [facility] Emergency Department [address] [place] [address] Phone #: ext- [phone] 03/28/2020 15:06 Patient: LAUREN ALONSO Sex: F [...] rce(s) Supporting Document(s) ID Date Data Source [id number] 03/28/2020 03:24:00 PM EDT [facility] 1 Medication Reconciliation Report [facility] Emergency Department [address] [place] [address] Phone #: ext- [phone] 03/28/2020 15:06 Patient: [...] Dispense 15 tablet.Refills: 0. Substitution permitted.Pharmacy - [id number] [address], [place] [phone]. . -- MICHELE Zurita Name Value Range Interpretation Code Description Data Melita rce(s) Supporting Document(s) ID Date Data Source [id number] 03/28/2020 03:24:00 PM EDT [facility] 1 Medication Administration Record [facility] Emergency Department [address] [place] [address] Phone #: ext- [phone] 03/28/2020 15:06 Patient: LAUREN ALONSO Sex: F : 1990 Age: 29yWeight: 58.9 kgHeight/Length: 63 inBMI: 23ALLERGIES: Penicillins, Sulfa Antibiotics Date/Time Medication Administered Medication OrderedStart NS [IV] NS IV : Bolus 1000 mL, then 77050:39 03/28/2020 Dose: IV Fluids mL/hrPeter JENNIE Alston [...] rce(s) Supporting Document(s) ID Date Data Source [id number] 03/28/2020 03:24:00 PM EDT [facility] 1 General Instructions [facility] Emergency Department [address] [place] [address] Phone #: ext- [phone] 03/28/2020 15:06 [id number] Sex: Colby : 1990 Age: 29ySubstance abuse problems: abuse of opiates.INSTRUCTIONSYour Current Medications: .No home medication.Prescription Medications:ondansetron 8 mg disintegrating tablet Take 1 tablet three times a day for 5 days -- Dispense 15 tablet.Refills: 0. Substitution permitted.Pharmacy - [id number] - [address], [place] [phone]. .Follow-up:Follow up with doctor [facility] call [phone] Sunday. Call for an appointment.Reason for referral: [...] liquids until the symptoms 2 General Instructions [facility] Emergency Department [address] [place] [address] Phone #: ext- [phone] 03/28/2020 15:06 Patient: [...] needle use (redness, warmth, pain, or swelling)Call [phone] if any of these occur: Trouble breathing or swallowing, or wheezing Severe confusion Extreme drowsiness or trouble awakening Fainting or loss of consciousness Rapid heart rate or very slow heart rate Very low or very high blood pressure Vomiting blood, or large amounts of blood in stool Seizure 3 General Instructions [facility] Emergency Department [address] [place] [address] Phone #: ext- [phone] 03/28/2020 15:06 Patient: LAUREN ALONSO Sex: F : 1990 Age: 29y [id number] [employer]. [address] [place] [address]. All rights reserved. This information is not intended as asubstitute for professional medical care. Always follow your healthcare professional's instructions. You have been given the following additional information: Opioid Withdrawal(Electronically signed by MICHELE Zurita 03/28/2020 21:35) Name Value Range Interpretation Code Description Data Melita rce(s) Supporting Document(s) ID Date Data Source [id number] 03/28/2020 03:24:00 PM EDT [facility] 1 Clinical Report - Nurses [facility] Emergency Department [address] [place] [address] Phone #: [phone] gmp- [phone] 03/28/2020 15:06 Patient: LAUREN ALONSO Sex: F : 1990 Age: 29yTRIAGEArrived by private vehicle. Historian: patient.Triage time: 15:03/28/2020. Acuity: LEVEL 3.Chief Complaint: NAUSEA and VOMITING.15:03/28/20. Alert. No acute distress.This started last night. Onset. (1930). She has had vomiting (last DRUG COORDINATOR). The vomiting has occurred twice.She has had transient dizziness when standing.Treatment DRUG COORDINATOR:None.SEPSIS SCREEN: SIRS Screen negative. Sepsis Screen negative. [...] Trinity Contreras RN.PROBLEMS:no known problems.ADDITIONAL SURGERIES:no known surgeries.Yeqzurg94:07 03/28/20.PAST MEDICAL HX: Immunizations: up-to-date.SOCIAL HX: Heavy tobacco smoker (cigarette)- 1 pack per day. No alcohol use or drug use. No recenttravel. No known contact with a sick individual. 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 Patient gowned. Head [...] Santos R.N. 4 Clinical Report - Nurses [facility] Emergency Department [address] [place] [address] Phone #: ext- [phone] 03/28/2020 15:06 [id number] Sex: Colby : 1990 Age: 29y 17:00 [...] course information. Prescription(s) sent electronically to pharmacy ([employer]). Re viewed referrals ([facility]). Patient verbalized understanding. Written instructions provided in Niuean. The patient was discharged by the physician assistant professor of nursing. She was discharged home and unaccompanied at [...] rce(s) Supporting Document(s) ID Date Data Source [id number] 03/28/2020 03:24:00 PM EDT [facility] 1 Clinical Report - Physicians/Mid Levels [facility] Emergency Department [address] [place] [address] Phone #: ext- [phone] 03/28/2020 15:06 Patient: LAUREN ALONSO Sex: F [...] inspection. 2 Clinical Report - Physicians/Mid Levels [facility] Emergency Department [address] [place] [address] Phone #: ext- [phone] 03/28/2020 15:06 Patient: LAUREN ALONSO Sex: F [...] PANEL 3 Clinical Report - Physicians/Mid Levels [facility] Emergency Department [address] [place] [address] Phone #: ext- [phone] 03/28/2020 15:06 Patient: [...] opiates.INSTRUCTIONS 4 Clinical Report - Physicians/Mid Levels [facility] Emergency Department [address] [place] [address] Phone #: ext- [phone] 03/28/2020 15:06 Patient: LAUREN ALONSO Sex: F : 1990 Age: 29y Your Current Medications: . No home medication. Prescription Medications: ondansetron 8 mg disintegrating tablet Take 1 tablet three times a day for 5 days -- Dispense 15 tablet. Refills: 0. Substitution permitted. Pharmacy - [facility] [address], [place] [phone]. . Follow-up: Follow up with [facility] call [phone] Sunday. Call for an appointment. Reason for referral: evaluation and treatment. Summary of care provided to patient. Understanding of the discharge instructions verbalized by patient.(Electronically signed by MICHELE Zurita 03/28/2020 21:35) Name Value Range Interpretation Code Description Data Melita rce(s) Supporting Document(s) ID Date Data Source [id number] 03/28/2020 04:53:00 PM EDT [facility] Name Value Range Interpretation Code Description Data Meilta rce(s) Supporting Document(s) CBC W/AUTOMATED DIFF [facility] CORRECTE D REPORT COMPLETE BLOOD COUNT Leukocytes [#/volume] in Blood by Automated count 2.6 10^3/uL 4.2 - 1 1.0 L [facility] Erythrocytes [#/volume] in Blood by Automated count 4.96 10^6/uL 4. 20 - 5.40 [facility] Hemoglobin [Mass/volume] in Blood 14.2 g/dL 12.0 - 16.0 [facility] Hematocrit [Volume Fraction] of Blood by Automated count 41.4 % 3 7.0 - 47.0 [facility] Erythrocyte mean corpuscular volume [Entitic volume] by Auto mated count 83.5 fL 81.0 - 101 [facility] Erythrocyte mean corpuscular hemoglobin [Entitic mass] by Automated count 28.6 pg 27.0 - 34.0 [facility] Erythrocyte mean corpuscular hemoglobin concentration [Mass/volume] by Automated count 34.3 g/dL 31.0 - 36.0 [facility] Erythrocyte distribution width [Ratio] by Automated count 13.0 % 11.5 - 14.5 [facility] Platelets [#/volume] in Blood by Automated count 205 10^3/uL 150 - 45 0 [facility] Platelet mean volume [Entitic volume] in Blood by Automated count 9.7 fL 7.4 - 10.4 [facility] Neutrophils/100 leukocytes in Blood by Automated count 78.0 % 37. 0 - 80.0 [facility] Lymphocytes/100 leukocytes in Blood by Manual count 7.3 % 25.0 - 40.0 L [facility] Monocytes/100 leukocytes in Blood by Automated count 8.9 % 3.0 - 8.0 H [facility] Eosinophils/100 leukocytes in Blood by Automated count 4.6 % 0.0 - 7.0 [facility] 1.2 Basophils/100 leukocytes in Blood by Automated count 1.2 % 0.0 - 2.5 [facility] %IG 0.0 % 0.0 - 0.0 [facility]NRBC 0.0 % 0.0 - 0.0 [facility] Neutrophils [#/volume] in Blood by Automated count 2.02 10^3/uL 2.00 - 6.90 [facility] Lymphocytes [#/volume] in Blood by Automated count 0.19 10^3/uL 0.60 - 3.40 L [facility] Monocytes [#/volume] in Blood by Automated count 0.23 10^3/uL 0.00 - 0.90 [facility] Eosinophils [#/volume] in Blood by Automated count 0.12 10^3/uL 0.00 - 0.70 [facility] Basophils [#/volume] in Blood by Automated count 0.03 10^3/uL 0.00 - 0.20 [facility] #IG 0.00 10^3/uL 0.00 - 0.10 [facility] #NRBC 0.00 10^3/uL 0.00 - 0.00 [facility] MANUAL DIFF SEE BELOW [facility] Segmented neutrophils/100 leukocytes in Blood by Manual count 67 % 37 - 80 [facility] BAND 10 % 0 - 5 [facility] %LYMPH 10 % 25 - 40 L [facility] %MONO 5 % 3 - 8 [facility] %EOS 6 % 0 - 7 [facility] 2 RBC MORPH MORPH IS NORMAL [facility] FOLLOWING RESULTS REPORTED IN ERROR MANUAL DIFF RBC MORPH { CORRECT INDICATED ID Date Data Source [id number] 03/28/2020 04:20:00 PM EDT [facility] Name Value Range Interpretation Code Description Data Melita rce(s) Supporting Document(s) COMPREHENSIVE METABOLIC PANEL [facility] COMPREHENSIVE METABOLIC PANEL Sodium [Moles/volume] in Serum or Plasma 132 mEq/L 134 - 153 L [facility] Potassium [Moles/volume] in Serum or Plasma 3.4 mEq/L 3.6 - 5.0 L [facility] Chloride [Moles/volume] in Serum or Plasma 96 mEq/L 98 - 107 L [facility] Carbon dioxide, total [Moles/volume] in Serum or Plasma 25 MEQ/L 22 - 30 [facility] Glucose [Mass/volume] in Serum or Plasma 113 MG/DL 65 - 110 H [facility] BUN 8 MG/DL 7 - 21 [facility] al Creatinine [Mass/volume] in Serum or Plasma 0.5 MG/DL 0.7 - 1.5 L [facility] BUN/CREAT 16 8 - 27 [facility] al Protein [Mass/volume] in Serum or Plasma 7.9 G/DL 6.3 - 8.2 [facility] Albumin [Mass/volume] in Serum or Plasma 4.6 G/DL 3.9 - 5.0 [facility] Globulin [Mass/volume] in Serum by calculation 3.3 GM/DL 2.4 - 3.2 H [facility] A/G RATIO 1.4 0.8 - 2.0 [facility] al Calcium [Mass/volume] in Serum or Plasma 9.3 MG/DL 8.4 - 10.2 [facility] Bilirubin.total [Mass/volume] in Serum or Plasma 1.0 MG/DL 0.2 - 1.3 [facility] Alkaline phosphatase [Enzymatic activity/volume] in Serum or Plasma 94 U/L 38 - 126 [facility] Aspartate aminotransferase [Enzymatic activity/volume] in Serum or Plasma 102 U/L 5 - 40 H [facility] Alanine aminotransferase [Enzymatic activity/volume] in Seru m or Plasma 69 U/L 7 - 56 H [facility] Anion gap 3 in Serum or Plasma 11.0 mmol/L 8.0 - 16.0 [facility] AGE 29 yrs [facility] NON-AA GFR >60 mL/min [facility] AFR AMER GFR >60 mL/min [facility] spital Male GFR In terprentation [...] >32 mL/min Normal ID Date Data Source [id number] 03/28/2020 04:10:00 PM EDT [facility] Name Value Range Interpretation Code Description Data Melita rce(s) Supporting Document(s) Lipase [Enzymatic activity/volume] in Serum or Plasma 31 U/L 13 - 60 [facility] ID Date Data Source [id number] 10/28/2019 09:33:00 AM EST [facility] [address] [place] [address] PHONE: [phone] FAX: [phone] Name .................. : ABHISHEK Bowman Acct Number.................. : [id number] ROOM. ................. : TR-05 Number ................... : [id number] Stay type ............. : E/R Discharge Date......... ... : 10/27/19 Admit Date .... ..... : 10/27/19 Admit Phys .................... : SUSANARIN BARRON Date of ....... : 1990 Family Phys ................... : NO PCP Phone .................. : [phone] Age ................................ : 29 Film# .................. .:[id number] Sex ................................. : F Unsigned transcriptions are preliminary reports and do not represent a medical or legal document KNEE COMPLETE-4 OR MORE S [id number] COMPLETE:10/27/19 16:22 [facility] [place] [id number] Reason(s): Knee Injury LEFT KNEE X-RAY: HISTORY: [...] rce(s) Supporting Document(s) ID Date Data Source [id number] 10/27/2019 01:47:00 PM EST [facility] 1 OrderSheet [facility] Emergency Department [address] [place] [address] Phone #: ext- [phone] 10/27/2019 13:42 Patient: LAUREN ALONSO Sex: F [...] rce(s) Supporting Document(s) ID Date Data Source [id number] 10/27/2019 01:47:00 PM EST [facility] 1 Medication Reconciliation Report [facility] Emergency Department [address] [place] [address] Phone #: ext- [phone] 10/27/2019 13:42 Patient: LAUREN ALONSO Sex: F [...] Dispense 28tablet. Refills: 0. Substitution permitted.Pharmacy - [facility] [address] - [address] [place] [address] ; [place], [place] [phone]. . -- Nela De La Garza M.D.Hydrocodone/APAP 5mg / 325mg: take 1 orally every 6 hours as needed for acute pain. Dispense twelve(12). No refill. -- Nela De La Garza M.D. Name Value Range Interpretation Code Description Data Melita rce(s) Supporting Document(s) ID Date Data Source [id number] 10/27/2019 01:47:00 PM EST [facility] 1 Medication Administration Record [facility] Emergency Department [address] [place] [address] Phone #: ext [phone] 10/27/2019 13:42 Patient: LAUREN ALONSO Sex: F : 1990 Age: 29yWeight: 58.9 kgHeight/Length: 63 inBMI: 23ALLERGIES: Penicillins, Sulfa Antibiotics Date/Time Medication Administered Medication OrderedGiven TORADOL [IM] (KETOROLAC Toradol IM 30 mg14:13 10/27/2019 TROMETHAMINE)Nikita Reyes RN Dose: 30 mg IMGiven HYDROCODONE-APAP (5-325MG) [PO] HYDROcodone-APAP14:13 10/27/2019 (ACETAMINOPHEN-HYDROCODONE) (5-325mg)PO 1 tab ([facility] ALERTT[facility] JENNIE Reyes Dose: 1 tab 5/325 mg Tablets PO MEDICATION) Name Value Range Interpretation Code Description Data Melita rce(s) Supporting Document(s) ID Date Data Source [id number] 10/27/2019 01:47:00 PM EST [facility] 1 General Instructions [facility] Emergency Department [address] [place] [address] Phone #: ext- [phone] 10/27/2019 13:42 Patient: [...] Dispense 28tablet. Refills: 0. Substitution permitted.Pharmacy - [facility] [address] - [address] [facility] [address] ; [place], [place] [phone]. .Follow-up:Return to the emergency department as needed. [...] to plan of care.Follow-up with: [facility], , , [address] [place] [address], [address] 2 General Instructions [facility] Emergency Department [address] [place] [address] Phone #: ext- [phone] 10/27/2019 13:42 [facility]: [id number] Sex: F : 1990 Age: 29y Follow [...] rarely require surgery.Home care 3 General Instructions [facility] Emergency Department [address] [place] [address] Phone #: ext- [phone] 10/27/2019 13:42 Patient: [id number] Sex: F : 1990 Age: 29y Stay [...] splint. If you have to wear a jddq-ohr-xhuf knee brace, you can open it to apply the ice pack, or heat, directly to the knee. Never put ice directly on the skin. Always wrap the ice in a towel or other type of cloth. You may use istx-cob-pjzqffc pain medicine to control pain, unless another [...] wet, you can dry it with a chair inspector set to cool. If you have a dqdt-ktm-ymzd knee brace, you can remove this to [...] new findings that may affect your care.Call [phone] if you have: Shortness of breath Chest pain 4 General Instructions [facility] Emergency Department [address] [place] [address] Phone #: ext- [phone] 10/27/2019 13:42 Patient: [id number] Sex: F : 1990 Age: 29yWhen to seek medical adviceCall your healthcare provider right away if any of these occur: The splint or knee immobilizer brace becomes wet or soft The fiberglass cast or splint remains wet for more than 24 hours Pain or swelling increases The injured leg or toes become cold, blue, numb, or tingly [id number] [employer]. [address] [place] [address]. All rights reserved. This information is not intended as asubstitute for professional medical care. Always follow your healthcare professional's instructions.Fluid on the KneeFluid on the knee is also known as knee effusion. The knee joint normally has less than 1 ounce of 5 General Instructions [facility] Emergency Department [address] [place] [address] Phone #: tua- [phone] 10/27/2019 13:42 Patient: LAUREN ALONSO Sex: F [...] heat. If you have to wear a gral-yfs-phbm knee brace, you can open it to apply the ice pack, or heat, directly to the knee. Never put ice directly on the skin. Always wrap the ice in a towel or other type of cloth. You may use nyan-ehd-uhirrnk pain medicine to control pain, unless another [...] full work duties. If you have a etgg-ceh-lhdd knee brace, you can remove it to bathe and sleep, unless told otherwise.Follow-up careFollow up with your healthcare provider as advised.If you are overweight, talk to your healthcare provider about a weight loss program. The excessweight puts extra strain on your knees. 6 General Instructions [facility] Emergency Department [address] [place] [address] Phone #: ext- [phone] 10/27/2019 13:42 Patient: LAUREN ALONSO Sex: F : 1990 Age: 29yWhen to seek medical adviceCall your healthcare provider right away if any of these occur: Increasing pain, redness, or swelling of the knee Fever of 100.4F (38C) or above lasting for 24 to 48 hours, or as advised Shaking chills [phone] [employer]. [address] [place] [address], [place] [address]. All rights reserved. This information is not [...] of joint movement. You can open the qfpw-wwv-zmbh brace to dress, bathe, and apply ice or heat packs as directed.Call [phone] if you have: Shortness of breath Chest painWhen to seek medical adviceCall your healthcare provider right away if any of these occur: Worsening pain in the knee Weakness, numbness, or tingling in the foot Increased swelling, redness or warmth of the knee joint 4020-[address] [employer] [place] [address]. All rights reserved. This information is not intended as asubstitute for professional medical care. Always follow your healthcare professional's instructions. 7 General Instructions [facility] Emergency Department [address] [place] [address] Phone #: ext- [phone] 10/27/2019 13:42 Patient: LAUREN ALONSO Sex: F : 1990 Age: 29yY ou have been given the following additional information:Knee SprainKnee EffusionKnee ImmobilizerReturn to work in five days.(Electronically signed by Nela De La Garza M.D. 10/27/2019 18:21) Name Value Range Interpretation Code Description Data Melita rce(s) Supporting Document(s) ID Date Data Source [id number] 10/27/2019 01:47:00 PM EST [facility] 1 Clinical Report - Nurses [facility] Emergency Department [address] [place] [address] Phone #: [phone]- [phone] 10/27/2019 13:42 [id number] Sex: F : 1990 Age: 29yTRIAGEArrived by [...] but declined. 2 Clinical Report - Nurses [facility] Emergency Department [address] [place] [address] Phone #: ext- [phone] 10/27/2019 13:42 Patient: [...] Patient transported to radiology by wheelchair with cath lab radiology technician. ([id number]). --14:13 10/27/19 Nikita Reyes RN Patient returned from radiology by wheelchair with cath lab radiology technician. ([id number]). --14:19 10/27/19 Nikita Reyes RN 15:02 10/27/19. BP: 129/78. MAP: 95. HR: 83. RR: 16. O2 saturation: 98%. 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 Patient and human resources operations manager verbalized understanding. Written instructions provided in Niuean. The patient was discharged by the physician. She was discharged home and accompanied by human resources operations manager. She left ambulatory and via private vehicle. 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 --16:14 10/27/19 Nikita Reyes RN.Locked/Released at 10/27/2019 19:29 by Nikita Reyes RN Name Value Range Interpretation Code Description Data Melita rce(s) Supporting Document(s) ID Date Data Source [id number] 10/27/2019 01:47:00 PM [facility] 1 Clinical Report - Physicians/Mid Levels [facility] Emergency Department [address] [place] [address] Phone #: ext- [phone] 10/27/2019 13:42 Patient: LAUREN ALONSO Sex: F [...] allergies. 2 Clinical Report - Physicians/Mid Levels [facility] Emergency Department [address] [place] [address] Phone #: wdh- [phone] 10/27/2019 13:42 Patient: LAUREN ALONSO Sex: F [...] treatment. 3 Clinical Report - Physicians/Mid Levels [facility] Emergency Department [address] [place] [address] Phone #: ext- [phone] 10/27/2019 13:42 Patient: [...] tablet. Refills: 0. Substitution permitted. Pharmacy - [facility] [address] - [address], [place] [phone]. Ph one: . Follow-up: Return to the [...] plan of care. Follow-up with: [facility], , , [address] [address], , [place], [address] Follow up in three days even if well. Call for an appointment. Reason for referral: evaluation, treatment 4 Clinical Report - Physicians/Mid Levels [facility] Emergency Department [address] [place] [address] Phone #: ext- [phone] 10/27/2019 13:42 [id number] Sex: F : 1990 Age: 29y and to rule out meniscal tear or cruciate ligament injury. Summary of care provided to patient via paper.(Electronically signed by Nela De La Garza M.D. 10/27/2019 18:21) Name Value Range Interpretation Code Description Data Melita rce(s) Supporting Document(s) Procedure
[2020-10-13] MEDS ORDERED: LORazepam 1 MG TAB PO ONE (21:30)
== END 2020-10-14 14:58 | disposition home or self-care (01) ==
LOC: M ED 16:39
DX: F15.10 Other stimulant abuse, uncomplicated (principal); J45.909 Unspecified asthma, uncomplicated; F25.9 Schizoaffective disorder, unspecified; Z79.899 Other long term (current) drug therapy; Z88.0 Allergy status to penicillin; Z88.1 Allergy status to other antibiotic agents; Z88.2 Allergy status to sulfonamides

== ENCOUNTER 2020-10-28 17:29 | Emergency (ER) | payer OTHER ==
[~2020-10-28] VITALS: Ht 167.6 cm; Wt 54.5 kg
[2020-10-28 19:25] VITALS: BP 143/89
== END 2020-10-28 19:27 | disposition home or self-care (01) ==
LOC: M ED 17:29
DX: F43.0 Acute stress reaction (principal); Z88.0 Allergy status to penicillin; Z88.1 Allergy status to other antibiotic agents; Z88.2 Allergy status to sulfonamides; F17.210 Nicotine dependence, cigarettes, uncomplicated

== ENCOUNTER 2022-01-03 23:15 | Emergency (ER) | payer OTHER ==
[~2022-01-03] VITALS: Ht 162.6 cm; Wt 59.1 kg
[~2022-01-03 23:15] MED LIST changes: +NICO21PAT TD
[2022-01-03 23:34] VITALS: BP 135/84
== END 2022-01-04 01:06 | disposition home or self-care (01) ==
LOC: M ED 23:15
DX: Z04.6 Encounter for general psychiatric examination, requested by authority (principal); J45.909 Unspecified asthma, uncomplicated; F60.3 Borderline personality disorder; F15.10 Other stimulant abuse, uncomplicated; Z79.899 Other long term (current) drug therapy; Z88.0 Allergy status to penicillin; Z88.1 Allergy status to other antibiotic agents; Z88.2 Allergy status to sulfonamides; Z88.8 Allergy status to other drugs, medicaments and biological substances; F12.20 Cannabis dependence, uncomplicated

== ENCOUNTER → 2022-01-16 | Outpatient (CLI) | payer MEDICAID | LOC: M OUTALCOH 08:10 | PROVIDERS: ATTEND Psychiatry & Neurology Psychiatry | DX: Z03.89 Encounter for observation for other suspected diseases and conditions ruled out (principal) ==

== ENCOUNTER 2022-02-21 09:00 | Outpatient (RCR) | payer MEDICAID | END 2022-02-23 | LOC: M OUTALCOH 09:00 | PROVIDERS: ATTEND Psychiatry & Neurology Psychiatry | DX: F15.20 Other stimulant dependence, uncomplicated (principal); F17.200 Nicotine dependence, unspecified, uncomplicated ==

== ENCOUNTER 2022-03-24 14:55 | Outpatient (RCR) | payer MEDICAID | END 2022-03-26 | LOC: M OUTALCOH 14:55 | PROVIDERS: ATTEND Psychiatry & Neurology Psychiatry | DX: F15.20 Other stimulant dependence, uncomplicated (principal); F17.200 Nicotine dependence, unspecified, uncomplicated ==

== ENCOUNTER 2022-04-25 09:45 | Outpatient (RCR) | payer MEDICAID | END 2022-04-26 | LOC: M OUTALCOH 09:45 | PROVIDERS: ATTEND Psychiatry & Neurology Psychiatry | DX: F15.20 Other stimulant dependence, uncomplicated (principal); F17.200 Nicotine dependence, unspecified, uncomplicated ==

== ENCOUNTER 2022-05-25 10:00 | Outpatient (RCR) | payer MEDICAID | END 2022-05-26 | LOC: M OUTALCOH 10:00 | PROVIDERS: ATTEND Psychiatry & Neurology Psychiatry | DX: F15.20 Other stimulant dependence, uncomplicated (principal); F17.200 Nicotine dependence, unspecified, uncomplicated ==

== ENCOUNTER 2022-06-13 10:17 | Inpatient (IN) | payer MEDICAID, OTHER ==
[~2022-06-13] VITALS: Ht 160 cm; Wt 56.7 kg
[2022-06-13 10:46] LABS: HEMATOCRIT 44.2 % (36.0-47.0); HEMOGLOBIN 14.9 g/dl (12.0-15.5); MEAN CORPUSCULAR HEMOGLOBIN 29.3 pg (27.0-33.0); MEAN CORPUSCULAR HGB CONC 33.7 g/dl (32.0-36.5); MEAN CORPUSCULAR VOLUME 86.8 fl (80.0-96.0); PLATELET COUNT, AUTOMATED 364 10^3/uL (150-450); RED BLOOD COUNT 5.09 10^6/uL (4.00-5.40); WHITE BLOOD COUNT 2.4 10^3/uL (4.0-10.0)
[2022-06-13 11:14] LABS: HCG, SERUM QUALITATIVE NEGATIVE (NEGATIVE)
[2022-06-13 11:20] LABS: RSV AMPLIFICATION NEGATIVE (NEGATIVE)
[2022-06-13 11:30] LABS: ACETAMINOPHEN LEVEL < 2.0 UG/ML (10.0-30.0); ALBUMIN 4.5 GM/DL (3.2-5.2); ALT/SGPT 37 U/L (12-78); BILIRUBIN,DIRECT 0.1 MG/DL (0.0-0.2); BILIRUBIN,TOTAL 0.5 MG/DL (0.2-1.0); BLOOD UREA NITROGEN 10 MG/DL (7-18); CALCIUM LEVEL 9.4 MG/DL (8.5-10.1); CARBON DIOXIDE LEVEL 27 MEQ/L (21-32); CHLORIDE LEVEL 104 MEQ/L (98-107); CREATININE FOR GFR 0.67 MG/DL (0.55-1.30); ETHYL ALCOHOL (ETHANOL) < 0.003 % (0.000-0.010); GLOMERULAR FILTRATION RATE > 60.0 (>60); GLUCOSE, FASTING 90 MG/DL (70-100); POTASSIUM SERUM 3.8 MEQ/L (3.5-5.1); SALICYLATE LEVEL 2.4 MG/DL (5.0-30.0); SODIUM LEVEL 137 MEQ/L (136-145)
[2022-06-13 11:31] LABS: AMPHETAMINES LEVEL URINE NEGATIVE (NEGATIVE); BARBITURATES URINE NEGATIVE (NEGATIVE); BENZODIAZEPINES URINE NEGATIVE (NEGATIVE); CANNABINOIDS URINE NEGATIVE (NEGATIVE); COCAINE METABOLITE URINE NEGATIVE (NEGATIVE); METHADONE URINE NEGATIVE (NEGATIVE); OPIATES URINE NEGATIVE (NEGATIVE); PHENCYCLIDINE URINE NEGATIVE (NEGATIVE)
[2022-06-13] MEDS ORDERED: HOME MED LIST COMPLETE! XX SCH (14:40)
[2022-06-13] MEDS ORDERED: traZODone 50 MG TAB PO PRN (14:50)
[2022-06-13] MEDS ORDERED: OLANZapine ORAL DISINTEGRATING TAB 5MG PO PRN (14:50)
[2022-06-13] MEDS ORDERED: MOM 30ML SUSPENSION UDC PO PRN (14:50)
[2022-06-13] MEDS ORDERED: MAALOX 30 ML SUSP *UDC PO PRN (14:50)
[2022-06-13] MEDS ORDERED: hydrOXYzine 50 MG TAB PO PRN (14:50)
[2022-06-13 15:58] VITALS: BP 128/78
[2022-06-14 06:16] VITALS: BP 121/78
[2022-06-14] MEDS: NICOTINE 21MG/24HR 1 EA TRANSDERMAL TD SCH (09:00)
[2022-06-14] MEDS: IBUPROFEN 400MG TAB PO PRN (10:06)
[2022-06-14] MEDS: FLUoxetine 20MG CAP PO SCH (12:57)
[2022-06-14] MEDS: OLANZapine 5 MG TAB PO SCH (20:26)
[2022-06-15 06:16] VITALS: BP 127/80
[2022-06-15 06:58] LABS: CHOLESTEROL RISK RATIO 3.645 (<5)
[2022-06-15] MEDS: NICOTINE 21MG/24HR 1 EA TRANSDERMAL TD SCH (09:00)
[2022-06-15] MEDS: FLUoxetine 20MG CAP PO SCH (09:00)
[2022-06-15] MEDS: IBUPROFEN 400MG TAB PO PRN (10:18)
[2022-06-15 18:41] VITALS: BP 119/82
[2022-06-15] MEDS: OLANZapine 5 MG TAB PO SCH (20:27)
[2022-06-16 06:12] VITALS: BP 113/60
[2022-06-16] MEDS: NICOTINE 21MG/24HR 1 EA TRANSDERMAL TD SCH (08:31)
[2022-06-16] MEDS: FLUoxetine 20MG CAP PO SCH (08:31)
[2022-06-16] MEDS: OLANZapine 5 MG TAB PO SCH (21:00)
[2022-06-17 06:58] VITALS: BP 134/87
[2022-06-17] MEDS: NICOTINE 21MG/24HR 1 EA TRANSDERMAL TD SCH (09:00)
[2022-06-17] MEDS: OLANZapine 5 MG TAB PO SCH ×2 (21:00→21:32)
[2022-06-18] MEDS: NICOTINE 21MG/24HR 1 EA TRANSDERMAL TD SCH (07:18)
[2022-06-18 18:17] VITALS: BP 116/77
[2022-06-18] MEDS: OLANZapine 5 MG TAB PO SCH (21:00)
[2022-06-19] MEDS: NICOTINE 21MG/24HR 1 EA TRANSDERMAL TD SCH (09:00)
[2022-06-19] MEDS: OLANZapine 5 MG TAB PO SCH (21:06)
[2022-06-20] MEDS: NICOTINE 21MG/24HR 1 EA TRANSDERMAL TD SCH (09:00)
[2022-06-20 17:52] VITALS: BP 129/86
[2022-06-20] MEDS: OLANZapine 5 MG TAB PO SCH (20:49)
[2022-06-21] MEDS: NICOTINE 21MG/24HR 1 EA TRANSDERMAL TD SCH (09:00)
[2022-06-21] MEDS ORDERED: OLAN1TAB16 PO (10:06)
== END 2022-06-21 11:51 | disposition home or self-care (01) | DRG 751 ==
LOC: M ED 10:17 → M ED INP 14:48 → M PSY 15:25
PROVIDERS: ADMIT Student in an Organized Health Care Education/Training Program; ATTEND Psychiatry & Neurology Psychiatry
DX: F29 Unspecified psychosis not due to a substance or known physiological condition (principal); U07.1 COVID-19; R45.851 Suicidal ideations; F79 Unspecified intellectual disabilities; F15.10 Other stimulant abuse, uncomplicated; F60.3 Borderline personality disorder; F11.10 Opioid abuse, uncomplicated; F84.9 Pervasive developmental disorder, unspecified; J45.909 Unspecified asthma, uncomplicated; F80.0 Phonological disorder; H91.90 Unspecified hearing loss, unspecified ear; F17.200 Nicotine dependence, unspecified, uncomplicated; Z56.0 Unemployment, unspecified; Z88.0 Allergy status to penicillin; Z88.2 Allergy status to sulfonamides; Z88.8 Allergy status to other drugs, medicaments and biological substances

== ENCOUNTER 2022-06-22 09:46 | Outpatient (RCR) | payer MEDICAID ==
[~2022-06-22 09:46] MED LIST changes: +OLAN1TAB16 PO
== END 2022-06-26 ==
LOC: M OUTALCOH 09:46
PROVIDERS: ATTEND Psychiatry & Neurology Psychiatry
DX: F15.20 Other stimulant dependence, uncomplicated (principal); F17.200 Nicotine dependence, unspecified, uncomplicated

== ENCOUNTER 2022-07-18 09:00 | Outpatient (RCR) | payer MEDICAID | END 2022-07-26 | LOC: M OUTALCOH 09:00 | PROVIDERS: ATTEND Psychiatry & Neurology Psychiatry | DX: F15.20 Other stimulant dependence, uncomplicated (principal); F17.200 Nicotine dependence, unspecified, uncomplicated ==